=== PATIENT | female | born 1935 | race Caucasian/White ===

== ENCOUNTER → 2016-11-20 | Outpatient (CLI) | payer MEDICARE, BC ==
[2016-11-20 08:52] LABS: CHCM 34.3; HCT 41.6 % (34.0-46.0); HDW 3.56; HGB 13.6 gm/dL (11.4-16.0); MCH 28.9 pg (25.0-35.0); MCHC 32.7 g/dL (31.0-37.0); MCV 88.3 fL (80.0-100.0); Mean Platelet Volume 7.4; Poikilocytosis Slight; RBC 4.72 m/uL (3.80-5.40)
[2016-11-20 09:16] LABS: ALT 32 U/L (9-52); AST 22 U/L (14-36); Alkaline Phosphatase 94 U/L (38-126); Anion Gap 17 mmol/L; Blood Urea Nitrogen 18 mg/dL (7-17); Calcium 9.7 mg/dL (8.4-10.2); Carbon Dioxide 27 mmol/L (22-30); Chloride 105 mmol/L (98-107); Cholesterol 170 mg/dL (<200); Glucose 126 mg/dL (74-99); HDL Cholesterol 31 mg/dL (40-60); Non-African American GFR(MDRD) >60 (>60 ml/min/1.73 sqM); Potassium 4.1 mmol/L (3.5-5.1); Sodium 149 mmol/L (137-145); Total Bilirubin 0.9 mg/dL (0.2-1.3); Triglycerides 215 mg/dL (<150)
== END | disposition home or self-care (01) ==
LOC: LABWHC1 07:43
PROVIDERS: ATTEND Internal Medicine
DX: E11.9 Type 2 diabetes mellitus without complications (principal); I10 Essential (primary) hypertension; E78.5 Hyperlipidemia, unspecified; E03.9 Hypothyroidism, unspecified
CPT/HCPCS: 36415; 80053; 80061; 83036; 84443; 85027

== ENCOUNTER → 2016-11-26 | Outpatient (CLI) | payer MEDICARE, BC ==
--- NOTE | 2016-11-26 13:08 | XR ---
EXAMINATION TYPE: Right rib series DATE OF EXAM: 11/26/2016 12:45 PM COMPARISON: 07/30/2011 HISTORY: 80 year-old female right chest pain after fall FINDINGS: There are several nondisplaced fractures of the right anterolateral ninth and 10th ribs. No pleural effusion or pneumothorax seen. IMPRESSION: Nondisplaced fractures of the right anterolateral ninth and 10th ribs.
== END | disposition home or self-care (01) ==
LOC: RADXRMAIN 12:27
PROVIDERS: ATTEND Internal Medicine
DX: S22.41XA Multiple fractures of ribs, right side, initial encounter for closed fracture (principal)

== ENCOUNTER 2018-04-22 09:47 | Inpatient (IN) | payer MEDICARE, BC ==
[2018-04-22] MEDS ORDERED: SODIUM CHLORIDE 0.9% 1,000 ML IV STA (10:17)
[2018-04-22 10:45] LABS: Basophils % (A) 0 %; Eosinophils # (A) 0.1 k/uL (0-0.7); Eosinophils % (A) 1 %; HCT 37.9 % (34.0-46.0); HGB 13.3 gm/dL (11.4-16.0); Lymphocytes # (A) 0.9 k/uL (1.0-4.8); Lymphocytes % (A) 17 %; MCH 31.1 pg (25.0-35.0); MCHC 35.2 g/dL (31.0-37.0); MCV 88.4 fL (80.0-100.0); Mean Platelet Volume 6.4; Monocytes # (A) 0.3 k/uL (0-1.0); Monocytes % (A) 6 %; Neutrophils % (A) 74 %; Platelet Count 252 k/uL (150-450); RBC 4.28 m/uL (3.80-5.40); RDW 13.7 % (11.5-15.5); WBC 5.3 k/uL (3.8-10.6)
--- NOTE | 2018-04-22 10:49 | XR ---
EXAMINATION TYPE: XR chest 2V DATE OF EXAM: 04/22/2018 COMPARISON: 07/30/2011 HISTORY: 82 year-old female altered mental status, confusion TECHNIQUE: AP and lateral views FINDINGS: Heart upper limits of normal in size. Diffuse interstitial prominence/crowded vascular markings likel y secondary to low lung volumes. Patchy left basilar opacity. No pleural effusion. IMPRESSION: 1. Borderline heart size. 2. Hypoventilatory changes with crowded vascular markings. 3. Patchy left basilar opacity could represent atelectasis or developing pneumonia. Correlate with pa aracelis's symptoms.
[2018-04-22 10:52] LABS: INR 1.4 (<1.2); Partial Thromboplastin Time 23.4 sec (22.0-30.0); Prothrombin Time 12.8 sec (9.0-12.0)
--- NOTE | 2018-04-22 10:53 | CT ---
EXAMINATION TYPE: CT brain wo con DATE OF EXAM: 04/22/2018 COMPARISON: None HISTORY: Patient poor historian. Neuro deficits. CT DLP: 829.3 mGycm Automated exposure control for dose reduction was used. TECHNIQUE: CT scan of the head is performed without contrast. FINDINGS: There is no acute intracranial hemorrhage or midline shift identified. There is diffuse v entricular and sulcal prominence consistent with diffuse age-related cerebral atrophy. There is low- attenuation in the periventricular white matter consistent with chronic small vessel ischemic change. Punctate calcifications are seen within the left basal ganglia. No suspicious extra-axial fluid domingo ection is seen. The globes are intact and the visualized sinuses are clear. Lacunar injuries are se en of the left external capsule and right inferior lentiform nucleus on series 6 image 14. These appe ar to be subacute to chronic. There are patchy foci of hyperostosis within the frontal calvarium with the largest focus on the right on series 5 image 12 measuring 5 mm. Incidental note of hyperostosis frontalis internus is also noted. Moderate atherosclerosis of the intracranial vasculature is present . IMPRESSION: 1. No acute intracranial hemorrhage or midline shift. 2. Subacute to chronic bilateral lacunar injuries. 3. Diffuse age-related cerebral atrophy and nonspecific white matter change, likely on the basis of c hronic microangiopathy. 4. Multifocal subcentimeter osteoblastic frontal lesions that could relate to benign osteoma or bone islands although osteoblastic metastasis is possible. Nuclear medicine bone scan could further evalua te abnormal areas of uptake.
[2018-04-22 10:57] LABS: Albumin 4.3 g/dL (3.5-5.0); Potassium 3.2 mmol/L (3.5-5.1); Total Bilirubin 0.9 mg/dL (0.2-1.3); Total Protein 7.1 g/dL (6.3-8.2)
[2018-04-22 11:03] LABS: Creatine Kinase 138 U/L (30-135)
[2018-04-22 11:05] LABS: Calcium 6.5 mg/dL (8.4-10.2)
[2018-04-22] MEDS ORDERED: CALCIUM CHLORIDE 100 MG/ML 10 ML SYRINGE IVP STA (11:16)
[2018-04-22 11:17] LABS: Creatine Kinase MB 1.1 ng/mL (0.0-2.4); Troponin I <0.012 ng/mL (0.000-0.034)
[2018-04-22] MEDS ORDERED: CALCIUM CHLORIDE 1,000 MG in SODIUM CHLORIDE 0.9% 100 ML IVPB STA (11:20)
[2018-04-22] MEDS ORDERED: MAGNESIUM OXIDE 400 MG TAB PO STA (11:56)
--- NOTE | 2018-04-22 12:12 | ED ---
Neuro HPI - General Chief Complaint: Neuro Symptoms/Deficit Stated Complaint: bilat hand numbness Time Seen by Provider: 04/22/18 09:52 Source: patient, family Mode of arrival: ambulatory Limitations: no limitations - History of Present Illness Is the patient presenting with stroke symptoms?: No Initial Comments: 82 years old female presents with the numbness of the both hands and feet since she said it been going on for about a week now she has a history of diabetes hypertension and thyroid disease she stated no headaches no chest pain no shortness of breath no weakness of upper or lower extremities she denies any history of TIA or CVAs in the past. - Related Data Home Medications: Home Medications Medication Instructions Recorded Confirmed Atenolol [Tenormin] 25 mg PO DAILY 04/22/18 04/22/18 Dicyclomine [Bentyl] 10 mg PO TID 04/22/18 04/22/18 Doxycycline Hyclate [Vibramycin] 100 mg PO DAILY 04/22/18 04/22/18 Ergocalciferol (Vitamin D2) 50,000 unit PO Q7D 04/22/18 04/22/18 [Vitamin D2] Ferrous Sulfate [Feosol] 325 mg PO DAILY 04/22/18 04/22/18 Furosemide [Lasix] 20 mg PO DAILY 04/22/18 04/22/18 Gemfibrozil [Lopid] 600 mg PO DAILY 04/22/18 04/22/18 Levothyroxine Sodium [Synthroid] 75 mcg PO DAILY 04/22/18 04/22/18 Pantoprazole Sodium [Protonix] 40 mg PO DAILY 04/22/18 04/22/18 Simethicone 80 mg PO DAILY 04/22/18 04/22/18 amLODIPine [Norvasc] 5 mg PO DAILY 04/22/18 04/22/18 Allergies/Adverse Reactions: Allergies Allergy/AdvReac Type Severity Reaction Status Date / Time No Known Allergies Allergy Verified 04/22/18 11:23 Review of Systems ROS Statement: Those systems with pertinent positive or pertinent negative responses have been documented in the HPI. ROS Other: All systems not noted in ROS Statement are negative. General Exam - General Exam Comments Initial Comments: General: The patient is awake and alert, in no distress, and does not appear acutely ill. Skin: Skin is warm and dry and no rashes or lesions are noted. Eye: Pupils are equal, round and reactive to light, extra-ocular movements are intact; there is normal conjunctiva bilaterally. Ears, nose, mouth and throat: There are moist mucous membranes and no oral lesions. Neck: The neck is supple, there is no tenderness or JVD. Cardiovascular: There is a regular rate and rhythm. No murmur, rub or gallop is appreciated. Respiratory: To auscultation bilateral, no wheezing no rhonchi no distress respiratory floyd noticed Gastrointestinal: Soft, non-distended, non-tender abdomen without masses or organomegaly noted. There is no rebound or guarding present. Bowel sounds are unremarkable. Back: There is no tenderness to palpation in the midline. There is no obvious deformity. Musculoskeletal: Normal ROM, no tenderness, There is no pedal edema. There is no calf tenderness or swelling. No cords were appreciated. Neurological: CN II-XII intact, Cranial nerves III through XII are intact. There are no obvious motor or sensory deficits. Coordination appears grossly intact. Speech is normal. Psychiatric: Cooperative, appropriate mood & affect, normal judgment. Limitations: no limitations Stroke MDM - Lab Data Result diagrams: 04/22/18 10:24 04/22/18 10:24 Lab Results 04/22/18 04/22/18 04/22/18 Range/Units 10:24 10:24 10:24 WBC 5.3 (3.8-10.6) k/uL RBC 4.28 (3.80-5.40) m/uL Hgb 13.3 (11.4-16.0) gm/dL Hct 37.9 (34.0-46.0) % MCV 88.4 (80.0-100.0) fL MCH 31.1 (25.0-35.0) pg MCHC 35.2 (31.0-37.0) g/dL RDW 13.7 (11.5-15.5) % Plt Count 252 (150-450) k/uL Neutrophils % 74 % Lymphocytes % 17 % Monocytes % 6 % Eosinophils % 1 % Basophils % 0 % Neutrophils # 4.0 (1.3-7.7) k/uL Lymphocytes # 0.9 L (1.0-4.8) k/uL Monocytes # 0.3 (0-1.0) k/uL Eosinophils # 0.1 (0-0.7) k/uL Basophils # 0.0 (0-0.2) k/uL PT (9.0-12.0) sec INR (<1.2) APTT (22.0-30.0) sec Sodium 145 (137-145) mmol/L Potassium 3.2 L (3.5-5.1) mmol/L Chloride 106 (98-107) mmol/L Carbon Dioxide 22 (22-30) mmol/L Anion Gap 17 mmol/L BUN 16 (7-17) mg/dL Creatinine 0.80 (0.52-1.04) mg/dL Est GFR (CKD-EPI)AfAm 79 (>60 ml/min/1.73 sqM) Est GFR (CKD-EPI)NonAf 68 (>60 ml/min/1.73 sqM) Glucose 120 H (74-99) mg/dL Calcium 6.5 L* (8.4-10.2) mg/dL Total Bilirubin 0.9 (0.2-1.3) mg/dL AST 23 (14-36) U/L ALT 24 (9-52) U/L Alkaline Phosphatase 59 (38-126) U/L Total Creatine Kinase 138 H (30-135) U/L CK-MB (CK-2) 1.1 (0.0-2.4) ng/mL CK-MB (CK-2) Rel Index 0.8 Troponin I <0.012 (0.000-0.034) ng/mL Total Protein 7.1 (6.3-8.2) g/dL Albumin 4.3 (3.5-5.0) g/dL Urine Color Urine Appearance (Clear) Urine pH (5.0-8.0) Ur Specific [place] (1.001-1.035) Urine Protein (Negative) Urine Glucose (UA) (Negative) Urine Ketones (Negative) Urine Blood (Negative) Urine Nitrite (Negative) Urine Bilirubin (Negative) Urine Urobilinogen (<2.0) mg/dL Ur Leukocyte Esterase (Negative) Urine RBC (0-5) /hpf Urine WBC (0-5) /hpf Ur Squamous Epith Cells (0-4) /hpf Urine Mucus (None) /hpf 04/22/18 04/22/18 Range/Units 10:24 11:47 WBC (3.8-10.6) k/uL RBC (3.80-5.40) m/uL Hgb (11.4-16.0) gm/dL Hct (34.0-46.0) % MCV (80.0-100.0) fL MCH (25.0-35.0) pg MCHC (31.0-37.0) g/dL RDW (11.5-15.5) % Plt Count (150-450) k/uL Neutrophils % % Lymphocytes % % Monocytes % % Eosinophils % % Basophils % % Neutrophils # (1.3-7.7) k/uL Lymphocytes # (1.0-4.8) k/uL Monocytes # (0-1.0) k/uL Eosinophils # (0-0.7) k/uL Basophils # (0-0.2) k/uL PT 12.8 H (9.0-12.0) sec INR 1.4 H (<1.2) APTT 23.4 (22.0-30.0) sec Sodium (137-145) mmol/L Potassium (3.5-5.1) mmol/L Chloride (98-107) mmol/L Carbon Dioxide (22-30) mmol/L Anion Gap mmol/L BUN (7-17) mg/dL Creatinine (0.52-1.04) mg/dL Est GFR (CKD-EPI)AfAm (>60 ml/min/1.73 sqM) Est GFR (CKD-EPI)NonAf (>60 ml/min/1.73 sqM) Glucose (74-99) mg/dL Calcium (8.4-10.2) mg/dL Total Bilirubin (0.2-1.3) mg/dL AST (14-36) U/L ALT (9-52) U/L Alkaline Phosphatase (38-126) U/L Total Creatine Kinase (30-135) U/L CK-MB (CK-2) (0.0-2.4) ng/mL CK-MB (CK-2) Rel Index Troponin I (0.000-0.034) ng/mL Total Protein (6.3-8.2) g/dL Albumin (3.5-5.0) g/dL Urine Color Yellow Urine Appearance Clear (Clear) Urine pH 6.0 (5.0-8.0) Ur Specific [place] 1.015 (1.001-1.035) Urine Protein Trace H (Negative) Urine Glucose (UA) Negative (Negative) Urine Ketones Negative (Negative) Urine Blood Negative (Negative) Urine Nitrite Negative (Negative) Urine Bilirubin Negative (Negative) Urine Urobilinogen <2.0 (<2.0) mg/dL Ur Leukocyte Esterase Moderate H (Negative) Urine RBC <1 (0-5) /hpf Urine WBC 6 H (0-5) /hpf Ur Squamous Epith Cells 1 (0-4) /hpf Urine Mucus Rare H (None) /hpf Past Medical History Past Medical History: Heart Failure, Diabetes Mellitus, GERD/Reflux, Hypertension, Thyroid Disorder History of Any Multi-Drug Resistant Organisms: None Reported Past Surgical History: Appendectomy, Cholecystectomy, Hysterectomy, Orthopedic Surgery, Tonsillectomy Additional Past Surgical History / Comment(s): double breast reduction, vericose vein sx, cataracts, bilat knee scope Past Anesthesia/Blood Transfusion Reactions: No Reported Reaction Past Psychological History: No Psychological Hx Reported Smoking Status: Never smoker Past Alcohol Use History: None Reported Past Drug Use History: None Reported - Past Family History Father Family Medical History: Coronary Artery Disease (CAD), Myocardial Infarction (NH ) Mother Family Medical History: Coronary Artery Disease (CAD), GERD/Reflux, Myocardial Infarction (NH) Course Vital Signs 04/22/18 09:58 Temperature 97.0 F L Pulse Rate 68 Respiratory 18 Rate Blood Pressure 179/86 O2 Sat by Pulse 98 Oximetry EKG is sinus bradycardia ventricular rate 67 IA interval is 152 QRS duration is 70 QT/QTc is 508/404 review of this EKG reveals no ST elevation or ST depression noticed some T-wave flattening in aVL and aVF Upon reassessment at term 12:15 notice some the nuclear infarcts on the head CT bilateral also there is a question of osteoblastic lesions in the pronated hand radiology recommended that we do a bone scan WAS quite low 6.5 troponin is normal EKG was unremarkable chest x-ray is unremarkable there is some cardiomegaly and reviewed her echo report as well was done and rate and cardiology test x-rays a question of firm early pneumonia she has been coughing does bring up a lot of phlegm him and admit her observation for basically seeing floyd she is hyperkalemic she did get some IV and IV calcium nothing by mouth magnesium be admitted to service Disposition Clinical Impression: Hypocalcemia, Pneumonia, Lacunar infarction Disposition: ADMITTED IP TO THIS HOSP Condition: Good Referrals: Isabel Souza MD [Primary Care Provider] - 1-2 days
[2018-04-22 12:13] LABS: Appearance,Urine Clear (Clear); Bilirubin,Urine Negative (Negative); Blood,Urine Negative (Negative); Color,Urine Yellow; Glucose,Urine (UA) Negative (Negative); Ketones,Urine Negative (Negative); Leukocyte Esterase,Urine Moderate (Negative); Mucus,Urine Rare /hpf; Nitrite,Urine Negative (Negative); Protein,Urine Trace (Negative); RBC,Urine <1 /hpf (0-5); Specific Gravity,Urine 1.015 (1.001-1.035); Squamous Epithelial Cell,Urine 1 /hpf (0-4); Urobilinogen,Urine <2.0 mg/dL (<2.0); WBC,Urine 6 /hpf (0-5)
[2018-04-22] MEDS ORDERED: NALOXONE 0.4 MG/ML 1 ML VIAL IV PRN (12:26)
[2018-04-22] MEDS ORDERED: ONDANSETRON 4 MG/2 ML VIAL IVP PRN (12:26)
[2018-04-22] MEDS ORDERED: LEVOFLOXACIN 500 MG TAB PO STA (12:35)
[2018-04-22] MEDS ORDERED: CALCIUM CHLORIDE 1,000 MG in SODIUM CHLORIDE 0.9% 100 ML IVPB ONE (13:00)
[2018-04-22] MEDS ORDERED: POTASSIUM CHLORIDE ER 20 MEQ TAB.ER PO STA (13:07)
[2018-04-22] MEDS: SODIUM CHLORIDE 0.9% 1,000 ML IV SCH (13:32)
--- NOTE | 2018-04-22 13:36 | P.HPIM ---
History of Present Illness H&P Date: 04/22/18 Chief Complaint: Bilateral hand and feet numbness This is a 82-year-old female with a known past medical history of hypertension and hypothyroidism. She presented to the emergency room with complaints of numbness in her hands and feet bilaterally for the past week. Patient reports that she's been feeling very weak and shaky. She has had a 30 pound weight loss unintentionally over the past year. She was found to have a low calcium level of 6.5 and potassium is low at 3.2. Patient receives's calcium chloride and K-Dur 10 in the emergency room. She had a computed tomography scan of the brain without contrast showing no acute intracranial hemorrhage or midline shift. Subacute to chronic bilateral lacunar injuries. Diffuse age-related cerebral atrophy and nonspecific white matter change. And multifocal subcentimeter osteoblastic frontal lesions that could relate to a benign osteoma or bone islands although osteoblastic metastasis is possible. Bone scan has been ordered and oncology has been consulted. Chest x-ray showing hypoventilatory changes with carotid vascular markings. And patchy left basilar opacity that could represent atelectasis or developing pneumonia. Patient denies any cough or fever or chills. Incentive spirometer as ordered out that this is pneumonia. Patient also had evidence of a urinary tract infection and was started on Levaquin in the ER. Patient denies any chest pain , cough, shortness of breath, bowel movement changes or urinary symptoms. She had a few episodes of vomiting last week 1 day and no further episodes of vomiting. She occasionally has headaches. She denies any visual changes. She denies any slurred speech or weakness on one side of the body. Denies night sweats. Denies any smoking history. She had a brother with lung cancer. EKG shows sinus bradycardia with a heart rate of 57. Patient did have elevated INR of 1.4 not on any anticoagulation at home. Review of Systems Please refer to HPI otherwise unremarkable Past Medical History Past Medical History: Heart Failure, Diabetes Mellitus, GERD/Reflux, Hypertension, Thyroid Disorder History of Any Multi-Drug Resistant Organisms: None Reported Past Surgical History: Appendectomy, Cholecystectomy, Hysterectomy, Orthopedic Surgery, Tonsillectomy Additional Past Surgical History / Comment(s): double breast reduction, vericose vein sx, cataracts, bilat knee scope Past Anesthesia/Blood Transfusion Reactions: No Reported Reaction Past Psychological History: No Psychological Hx Reported Smoking Status: Never smoker Past Alcohol Use History: None Reported Past Drug Use History: None Reported - Past Family History Father Family Medical History: Coronary Artery Disease (CAD), Myocardial Infarction (NH ) Mother Family Medical History: Coronary Artery Disease (CAD), GERD/Reflux, Myocardial Infarction (NH) Medications and Allergies Home Medications Medication Instructions Recorded Confirmed Type Atenolol [Tenormin] 25 mg PO DAILY 04/22/18 04/22/18 History Dicyclomine [Bentyl] 10 mg PO TID 04/22/18 04/22/18 History Doxycycline Hyclate [Vibramycin] 100 mg PO DAILY 04/22/18 04/22/18 History Ergocalciferol (Vitamin D2) 50,000 unit PO Q7D 04/22/18 04/22/18 History [Vitamin D2] Ferrous Sulfate [Feosol] 325 mg PO DAILY 04/22/18 04/22/18 History Furosemide [Lasix] 20 mg PO DAILY 04/22/18 04/22/18 History Gemfibrozil [Lopid] 600 mg PO DAILY 04/22/18 04/22/18 History Levothyroxine Sodium [Synthroid] 75 mcg PO DAILY 04/22/18 04/22/18 History Pantoprazole Sodium [Protonix] 40 mg PO DAILY 04/22/18 04/22/18 History Simethicone 80 mg PO DAILY 04/22/18 04/22/18 History amLODIPine [Norvasc] 5 mg PO DAILY 04/22/18 04/22/18 History Allergies Allergy/AdvReac Type Severity Reaction Status Date / Time No Known Allergies Allergy Verified 04/22/18 11:23 Physical Exam Vitals: Vital Signs Temp Pulse Resp BP Pulse Ox 04/22/18 09:58 97.0 F L 68 18 179/86 98 Intake and Output 04/21/18 04/22/18 04/22/18 22:59 06:59 14:59 Other: Weight 63.049 kg Head normocephalic Neck supple Lungs clear to auscultation bilaterally no wheezing or crackles Heart regular rate and rhythm S1-S2, no rub or gallop Abdomen is soft nontender nondistended positive bowel sounds no hepatosplenomegaly Extremities no edema Neuro alert and orientated to 3. No facial droop or slurred speech. Hand dry transfer worker equal bilaterally. Lower extremity strength equal bilaterally. Results CBC & Chem 7: 04/22/18 10:24 04/22/18 10:24 Labs: Abnormal Lab Results - Last 24 Hours (Table) 04/22/18 04/22/18 04/22/18 Range/Units 10:24 10:24 10:24 Lymphocytes # 0.9 L (1.0-4.8) k/uL PT (9.0-12.0) sec INR (<1.2) Potassium 3.2 L (3.5-5.1) mmol/L Glucose 120 H (74-99) mg/dL Calcium 6.5 L* (8.4-10.2) mg/dL Total Creatine Kinase 138 H (30-135) U/L Urine Protein (Negative) Ur Leukocyte Esterase (Negative) Urine WBC (0-5) /hpf Urine Mucus (None) /hpf 04/22/18 04/22/18 Range/Units 10:24 11:47 Lymphocytes # (1.0-4.8) k/uL PT 12.8 H (9.0-12.0) sec INR 1.4 H (<1.2) Potassium (3.5-5.1) mmol/L Glucose (74-99) mg/dL Calcium (8.4-10.2) mg/dL Total Creatine Kinase (30-135) U/L Urine Protein Trace H (Negative) Ur Leukocyte Esterase Moderate H (Negative) Urine WBC 6 H (0-5) /hpf Urine Mucus Rare H (None) /hpf Assessment and Plan Assessment: 1. Bilateral numbness of the hands and feet possibly related to low potassium and calcium 2. 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 Bone scan ordered in ER. Oncology will be consulted. 3. UTI: Continue Levaquin. Check urine culture. 4. Hypokalemia: Patient received potassium supplement. Repeat potassium level in a.m. 5. Hypocalcemia: Calcium level 6.5. Patient given calcium chloride in ER. Repeat calcium level in a.m. 6. Coagulopathy with an INR of 1.4. Patient not on anticoagulation at home. Recheck INR in a.m. Patient reports no signs or symptoms of bleeding 7. Abnormal chest x-ray likely represents atelectasis doubt pneumonia. Patient denies any cough or fever. Incentive spirometer ordered. We will monitor. 8. Hypothyroidism continue Synthroid 9. Essential hypertension: Continue Norvasc, atenolol and Lasix GI prophylaxis Protonix and DVT prophylaxis SCDs. We'll hold off on anticoagulation for DVT prophylaxis due to elevated INR of 1.4 Time with Patient: Greater than 30 (Greater than 60% of the total time spent in counseling and coordination of care.I performed an examination of the patient and discussed their management with the physician Human Resources Office Manager. I have reviewed the Physician Human Resources Office Manager's notes and agree with the documented findings and plan of care)
[2018-04-22] MEDS ORDERED: ENALAPRILAT 1.25 MG/ML 1 ML VIAL IVP STA ×2 (13:48→14:28)
[2018-04-22] MEDS ORDERED: FUROSEMIDE 20 MG TAB PO STA (16:12)
--- NOTE | 2018-04-22 17:50 | NM ---
EXAMINATION TYPE: NM bone scan whole body DATE OF EXAM: 04/22/2018 COMPARISON: NONE HISTORY: Delayed whole-body scanning was performed following the injection of 21.5 mCi Tc 99m MDP. Images acq uired 4 hours post injection. FINDINGS: There is focal increased uptake in the medial aspect right knee. Medial and lateral aspect left knee, both wrist joints. There is increased uptake in the right ankle joint. There is very slight focal in creased uptake in the posterior thoracic spine at T10 on the right side. I do not see any abnormal up take in the skull. IMPRESSION: Multiple areas of increased uptake are all consistent with arthritic disease. I do not suspect osseou s metastatic disease. Normal uptake in the skull. No evidence of a fracture.
[2018-04-22] MEDS: LISINOPRIL 10 MG TAB PO SCH (18:23)
[2018-04-22] MEDS: CALCIUM CARBONATE LIQUID 500 MG/5 ML CUP PO SCH (18:23)
[2018-04-22] MEDS: DICYCLOMINE 10 MG CAP PO SCH ×2 (18:23→22:37)
[2018-04-23] MEDS: SODIUM CHLORIDE 0.9% 1,000 ML IV SCH ×2 (04:00→16:12)
[2018-04-23] MEDS: LEVOTHYROXINE 75 MCG TAB PO SCH (05:30)
[2018-04-23 07:05] LABS: Basophils % (A) 0 %; Eosinophils # (A) 0.1 k/uL (0-0.7); Eosinophils % (A) 3 %; HGB 12.1 gm/dL (11.4-16.0); Ionized Calcium 3.9 mg/dL (4.5-5.3); Lymphocytes # (A) 0.9 k/uL (1.0-4.8); Lymphocytes % (A) 22 %; MCH 30.4 pg (25.0-35.0); MCHC 33.6 g/dL (31.0-37.0); MCV 90.6 fL (80.0-100.0); Monocytes # (A) 0.2 k/uL (0-1.0); Monocytes % (A) 5 %; Neutrophils # (A) 2.9 k/uL (1.3-7.7); Neutrophils % (A) 68 %; Platelet Count 206 k/uL (150-450); RBC 3.97 m/uL (3.80-5.40); RDW 13.9 % (11.5-15.5); WBC 4.2 k/uL (3.8-10.6)
[2018-04-23 07:16] LABS: INR 1.5 (<1.2); Prothrombin Time 13.6 sec (9.0-12.0)
[2018-04-23 07:19] LABS: ALT 26 U/L (9-52); AST 21 U/L (14-36); Albumin 3.7 g/dL (3.5-5.0); Alkaline Phosphatase 52 U/L (38-126); Anion Gap 14 mmol/L; Blood Urea Nitrogen 11 mg/dL (7-17); Calcium 7.4 mg/dL (8.4-10.2); Carbon Dioxide 22 mmol/L (22-30); Chloride 109 mmol/L (98-107); Glucose 96 mg/dL (74-99); Potassium 3.4 mmol/L (3.5-5.1); Sodium 145 mmol/L (137-145); Total Protein 6.2 g/dL (6.3-8.2)
--- NOTE | 2018-04-23 07:36 | XR ---
EXAMINATION TYPE: XR chest 2V DATE OF EXAM: 04/23/2018 COMPARISON: Prior chest 04/22/2018 HISTORY: Abnormal chest x-ray TECHNIQUE: Frontal and lateral views of the chest are obtained. FINDINGS: Increased AP diameter chest could be indicative of underlying COPD. Interstitium is increa sed. Heart is enlarged. Central vascularity appears prominently. No pneumothorax or pleural effusion. There are overlying cardiac leads. IMPRESSION: Suspect underlying interstitial lung disease, correlate to exclude pulmonary venous hype rtension and interstitial edema.
[2018-04-23] MEDS: CALCIUM CARBONATE LIQUID 500 MG/5 ML CUP PO SCH ×2 (07:50→18:05)
[2018-04-23] MEDS: SIMETHICONE 80 MG CHEWABLE PO SCH (07:50)
[2018-04-23] MEDS: FUROSEMIDE 20 MG TAB PO SCH (07:51)
[2018-04-23] MEDS: GEMFIBROZIL 600 MG TAB PO SCH (07:52)
[2018-04-23] MEDS: PANTOPRAZOLE 40 MG TABLET PO SCH (07:52)
[2018-04-23] MEDS: FERROUS SULFATE 325 MG TAB PO SCH (07:52)
[2018-04-23] MEDS: LISINOPRIL 10 MG TAB PO SCH (07:52)
[2018-04-23] MEDS: DICYCLOMINE 10 MG CAP PO SCH ×3 (07:53→21:32)
[2018-04-23] MEDS: amLODIPine 5 MG TAB PO SCH (07:53)
[2018-04-23] MEDS ORDERED: ERGOCALCIFEROL 50,000 UNIT CAP PO SCH (09:00)
[2018-04-23] MEDS ORDERED: LEVOFLOXACIN 500 MG TAB PO SCH (09:00)
[2018-04-23] MEDS ORDERED: DOXYCYCLINE 50 MG CAP PO SCH (09:00)
[2018-04-23] MEDS ORDERED: POTASSIUM CHLORIDE ER 20 MEQ TAB.ER PO STA (09:19)
--- NOTE | 2018-04-23 10:59 | P.PN ---
Subjective Progress Note Date: 04/23/18 This is a 82-year-old female with a known past medical history of hypertension and hypothyroidism. She presented to the emergency room with complaints of numbness in her hands and feet bilaterally for the past week. Patient reports that she's been feeling very weak and shaky. She has had a 30 pound weight loss unintentionally over the past year. She was found to have a low calcium level of 6.5 and potassium is low at 3.2. Patient receives's calcium chloride and K-Dur 10 in the emergency room. She had a computed tomography scan of the brain without contrast showing no acute intracranial hemorrhage or midline shift. Subacute to chronic bilateral lacunar injuries. Diffuse age-related cerebral atrophy and nonspecific white matter change. And multifocal subcentimeter osteoblastic frontal lesions that could relate to a benign osteoma or bone islands although osteoblastic metastasis is possible. Bone scan has been ordered and oncology has been consulted. Chest x-ray showing hypoventilatory changes with carotid vascular markings. And patchy left basilar opacity that could represent atelectasis or developing pneumonia. Patient denies any cough or fever or chills. Incentive spirometer as ordered out that this is pneumonia. Patient also had evidence of a urinary tract infection and was started on Levaquin in the ER. Patient denies any chest pain , cough, shortness of breath, bowel movement changes or urinary symptoms. She had a few episodes of vomiting last week 1 day and no further episodes of vomiting. She occasionally has headaches. She denies any visual changes. She denies any slurred speech or weakness on one side of the body. Denies night sweats. Denies any smoking history. She had a brother with lung cancer. EKG shows sinus bradycardia with a heart rate of 57. Patient did have elevated INR of 1.4 not on any anticoagulation at home. 04/23/2018 patient's numbness in her hands and feet have improved. Calcium has gone up from 6.5-7.4. Ionized calcium 3.9. Potassium has gone up from 3.2- 3.4. Patient had mild headache this morning. Patient complained of multiple episodes of diarrhea last night. Has had no further stools this morning. Bone scan completed showing multiple areas of increased uptake are all consistent with arthritic disease. I do not suspect osseous metastatic disease. Normal uptake in the skull. No evidence of fracture. Patient denies any signs of bleeding. Denies chest pain or shortness of breath. Denies any nausea or vomiting. Denies any burning with urination. She is reporting poor oral intake and decreased appetite. Ensure will be added. Chest x-ray showing suspected underlying interstitial disease correlate for pulmonary venous hypertension and interstitial edema. BNP 1000. IV fluids decreased to 50 mL an hour Objective - Vital Signs Vital signs: Vital Signs Temp 99 F 04/23/18 07:54 Pulse 56 L 04/23/18 07:54 Resp 16 04/23/18 07:54 BP 162/73 04/23/18 07:54 Pulse Ox 95 04/23/18 07:54 Intake & Output 04/22/18 04/23/18 04/23/18 18:59 06:59 18:59 Weight 63.049 kg Other: Voiding Method Toilet Toilet # Voids 1 2 # Bowel Movements 1 - Exam Head normocephalic Neck supple Lungs clear to auscultation bilaterally no wheezing or crackles Heart regular rate and rhythm S1-S2, no rub or gallop Abdomen is soft nontender nondistended positive bowel sounds no hepatosplenomegaly Extremities no edema Neuro alert and orientated to 3 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 Lower extremity strength equal - Labs CBC & Chem 7: 04/23/18 06:46 04/23/18 06:46 Labs: Abnormal Lab Results - Last 24 Hours (Table) 04/22/18 04/22/18 04/22/18 Range/Units 10:24 10:24 10:24 Lymphocytes # 0.9 L (1.0-4.8) k/uL PT (9.0-12.0) sec INR (<1.2) Potassium 3.2 L (3.5-5.1) mmol/L Chloride (98-107) mmol/L Glucose 120 H (74-99) mg/dL Calcium 6.5 L* (8.4-10.2) mg/dL Ionized Calcium Cosmo (4.5-5.3) mg/dL Total Creatine Kinase 138 H (30-135) U/L Total Protein (6.3-8.2) g/dL Urine Protein (Negative) Ur Leukocyte Esterase (Negative) Urine WBC (0-5) /hpf Urine Mucus (None) /hpf 04/22/18 04/22/18 04/23/18 Range/Units 10:24 11:47 06:46 Lymphocytes # 0.9 L (1.0-4.8) k/uL PT 12.8 H (9.0-12.0) sec INR 1.4 H (<1.2) Potassium (3.5-5.1) mmol/L Chloride (98-107) mmol/L Glucose (74-99) mg/dL Calcium (8.4-10.2) mg/dL Ionized Calcium Cosmo (4.5-5.3) mg/dL Total Creatine Kinase (30-135) U/L Total Protein (6.3-8.2) g/dL Urine Protein Trace H (Negative) Ur Leukocyte Esterase Moderate H (Negative) Urine WBC 6 H (0-5) /hpf Urine Mucus Rare H (None) /hpf 04/23/18 04/23/18 Range/Units 06:46 06:46 Lymphocytes # (1.0-4.8) k/uL PT 13.6 H (9.0-12.0) sec INR 1.5 H (<1.2) Potassium 3.4 L (3.5-5.1) mmol/L Chloride 109 H (98-107) mmol/L Glucose (74-99) mg/dL Calcium 7.4 L (8.4-10.2) mg/dL Ionized Calcium Cosmo 3.9 L (4.5-5.3) mg/dL Total Creatine Kinase (30-135) U/L Total Protein 6.2 L (6.3-8.2) g/dL Urine Protein (Negative) Ur Leukocyte Esterase (Negative) Urine WBC (0-5) /hpf Urine Mucus (None) /hpf Microbiology - Last 24 Hours (Table) 04/22/18 11:47 Urine Culture - Preliminary Urine,Voided Assessment and Plan Assessment: 1. Bilateral numbness of the hands and feet possibly related to low potassium and calcium. Numbness has resolved. 2. 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 Oncology will be consulted. Bone scan showing multiple areas of increased uptake CONSISTENT with arthritic disease and radiologist does not suspect osseous metastatic disease. 3. UTI: Continue Levaquin. Urine culture pending 4. Hypokalemia: Potassium 3.4. Will give K-Dur 20 milliequivalents today. Repeat potassium level in a.m. Check magnesium level 5. Hypocalcemia: Calcium level 6.5 up to 7.4. Ionized calcium 3.9. Patient given calcium chloride in ER. Patient receiving calcium carbonate 500 mg twice a day. 6. Coagulopathy with an INR of 1.4 up to 1.5. No evidence of bleeding. Patient not on anticoagulation at home. Continue to monitor 7. Abnormal chest x-ray likely represents atelectasis doubt pneumonia. Patient denies any cough or fever. Incentive spirometer ordered. We will monitor. 8. Hypothyroidism continue Synthroid 9. Essential hypertension: Continue Norvasc, atenolol and Lasix 10. Poor oral intake and decrease in appetite add ensure 1 can 2 times a day. Albumin 3.7 GI prophylaxis Protonix and DVT prophylaxis SCDs. We'll hold off on anticoagulation for DVT prophylaxis due to elevated INR of 1.4 I performed an examination of the patient and discussed their management with the physician Guest Room Attendant. I have reviewed the Physician Guest Room Attendant's notes and agree with the documented findings and plan of care
[2018-04-23] MEDS: ATENOLOL 25 MG TAB PO SCH (11:26)
[2018-04-23 11:53] VITALS: BMI 27.1
[2018-04-23] MEDS: MAGNESIUM SULFATE-D5W PMX 1 GM in DEXTROSE/WATER 1 100ML.BAG IVPB SCH ×2 (13:04→14:42)
--- NOTE | 2018-04-23 16:26 | US ---
EXAMINATION TYPE: US thyroid st tissue head/neck DATE OF EXAM: 04/23/2018 COMPARISON: NONE CLINICAL HISTORY: 82-year-old female hypocalcemia. TECHNIQUE: Multiple sonographic images of the thyroid gland are obtained. FINDINGS: GLAND SIZE: Right Lobe: 3.9 x 1.2 x 1.5 cm Overall Parenchyma: heterogenous Left Lobe: 3.4 x 0.9 x 1.1 cm Overall Parenchyma: heterogeneous Isthmus Thickness: 0.3 cm NODULES RIGHT: # of nodules measured on right: 1 1. 0.5 X 0.3 x 0.5 cm hypoechoic cystic nodule, probable tiny colloid cyst at the midpole. This nod ule is wider than tall and shows no intranodular vascularity. Prior size: No previous LEFT: # of nodules measured on left: 1 1. 0.4 X 0.2 x 0.3 cm tiny colloid cyst at the lower pole with well-defined margins; . This nodule is wider than tall and shows no intranodular vascularity. Prior size: No previous ISTHMUS: # of nodules measured in the isthmus: 0 Bilateral neck scanned, no evidence of lymphadenopathy. IMPRESSION: A tiny probable colloid cyst measuring up to 5 mm on either side.
--- NOTE | 2018-04-23 18:11 | P.CONS ---
History of Present Illness - Reason for Consult Consult date: 04/23/18 Bone lesions, weight loss - History of Present Illness The patient is an 82-year-old lady, with multiple medical issues. The patient had presented with increasing weakness, numbness in both hands and feet and feeling shaky over at least the last week. She was therefore brought into the hospital, where labs revealed and magnesium. She had a computed tomography scan of the brain done which revealed no evidence of any mass effect or acute stroke. The report, however mentioned possible subcentimeter lesions in the bony calvarium likely benign, with osteoblastic metastasis however not ruled out. The consult was initially placed for evaluation of the same. In addition the patient has reported about a 30 pound weight loss over the last 6- 8 months. She is also been complaining of upper abdominal discomfort, with nausea and intermittent vomiting , with no specific aggravating or relieving factors. the patient had presented with abdominal pain, nausea and occasional vomiting initially in 2014. She had had an EGD and colonoscopy in 12/04 which revealed a hiatal hernia and diverticulosis. The patient's symptoms improved significantly with Protonix on which she has continued since. However, her current GI symptoms started a few months ago, and have been increasingly prominent and progressive since 03/05. The patient denied any difficulty swallowing, vomiting up blood, or blood in the stool. She has had some intermittent diarrhea, since being on doxycycline for a skin condition. Review of Systems Constitutional: Reports fatigue, Reports poor appetite, Reports weight loss Eyes: denies blurred vision, denies pain Ears: deny: decreased hearing, ear discharge, earache, tinnitus Ears, nose, mouth and throat: Denies headache, Denies sore throat Cardiovascular: Reports decreased exercise tolerance Respiratory: Reports cough Gastrointestinal: Reports diarrhea, Reports heartburn, Reports indigestion, Reports nausea, Reports vomiting Genitourinary: Denies dysuria, Denies hematuria Musculoskeletal: Reports muscle weakness Integumentary: Denies pruritus, Denies rash Neurological: Reports numbness, Reports weakness Psychiatric: Denies anxiety, Denies depression Endocrine: Reports fatigue, Reports weight change Hematologic/Lymphatic: Reports as per HPI Past Medical History Past Medical History: Diabetes Mellitus, GERD/Reflux, Hyperlipidemia, Hypertension, Thyroid Disorder Additional Past Medical History / Comment(s): Pt states she lost weight and is no longer on diabetic medication, arthritis bilateral hands, varicose veins, diverticular disease, hypothyroid, past epistaxis. History of Any Multi-Drug Resistant Organisms: None Reported Past Surgical History: Appendectomy, Breast Surgery, Cholecystectomy, Hysterectomy, Orthopedic Surgery, Tonsillectomy Additional Past Surgical History / Comment(s): 2014 cardiac cath-clear, R nasalseptal hemangioma removed, bilateral leg varicose vein sx, bilateral knee arthroscopies, R hand/wrist surgery for arthritis, colonoscopy 2 yrs ago-normal , bilateral breast reductions. Past Anesthesia/Blood Transfusion Reactions: No Reported Reaction Smoking Status: Never smoker - Past Family History Father Family Medical History: Coronary Artery Disease (CAD), Myocardial Infarction ([place] ) Mother Family Medical History: Coronary Artery Disease (CAD), GERD/Reflux, Myocardial Infarction ([place]) Medications and Allergies Home Medications Medication Instructions Recorded Confirmed Type Atenolol [Tenormin] 25 mg PO DAILY 04/22/18 04/22/18 History Dicyclomine [Bentyl] 10 mg PO TID 04/22/18 04/22/18 History Doxycycline Hyclate [Vibramycin] 100 mg PO DAILY 04/22/18 04/22/18 History Ergocalciferol (Vitamin D2) 50,000 unit PO Q7D 04/22/18 04/22/18 History [Vitamin D2] Ferrous Sulfate [Feosol] 325 mg PO DAILY 04/22/18 04/22/18 History Furosemide [Lasix] 20 mg PO DAILY 04/22/18 04/22/18 History Gemfibrozil [Lopid] 600 mg PO DAILY 04/22/18 04/22/18 History Levothyroxine Sodium [Synthroid] 75 mcg PO DAILY 04/22/18 04/22/18 History Pantoprazole Sodium [Protonix] 40 mg PO DAILY 04/22/18 04/22/18 History Simethicone 80 mg PO DAILY 04/22/18 04/22/18 History amLODIPine [Norvasc] 5 mg PO DAILY 04/22/18 04/22/18 History Allergies Allergy/AdvReac Type Severity Reaction Status Date / Time No Known Allergies Allergy Verified 04/22/18 11:23 Physical Exam Vitals: Vital Signs Temp Pulse Pulse Resp BP Pulse Ox 04/23/18 16:00 55 L 16 04/23/18 14:34 98.9 F 59 L 16 116/55 95 04/23/18 08:00 55 L 16 04/23/18 07:54 99 F 56 L 16 162/73 95 04/22/18 21:25 98.1 F 51 L 20 124/66 94 L Intake and Output 04/23/18 04/23/18 04/23/18 06:59 14:59 22:59 Other: Voiding Method Toilet Toilet Toilet # Voids 2 3 2 Weight 63.049 kg - Constitutional General appearance: no acute distress - EENT Eyes: EOMI, PERRLA ENT: hearing grossly normal, normal oropharynx - Neck Neck: no lymphadenopathy Thyroid: bilateral: normal size - Respiratory Respiratory: bilateral: CTA - Cardiovascular Rhythm: regular Heart sounds: normal: S1, S2 - Gastrointestinal General gastrointestinal: normal bowel sounds, soft - Integumentary Integumentary: normal - Neurologic Neurologic: CNII-XII intact - Musculoskeletal Musculoskeletal: generalized weakness, strength equal bilaterally - Psychiatric Psychiatric: A&O x's 3, appropriate affect Results CBC & Chem 7: 04/23/18 06:46 04/23/18 06:46 Labs: Abnormal Lab Results - Last 24 Hours (Table) 04/23/18 04/23/18 04/23/18 Range/Units 06:46 06:46 06:46 Lymphocytes # 0.9 L (1.0-4.8) k/uL PT 13.6 H (9.0-12.0) sec INR 1.5 H (<1.2) Potassium 3.4 L (3.5-5.1) mmol/L Chloride 109 H (98-107) mmol/L Calcium 7.4 L (8.4-10.2) mg/dL Ionized Calcium Cosmo 3.9 L (4.5-5.3) mg/dL Magnesium (1.6-2.3) mg/dL Total Protein 6.2 L (6.3-8.2) g/dL 04/23/18 Range/Units 06:46 Lymphocytes # (1.0-4.8) k/uL PT (9.0-12.0) sec INR (<1.2) Potassium (3.5-5.1) mmol/L Chloride (98-107) mmol/L Calcium (8.4-10.2) mg/dL Ionized Calcium Cosmo (4.5-5.3) mg/dL Magnesium 0.5 L* (1.6-2.3) mg/dL Total Protein (6.3-8.2) g/dL Microbiology - Last 24 Hours (Table) 04/22/18 13:33 Blood Culture - Preliminary Blood No Growth after 24 hours 04/22/18 11:47 Urine Culture - Preliminary Urine,Voided Comments: Report of bone scan this admission reviewed. Operative reports and pathology reports from EGD and colonoscopy from 12/04 reviewed Chest x-ray: report reviewed CT Scan - head: report reviewed Assessment and Plan (1) Bone lesion Narrative/Plan: The patient's computed tomography scan of the head had incidentally noted subcentimeter bone lesions. The differential included benign bone island, versus osteoblastic subcentimeter metastasis. The patient had no symptoms related to the same. A bone scan was performed which was negative. Therefore metastatic disease in the bone can be ruled out at this time. No further workup is necessary. Current Visit: Yes Status: Acute Code(s): M89.9 - DISORDER OF BONE, UNSPECIFIED SNOMED Code(s): 91698963 (2) Weight loss Narrative/Plan: The patient has had abnormal weight loss as noted, associated with GI symptoms. The case was discussed with the admitting service. One of the concerns at this time with an underlying malignancy. Therefore computed tomography scan of the chest abdomen and pelvis will be ordered. Surgery will be consulted for repeat GI workup, especially upper endoscopy, given her symptoms. The above was discussed with the patient and her family and all her questions answered. 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 This could be related to combination of decreased oral intake, as well as intermittent diarrhea. The patient is being replaced at this time. Defer to the admitting service for continued management. GI workup will hopefully help rule out any absorption issues Defer to the admitting service for management of her other medical problems
[2018-04-23 18:30] LABS: Magnesium 1.3 mg/dL (1.6-2.3); Potassium 3.8 mmol/L (3.5-5.1)
[2018-04-23] MEDS: IOPAMIDOL-300 CONTRAST 30 ML VIAL (ORAL USE) PO PRN ×2 (19:57→20:36)
--- NOTE | 2018-04-23 22:00 | CT ---
EXAMINATION TYPE: CT ChestAbdPelvis w con DATE OF EXAM: 04/23/2018 COMPARISON: 10/08/2015 HISTORY: Abnormal weight loss, vomiting, and abdominal pain. CT DLP: 771.3 mGycm Automated exposure control for dose reduction was used. CONTRAST: CT scan of the chest, abdomen and pelvis is performed with Oral Contrast and with IV Contrast, patien t injected with 100ml mL of Isovue 300. FINDINGS: There is mild pulmonary emphysema. There is coarsening of interstitial pulmonary markings consistent with fibrosis. Heart is enlarged. There are a few paratracheal lymph nodes measure up to 1.5 cm. Ther e is no evidence of thoracic aortic aneurysm. There is no dissection. There are large pulmonary arter ies consistent with pulmonary hypertension. There is no pericardial effusion. There is no pleural effusion. Liver shows no focal defect. Bile ducts are not dilated. There is prominent common hepatic duct but n o dilation of the intrahepatic bile ducts. Spleen appears normal. There is no pancreatic mass. There is no adrenal mass. There is a 1 cm cortical cyst upper pole right kidney. There is mild right-sided hydronephrosis. Distal right ureter does not appear dilated. There is no retroperitoneal adenopathy. Abdominal aorta is atheromatous. I see no intestinal wall thi ckening. There are numerous diverticula in the sigmoid colon. There is no evidence of diverticulitis. There is no evidence of bowel obstruction. There is no free air. I see no bony destructive process. Bladder distends smoothly. There is no sign of a pelvic mass. IMPRESSION: Pulmonary fibrotic changes. Cardiomegaly. There is probably pulmonary hypertension. Chronically dilated common bile duct without change compared to old exam. There is also mild right si de hydronephrosis which appears stable. No renal atrophy. I do not suspect renal obstruction. Small r enal cortical cysts. Atherosclerotic vascular disease. Sigmoid mild diverticulosis. No sign of an acu te abdomen and pelvis.
[2018-04-24] MEDS: LEVOTHYROXINE 75 MCG TAB PO SCH (06:14)
[2018-04-24 06:57] LABS: Basophils % (A) 1 %; Eosinophils # (A) 0.2 k/uL (0-0.7); Eosinophils % (A) 4 %; HCT 34.1 % (34.0-46.0); HGB 11.4 gm/dL (11.4-16.0); Lymphocytes # (A) 0.9 k/uL (1.0-4.8); Lymphocytes % (A) 24 %; MCH 30.1 pg (25.0-35.0); MCHC 33.6 g/dL (31.0-37.0); MCV 89.5 fL (80.0-100.0); Mean Platelet Volume 6.8; Monocytes # (A) 0.2 k/uL (0-1.0); Monocytes % (A) 6 %; Neutrophils # (A) 2.5 k/uL (1.3-7.7); Neutrophils % (A) 63 %; Platelet Count 172 k/uL (150-450); RBC 3.81 m/uL (3.80-5.40); RDW 13.8 % (11.5-15.5); WBC 3.9 k/uL (3.8-10.6)
[2018-04-24 07:00] LABS: INR 1.3 (<1.2); Prothrombin Time 12.4 sec (9.0-12.0)
[2018-04-24 07:20] LABS: ALT 25 U/L (9-52); AST 21 U/L (14-36); Albumin 3.5 g/dL (3.5-5.0); Alkaline Phosphatase 52 U/L (38-126); Anion Gap 11 mmol/L; Blood Urea Nitrogen 12 mg/dL (7-17); Carbon Dioxide 26 mmol/L (22-30); Chloride 108 mmol/L (98-107); Glucose 106 mg/dL (74-99); Magnesium 1.2 mg/dL (1.6-2.3); Potassium 3.7 mmol/L (3.5-5.1); Sodium 145 mmol/L (137-145); Total Bilirubin 0.7 mg/dL (0.2-1.3); Total Protein 5.9 g/dL (6.3-8.2)
[2018-04-24] MEDS: CALCIUM CARBONATE LIQUID 500 MG/5 ML CUP PO SCH ×3 (08:14→17:39)
[2018-04-24] MEDS: ATENOLOL 25 MG TAB PO SCH (08:15)
[2018-04-24] MEDS: amLODIPine 5 MG TAB PO SCH (08:15)
[2018-04-24] MEDS: PANTOPRAZOLE 40 MG TABLET PO SCH (08:16)
[2018-04-24] MEDS: DICYCLOMINE 10 MG CAP PO SCH ×3 (08:17→21:26)
[2018-04-24] MEDS: LEVOFLOXACIN 250 MG TAB PO SCH (08:17)
[2018-04-24] MEDS: FUROSEMIDE 20 MG TAB PO SCH (08:17)
[2018-04-24] MEDS: FERROUS SULFATE 325 MG TAB PO SCH (08:17)
[2018-04-24] MEDS: GEMFIBROZIL 600 MG TAB PO SCH (08:17)
[2018-04-24] MEDS: SIMETHICONE 80 MG CHEWABLE PO SCH (08:18)
[2018-04-24] MEDS: LISINOPRIL 10 MG TAB PO SCH (08:18)
--- NOTE | 2018-04-24 09:59 | P.CNPUL ---
History of Present Illness Consult date: 04/24/18 Requesting physician: Isabel Souza Reason for consult: dyspnea Chief complaint: Tingling and numbness of the hands and feet History of present illness: This is a very pleasant 82-year-old female patient who follows with Dr. Souza as her primary care physician. She is a history of hypertension, hypothyroidism and gastroesophageal reflux disease, diabetes mellitus. She had been having issues of cough and congestion for approximately 1 week. She was treated with Vibramycin in the outpatient setting. She presented here on April 22 with complaints of tingling and numbness of her hands and feet. She was found to be hypocalcemic and hypokalemic and was admitted for the same. Computed tomography scan of the brain revealed no acute intracranial abnormalities. 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 A follow-up bone scan did not reveal any osseous lesions. We were consulted today with abnormal CAT scan findings showing fibrotic changes. Currently the patient has no pulmonary complaints. She is maintaining good O2 saturations in the upper 90s on room air. She's been afebrile. She continues with a loose nonproductive cough. No leukocytosis. She is currently on Levaquin. She is a lifelong nonsmoker. Review of Systems 14 point review of system was conducted. All negative other than as mentioned in the HPI. Past Medical History Past Medical History: Diabetes Mellitus, GERD/Reflux, Hyperlipidemia, Hypertension, Thyroid Disorder Additional Past Medical History / Comment(s): Pt states she lost weight and is no longer on diabetic medication, arthritis bilateral hands, varicose veins, diverticular disease, hypothyroid, past epistaxis. History of Any Multi-Drug Resistant Organisms: None Reported Past Surgical History: Appendectomy, Breast Surgery, Cholecystectomy, Hysterectomy, Orthopedic Surgery, Tonsillectomy Additional Past Surgical History / Comment(s): 2014 cardiac cath-clear, R nasalseptal hemangioma removed, bilateral leg varicose vein sx, bilateral knee arthroscopies, R hand/wrist surgery for arthritis, colonoscopy 2 yrs ago-normal , bilateral breast reductions. Past Anesthesia/Blood Transfusion Reactions: No Reported Reaction Smoking Status: Never smoker - Past Family History Father Family Medical History: Coronary Artery Disease (CAD), Myocardial Infarction (PR ) Mother Family Medical History: Coronary Artery Disease (CAD), GERD/Reflux, Myocardial Infarction (PR) Medications and Allergies Home Medications Medication Instructions Recorded Confirmed Type Atenolol [Tenormin] 25 mg PO DAILY 04/22/18 04/22/18 History Dicyclomine [Bentyl] 10 mg PO TID 04/22/18 04/22/18 History Doxycycline Hyclate [Vibramycin] 100 mg PO DAILY 04/22/18 04/22/18 History Ergocalciferol (Vitamin D2) 50,000 unit PO Q7D 04/22/18 04/22/18 History [Vitamin D2] Ferrous Sulfate [Feosol] 325 mg PO DAILY 04/22/18 04/22/18 History Furosemide [Lasix] 20 mg PO DAILY 04/22/18 04/22/18 History Gemfibrozil [Lopid] 600 mg PO DAILY 04/22/18 04/22/18 History Levothyroxine Sodium [Synthroid] 75 mcg PO DAILY 04/22/18 04/22/18 History Pantoprazole Sodium [Protonix] 40 mg PO DAILY 04/22/18 04/22/18 History Simethicone 80 mg PO DAILY 04/22/18 04/22/18 History amLODIPine [Norvasc] 5 mg PO DAILY 04/22/18 04/22/18 History Allergies Allergy/AdvReac Type Severity Reaction Status Date / Time No Known Allergies Allergy Verified 04/22/18 11:23 Physical Exam Vitals: Vital Signs Temp Pulse Pulse Resp BP Pulse Ox 04/24/18 05:38 98.2 F 62 18 144/73 96 04/23/18 23:00 96.1 F L 64 18 152/72 96 04/23/18 16:00 55 L 16 04/23/18 14:34 98.9 F 59 L 16 116/55 95 Intake and Output 04/23/18 04/24/18 04/24/18 22:59 06:59 14:59 Intake Total 920 400 Balance 920 400 Intake: IV 400 Sodium Chloride 0.9% 1, 400 000 ml @ 50 mls/hr IV . Q20H [facility] Rx#:[id number] Oral 920 Other: Voiding Method Toilet # Voids 1 1 GENERAL EXAM: Alert, active, comfortable in no apparent distress. HEAD: Normocephalic. EYES: Normal reaction of pupils, equal size. NOSE: Clear with pink turbinates. THROAT: No erythema or exudates. NECK: No masses, no JVD. CHEST: No chest wall deformity. LUNGS: Equal air entry with no wheeze, rhonchi or dullness. Coarse crackles in the bases CVS: S1 and S2 normal with no audible murmur, regular rhythm. ABDOMEN: No hepatosplenomegaly, normal bowel sounds, no guarding or rigidity. SPINE: No scoliosis or deformity SKIN: No rashes CENTRAL NERVOUS SYSTEM: No focal deficits, tone is normal in all 4 extremities. EXTREMITIES: There is no peripheral edema. No clubbing, no cyanosis. Peripheral pulses are intact. Results - Laboratory Findings CBC and BMP: 04/24/18 06:44 04/24/18 06:44 PT/INR, D-dimer PT 12.4 sec (9.0-12.0) H 04/24/18 06:44 INR 1.3 (<1.2) H 04/24/18 06:44 Abnormal lab findings: Abnormal Labs 04/22/18 04/22/18 04/22/18 10:24 10:24 10:24 Lymphocytes # 0.9 L PT INR Potassium 3.2 L Chloride Glucose 120 H Calcium 6.5 L* Ionized Calcium Cosmo Magnesium Total Creatine Kinase 138 H Total Protein Urine Protein Ur Leukocyte Esterase Urine WBC Urine Mucus 04/22/18 04/22/18 04/23/18 10:24 11:47 06:46 Lymphocytes # 0.9 L PT 12.8 H INR 1.4 H Potassium Chloride Glucose Calcium Ionized Calcium Cosmo Magnesium Total Creatine Kinase Total Protein Urine Protein Trace H Ur Leukocyte Esterase Moderate H Urine WBC 6 H Urine Mucus Rare H 04/23/18 04/23/18 04/23/18 06:46 06:46 06:46 Lymphocytes # PT 13.6 H INR 1.5 H Potassium 3.4 L Chloride 109 H Glucose Calcium 7.4 L Ionized Calcium Cosmo 3.9 L Magnesium 0.5 L* Total Creatine Kinase Total Protein 6.2 L Urine Protein Ur Leukocyte Esterase Urine WBC Urine Mucus 04/23/18 04/24/18 04/24/18 17:55 06:44 06:44 Lymphocytes # 0.9 L PT 12.4 H INR 1.3 H Potassium Chloride Glucose Calcium Ionized Calcium Cosmo Magnesium 1.3 L Total Creatine Kinase Total Protein Urine Protein Ur Leukocyte Esterase Urine WBC Urine Mucus 04/24/18 06:44 Lymphocytes # PT INR Potassium Chloride 108 H Glucose 106 H Calcium 8.0 L Ionized Calcium Cosmo Magnesium 1.2 L Total Creatine Kinase Total Protein 5.9 L Urine Protein Ur Leukocyte Esterase Urine WBC Urine Mucus - Diagnostic Findings Chest x-ray: image reviewed CT scan - chest: image reviewed Assessment and Plan Assessment: Impression: #1 Hypocalcemia of unclear etiology, possibly due to poor oral intake. Improved #2 Hypokalemia of unclear etiology again possibly related to poor oral intake and diarrhea. Improved #3 Dyspnea secondary to suspected pulmonary fibrosis. #4 Hyperlipidemia. #5 Hypertension. #6 Hypothyroidism. #7 Gastroesophageal reflux disease. Plan: The patient was seen and evaluated by Dr. Carvajal. Her labs, chest x-ray and computed tomography scan were all reviewed. She may have some underlying pulmonary fibrosis. We can work her up in the outpatient setting including full pulmonary function testing 6 minute walk test and high-resolution computed tomography scan of the chest. She is stable for discharge from the pulmonary standpoint. We could see her in the office in 1-2 weeks' time. She and her and daughter were encouraged to call sooner with any recurrence of symptoms or other questions or concerns. I, the cosigning physician, performed a history & physical examination of the patient. Lungs sounds with coarse crackles in the posterior bases. Maintaining good O2 saturations in the 90s on room air. I discussed the assessment and plan of care with my nurse practitioner, Jacqueline Greene. I attest to the above consult patient as dictated by her. Time with Patient: Greater than 30
--- NOTE | 2018-04-24 09:59 | P.PN ---
Progress Note - Text Progress Note Date: 04/24/18 The patient is up in the bathroom. The patient will be scheduled for upper and lower endoscopy on Thursday.
--- NOTE | 2018-04-24 15:43 | PN ---
PROGRESS NOTE DATE OF SERVICE: 04/24/2018 CHIEF COMPLAINT: Tired. Nancy seen today on followup. She feels tired. She still has issues of nausea and diarrhea. She underwent a CT scan of the chest, abdomen and pelvis and a bone scan without any suspicious finding. PHYSICAL EXAMINATION: She is alert, oriented x3. She is not in distress. Her vital signs, temperature 98.2 afebrile, pulse 62, respiration 18, blood pressure 144/73. HEENT: Normocephalic, atraumatic. Neck is supple. No palpable cervical, supraclavicular nodes. Chest equal expansion bilaterally. Lungs are clear to auscultation. Heart is regular rate and rhythm. Abdomen is soft, no tenderness. Extremities reveal no edema. LABORATORY DATA: WBC of 3.9, hemoglobin 11.4, hematocrit 34.1, hematocrit is 89.5, platelet 172. Sodium 145, potassium 3.7, chloride 108, CO2 is 26, BUN is 12, creatinine 0.69. Her calcium is 8. Her magnesium is 1.2. IMPRESSION: 1. Questionable lesion on her skull. However, this felt it may represent bony island. There is no suspicious finding on CT scan of the chest, abdomen and pelvis and on recent bone scan as well. 2. Ongoing vomiting and diarrhea for over a year. 3. Electrolyte imbalance and significant hypocalcemia. RECOMMENDATION: 1. I reviewed the recent CT scan and bone scan with the patient and family. 2. I agree with planned EGD and colonoscopy early next week. 3. Correct electrolyte and consider endocrinology evaluation in regard to her significant hypocalcemia. MMODL / IJN: [id number] /
--- NOTE | 2018-04-24 17:10 | P.PN ---
Subjective Progress Note Date: 04/24/18 This is a 82-year-old female with a known past medical history of hypertension and hypothyroidism. She presented to the emergency room with complaints of numbness in her hands and feet bilaterally for the past week. Patient reports that she's been feeling very weak and shaky. She has had a 30 pound weight loss unintentionally over the past year. She was found to have a low calcium level of 6.5 and potassium is low at 3.2. Patient receives's calcium chloride and K-Dur 10 in the emergency room. She had a computed tomography scan of the brain without contrast showing no acute intracranial hemorrhage or midline shift. Subacute to chronic bilateral lacunar injuries. Diffuse age-related cerebral atrophy and nonspecific white matter change. And multifocal subcentimeter osteoblastic frontal lesions that could relate to a benign osteoma or bone islands although osteoblastic metastasis is possible. Bone scan has been ordered and oncology has been consulted. Chest x-ray showing hypoventilatory changes with carotid vascular markings. And patchy left basilar opacity that could represent atelectasis or developing pneumonia. Patient denies any cough or fever or chills. Incentive spirometer as ordered out that this is pneumonia. Patient also had evidence of a urinary tract infection and was started on Levaquin in the ER. Patient denies any chest pain , cough, shortness of breath, bowel movement changes or urinary symptoms. She had a few episodes of vomiting last week 1 day and no further episodes of vomiting. She occasionally has headaches. She denies any visual changes. She denies any slurred speech or weakness on one side of the body. Denies night sweats. Denies any smoking history. She had a brother with lung cancer. EKG shows sinus bradycardia with a heart rate of 57. Patient did have elevated INR of 1.4 not on any anticoagulation at home. 04/23/2018 patient's numbness in her hands and feet have improved. Calcium has gone up from 6.5-7.4. Ionized calcium 3.9. Potassium has gone up from 3.2- 3.4. Patient had mild headache this morning. Patient complained of multiple episodes of diarrhea last night. Has had no further stools this morning. Bone scan completed showing multiple areas of increased uptake are all consistent with arthritic disease. I do not suspect osseous metastatic disease. Normal uptake in the skull. No evidence of fracture. Patient denies any signs of bleeding. Denies chest pain or shortness of breath. Denies any nausea or vomiting. Denies any burning with urination. She is reporting poor oral intake and decreased appetite. Ensure will be added. Chest x-ray showing suspected underlying interstitial disease correlate for pulmonary venous hypertension and interstitial edema. BNP 1000. IV fluids decreased to 50 mL an hour On 04/24/2018 patient is alert and oriented 3 in no apparent distress she is complaining of nausea otherwise she denies any complaints at this time there is no fever or chills no headache or dizziness no chest pain no shortness of breath no cough no vomiting no abdominal pain no diarrhea and no urinary symptoms Objective - Vital Signs Vital signs: Vital Signs Temp 98.2 F 04/24/18 15:00 Pulse 56 L 04/24/18 15:00 Resp 16 04/24/18 15:00 BP 135/71 04/24/18 15:00 Pulse Ox 95 04/24/18 15:00 Intake & Output 04/23/18 04/24/18 04/24/18 18:59 06:59 18:59 Intake Total 720 600 Balance 720 600 Weight 63.049 kg Intake: IV 400 Sodium Chloride 0.9% 1, 400 000 ml @ 50 mls/hr IV . 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 Lower extremity strength equal - Labs CBC & Chem 7: 04/24/18 06:44 04/24/18 06:44 Labs: Abnormal Lab Results - Last 24 Hours (Table) 04/23/18 04/24/18 04/24/18 Range/Units 17:55 06:44 06:44 Lymphocytes # 0.9 L (1.0-4.8) k/uL PT 12.4 H (9.0-12.0) sec INR 1.3 H (<1.2) Chloride (98-107) mmol/L Glucose (74-99) mg/dL Calcium (8.4-10.2) mg/dL Magnesium 1.3 L (1.6-2.3) mg/dL Total Protein (6.3-8.2) g/dL 04/24/18 Range/Units 06:44 Lymphocytes # (1.0-4.8) k/uL PT (9.0-12.0) sec INR (<1.2) Chloride 108 H (98-107) mmol/L Glucose 106 H (74-99) mg/dL Calcium 8.0 L (8.4-10.2) mg/dL Magnesium 1.2 L (1.6-2.3) mg/dL Total Protein 5.9 L (6.3-8.2) g/dL Microbiology - Last 24 Hours (Table) 04/22/18 13:33 Blood Culture - Preliminary Blood No Growth after 48 hours 04/22/18 11:47 Urine Culture - Preliminary Urine,Voided Group D Enterococcus Assessment and Plan Plan: 1. Bilateral numbness of the hands and feet possibly related to low potassium and calcium. Numbness has resolved. 2. 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 Oncology will be consulted. Bone scan showing multiple areas of increased uptake CONSISTENT with arthritic disease and radiologist does not suspect osseous metastatic disease. 3. UTI: Continue Levaquin. Urine culture pending 4. Hypokalemia: Potassium 3.4. Will give K-Dur 20 milliequivalents today. Repeat potassium level in a.m. Check magnesium level 5. Hypocalcemia: Calcium level 6.5 up to 7.4. Ionized calcium 3.9. Patient given calcium chloride in ER. Patient receiving calcium carbonate 500 mg twice a day. Cause is unclear at this time we are checking parathyroid hormone level, checking ultrasound of the thyroid in the parathyroid glands, checking level of vitamin D, also evaluation is ongoing to rule out any malignancy. 6. Coagulopathy with an INR of 1.4 up to 1.5. No evidence of bleeding. Patient not on anticoagulation at home. Continue to monitor 7. Abnormal chest x-ray likely represents atelectasis doubt pneumonia. Patient denies any cough or fever. Incentive spirometer ordered. We will monitor. 8. Hypothyroidism continue Synthroid 9. Essential hypertension: Continue Norvasc, atenolol and Lasix 10. Poor oral intake and decrease in appetite add ensure 1 can 2 times a day. Albumin 3.7
[2018-04-24] MEDS: SODIUM CHLORIDE 0.9% 1,000 ML IV SCH (17:39)
[2018-04-25] MEDS: LEVOTHYROXINE 75 MCG TAB PO SCH (06:13)
[2018-04-25] MEDS: GEMFIBROZIL 600 MG TAB PO SCH (07:21)
[2018-04-25] MEDS: FERROUS SULFATE 325 MG TAB PO SCH (07:21)
[2018-04-25] MEDS: LEVOFLOXACIN 250 MG TAB PO SCH (07:21)
[2018-04-25] MEDS: SIMETHICONE 80 MG CHEWABLE PO SCH (07:21)
[2018-04-25] MEDS: FUROSEMIDE 20 MG TAB PO SCH (07:21)
[2018-04-25] MEDS: amLODIPine 5 MG TAB PO SCH (07:22)
[2018-04-25] MEDS: PANTOPRAZOLE 40 MG TABLET PO SCH (07:22)
[2018-04-25] MEDS: ATENOLOL 25 MG TAB PO SCH (07:22)
[2018-04-25] MEDS: LISINOPRIL 10 MG TAB PO SCH (07:22)
[2018-04-25] MEDS: DICYCLOMINE 10 MG CAP PO SCH ×3 (07:22→21:26)
[2018-04-25] MEDS: CALCIUM CARBONATE LIQUID 500 MG/5 ML CUP PO SCH ×3 (07:22→17:08)
[2018-04-25] MEDS: SODIUM CHLORIDE 0.9% 1,000 ML IV SCH ×2 (07:22→17:58)
[2018-04-25 07:48] LABS: Basophils % (A) 1 %; Eosinophils # (A) 0.1 k/uL (0-0.7); Eosinophils % (A) 4 %; HCT 34.5 % (34.0-46.0); HGB 11.6 gm/dL (11.4-16.0); Lymphocytes # (A) 0.8 k/uL (1.0-4.8); Lymphocytes % (A) 24 %; MCH 30.2 pg (25.0-35.0); MCHC 33.7 g/dL (31.0-37.0); MCV 89.7 fL (80.0-100.0); Mean Platelet Volume 6.4; Monocytes # (A) 0.2 k/uL (0-1.0); Monocytes % (A) 7 %; Neutrophils # (A) 2.1 k/uL (1.3-7.7); Neutrophils % (A) 63 %; Platelet Count 180 k/uL (150-450); RBC 3.84 m/uL (3.80-5.40); RDW 13.9 % (11.5-15.5); WBC 3.3 k/uL (3.8-10.6)
[2018-04-25 07:50] LABS: INR 1.3 (<1.2); Prothrombin Time 12.1 sec (9.0-12.0)
[2018-04-25 08:05] LABS: ALT 26 U/L (9-52); AST 23 U/L (14-36); Albumin 3.4 g/dL (3.5-5.0); Alkaline Phosphatase 51 U/L (38-126); Anion Gap 8 mmol/L; Blood Urea Nitrogen 8 mg/dL (7-17); Calcium 8.4 mg/dL (8.4-10.2); Carbon Dioxide 26 mmol/L (22-30); Chloride 109 mmol/L (98-107); Glucose 97 mg/dL (74-99); Magnesium 1.3 mg/dL (1.6-2.3); Potassium 3.6 mmol/L (3.5-5.1); Sodium 143 mmol/L (137-145); Total Bilirubin 0.8 mg/dL (0.2-1.3)
[2018-04-25] MEDS ORDERED: PEG 3350-NA SULF,BICARB,CL/KCL 4,000 ML BOTTLE PO ONE (09:16)
--- NOTE | 2018-04-25 09:17 | P.PN ---
Progress Note - Text Progress Note Date: 04/25/18 The patient is resting comfortably in bed. She has no current pain. On exam her vital signs are stable. Her abdomen soft. Patient was scheduled for EGD and colonoscopy tomorrow.
--- NOTE | 2018-04-25 11:47 | P.PN ---
Subjective Progress Note Date: 04/25/18 Principal diagnosis: Shortness of breath Progress note dated 04/25/2018 82-year-old female with evidence of interstitial lung disease/pulmonary fibrosis on computed tomography scan. The patient denies any pulmonary complaints including shortness of breath or cough. Saturations are made on room air. She is a lifelong nonsmoker. Cough is mostly nonproductive. This is consistent with underlying interstitial lung disease. More recently, the patient has had issues with hypocalcemia as well as low potassium. In addition , the patient has a chronic history of hyperlipidemia hypertension GERD and hypothyroidism. We told the patient and the primary care physician that the patient could be worked up as an outpatient for interstitial lung disease. She will need a 6 minute walk distance and a high resolution computed tomography scan. Again this can be done as an outpatient. From the pulmonary standpoint, she is very stable. Saturations are excellent. Objective - Vital Signs Vital signs: Vital Signs Temp 98.0 F 04/25/18 06:23 Pulse 64 04/25/18 07:26 Resp 16 04/25/18 07:26 BP 172/79 04/25/18 06:23 Pulse Ox 96 04/25/18 06:23 Intake & Output 04/24/18 04/25/18 04/25/18 18:59 06:59 18:59 Intake Total 240 590 Balance 240 590 Intake: Oral 240 590 Other: Voiding Method Toilet Toilet Toilet # Voids 2 2 # Bowel Movements 1 - Exam No acute distress, oriented 3. No requirement for supplemental oxygen. HEENT examination is grossly unremarkable. Mucous membranes are moist. No oral lesions. Neck supple. Full range of motion. No adenopathy thyromegaly or neck vein distention. Cardiovascular examination reveals regular rhythm rate. S1-S2 normal. No S3 or S4. No discernible murmur noted. Lungs reveal mild bibasilar crackles. She is not particularly restricted in her breathing. No rhonchi or wheezes. Breath sounds are equal bilaterally. Abdomen soft bowel sounds are heard. No masses or tenderness. Extremities are intact. No cyanosis clubbing or edema. Skin is without rash or lesion. Neurologic examination is brief but nonfocal. - Labs CBC & Chem 7: 04/25/18 07:06 04/25/18 07:06 Labs: Abnormal Lab Results - Last 24 Hours (Table) 04/25/18 04/25/18 04/25/18 Range/Units 07:06 07:06 07:06 WBC 3.3 L (3.8-10.6) k/uL Lymphocytes # 0.8 L (1.0-4.8) k/uL PT 12.1 H (9.0-12.0) sec INR 1.3 H (<1.2) Chloride 109 H (98-107) mmol/L Magnesium 1.3 L (1.6-2.3) mg/dL Total Protein 6.0 L (6.3-8.2) g/dL Albumin 3.4 L (3.5-5.0) g/dL Microbiology - Last 24 Hours (Table) 04/22/18 11:47 Urine Culture - Final Urine,Voided Enterococcus faecalis 04/22/18 13:33 Blood Culture - Preliminary Blood No Growth after 48 hours Assessment and Plan Assessment: Assessment Possible interstitial lung disease based on CAT scan results. Electrolyte disturbance including hypocalcemia and hypokalemia. History of hyperlipidemia History of hypertension History of hypothyroidism Gastroesophageal reflux disease Plan: Plan dated 04/25/2018 Labs x-rays a medications are all reviewed yesterday. The patient may have some underlying interstitial lung disease/pulmonary fibrosis." Up in the outpatient setting. In the office she will need pulmonary function tests and a 6 minute walk distance. She'll also need a high-resolution computed tomography scan. From the pulmonary standpoint, she could be discharged home. We will continue her in the office in next 1-2 weeks. No additional recommendations are made. Prognosis is guarded. Time with Patient: Less than 30
--- NOTE | 2018-04-25 16:07 | P.PN ---
Subjective Progress Note Date: 04/25/18 This is a 82-year-old female with a known past medical history of hypertension and hypothyroidism. She presented to the emergency room with complaints of numbness in her hands and feet bilaterally for the past week. Patient reports that she's been feeling very weak and shaky. She has had a 30 pound weight loss unintentionally over the past year. She was found to have a low calcium level of 6.5 and potassium is low at 3.2. Patient receives's calcium chloride and K-Dur 10 in the emergency room. She had a computed tomography scan of the brain without contrast showing no acute intracranial hemorrhage or midline shift. Subacute to chronic bilateral lacunar injuries. Diffuse age-related cerebral atrophy and nonspecific white matter change. And multifocal subcentimeter osteoblastic frontal lesions that could relate to a benign osteoma or bone islands although osteoblastic metastasis is possible. Bone scan has been ordered and oncology has been consulted. Chest x-ray showing hypoventilatory changes with carotid vascular markings. And patchy left basilar opacity that could represent atelectasis or developing pneumonia. Patient denies any cough or fever or chills. Incentive spirometer as ordered out that this is pneumonia. Patient also had evidence of a urinary tract infection and was started on Levaquin in the ER. Patient denies any chest pain , cough, shortness of breath, bowel movement changes or urinary symptoms. She had a few episodes of vomiting last week 1 day and no further episodes of vomiting. She occasionally has headaches. She denies any visual changes. She denies any slurred speech or weakness on one side of the body. Denies night sweats. Denies any smoking history. She had a brother with lung cancer. EKG shows sinus bradycardia with a heart rate of 57. Patient did have elevated INR of 1.4 not on any anticoagulation at home. 04/23/2018 patient's numbness in her hands and feet have improved. Calcium has gone up from 6.5-7.4. Ionized calcium 3.9. Potassium has gone up from 3.2- 3.4. Patient had mild headache this morning. Patient complained of multiple episodes of diarrhea last night. Has had no further stools this morning. Bone scan completed showing multiple areas of increased uptake are all consistent with arthritic disease. I do not suspect osseous metastatic disease. Normal uptake in the skull. No evidence of fracture. Patient denies any signs of bleeding. Denies chest pain or shortness of breath. Denies any nausea or vomiting. Denies any burning with urination. She is reporting poor oral intake and decreased appetite. Ensure will be added. Chest x-ray showing suspected underlying interstitial disease correlate for pulmonary venous hypertension and interstitial edema. BNP 1000. IV fluids decreased to 50 mL an hour On 04/24/2018 patient is alert and oriented 3 in no apparent distress she is complaining of nausea otherwise she denies any complaints at this time there is no fever or chills no headache or dizziness no chest pain no shortness of breath no cough no vomiting no abdominal pain no diarrhea and no urinary symptoms On 04/25/2018 patient stable alert and oriented in no distress, she is currently receiving GoLYTELY in preparation for colonoscopy tomorrow otherwise she denies any complaints Objective - Vital Signs Vital signs: Vital Signs Temp 98.0 F 04/25/18 06:23 Pulse 59 L 04/25/18 10:00 Resp 18 04/25/18 10:00 BP 121/72 04/25/18 10:00 Pulse Ox 96 04/25/18 06:23 Intake & Output 04/24/18 04/25/18 04/25/18 18:59 06:59 18:59 Intake Total 240 590 Balance 240 590 Intake: Oral 240 590 Other: Voiding Method Toilet Toilet Toilet # Voids 2 2 # Bowel Movements 1 - Exam Head normocephalic and atraumatic Neck supple no JVD no goiter Lungs clear to auscultation bilaterally no wheezing or crackles Heart regular rate and rhythm S1-S2, no rub or gallop Abdomen is soft nontender nondistended positive bowel sounds no hepatosplenomegaly Extremities no edema no cyanosis or clubbing Neuro alert and orientated to 3 hand medical genetics director equal bilaterally. Lower extremity strength equal - Labs CBC & Chem 7: 04/25/18 07:06 04/25/18 07:06 Labs: Abnormal Lab Results - Last 24 Hours (Table) 04/25/18 04/25/18 04/25/18 Range/Units 07:06 07:06 07:06 WBC 3.3 L (3.8-10.6) k/uL Lymphocytes # 0.8 L (1.0-4.8) k/uL PT 12.1 H (9.0-12.0) sec INR 1.3 H (<1.2) Chloride 109 H (98-107) mmol/L Magnesium 1.3 L (1.6-2.3) mg/dL Total Protein 6.0 L (6.3-8.2) g/dL Albumin 3.4 L (3.5-5.0) g/dL Microbiology - Last 24 Hours (Table) 04/22/18 11:47 Urine Culture - Final Urine,Voided Enterococcus faecalis 04/22/18 13:33 Blood Culture - Preliminary Blood No Growth after 48 hours Assessment and Plan Plan: 1. Bilateral numbness of the hands and feet possibly related to low potassium and calcium. Numbness has resolved. 2. 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 Oncology will be consulted. Bone scan showing multiple areas of increased uptake CONSISTENT with arthritic disease and radiologist does not suspect osseous metastatic disease. 3. UTI: Continue Levaquin. Urine culture pending 4. Hypokalemia: Potassium 3.4. Will give K-Dur 20 milliequivalents today. Repeat potassium level in a.m. Check magnesium level 5. Hypocalcemia: Calcium level 6.5 up to 7.4. Ionized calcium 3.9. Patient given calcium chloride in ER. Patient receiving calcium carbonate 500 mg twice a day. Cause is unclear at this time we are checking parathyroid hormone level, checking ultrasound of the thyroid in the parathyroid glands, checking level of vitamin D, also evaluation is ongoing to rule out any malignancy. 6. Coagulopathy with an INR of 1.4 up to 1.5. No evidence of bleeding. Patient not on anticoagulation at home. Continue to monitor 7. Abnormal chest x-ray likely represents atelectasis doubt pneumonia. Patient denies any cough or fever. Incentive spirometer ordered. We will monitor. 8. Hypothyroidism continue Synthroid 9. Essential hypertension: Continue Norvasc, atenolol and Lasix 10. Poor oral intake and decrease in appetite add ensure 1 can 2 times a day. Albumin 3.7
[2018-04-25] MEDS ORDERED: Magnesium Replacement Protocol 1 EACH MISC MISCELLANE PRN (16:25)
[2018-04-25] MEDS: MAGNESIUM SULFATE-D5W PMX 1 GM in DEXTROSE/WATER 1 100ML.BAG IVPB SCH ×3 (17:59→21:26)
[2018-04-26] MEDS: LEVOTHYROXINE 75 MCG TAB PO SCH (04:54)
[2018-04-26 08:08] LABS: Basophils % (A) 1 %; Eosinophils # (A) 0.2 k/uL (0-0.7); Eosinophils % (A) 4 %; HCT 39.6 % (34.0-46.0); HGB 13.3 gm/dL (11.4-16.0); Lymphocytes % (A) 22 %; MCH 30.4 pg (25.0-35.0); MCHC 33.7 g/dL (31.0-37.0); MCV 90.3 fL (80.0-100.0); Mean Platelet Volume 6.1; Monocytes # (A) 0.2 k/uL (0-1.0); Monocytes % (A) 5 %; Neutrophils # (A) 2.8 k/uL (1.3-7.7); Neutrophils % (A) 65 %; Platelet Count 264 k/uL (150-450); Poikilocytosis Slight; RBC 4.38 m/uL (3.80-5.40); RDW 13.9 % (11.5-15.5); WBC 4.3 k/uL (3.8-10.6)
[2018-04-26 08:13] LABS: INR 1.2 (<1.2); Prothrombin Time 11.6 sec (9.0-12.0)
[2018-04-26 08:24] LABS: ALT 24 U/L (9-52); AST 26 U/L (14-36); Albumin 4.1 g/dL (3.5-5.0); Alkaline Phosphatase 74 U/L (38-126); Anion Gap 12 mmol/L; Blood Urea Nitrogen 5 mg/dL (7-17); Calcium 8.5 mg/dL (8.4-10.2); Carbon Dioxide 24 mmol/L (22-30); Chloride 108 mmol/L (98-107); Glucose 102 mg/dL (74-99); Magnesium 2.2 mg/dL (1.6-2.3); Potassium 3.8 mmol/L (3.5-5.1); Sodium 144 mmol/L (137-145); Total Protein 6.8 g/dL (6.3-8.2)
[2018-04-26] MEDS ORDERED: ENALAPRILAT 1.25 MG/ML 1 ML VIAL IVP PRN (10:13)
--- NOTE | 2018-04-26 10:26 | P.PN ---
Subjective Progress Note Date: 04/26/18 This is a 82-year-old female with a known past medical history of hypertension and hypothyroidism. She presented to the emergency room with complaints of numbness in her hands and feet bilaterally for the past week. Patient reports that she's been feeling very weak and shaky. She has had a 30 pound weight loss unintentionally over the past year. She was found to have a low calcium level of 6.5 and potassium is low at 3.2. Patient receives's calcium chloride and K-Dur 10 in the emergency room. She had a computed tomography scan of the brain without contrast showing no acute intracranial hemorrhage or midline shift. Subacute to chronic bilateral lacunar injuries. Diffuse age-related cerebral atrophy and nonspecific white matter change. And multifocal subcentimeter osteoblastic frontal lesions that could relate to a benign osteoma or bone islands although osteoblastic metastasis is possible. Bone scan has been ordered and oncology has been consulted. Chest x-ray showing hypoventilatory changes with carotid vascular markings. And patchy left basilar opacity that could represent atelectasis or developing pneumonia. Patient denies any cough or fever or chills. Incentive spirometer as ordered out that this is pneumonia. Patient also had evidence of a urinary tract infection and was started on Levaquin in the ER. Patient denies any chest pain , cough, shortness of breath, bowel movement changes or urinary symptoms. She had a few episodes of vomiting last week 1 day and no further episodes of vomiting. She occasionally has headaches. She denies any visual changes. She denies any slurred speech or weakness on one side of the body. Denies night sweats. Denies any smoking history. She had a brother with lung cancer. EKG shows sinus bradycardia with a heart rate of 57. Patient did have elevated INR of 1.4 not on any anticoagulation at home. 04/23/2018 patient's numbness in her hands and feet have improved. Calcium has gone up from 6.5-7.4. Ionized calcium 3.9. Potassium has gone up from 3.2- 3.4. Patient had mild headache this morning. Patient complained of multiple episodes of diarrhea last night. Has had no further stools this morning. Bone scan completed showing multiple areas of increased uptake are all consistent with arthritic disease. I do not suspect osseous metastatic disease. Normal uptake in the skull. No evidence of fracture. Patient denies any signs of bleeding. Denies chest pain or shortness of breath. Denies any nausea or vomiting. Denies any burning with urination. She is reporting poor oral intake and decreased appetite. Ensure will be added. Chest x-ray showing suspected underlying interstitial disease correlate for pulmonary venous hypertension and interstitial edema. BNP 1000. IV fluids decreased to 50 mL an hour On 04/24/2018 patient is alert and oriented 3 in no apparent distress she is complaining of nausea otherwise she denies any complaints at this time there is no fever or chills no headache or dizziness no chest pain no shortness of breath no cough no vomiting no abdominal pain no diarrhea and no urinary symptoms On 04/25/2018 patient stable alert and oriented in no distress, she is currently receiving GoLYTELY in preparation for colonoscopy tomorrow otherwise she denies any complaints 04/26/2018 patient is scheduled for EGD and colonoscopy today. Electrolytes have normalized. Elevated blood pressure of 173/83 this morning. She is nothing by mouth for procedures. IV Vasotec ordered. She's had no further numbness in her hands or feet. Stools are clear. Denies any chest pain or shortness of breath. Denies any vomiting Objective - Vital Signs Vital signs: Vital Signs Temp 98.0 F 04/26/18 06:00 Pulse 57 L 04/26/18 09:19 Resp 16 04/26/18 06:00 BP 179/78 04/26/18 09:19 Pulse Ox 96 04/26/18 06:00 Intake & Output 04/25/18 04/26/18 04/26/18 18:59 06:59 18:59 Intake Total 590 Balance 590 Intake: Oral 590 Other: Voiding Method Toilet Toilet # Voids 5 2 # Bowel Movements 5 - Exam Head normocephalic Neck supple Lungs clear to auscultation bilaterally no wheezing or crackles Heart regular rate and rhythm S1-S2, no rub or gallop Abdomen is soft nontender nondistended positive bowel sounds no hepatosplenomegaly Extremities no edema Neuro alert and orientated to 3 - Labs CBC & Chem 7: 04/26/18 07:22 04/26/18 07:22 Labs: Abnormal Lab Results - Last 24 Hours (Table) 04/26/18 04/26/18 Range/Units 07:22 07:22 INR 1.2 H (<1.2) Chloride 108 H (98-107) mmol/L BUN 5 L (7-17) mg/dL Glucose 102 H (74-99) mg/dL Microbiology - Last 24 Hours (Table) 04/22/18 13:33 Blood Culture - Preliminary Blood No Growth after 72 hours Assessment and Plan Assessment: 1. Bilateral numbness of the hands and feet possibly related to low potassium and calcium. Numbness has resolved. 2. 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 Oncology will be consulted. Bone scan showing multiple areas of increased uptake CONSISTENT with arthritic disease and radiologist does not suspect osseous metastatic disease. Patient is scheduled for EGD and colonoscopy for further evaluation of any malignancy. She had been having changes in bowel movements and intermittent vomiting prior to admission 3. UTI: Continue Levaquin. Urine culture growing enterococcus faecalis 4. Hypokalemia: Resolved 5. Hypocalcemia: Calcium level 6.5 up to 7.4. Ionized calcium 3.9. Patient given calcium chloride in ER. Patient receiving calcium carbonate 500 mg 3 times a day. Calcium level normalized at 8.5. Parathyroid hormone normal vitamin D 25-hydroxy normal at 54.2 6. Coagulopathy with an INR of 1.4 up to 1.5. No evidence of bleeding. Patient not on anticoagulation at home. Continue to monitor. INR trending down 7. Abnormal chest x-ray likely represents atelectasis doubt pneumonia. Patient denies any cough or fever. Incentive spirometer ordered. We will monitor. 8. Hypothyroidism continue Synthroid 9. Essential hypertension: Continue Norvasc, atenolol and Lasix. IV Vasotec added since patient is nothing by mouth and cannot take meds. 10. Poor oral intake and decrease in appetite add ensure 1 can 2 times a day. Albumin 3.7 11. Hypomagnesemia resolved 12. Possible interstitial lung disease based on CAT scan results. Followed by pulmonary service. Further workup to be completed in pulmonary office in one to 2 weeks GI prophylaxis Protonix and DVT prophylaxis SCDs. We'll hold off on anticoagulation for DVT prophylaxis due to elevated INR of 1.4 I performed an examination of the patient and discussed their management with the physician Cut Out Marker. I have reviewed the Physician Cut Out Marker's notes and agree with the documented findings and plan of care
[2018-04-26] MEDS: DICYCLOMINE 10 MG CAP PO SCH ×3 (10:43→21:12)
[2018-04-26] MEDS: CALCIUM CARBONATE LIQUID 500 MG/5 ML CUP PO SCH ×3 (10:43→18:31)
[2018-04-26] MEDS ORDERED: LABETALOL 5 MG/ML VIAL MDV ONE (12:59)
[2018-04-26] MEDS ORDERED: LIDOCAINE 1% INJ 10MG/ML (20 ML MDV) ONE (12:59)
[2018-04-26] MEDS ORDERED: PROPOFOL 10 MG/ML 20 ML VIAL IV ONE (12:59)
[2018-04-26] MEDS ORDERED: IV FLUID CONTINUATION 1,000 ML IV ONE (13:00)
--- NOTE | 2018-04-26 13:20 | P.OP ---
Date of Procedure: 04/26/18 Preoperative Diagnosis: weight loss GERD Postoperative Diagnosis: antral gastritis Hiatal hernia Esophagitis Procedure(s) Performed: EGD Anesthesia: MAC Surgeon: Efrain Buckley Pathology: other (antral, esophagus) Condition: stable Description of Procedure: patient's placed on the endoscopy table in the lateral position. She received IV sedation. The gastroscope placed oropharynx passed in the esophagus into the stomach. Scope was placed through the pylorus. The first and second portion of duodenum appeared normal. Scope summer back the antrum and this was mildly inflamed. A biopsies performed. The scope was then retroflexed and the remainder of the stomach appeared normal. There was a sliding hiatal hernia. The GE junction was at 38 cm. The distal esophagus was mildly inflamed a biopsies performed. The proximal esophagus appeared normal. Scope was withdrawn for patient. Next digital rectal exam was performedwhich revealed external hemorrhoids. The flexible colonoscope was then placed patient anus passed rotator entire colon. The ileocecal valve sutures. The cecum, ascending and transverse colon appeared normal. In the descending; was mild diverticular changes. Scope was then brought back the rectum and this appeared normal. Scope was withdrawn for patient.
--- NOTE | 2018-04-26 14:44 | P.PN ---
Subjective Progress Note Date: 04/26/18 Principal diagnosis: Hypocalcemia, hypomagnesemia, hypokalemia, numbness and weakness. Questionable interstitial lung disease, ruled out Progress note dated 04/25/2018 82-year-old female with evidence of interstitial lung disease/pulmonary fibrosis on computed tomography scan. The patient denies any pulmonary complaints including shortness of breath or cough. Saturations are made on room air. She is a lifelong nonsmoker. Cough is mostly nonproductive. This is consistent with underlying interstitial lung disease. More recently, the patient has had issues with hypocalcemia as well as low potassium. In addition , the patient has a chronic history of hyperlipidemia hypertension GERD and hypothyroidism. We told the patient and the primary care physician that the patient could be worked up as an outpatient for interstitial lung disease. She will need a 6 minute walk distance and a high resolution computed tomography scan. Again this can be done as an outpatient. From the pulmonary standpoint, she is very stable. Saturations are excellent. On 04/26/2018 patient seen again on oncology floor. She is awake alert, oriented 3, in no acute distress, no shortness of breath, no chest pain. Her weakness in her extremities has improved. Today's lab work has been reviewed, white count is within normal limits, BUN is 5, creatinine 0.61, magnesium is 2.2 , potassium 3.8, serum calcium is 8.5. Patient denies EtOH use, he is on oral Lasix at home 20 mg once daily, denies excessive use of diuretics. She did have epigastric discomfort and nausea with vomiting on presentation, which has resolved, we will check serum lipase to rule out pancreatitis, which came back at 45 within normal limits. vitamin D and PTH were within normal limits, ruling out hypocalcemia related to vitamin D deficiency or parathyroid hormone deficiency. Vital signs are stable, no further vomiting, patient is gradual to EGD today by Dr. Buckley in regards to weight loss. the EGD showed antral gastritis, hiatal hernia, and esophagitis. CT chest/abdomen/pelvis were reviewed by Dr. Kee and the possibility of interstitial lung disease is highly unlikely, and the abnormalities in the form of coarsening of the pulmonary markings are thought to be related to motion artifact, and poor CT quality. The patient was reassured, and again outpatient workup was offered to her if she chooses to proceed. Objective - Vital Signs Vital signs: Vital Signs Temp 98.0 F 04/26/18 06:00 Pulse 57 L 04/26/18 09:19 Resp 16 04/26/18 08:00 BP 179/78 04/26/18 09:19 Pulse Ox 96 04/26/18 06:00 Intake & Output 04/25/18 04/26/18 04/26/18 18:59 06:59 18:59 Intake Total 590 100 Balance 590 100 Intake: IV 100 Oral 590 Other: Voiding Method Toilet Toilet Toilet # Voids 5 2 # Bowel Movements 5 - Exam No acute distress, oriented 3. No requirement for supplemental oxygen. HEENT examination is grossly unremarkable. Mucous membranes are moist. No oral lesions. Neck supple. Full range of motion. No adenopathy thyromegaly or neck vein distention. Cardiovascular examination reveals regular rhythm rate. S1-S2 normal. No S3 or S4. No discernible murmur noted. Lungs reveal mild bibasilar crackles. She is not particularly restricted in her breathing. No rhonchi or wheezes. Breath sounds are equal bilaterally. Abdomen soft bowel sounds are heard. No masses or tenderness. Extremities are intact. No cyanosis clubbing or edema. Skin is without rash or lesion. Neurologic examination is brief but nonfocal. - Labs CBC & Chem 7: 04/26/18 07:22 04/26/18 07:22 Labs: Abnormal Lab Results - Last 24 Hours (Table) 04/26/18 04/26/18 Range/Units 07:22 07:22 INR 1.2 H (<1.2) Chloride 108 H (98-107) mmol/L BUN 5 L (7-17) mg/dL Glucose 102 H (74-99) mg/dL Microbiology - Last 24 Hours (Table) 04/22/18 13:33 Blood Culture - Preliminary Blood No Growth after 72 hours Assessment and Plan Plan: Assessment: Possible interstitial lung disease based on CAT scan results, however after reviewing the films, the coarsening of the interstitial markings are thought to be to motion artifact Electrolyte disturbance including hypocalcemia and hypokalemia. History of hyperlipidemia History of hypertension History of hypothyroidism Gastroesophageal reflux disease Plan: Serum lipase was added to this morning's labs, to rule out acute pancreatitis, and it was negative. This CT chest films have been reviewed, and it is unlikely patient has interstitial lung disease, however outpatient workup was still offered to the patient she chooses to proceed, patient has no dyspnea, no pulmonary complaints. Her electrolytes have improved. EGD results have been noted I performed a history & physical examination of the patient and discussed their management with my nurse practitioner, Christie Cullen. I reviewed the nurse practitioner's note and agree with the documented findings and plan of care. Lung sounds are positive for a few mild bibasilar crackles. The findings and the impression was discussed with the patient. I attest to the documentation by the nurse practitioner. Time with Patient: Less than 30
[2018-04-26] MEDS: ATENOLOL 25 MG TAB PO SCH (16:43)
[2018-04-26] MEDS: PANTOPRAZOLE 40 MG TABLET PO SCH (16:44)
[2018-04-26] MEDS: FERROUS SULFATE 325 MG TAB PO SCH (16:44)
[2018-04-26] MEDS: LISINOPRIL 10 MG TAB PO SCH (16:44)
[2018-04-26] MEDS: SIMETHICONE 80 MG CHEWABLE PO SCH (16:44)
[2018-04-26] MEDS: amLODIPine 5 MG TAB PO SCH (16:44)
[2018-04-26] MEDS: LEVOFLOXACIN 250 MG TAB PO SCH (16:44)
[2018-04-26] MEDS: FUROSEMIDE 20 MG TAB PO SCH (16:45)
[2018-04-26] MEDS: GEMFIBROZIL 600 MG TAB PO SCH (18:47)
--- NOTE | 2018-04-26 21:33 | P.PN ---
Subjective Progress Note Date: 04/26/18 Principal diagnosis: Weight Loss, Nausea The patient is an 82-year-old lady, with multiple medical issues. The patient had presented with increasing weakness, numbness in both hands and feet and feeling shaky over at least the last week. She was therefore brought into the hospital, where labs revealed and magnesium. She had a computed tomography scan of the brain done which revealed no evidence of any mass effect or acute stroke. The report, however mentioned possible subcentimeter lesions in the bony calvarium likely benign, with osteoblastic metastasis however not ruled out. The consult was initially placed for evaluation of the same. In addition the patient has reported about a 30 pound weight loss over the last 6- 8 months. She is also been complaining of upper abdominal discomfort, with nausea and intermittent vomiting , with no specific aggravating or relieving factors. the patient had presented with abdominal pain, nausea and occasional vomiting initially in 2014. She had had an EGD and colonoscopy in 12/04 which revealed a hiatal hernia and diverticulosis. The patient's symptoms improved significantly with Protonix on which she has continued since. However, her current GI symptoms started a few months ago, and have been increasingly prominent and progressive since 03/05. On first day of assessment he patient denied any difficulty swallowing, vomiting up blood, or blood in the stool. She has had some intermittent diarrhea, since being on doxycycline for a skin condition. 04/26/18 - Patient seen in follow-up today, resting after endoscopic EGD. She tolerated well. She denied SOB, Chest pain, vomiting. She is still complaining of persistent weakness, although her weakness in her extremities appears improved. The epigastric discomfort she originally complained of is better. Her EGD showed antra gastritis, hiatel hernia, esophagitis. Overall, she is improving in symptoms. Family at bedside Objective - Vital Signs Vital signs: Vital Signs Temp 98 F 04/26/18 14:30 Pulse 71 04/26/18 16:00 Resp 18 04/26/18 16:00 BP 154/74 04/26/18 14:30 Pulse Ox 94 L 04/26/18 14:30 Intake & Output 04/26/18 04/26/18 04/27/18 06:59 18:59 06:59 Intake Total 590 100 Balance 590 100 Weight 63.049 kg Intake: IV 100 Oral 590 Other: Voiding Method Toilet Toilet # Voids 2 2 - Constitutional General appearance: Present: average body habitus, no acute distress - EENT Eyes: Present: EOMI, dentition normal, normal appearance ENT: Present: NA/AT, normal oropharynx - Neck Details: Supple, Trachea Midline - Respiratory Respiratory: bilateral: CTA (No increased Effort) - Cardiovascular Rhythm: regular Heart sounds: normal: S1, S2 - Gastrointestinal General gastrointestinal: Present: normal bowel sounds, soft - Integumentary Integumentary: Present: normal - Neurologic Neurologic Comment(s): No focal Defects Neurologic: Present: CNII-XII intact - Musculoskeletal Musculoskeletal: Present: gait normal, generalized weakness, strength equal bilaterally - Psychiatric Psychiatric: Present: A&O x's 3, appropriate affect, intact judgment & insight - Labs CBC & Chem 7: 04/26/18 07:22 04/26/18 07:22 Labs: Abnormal Lab Results - Last 24 Hours (Table) 04/26/18 04/26/18 Range/Units 07:22 07:22 INR 1.2 H (<1.2) Chloride 108 H (98-107) mmol/L BUN 5 L (7-17) mg/dL Glucose 102 H (74-99) mg/dL Microbiology - Last 24 Hours (Table) 04/22/18 13:33 Blood Culture - Preliminary Blood No Growth after 96 hours Assessment and Plan Plan: Assessment and Plan (1) Bone lesion Narrative/Plan: The patient's computed tomography scan of the head had incidentally noted subcentimeter bone lesions. The differential included benign bone island, versus osteoblastic subcentimeter metastasis. The patient had no symptoms related to the scans findings. A bone scan was performed which was negative. Therefore metastatic disease in the bone can be ruled out at this time. No further workup is necessary. Current Visit: Yes Status: Acute Code(s): M89.9 - DISORDER OF BONE, UNSPECIFIED SNOMED Code(s): 15905882 (2) Weight loss Narrative/Plan: The patient has had abnormal weight loss as noted, associated with GI symptoms. The case was discussed with the admitting service. One of the concerns at this time with an underlying malignancy. Therefore computed tomography scan of the chest abdomen and pelvis were completed and reviewed. Findings of the CT scan did not show any underlying mass's or suspicion of underlying malignancy - She is status Post EGD and we will await pathology. Current Visit: Yes Status: Acute Code(s): R63.4 - ABNORMAL WEIGHT LOSS SNOMED Code(s): 40226256 Plan: Electrolyte Deficiencies - the etiology at this time is not totally definite. This could be related to combination of decreased oral intake, as well as intermittent diarrhea. The patient is being replaced at this time. Defer to the admitting service for continued management. GI workup will hopefully help rule out any absorption issues. Mildly prolonged INR was likely related to a decreased vitamin K from either absorption versus decreased po intake during time of vomiting and discomfort. Symptoms and blood counts appear to be improving. We will follow for results of pathology, although at this time does not appear to be a need for oncology moving forward. Defer to the admitting service for management of her other medical problems
[2018-04-27] MEDS: SODIUM CHLORIDE 0.9% 1,000 ML IV SCH (02:04)
[2018-04-27] MEDS: LEVOTHYROXINE 75 MCG TAB PO SCH (06:19)
[2018-04-27 09:07] VITALS: BP 147/72; PULSE 58; RESP 16; TEMP 98
[2018-04-27] MEDS: GEMFIBROZIL 600 MG TAB PO SCH (09:11)
[2018-04-27] MEDS: amLODIPine 5 MG TAB PO SCH (09:11)
[2018-04-27] MEDS: FERROUS SULFATE 325 MG TAB PO SCH (09:11)
[2018-04-27] MEDS: CALCIUM CARBONATE LIQUID 500 MG/5 ML CUP PO SCH ×2 (09:11→12:44)
[2018-04-27] MEDS: LISINOPRIL 10 MG TAB PO SCH (09:12)
[2018-04-27] MEDS: SIMETHICONE 80 MG CHEWABLE PO SCH (09:12)
[2018-04-27] MEDS: FUROSEMIDE 20 MG TAB PO SCH (09:12)
[2018-04-27] MEDS: ATENOLOL 25 MG TAB PO SCH (09:12)
[2018-04-27] MEDS: DICYCLOMINE 10 MG CAP PO SCH (09:12)
[2018-04-27] MEDS: LEVOFLOXACIN 250 MG TAB PO SCH (09:12)
[2018-04-27] MEDS: PANTOPRAZOLE 40 MG TABLET PO SCH (09:13)
[2018-04-27 09:30] LABS: Basophils % (A) 1 %; Eosinophils # (A) 0.1 k/uL (0-0.7); Eosinophils % (A) 3 %; HCT 36.6 % (34.0-46.0); HGB 12.3 gm/dL (11.4-16.0); Lymphocytes # (A) 0.7 k/uL (1.0-4.8); Lymphocytes % (A) 18 %; MCH 30.6 pg (25.0-35.0); MCHC 33.7 g/dL (31.0-37.0); MCV 90.8 fL (80.0-100.0); Mean Platelet Volume 6.3; Monocytes # (A) 0.2 k/uL (0-1.0); Monocytes % (A) 5 %; Neutrophils # (A) 2.9 k/uL (1.3-7.7); Neutrophils % (A) 71 %; Platelet Count 230 k/uL (150-450); Poikilocytosis Slight; RBC 4.03 m/uL (3.80-5.40); RDW 13.9 % (11.5-15.5); WBC 4.1 k/uL (3.8-10.6)
[2018-04-27 09:56] LABS: ALT 25 U/L (9-52); AST 22 U/L (14-36); Albumin 3.7 g/dL (3.5-5.0); Alkaline Phosphatase 64 U/L (38-126); Anion Gap 14 mmol/L; Blood Urea Nitrogen 7 mg/dL (7-17); Calcium 8.8 mg/dL (8.4-10.2); Carbon Dioxide 22 mmol/L (22-30); Chloride 108 mmol/L (98-107); Glucose 139 mg/dL (74-99); Potassium 3.4 mmol/L (3.5-5.1); Sodium 144 mmol/L (137-145); Total Bilirubin 1.2 mg/dL (0.2-1.3); Total Protein 6.2 g/dL (6.3-8.2)
--- NOTE | 2018-04-27 11:53 | P.PN ---
Progress Note - Text Progress Note Date: 04/27/18 82-year-old female being seen on rounds this morning family at bedside. Patient states she hopes to be discharged today. Patient underwent an EGD and a colonoscopy as part of workup for weight loss on April 26 per findings showed esophagitis, hiatal hernia, antral gastritis colonoscopy appeared normal from a surgical perspective patient is felt to be appropriate to be discharged defer to the timing of the discharge to the attending will sign off and re-eval as needed. The above impression and plan of care have been discussed and directed by signing physician. Meron Santana nurse practitioner acting as scribe for signing physician.
[2018-04-27] MEDS ORDERED: POTASSIUM CHLORIDE ER 20 MEQ TAB.ER PO STA (13:31)
--- NOTE | 2018-04-27 14:03 | P.DS ---
Providers Date of admission: 04/22/18 12:26 Expected date of discharge: 04/27/18 Attending physician: Isabel Souza Consults: 04/22/18 12:49 Consult Physician Routine Consulting Provider: Edmundo Olivier Consult Reason/Comments: osteoblastic frontal lesions on Brain CT Do you want consulting provider notified?: Yes 04/23/18 14:00 Consult Physician Routine Consulting Provider: Mayur Carvajal Consult Reason/Comments: abnormal CXR, Hypocalcemia Do you want consulting provider notified?: Yes 04/23/18 18:12 Consult Physician Routine Consulting Provider: Mina Marquez Consult Reason/Comments: Need for GI workup. n/v/abdominal pain/wt loss. Pt known Do you want consulting provider notified?: Yes Primary care physician: Isabel Souza [facility] Course: Discharge diagnosis 1. Bilateral numbness of the hands and feet possibly related to low potassium and calcium. Numbness has resolved. 2. 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 Oncology will be consulted. Bone scan showing multiple areas of increased uptake CONSISTENT with arthritic disease and radiologist does not suspect osseous metastatic disease. Patient evaluated by oncology. Metastatic disease in the bone has been ruled out. 3. UTI: Continue Levaquin for 2 more days. Urine culture growing enterococcus faecalis 4. Hypokalemia: Resolved 5. Hypocalcemia: Calcium level 6.5 up to 7.4. Ionized calcium 3.9. Patient given calcium chloride in ER. Patient receiving calcium carbonate 500 mg 3 times a day. Calcium level normalized at 8.5. Parathyroid hormone normal vitamin D 25-hydroxy normal at 54.2 vitamin D 125 normal ultrasound of the thyroid and neck showed a tiny probable colloid cyst measuring up to 5 mm on either side. Patient will follow-up with endocrinology outpatient 6. Coagulopathy with an INR of 1.4 up to 1.5. No evidence of bleeding. Patient not on anticoagulation at home. Continue to monitor. INR trending down. Likely secondary to low vitamin K due to either lack of absorption or poor oral intake 7. Abnormal chest x-ray likely represents atelectasis doubt pneumonia. Patient denies any cough or fever. Incentive spirometer ordered. We will monitor. 8. Hypothyroidism continue Synthroid 9. Essential hypertension: Continue Norvasc, atenolol and Lasix. Lasix 10 mg added during this admission 10. Poor oral intake and decrease in appetite add ensure 1 can 2 times a day. Albumin 3.7 11. Hypomagnesemia resolved 12. Possible interstitial lung disease based on CAT scan results. Followed by pulmonary service. Further workup to be completed in pulmonary office in one to 2 weeks Hospital course This is a 82-year-old female with a known past medical history of hypertension and hypothyroidism. She presented to the emergency room with complaints of numbness in her hands and feet bilaterally for the past week. Patient reports that she's been feeling very weak and shaky. She has had a 30 pound weight loss unintentionally over the past year. She was found to have a low calcium level of 6.5 and potassium is low at 3.2. Patient receives's calcium chloride and K-Dur 10 in the emergency room. She had a computed tomography scan of the brain without contrast showing no acute intracranial hemorrhage or midline shift. Subacute to chronic bilateral lacunar injuries. Diffuse age-related cerebral atrophy and nonspecific white matter change. And multifocal subcentimeter osteoblastic frontal lesions that could relate to a benign osteoma or bone islands although osteoblastic metastasis is possible. Bone scan has been ordered and oncology has been consulted. Chest x-ray showing hypoventilatory changes with carotid vascular markings. And patchy left basilar opacity that could represent atelectasis or developing pneumonia. Patient denies any cough or fever or chills. Incentive spirometer as ordered out that this is pneumonia. Patient also had evidence of a urinary tract infection and was started on Levaquin in the ER. Patient denies any chest pain , cough, shortness of breath, bowel movement changes or urinary symptoms. She had a few episodes of vomiting last week 1 day and no further episodes of vomiting. She occasionally has headaches. She denies any visual changes. She denies any slurred speech or weakness on one side of the body. Denies night sweats. Denies any smoking history. She had a brother with lung cancer. EKG shows sinus bradycardia with a heart rate of 57. Patient did have elevated INR of 1.4 not on any anticoagulation at home. 04/23/2018 patient's numbness in her hands and feet have improved. Calcium has gone up from 6.5-7.4. Ionized calcium 3.9. Potassium has gone up from 3.2- 3.4. Patient had mild headache this morning. Patient complained of multiple episodes of diarrhea last night. Has had no further stools this morning. Bone scan completed showing multiple areas of increased uptake are all consistent with arthritic disease. I do not suspect osseous metastatic disease. Normal uptake in the skull. No evidence of fracture. Patient denies any signs of bleeding. Denies chest pain or shortness of breath. Denies any nausea or vomiting. Denies any burning with urination. She is reporting poor oral intake and decreased appetite. Ensure will be added. Chest x-ray showing suspected underlying interstitial disease correlate for pulmonary venous hypertension and interstitial edema. BNP 1000. IV fluids decreased to 50 mL an hour On 04/24/2018 patient is alert and oriented 3 in no apparent distress she is complaining of nausea otherwise she denies any complaints at this time there is no fever or chills no headache or dizziness no chest pain no shortness of breath no cough no vomiting no abdominal pain no diarrhea and no urinary symptoms On 04/25/2018 patient stable alert and oriented in no distress, she is currently receiving GoLYTELY in preparation for colonoscopy tomorrow otherwise she denies any complaints 04/26/2018 patient is scheduled for EGD and colonoscopy today. Electrolytes have normalized. Elevated blood pressure of 173/83 this morning. She is nothing by mouth for procedures. IV Vasotec ordered. She's had no further numbness in her hands or feet. Stools are clear. Denies any chest pain or shortness of breath. Denies any vomiting 04/27/2018 patient will be discharged home today. She underwent an EGD and colonoscopy yesterday which revealed antral gastritis, hiatal hernia and esophagitis. There is no evidence of mass or malignancy. Protonix will be increased to 40 mg twice a day. She is currently tolerating diet. Reports still a decrease in appetite. However, patient feels that she will eat better at home. Potassium 3.4 at discharge. She'll receive K-Dur 20 milliequivalents prior to discharge. She'll be discharged home with a calcium magnesium and potassium supplement. Her potassium and directed with the Bentyl. Bentyl will be discontinued at this time. Also calcium had interacted with the Vibramycin. Vibramycin has been discontinued. She was taking that for the rosacea. Patient is feeling better. She is up and ambulating. We'll have her follow-up with endocrinology in 1 week. There is no frame carver spindle available during her hospitalization here in the hospital. Patient's numbness and tingling in both her hands and feet have resolved. This is likely related to her electrolyte imbalance with her hypocalcemia and hypo- potassium. The electrolyte imbalance could be related to her poor oral oral intake as well as having episodes intermittent episodes of vomiting and diarrhea. Contributing to an absorption problem for the patient. Patient is also on Lasix 20 mg daily. Patient's we'll continue with supplements of potassium, magnesium and calcium. Patient's symptoms and labs have improved. She is medically stable for discharge. Please refer to chart for any further details. I performed an examination of the patient and discussed their management with the physician Edi Architect. I have reviewed the Physician Edi Architect's notes and agree with the documented findings and plan of care Patient Condition at Discharge: Stable Plan - Discharge Summary Discharge Rx Participant: No New Discharge Prescriptions: New Calcium Carbonate 500 mg PO TID #90 tablet Levofloxacin [Levaquin] 250 mg PO Q24H #2 tab Magnesium Oxide [Mag-Ox] 400 mg PO DAILY #30 tablet Potassium Chloride ER [K-Dur 10] 10 meq PO DAILY #30 tab Lisinopril [Prinivil] 10 mg PO DAILY #30 tab Continue Levothyroxine Sodium [Synthroid] 75 mcg PO DAILY Gemfibrozil [Lopid] 600 mg PO DAILY Ferrous Sulfate [Iron (65 MG Elemental)] 325 mg PO DAILY Ergocalciferol (Vitamin D2) [Vitamin D2] 50,000 unit PO Q7D amLODIPine [Norvasc] 5 mg PO DAILY Furosemide [Lasix] 20 mg PO DAILY Atenolol [Tenormin] 25 mg PO DAILY Simethicone 80 mg PO DAILY Changed Pantoprazole Sodium [Protonix] 40 mg PO BID #60 tablet.dr Discontinued Dicyclomine [Bentyl] 10 mg PO TID Doxycycline Hyclate [Vibramycin] 100 mg PO DAILY Discharge Medication List Atenolol [Tenormin] 25 mg PO DAILY 04/22/18 [History] Ergocalciferol (Vitamin D2) [Vitamin D2] 50,000 unit PO Q7D 04/22/18 [History] Ferrous Sulfate [Iron (65 MG Elemental)] 325 mg PO DAILY 04/22/18 [History] Furosemide [Lasix] 20 mg PO DAILY 04/22/18 [History] Gemfibrozil [Lopid] 600 mg PO DAILY 04/22/18 [History] Levothyroxine Sodium [Synthroid] 75 mcg PO DAILY 04/22/18 [History] Simethicone 80 mg PO DAILY 04/22/18 [History] amLODIPine [Norvasc] 5 mg PO DAILY 04/22/18 [History] Calcium Carbonate 500 mg PO TID #90 tablet 04/27/18 [Rx] Levofloxacin [Levaquin] 250 mg PO Q24H #2 tab 04/27/18 [Rx] Lisinopril [Prinivil] 10 mg PO DAILY #30 tab 04/27/18 [Rx] Magnesium Oxide [Mag-Ox] 400 mg PO DAILY #30 tablet 04/27/18 [Rx] Pantoprazole Sodium [Protonix] 40 mg PO BID #60 tablet.dr 04/27/18 [Rx] Potassium Chloride ER [K-Dur 10] 10 meq PO DAILY #30 tab 04/27/18 [Rx] Follow up Appointment(s)/Referral(s): Wander Glass MD [REFERRING] - 1 Week Isabel Souza MD [Primary Care Provider] - 1 Week Mayur Carvajal DO [Doctor of Osteopathic Medicine] - 1 Week Activity/Diet/Wound Care/Special Instructions: Diet: cardiac Activity: as tolerated Discharge Disposition: HOME SELF-CARE
--- NOTE | 2018-04-27 14:18 | P.PN ---
Subjective Progress Note Date: 04/27/18 Principal diagnosis: Hypocalcemia, hypomagnesemia, hypokalemia, numbness and weakness. Questionable interstitial lung disease, ruled out Progress note dated 04/25/2018 82-year-old female with evidence of interstitial lung disease/pulmonary fibrosis on computed tomography scan. The patient denies any pulmonary complaints including shortness of breath or cough. Saturations are made on room air. She is a lifelong nonsmoker. Cough is mostly nonproductive. This is consistent with underlying interstitial lung disease. More recently, the patient has had issues with hypocalcemia as well as low potassium. In addition , the patient has a chronic history of hyperlipidemia hypertension GERD and hypothyroidism. We told the patient and the primary care physician that the patient could be worked up as an outpatient for interstitial lung disease. She will need a 6 minute walk distance and a high resolution computed tomography scan. Again this can be done as an outpatient. From the pulmonary standpoint, she is very stable. Saturations are excellent. On 04/26/2018 patient seen again on oncology floor. She is awake alert, oriented 3, in no acute distress, no shortness of breath, no chest pain. Her weakness in her extremities has improved. Today's lab work has been reviewed, white count is within normal limits, BUN is 5, creatinine 0.61, magnesium is 2.2 , potassium 3.8, serum calcium is 8.5. Patient denies EtOH use, he is on oral Lasix at home 20 mg once daily, denies excessive use of diuretics. She did have epigastric discomfort and nausea with vomiting on presentation, which has resolved, we will check serum lipase to rule out pancreatitis, which came back at 45 within normal limits. vitamin D and PTH were within normal limits, ruling out hypocalcemia related to vitamin D deficiency or parathyroid hormone deficiency. Vital signs are stable, no further vomiting, patient is gradual to EGD today by Dr. Buckley in regards to weight loss. the EGD showed antral gastritis, hiatal hernia, and esophagitis. CT chest/abdomen/pelvis were reviewed by Dr. Kee and the possibility of interstitial lung disease is highly unlikely, and the abnormalities in the form of coarsening of the pulmonary markings are thought to be related to motion artifact, and poor CT quality. The patient was reassured, and again outpatient workup was offered to her if she chooses to proceed. 04/27/2018 patient seen again in follow-up on oncology floor. She is awake, alert, denies any acute distress, room air pulse ox is 95%, she denies any dyspnea, denies any pulmonary complaints, she is afebrile, vital signs are stable. Days lab work has been reviewed, WBC is 4.1, hemoglobin is 12.3, potassium is 3.4, sodium is 144, chloride is 108, BUN is 7, creatinine is 0.70, serum is 8.8. Patient was started on calcium supplementation with meals. Afebrile. No abdominal pain, no vomiting, no diarrhea. Patient was given the option of following up with Dr. Torres in the outpatient setting for further workup, although after reviewing the CT chest it is doubtful that patient has interstitial lung disease. Patient would like to follow-up on the as-needed basis. And this is reasonable. From pulmonary standpoint patient is stable, and could be considered for discharge today. Objective - Vital Signs Vital signs: Vital Signs Temp 98.0 F 04/27/18 07:37 Pulse 58 L 04/27/18 07:37 Resp 16 04/27/18 07:37 BP 147/72 04/27/18 07:37 Pulse Ox 95 04/27/18 07:37 Intake & Output 04/26/18 04/27/18 04/27/18 18:59 06:59 18:59 Intake Total 100 600 Balance 100 600 Weight 63.049 kg Intake: IV 100 600 Sodium Chloride 0.9% 1, 600 000 ml @ 50 mls/hr IV . Q20H [facility] Rx#:[id number] Other: Voiding Method Toilet Toilet Toilet # Voids 2 2 - Exam No acute distress, oriented 3. No requirement for supplemental oxygen. HEENT examination is grossly unremarkable. Mucous membranes are moist. No oral lesions. Neck supple. Full range of motion. No adenopathy thyromegaly or neck vein distention. Cardiovascular examination reveals regular rhythm rate. S1-S2 normal. No S3 or S4. No discernible murmur noted. Lungs reveal equal lung sounds bilaterally, breath sounds are equal, no rhonchi , no rales or wheezes noted Abdomen soft bowel sounds are heard. No masses or tenderness. Extremities are intact. No cyanosis clubbing or edema. Skin is without rash or lesion. Neurologic examination is brief but nonfocal. - Labs CBC & Chem 7: 04/27/18 09:08 04/27/18 09:08 Labs: Abnormal Lab Results - Last 24 Hours (Table) 04/27/18 04/27/18 Range/Units 09:08 09:08 Lymphocytes # 0.7 L (1.0-4.8) k/uL Potassium 3.4 L (3.5-5.1) mmol/L Chloride 108 H (98-107) mmol/L Glucose 139 H (74-99) mg/dL Total Protein 6.2 L (6.3-8.2) g/dL Microbiology - Last 24 Hours (Table) 04/22/18 13:33 Blood Culture - Preliminary Blood No Growth after 96 hours Assessment and Plan Plan: Assessment: Possible interstitial lung disease based on CAT scan results, however after reviewing the films, the coarsening of the interstitial markings are thought to be to motion artifact Electrolyte disturbance including hypocalcemia and hypokalemia. History of hyperlipidemia History of hypertension History of hypothyroidism Gastroesophageal reflux disease Plan: She remains stable from pulmonary standpoint, she was given the option of following up with Dr. Carvajal in the outpatient setting for further workup, although the possibility of patient having interstitial lung disease is not likely, patient stated she would like to follow up on as-needed basis. Thank you for this consultation. I performed a history & physical examination of the patient and discussed their management with my nurse practitioner, Christie Cullen. I reviewed the nurse practitioner's note and agree with the documented findings and plan of care. Lung sounds are positive for clear lung sounds. The findings and the impression was discussed with the patient. I attest to the documentation by the nurse practitioner. Time with Patient: Less than 30
== END 2018-04-27 15:50 | disposition home or self-care (01) | DRG 641 ==
LOC: EC 09:47 → 5MS5E 12:26 → 5ONC 14:12
PROVIDERS: ADMIT Internal Medicine; ATTEND Internal Medicine
PROC: 0DJD8ZZ Inspection of Lower Intestinal Tract, Via Natural or Artificial Opening Endoscopic (ICD-10-PCS; 2018-04-26)
PROC: 0DB68ZX Excision of Stomach, Via Natural or Artificial Opening Endoscopic, Diagnostic (ICD-10-PCS; principal; 2018-04-26 08:05)
PROC: 0DB38ZX Excision of Lower Esophagus, Via Natural or Artificial Opening Endoscopic, Diagnostic (ICD-10-PCS; 2018-04-26 08:05)
DX: E83.51 Hypocalcemia (principal); N39.0 Urinary tract infection, site not specified; D68.9 Coagulation defect, unspecified; J98.11 Atelectasis; E87.6 Hypokalemia; E78.5 Hyperlipidemia, unspecified; I11.0 Hypertensive heart disease with heart failure; I50.9 Heart failure, unspecified; R20.0 Anesthesia of skin; B95.2 Enterococcus as the cause of diseases classified elsewhere; K21.0 Gastro-esophageal reflux disease with esophagitis; K29.70 Gastritis, unspecified, without bleeding; R63.4 Abnormal weight loss; E03.9 Hypothyroidism, unspecified; K64.4 Residual hemorrhoidal skin tags; K57.30 Diverticulosis of large intestine without perforation or abscess without bleeding; E11.9 Type 2 diabetes mellitus without complications; E83.42 Hypomagnesemia; D16.4 Benign neoplasm of bones of skull and face; J84.10 Pulmonary fibrosis, unspecified; K44.9 Diaphragmatic hernia without obstruction or gangrene; Z90.49 Acquired absence of other specified parts of digestive tract; Z90.710 Acquired absence of both cervix and uterus; Z80.1 Family history of malignant neoplasm of trachea, bronchus and lung; Z82.49 Family history of ischemic heart disease and other diseases of the circulatory system; Z79.899 Other long term (current) drug therapy; Z79.890 Hormone replacement therapy
CPT/HCPCS: 36415; 43239; 45378; 70450; 71046; 71260; 74177; 76536; 78306; 80053; 81001; 82306; 82330; 82550; 82553; 82652; 83690; 83735; 83880; 83970; 84100; 84132; 84484; 85025; 85610; 85730; 87040; 87077; 87086; 87186; 88305; 93005; 96361; 96365; 96375; 96376; 99285

== ENCOUNTER → 2019-02-11 | Outpatient (CLI) | payer MEDICARE, BC ==
[2019-02-11 10:03] LABS: HCT 40.7 % (34.0-46.0); HGB 13.7 gm/dL (11.4-16.0); MCH 30.4 pg (25.0-35.0); MCHC 33.8 g/dL (31.0-37.0); MCV 90.1 fL (80.0-100.0); Mean Platelet Volume 6.1; Platelet Count 165 k/uL (150-450); RBC 4.52 m/uL (3.80-5.40); RDW 14.8 % (11.5-15.5); WBC 4.2 k/uL (3.8-10.6)
[2019-02-11 16:51] LABS: Albumin 4.4 g/dL (3.80-4.90); Albumin/Globulin Ratio 2.1 (1.60-3.17); Calcium 9.1 mg/dL (8.7-10.3); Globulin 2.1 g/dL (1.6-3.3); LDL Cholesterol,Calculated 101.8 mg/dL (0.0-131.0); Potassium 3.9 mmol/L (3.5-5.5); Total Bilirubin 1.1 mg/dL (0.2-1.2); Total Protein 6.5 g/dL (6.2-8.2); VLDL Calculation 58.2 mg/dL (5.00-40.00)
[2019-02-11 18:21] LABS: Hemoglobin A1C 5.5 % (4.0-6.0)
== END | disposition home or self-care (01) ==
LOC: LABWHC1 09:11
PROVIDERS: ATTEND Internal Medicine
DX: E11.9 Type 2 diabetes mellitus without complications (principal); I10 Essential (primary) hypertension; E03.9 Hypothyroidism, unspecified; E78.5 Hyperlipidemia, unspecified
CPT/HCPCS: 36415; 80053; 80061; 83036; 84443; 85027

== ENCOUNTER → 2019-08-13 | Outpatient (CLI) | payer MEDICARE, BC ==
--- NOTE | 2019-08-13 15:18 | MR ---
EXAMINATION TYPE: MR brain and iac wo/w con DATE OF EXAM: 08/13/2019 COMPARISON: None HISTORY: Unspec disorder of the nerves TECHNIQUE: Multiplanar, multisequence images of the brain and brainstem is performed without and with IV contras t, utilizing 6.5 mL intravenous Gadavist . FINDINGS: There is diffuse cerebral cortical atrophy. There is no mass effect nor midline shift. Ther e is no sign of intracranial hemorrhage. There is no evidence of acute cortical infarct. There are a few scattered small areas of increased signal in the periventricular white matter on the T2 and FLAIR images. Total number is less than 10 and these measure up to 7 mm. Ventricles have fairly normal siz e. The brainstem is intact. There is mild thinning of the corpus callosum. Sella turcica appears normal. The internal auditory canals appear normal. There is no evidence of cerebellopontine angle mass. Acou stic and vestibular nerves appear intact. There is normal contrast opacification of the venous sinuse s. There is no pathologic enhancement. IMPRESSION: There is some cerebral atrophy appropriate for age. White matter signal changes probably related to s ome chronic small vessel ischemia. No acute intracranial abnormality. No posterior fossa abnormality.
== END | disposition home or self-care (01) ==
LOC: RADMRIMAIN 08:33
PROVIDERS: ATTEND Nurse Practitioner Family
DX: H92.01 Otalgia, right ear (principal); G31.1 Senile degeneration of brain, not elsewhere classified; H91.90 Unspecified hearing loss, unspecified ear; H93.19 Tinnitus, unspecified ear; G52.9 Cranial nerve disorder, unspecified
CPT/HCPCS: 70553; A9585

== ENCOUNTER 2021-04-27 11:17 | Emergency (ER) | payer MEDICARE, BC ==
[2021-04-27 11:24] VITALS: TEMP 97.9
[2021-04-27 12:31] LABS: Basophils % (A) 0 %; Eosinophils # (A) 0.1 k/uL (0-0.7); Eosinophils % (A) 1 %; HCT 40.6 % (34.0-46.0); HGB 13.4 gm/dL (11.4-16.0); Lymphocytes # (A) 1.1 k/uL (1.0-4.8); Lymphocytes % (A) 22 %; MCH 30.1 pg (25.0-35.0); MCHC 33.1 g/dL (31.0-37.0); MCV 90.9 fL (80.0-100.0); Monocytes # (A) 0.3 k/uL (0-1.0); Monocytes % (A) 6 %; Neutrophils # (A) 3.2 k/uL (1.3-7.7); Neutrophils % (A) 68 %; Platelet Count 221 k/uL (150-450); RBC 4.46 m/uL (3.80-5.40); RDW 14.4 % (11.5-15.5); WBC 4.8 k/uL (3.8-10.6)
[2021-04-27 12:46] LABS: Albumin 4.1 g/dL (3.5-5.0); Calcium 9.5 mg/dL (8.4-10.2); Potassium 4.2 mmol/L (3.5-5.1); Total Bilirubin 1.3 mg/dL (0.2-1.3); Total Protein 6.8 g/dL (6.3-8.2)
[2021-04-27 12:56] LABS: Partial Thromboplastin Time 23.5 sec (22.0-30.0); Prothrombin Time 10.9 sec (9.0-12.0)
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
[2021-04-27 13:24] VITALS: RESP 18
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
[2021-04-27] MEDS ORDERED: ACET/COD 300 MG/30 MG STARTER PACK 6 TAB BTL PO STA (15:28)
[2021-04-27 16:01] VITALS: BP 134/78; PULSE 77
== END 2021-04-27 15:59 | disposition home or self-care (01) ==
LOC: EC 11:17
DX: R07.2 Precordial pain (principal); R10.10 Upper abdominal pain, unspecified; R06.02 Shortness of breath; M25.512 Pain in left shoulder; M25.511 Pain in right shoulder; E11.9 Type 2 diabetes mellitus without complications; I10 Essential (primary) hypertension; E78.5 Hyperlipidemia, unspecified; K21.9 Gastro-esophageal reflux disease without esophagitis; Z79.899 Other long term (current) drug therapy; V89.2XXA Person injured in unspecified motor-vehicle accident, traffic, initial encounter; Y92.410 Unspecified street and highway as the place of occurrence of the external cause
CPT/HCPCS: 36415; 93005; 86900; 86901; 80053; 84484; 85025; 85610; 85730; 86850; 72125; 70450; 71260; 74177; 99285; Q9967

== ENCOUNTER → 2021-07-15 | Outpatient (CLI) | payer MEDICARE, BC ==
--- NOTE | 2021-07-15 08:25 | MR ---
EXAMINATION TYPE: MR MRCP DATE OF EXAM: 07/15/2021 COMPARISON: Most recent CT April 27, 2021 and older CTs 2017 and 2014 HISTORY: abnormal findings Standard multiplanar, multisequence MRI departmental protocol Multiplanar, multisequence images of the abdomen were acquired without contrast. Thin and thick slice MRCP imaging performed on a MRI scanner. FINDINGS: Liver/gallbladder/pancreas/biliary system: Gallbladder remains surgically absent. There is persistent moderate intrahepatic biliary dilatation up to 20 mm and has been present since 2015 with fairly mod erate central intrahepatic biliary dilatation. There is persistent nonvisualization of the distal com mon bile duct before the ampullary insertion as the adjacent pancreatic duct is seen just inferior to this causing the double duct sign but this was present in 2015. No concerning solid or cystic mass i n the liver pancreas. Pancreatic duct appears within normal limits. Other: Lung bases are grossly clear. Spleen and both adrenal glands are within normal limits. Occasio nal simple appearing thin-walled cysts scattered throughout both kidneys. No bowel dilatation. No int ra-abdominal ascites. No greater than 1 cm intra-abdominal adrenopathy. IMPRESSION: Moderate biliary dilatation is not significantly changed from 2015 CT. Cannot entirely ex clude distal mass just before the junction with the pancreatic duct but a lack of significant change from 2015 makes neoplasm at this level unlikely. Consider ERCP follow-up based on clinical correlatio n.
== END | disposition home or self-care (01) ==
LOC: RADMRIMAIN 06:57
PROVIDERS: ATTEND Internal Medicine
DX: K83.8 Other specified diseases of biliary tract (principal)
CPT/HCPCS: 74181

== ENCOUNTER 2021-10-27 17:48 | Observation (INO) | payer MEDICARE, BC ==
[2021-10-27] MEDS ORDERED: SODIUM CHLORIDE 0.9% 1,000 ML IV STA (18:20)
[2021-10-27] MEDS ORDERED: ASPIRIN 81 MG PO STA (18:20)
[2021-10-27] MEDS ORDERED: HEPARIN SODIUM 1,000 UN/ML (10ML VL) IV ONE (18:21)
[2021-10-27] MEDS ORDERED: HEPARIN SODIUM 1,000 UN/ML (10ML VL) IV PRN (18:21)
[2021-10-27] MEDS ORDERED: HEPARIN SOD,PORK IN 0.45% NACL 25,000 UNIT in 0.45% NACL 1 250ML.BAG IV SCH (18:30)
--- NOTE | 2021-10-27 18:38 | ED ---
General Adult HPI - General Chief complaint: Dizziness Stated complaint: AFIB per apple watch, lightheaded Time Seen by Provider: 10/27/21 18:04 Source: patient, RN notes reviewed, old records reviewed Mode of arrival: ambulatory Limitations: no limitations - History of Present Illness Initial comments: Patient is an 85-year-old female with past medical history remarkable for diabetes, hypertension, hyperlipidemia, thyroid disorder who presents emergency Department complaining of 5 day history of lightheadedness and weakness. She adamantly loss become short of breath. Denies any palpitations, chest pain, abdominal pain, nausea, vomiting. Patient's granddaughter is a nurse and brought her I watch over, and they found that it looked like she was in atrial fibrillation. She is no history of A. fib. She is not on blood thinners. The [place] emergency department for further evaluation. She does have a history of "leaky valves.". She had a cardiac cath back in 2014 which is clear. She denies any other acute point at this time. She was vaccinated for COVID-19 and received a booster. Presents over concern for possible atrial fibrillation. - Related Data Home Medications Medication Instructions Recorded Confirmed Ferrous Sulfate [Iron (65 MG 325 mg PO DAILY 04/22/18 10/27/21 Elemental)] Furosemide [Lasix] 20 mg PO DAILY 04/22/18 10/27/21 Levothyroxine Sodium [Synthroid] 75 mcg PO MOTUWETHFRSA 04/22/18 10/27/21 Simethicone [Simethicone Chew] 80 mg PO DAILY 04/22/18 10/27/21 amLODIPine [Norvasc] 5 mg PO DAILY 04/22/18 10/27/21 Cholecalciferol [Vitamin D3 (25 50 mcg PO DAILY 10/27/21 10/27/21 Mcg = 1000 Iu)] Fenofibrate Nanocrystallized 145 mg PO DAILY 10/27/21 10/27/21 [Fenofibrate] Levothyroxine Sodium [Synthroid] 37.5 mcg PO VELAZQUEZ 10/27/21 10/27/21 Multivit-Min/FA/Lycopen/Lutein 1 tab PO DAILY 10/27/21 10/27/21 [Centrum Silver Tablet] Pantoprazole Sodium [Protonix] 40 mg PO W/SUPPER 01/09/22 01/09/22 Pravastatin Sodium [Pravachol] 20 mg PO DAILY 10/27/21 10/27/21 Previous Rx's Medication Instructions Recorded Calcium Carbonate 500 mg PO TID #90 tablet 04/27/18 Magnesium Oxide [Mag-Ox] 400 mg PO DAILY #30 tablet 04/27/18 Potassium Chloride ER [K-Dur 10] 10 meq PO DAILY #30 tab 04/27/18 Allergies Allergy/AdvReac Type Severity Reaction Status Date / Time No Known Allergies Allergy Verified 10/27/21 19:14 Review of Systems ROS Statement: Those systems with pertinent positive or pertinent negative responses have been documented in the HPI. Review of Systems: CONST: Endorses fatigue EYES: Denies blurry vision ENT: Denies nasal congestion C/V: Denies Chest pain RESP: Denies shortness of breath currently GI: Denies abdominal pain : Denies dysuria SKIN: Denies rash. MSK: Denies joint pain. NEURO: Denies headache ROS Other: All systems not noted in ROS Statement are negative. Past Medical History Past Medical History: Diabetes Mellitus, GERD/Reflux, Hyperlipidemia, Hypertension, Thyroid Disorder Additional Past Medical History / Comment(s): Pt states she lost weight and is no longer on diabetic medication, arthritis bilateral hands, varicose veins, diverticular disease, hypothyroid, past epistaxis. History of Any Multi-Drug Resistant Organisms: None Reported Past Surgical History: Appendectomy, Breast Surgery, Cholecystectomy, Hysterectomy, Orthopedic Surgery, Tonsillectomy Additional Past Surgical History / Comment(s): 2014 cardiac cath-clear, R nasalseptal hemangioma removed, bilateral leg varicose vein sx, bilateral knee arthroscopies, R hand/wrist surgery for arthritis, colonoscopy 2 yrs ago-normal, bilateral breast reductions. Past Anesthesia/Blood Transfusion Reactions: No Reported Reaction Past Psychological History: No Psychological Hx Reported Smoking Status: Never smoker Past Alcohol Use History: None Reported Past Drug Use History: None Reported - Past Family History Father Family Medical History: Coronary Artery Disease (CAD), Myocardial Infarction ([place]) Mother Family Medical History: Coronary Artery Disease (CAD), GERD/Reflux, Myocardial Infarction ([place]) General Exam - General Exam Comments Initial Comments: General: Appears in no acute distress. HEAD: Normal with no signs of head trauma. EYES: PERRLA, EOMI, conjunctiva normal, no discharge. Pupils are 3 mm and equal bilaterally. ENT: Hearing grossly intact, normal oropharynx. RESPIRATORY: Clear breath sounds bilaterally. No wheezes, rales, or rhonchi. No increased work of breathing. No hypoxia. C/V: Irregularly irregular rhythm. S1 and S2 auscultated. Peripheral pulses 2+ intact throughout. No peripheral edema. ABD: Abd is soft, nontender, nondistended EXT: Normal range of motion, no obvious deformity SKIN: No rashes or lesions observed on exposed skin. NEURO: Alert and oriented 4. No focal deficits. Limitations: no limitations Course Vital Signs 10/27/21 10/27/21 10/27/21 17:51 18:45 19:41 Temperature 98.0 F Pulse Rate 111 H 101 H Pulse Rate [ 102 H Sitting Elderly Sitter] Respiratory 20 18 Rate Blood Pressure 136/85 114/78 O2 Sat by Pulse 99 98 Oximetry 10/27/21 21:44 Temperature Pulse Rate 88 Pulse Rate [ Sitting Elderly Sitter] Respiratory 18 Rate Blood Pressure 110/78 O2 Sat by Pulse 98 Oximetry Medical Decision Making - Medical Decision Making Based on the patient's presentation and physical exam, I'm concerned for new onset atrial flutter atrial fibrillation. EKG was obtained at bedside and showed rate controlled atrial flutter with a heart rate of 107. No signs of acute ischemia. We will obtain a cardiac workup as well as a d-dimer to evaluate for potential causes for this new-onset A. fib. We'll also obtain urinalysis, Covid swab. She'll be started on IV heparin and will be admitted to the hospital. Patient and family were in agreement this plan. Patient's EKG showed atrial flutter/atrial fibrillation that is rate controlled. Chest x-ray showed no acute cardiopulmonary process. Laboratory studies were remarkable for normal d-dimer, mildl MARIYA with creatinine 1.24, negative troponin, urinalysis as well as positive nitrites and will be administered Rocephin. Covid is negative. On reevaluation come patient remained stable. I discussed I would like to admit her to the hospital for further evaluation. She was in agreement this plan. I spoke with cardiology over the phone and Dr. Su requested we start the patient on metoprolol 25 mg twice a day in addition to heparin drip. They will evaluate the patient tomorrow. Echo was ordered.Inpatient team can determine if they want to continue antibiotics in the morning. I spoke with the admitting team under Dr. Souza who accepted the patient. She was therefore admitted and serous condition to telemetry bed. - Lab Data Result diagrams: 10/27/21 18:24 10/27/21 18:24 Lab Results 10/27/21 10/27/21 10/27/21 Range/Units 18:24 18:24 18:24 WBC 4.4 (3.8-10.6) k/uL RBC 4.21 (3.80-5.40) m/uL Hgb 13.0 (11.4-16.0) gm/dL Hct 39.2 (34.0-46.0) % MCV 93.3 (80.0-100.0) fL MCH 30.8 (25.0-35.0) pg MCHC 33.0 (31.0-37.0) g/dL RDW 13.6 (11.5-15.5) % Plt Count 268 (150-450) k/uL MPV 7.0 Neutrophils % 50 % Lymphocytes % 37 % Monocytes % 8 % Eosinophils % 2 % Basophils % 1 % Neutrophils # 2.2 (1.3-7.7) k/uL Lymphocytes # 1.6 (1.0-4.8) k/uL Monocytes # 0.3 (0-1.0) k/uL Eosinophils # 0.1 (0-0.7) k/uL Basophils # 0.0 (0-0.2) k/uL PT 11.8 (9.0-12.0) sec INR 1.1 (<1.2) APTT 22.5 (22.0-30.0) sec D-Dimer 0.27 (<0.60) mg/L FEU Sodium (137-145) mmol/L Potassium (3.5-5.1) mmol/L Chloride (98-107) mmol/L Carbon Dioxide (22-30) mmol/L Anion Gap mmol/L BUN (7-17) mg/dL Creatinine (0.52-1.04) mg/dL Est GFR (CKD-EPI)AfAm (>60 ml/min/1.73 sqM) Est GFR (CKD-EPI)NonAf (>60 ml/min/1.73 sqM) Glucose (74-99) mg/dL Calcium (8.4-10.2) mg/dL Magnesium (1.6-2.3) mg/dL Total Bilirubin (0.2-1.3) mg/dL AST (14-36) U/L ALT (4-34) U/L Alkaline Phosphatase (38-126) U/L Troponin I (0.000-0.034) ng/mL Total Protein (6.3-8.2) g/dL Albumin (3.5-5.0) g/dL Urine Color Yellow Urine Appearance Clear (Clear) Urine pH 6.0 (5.0-8.0) Ur Specific [place] 1.015 (1.001-1.035) Urine Protein Negative (Negative) Urine Glucose (UA) Negative (Negative) Urine Ketones Negative (Negative) Urine Blood Negative (Negative) Urine Nitrite Positive H (Negative) Urine Bilirubin Negative (Negative) Urine Urobilinogen <2.0 (<2.0) mg/dL Ur Leukocyte Esterase Moderate H (Negative) Urine RBC 1 (0-5) /hpf Urine WBC 9 H (0-5) /hpf Ur Squamous Epith Cells <1 (0-4) /hpf Urine Bacteria Rare H (None) /hpf Urine Mucus Occasional H (None) /hpf Coronavirus (PCR) (Not Detectd) 10/27/21 10/27/21 10/27/21 Range/Units 18:24 18:24 18:24 WBC (3.8-10.6) k/uL RBC (3.80-5.40) m/uL Hgb (11.4-16.0) gm/dL Hct (34.0-46.0) % MCV (80.0-100.0) fL MCH (25.0-35.0) pg MCHC (31.0-37.0) g/dL RDW (11.5-15.5) % Plt Count (150-450) k/uL MPV Neutrophils % % Lymphocytes % % Monocytes % % Eosinophils % % Basophils % % Neutrophils # (1.3-7.7) k/uL Lymphocytes # (1.0-4.8) k/uL Monocytes # (0-1.0) k/uL Eosinophils # (0-0.7) k/uL Basophils # (0-0.2) k/uL PT (9.0-12.0) sec INR (<1.2) APTT (22.0-30.0) sec D-Dimer (<0.60) mg/L FEU Sodium 140 (137-145) mmol/L Potassium 4.3 (3.5-5.1) mmol/L Chloride 106 (98-107) mmol/L Carbon Dioxide 24 (22-30) mmol/L Anion Gap 10 mmol/L BUN 28 H (7-17) mg/dL Creatinine 1.24 H (0.52-1.04) mg/dL Est GFR (CKD-EPI)AfAm 45 (>60 ml/min/1.73 sqM) Est GFR (CKD-EPI)NonAf 39 (>60 ml/min/1.73 sqM) Glucose 124 H (74-99) mg/dL Calcium 9.5 (8.4-10.2) mg/dL Magnesium 1.8 (1.6-2.3) mg/dL Total Bilirubin 0.5 (0.2-1.3) mg/dL AST 22 (14-36) U/L ALT 16 (4-34) U/L Alkaline Phosphatase 35 L (38-126) U/L Troponin I <0.012 (0.000-0.034) ng/mL Total Protein 6.9 (6.3-8.2) g/dL Albumin 4.1 (3.5-5.0) g/dL Urine Color Urine Appearance (Clear) Urine pH (5.0-8.0) Ur Specific [place] (1.001-1.035) Urine Protein (Negative) Urine Glucose (UA) (Negative) Urine Ketones (Negative) Urine Blood (Negative) Urine Nitrite (Negative) Urine Bilirubin (Negative) Urine Urobilinogen (<2.0) mg/dL Ur Leukocyte Esterase (Negative) Urine RBC (0-5) /hpf Urine WBC (0-5) /hpf Ur Squamous Epith Cells (0-4) /hpf Urine Bacteria (None) /hpf Urine Mucus (None) /hpf Coronavirus (PCR) Not Detected (Not Detectd) - EKG Data -: EKG Interpreted by Me EKG Comments: 12-lead Electrocardiogram Interpretation Note EKG was reviewed and interpreted by myself. 12-lead ECG performed at 1811 is interpreted by me as revealing atrial flutter, currently rate controlled at a rate of 107 beats per minute. [place] is normal. [place] interval is unobtainable, QRS duration 74 ms, QTc is 467 ms. There is an isolated T-wave inversion in lead III. This is seen on prior EKGs.. There were no ST or T wave abnormalities to suggest myocardial ischemia or injury. R wave progression across the precordium was satisfactory. By my interpretation this EKG is non-diagnostic for acute ischemia. It does show rate controlled atrial flutter, which is new in onset. Disposition Clinical Impression: Atrial flutter, Lightheaded, UTI (urinary tract infection) Disposition: ADMITTED IP TO THIS HOSP Condition: Serious
[2021-10-27 18:45] LABS: Basophils % (A) 1 %; Eosinophils # (A) 0.1 k/uL (0-0.7); Eosinophils % (A) 2 %; HCT 39.2 % (34.0-46.0); Lymphocytes # (A) 1.6 k/uL (1.0-4.8); Lymphocytes % (A) 37 %; MCH 30.8 pg (25.0-35.0); MCV 93.3 fL (80.0-100.0); Monocytes # (A) 0.3 k/uL (0-1.0); Monocytes % (A) 8 %; Neutrophils # (A) 2.2 k/uL (1.3-7.7); Neutrophils % (A) 50 %; Platelet Count 268 k/uL (150-450); RBC 4.21 m/uL (3.80-5.40); RDW 13.6 % (11.5-15.5); WBC 4.4 k/uL (3.8-10.6)
[2021-10-27 18:55] LABS: Albumin 4.1 g/dL (3.5-5.0); Calcium 9.5 mg/dL (8.4-10.2); Magnesium 1.8 mg/dL (1.6-2.3); Potassium 4.3 mmol/L (3.5-5.1); Total Bilirubin 0.5 mg/dL (0.2-1.3); Total Protein 6.9 g/dL (6.3-8.2)
[2021-10-27 19:01] LABS: INR 1.1 (<1.2); Partial Thromboplastin Time 22.5 sec (22.0-30.0); Prothrombin Time 11.8 sec (9.0-12.0)
[2021-10-27 19:07] LABS: Appearance,Urine Clear (Clear); Bacteria,Urine Rare /hpf; Bilirubin,Urine Negative (Negative); Blood,Urine Negative (Negative); Color,Urine Yellow; Glucose,Urine (UA) Negative (Negative); Ketones,Urine Negative (Negative); Leukocyte Esterase,Urine Moderate (Negative); Mucus,Urine Occasional /hpf; Nitrite,Urine Positive (Negative); Protein,Urine Negative (Negative); RBC,Urine 1 /hpf (0-5); Specific Gravity,Urine 1.015 (1.001-1.035); Squamous Epithelial Cell,Urine <1 /hpf (0-4); Urobilinogen,Urine <2.0 mg/dL (<2.0); WBC,Urine 9 /hpf (0-5)
[2021-10-27] MEDS ORDERED: cefTRIAXone IN SWFI 1,000 MG/10 ML SYRINGE IVP STA (19:37)
--- NOTE | 2021-10-27 19:44 | XR ---
EXAMINATION TYPE: XR chest 2V DATE OF EXAM: 10/27/2021 COMPARISON: 04/23/2018 HISTORY: Chest pain TECHNIQUE: FINDINGS: There is some increased pulmonary interstitial density. Heart size is fairly normal. There are chest leads. Costophrenic angles are clear. IMPRESSION: Increased interstitial density probably related to pulmonary fibrosis. No pleural fluid o r cardiomegaly. No evidence for heart failure. No significant change compared to old exam.
[2021-10-27] MEDS ORDERED: NALOXONE 0.4 MG/ML 1 ML VIAL IV PRN (19:57)
[2021-10-28] MEDS: METOPROLOL TARTRATE 25 MG TAB PO SCH ×4 (01:54→20:51)
[2021-10-28] MEDS: LEVOTHYROXINE 75 MCG TAB PO SCH (07:07)
[2021-10-28 08:50] LABS: Basophils % (A) 1 %; Eosinophils # (A) 0.1 k/uL (0-0.7); Eosinophils % (A) 3 %; HCT 38.3 % (34.0-46.0); HGB 12.4 gm/dL (11.4-16.0); Lymphocytes % (A) 32 %; MCH 31.3 pg (25.0-35.0); MCHC 32.5 g/dL (31.0-37.0); MCV 96.1 fL (80.0-100.0); Mean Platelet Volume 7.2; Monocytes # (A) 0.2 k/uL (0-1.0); Monocytes % (A) 7 %; Neutrophils # (A) 1.8 k/uL (1.3-7.7); Neutrophils % (A) 56 %; Platelet Count 239 k/uL (150-450); RBC 3.98 m/uL (3.80-5.40); RDW 13.8 % (11.5-15.5); WBC 3.2 k/uL (3.8-10.6)
[2021-10-28] MEDS ORDERED: amLODIPine 5 MG TAB PO SCH (09:00)
[2021-10-28 09:23] LABS: INR 1.2 (<1.2); Prothrombin Time 12.7 sec (9.0-12.0)
[2021-10-28] MEDS: FUROSEMIDE 20 MG TAB PO SCH (09:24)
[2021-10-28] MEDS: PRAVASTATIN SODIUM 20 MG TAB PO SCH (09:24)
[2021-10-28] MEDS: APIXABAN 2.5 MG TABLET PO SCH ×2 (11:02→20:51)
--- NOTE | 2021-10-28 11:03 | ECHOF ---
Referral Reason:new onset aflutter MEASUREMENTS -------- HEIGHT: 152.4 cm WEIGHT: 58.5 kg BP: 117/79 RVIDd: 3.1 cm (< 3.3) IVSd: 1.4 cm (0.6 - 1.1) LVIDd: 3.7 cm (3.9 - 5.3) LVPWd: 1.4 cm (0.6 - 1.1) IVSs: 1.7 cm LVIDs: 2.3 cm LVPWs: 1.3 cm LAESV Index (A-L): 70.06 ml/m Ao Diam: 3.0 cm (2.0 - 3.7) AV Cusp: 1.8 cm (1.5 - 2.6) LA Diam: 5.4 cm (2.7 - 3.8) MV EXCURSION: 14.991 mm (> 18.000) MV EF SLOPE: 102 mm/s (70 - 150) EPSS: 0.6 cm RAP: 5.00 mmHg RVSP: 42.73 mmHg FINDINGS -------- Atrial fibrillation. This was a technically adequate study. The left ventricular size is normal. There is moderate concentric left ventricular hypertrophy. O verall left ventricular systolic function is low-normal with, an EF between 50 - 55 %. The right ventricle is normal in size. LA is severely dilated >40 ml/m2 The right atrium is mildly enlarged. Interatrial and interventricular septum intact. The aortic valve is trileaflet and appears structurally normal. There is mild aortic valve sclerosi s. There is no evidence of aortic regurgitation. There is no evidence of aortic stenosis. Moderate mitral regurgitation is present. Moderate tricuspid regurgitation present. There is moderate pulmonary hypertension. The right damian tricular systolic pressure, as measured by Doppler, is 42.73mmHg. Trace/mild (physiologic) pulmonic regurgitation. The aortic root size is normal. Normal inferior vena cava with normal inspiratory collapse consistent with estimated right atrial pre ssure of 5 mmHg. There is no pericardial effusion. CONCLUSIONS -------- 1. The left ventricular size is normal. 2. There is moderate concentric left ventricular hypertrophy. 3. Overall left ventricular systolic function is low-normal with, an EF between 50 - 55 %. 4. LA is severely dilated >40 ml/m2 5. The right atrium is mildly enlarged. 6. There is mild aortic valve sclerosis. 7. Moderate mitral regurgitation is present. 8. Moderate tricuspid regurgitation present. 9. There is moderate pulmonary hypertension. 10. The right ventricular systolic pressure, as measured by Doppler, is 42.73mmHg. 11. Trace/mild (physiologic) pulmonic regurgitation. CREDIT COMPLIANCE OFFICER: Priti Frank RDCS
[2021-10-28 11:04] VITALS: RESP 16
--- NOTE | 2021-10-28 11:20 | P.CRDCN ---
History of Present Illness Consult date: 10/28/21 History of present illness: HISTORY OF PRESENT ILLNESS: This is a 85-year-old female with a past medical history significant for hypertension, GERD, hyperlipidemia, and hypothyroidism. Patient follows in the office with Dr. Cruz. We have been asked to see the patient in consultation for new onset A. fib flutter. Patient examined at the bedside in the emergency room. Patient presented to the hospital with a chief complaint of dizziness and lightheadedness since Thursday. She denies any syncopal episodes. She denied any chest pain or pressure. Denies any shortness of breath. Denied any palpitations. The patient was found to be in a flutter with RVR. She was started on IV heparin and oral metoprolol. This morning the patient remains in atrial flutter with a heart rate around 103. EKG reveals a flutter with RVR Chest xray increased interstitial density probably related to pulmonary fibrosis. No pleural fluid or card and mentally. No evidence for heart failure. No significant change compared to old exam. Laboratory data: WBC 3.2. Hemoglobin 12.4. Platelet count 239. INR 1.2. D- dimer 0.27. Sodium 140. Potassium 4.3. BUN 28. Creatinine 1.24. Magnesium 1.8. Troponin negative 3. Current home cardiac medications include amlodipine 5 mg daily, Pravachol 20 mg daily and Lasix 20 mg daily Echocardiogram completed revealing ejection fraction 50-55%, moderate mitral regurgitation, moderate tricuspid regurgitation, and moderate pulmonary hypertension REVIEW OF SYSTEMS: At the time of my exam: CONSTITUTIONAL: Denies fever or chills. HEENT: Denies blurred vision, vision changes, or eye pain. Denies hemoptysis CARDIOVASCULAR: Denies chest pain. Denies orthopnea. Denies PND. Denies palpitations RESPIRATORY: Denies shortness of breath. GASTROINTESTINAL: Denies abdominal pain. Denies nausea or vomiting. HEMATOLOGIC: Denies bleeding disorders. GENITOURINARY: Denies any blood in urine. SKIN: Denies pruitis. Denies rash. PHYSICAL EXAM: VITAL SIGNS: Reviewed. GENERAL: Well-developed in no acute distress. HEENT: Head is normocephalic. Pupils are equal, round. Sclerae anicteric. Mucous membranes of the mouth are moist. Neck supple. No JVD or thyromegaly LUNGS: Respirations even and unlabored. Lungs essentially clear to auscultation bilaterally. HEART: Tachycardic. Regular rate and rhythm. S1 and S2 heard. Systolic murmur noted. ABDOMEN: Soft. Nondistended. Nontender. EXTREMITIES: Normal range of motion. No clubbing or cyanosis. Peripheral pulses intact. No lower extremity edema NEUROLOGIC: Awake and alert. Oriented x 3. ASSESSMENT: New-onset typical atrial flutter with RVR Hypertension Hyperlipidemia Hypothyroidism GERD Valvular heart disease PLAN: 2-D echo obtained and reviewed Check TSH Discontinue IV heparin. Begin Eliquis 2.5 mg twice a day Case management consulted for insurance coverage Discontinue amlodipine Increase metoprolol to 25 mg 3 times a day Continue telemetry monitoring Further recommendations pending patient's course Nurse practitioner note has been reviewed by physician. Signing provider agrees with the documented findings, assessment, and plan of care. Past Medical History Past Medical History: Diabetes Mellitus, GERD/Reflux, Hyperlipidemia, Hypertension, Thyroid Disorder Additional Past Medical History / Comment(s): Pt states she lost weight and is no longer on diabetic medication, arthritis bilateral hands, varicose veins, diverticular disease, hypothyroid, past epistaxis. History of Any Multi-Drug Resistant Organisms: None Reported Past Surgical History: Appendectomy, Breast Surgery, Cholecystectomy, H ysterectomy, Orthopedic Surgery, Tonsillectomy Additional Past Surgical History / Comment(s): 2014 cardiac cath-clear, R nasalseptal hemangioma removed, bilateral leg varicose vein sx, bilateral knee arthroscopies, R hand/wrist surgery for arthritis, colonoscopy 2 yrs ago-normal, bilateral breast reductions. Past Anesthesia/Blood Transfusion Reactions: No Reported Reaction Past Psychological History: No Psychological Hx Reported Smoking Status: Never smoker Past Alcohol Use History: None Reported Past Drug Use History: None Reported - Past Family History Father Family Medical History: Coronary Artery Disease (CAD), Myocardial Infarction ([place]) Mother Family Medical History: Coronary Artery Disease (CAD), GERD/Reflux, Myocardial Infarction ([place]) Medications and Allergies Home Medications Medication Instructions Recorded Confirmed Type Ferrous Sulfate [Iron (65 MG 325 mg PO DAILY 04/22/18 10/27/21 History Elemental)] Furosemide [Lasix] 20 mg PO DAILY 04/22/18 10/27/21 History Levothyroxine Sodium [Synthroid] 75 mcg PO MOTUWETHFRSA 04/22/18 10/27/21 History Simethicone [Simethicone Chew] 80 mg PO DAILY 04/22/18 10/27/21 History amLODIPine [Norvasc] 5 mg PO DAILY 04/22/18 10/27/21 History Calcium Carbonate 500 mg PO TID #90 tablet 04/27/18 10/27/21 Rx Magnesium Oxide [Mag-Ox] 400 mg PO DAILY #30 tablet 04/27/18 10/27/21 Rx Potassium Chloride ER [K-Dur 10] 10 meq PO DAILY #30 tab 04/27/18 10/27/21 Rx Cholecalciferol [Vitamin D3 (25 50 mcg PO DAILY 10/27/21 10/27/21 History Mcg = 1000 Iu)] Fenofibrate Nanocrystallized 145 mg PO DAILY 10/27/21 10/27/21 History [Fenofibrate] Levothyroxine Sodium [Synthroid] 37.5 mcg PO VELAZQUEZ 10/27/21 10/27/21 History Multivit-Min/FA/Lycopen/Lutein 1 tab PO DAILY 10/27/21 10/27/21 History [Centrum Silver Tablet] Pantoprazole Sodium [Protonix] 40 mg PO W/SUPPER 10/27/21 10/27/21 History Pravastatin Sodium [Pravachol] 20 mg PO DAILY 10/27/21 10/27/21 History Apixaban [Eliquis] 2.5 mg PO BID #60 tab 10/28/21 Rx Allergies Allergy/AdvReac Type Severity Reaction Status Date / Time No Known Allergies Allergy Verified 10/27/21 19:14 Physical Exam Vitals: Vital Signs Temp Pulse Pulse Resp BP Pulse Ox 10/28/21 11:02 86 16 116/67 99 10/28/21 07:00 96 19 119/75 97 10/28/21 02:00 99 18 117/79 95 10/27/21 21:44 88 18 110/78 98 10/27/21 19:41 101 H 18 114/78 98 10/27/21 18:45 102 H 10/27/21 17:51 98.0 F 111 H 20 136/85 99 Intake and Output 10/27/21 10/28/21 10/28/21 22:59 06:59 14:59 Intake Total 51.378 51.473 Balance 51.378 51.473 Intake: Intake, IV Titration 51.378 51.473 Amount Heparin Sod,Pork in 0.45% 51.378 51.473 NaCl 25,000 unit In 0.45 % NaCl 1 250ml.bag @ 12 UNITS/KG/HR 7.022 mls/hr IV .Q24H [facility] Rx#: [id number] Other: Weight 58.513 kg Results 10/28/21 08:17 10/27/21 18:24 Cardiac Enzymes 10/27/21 10/27/21 10/27/21 Range/Units 18:24 18:24 20:36 AST 22 (14-36) U/L Troponin I <0.012 <0.012 (0.000-0.034) ng/mL 10/28/21 Range/Units 00:03 AST (14-36) U/L Troponin I <0.012 (0.000-0.034) ng/mL Coagulation 10/27/21 10/28/21 10/28/21 Range/Units 18:24 00:03 02:01 PT 11.8 (9.0-12.0) sec APTT 22.5 42.5 H 37.0 H (22.0-30.0) sec 10/28/21 10/28/21 Range/Units 08:17 08:17 PT 12.7 H (9.0-12.0) sec APTT 37.3 H (22.0-30.0) sec CBC 10/27/21 10/28/21 Range/Units 18:24 08:17 WBC 4.4 3.2 L (3.8-10.6) k/uL RBC 4.21 3.98 (3.80-5.40) m/uL Hgb 13.0 12.4 (11.4-16.0) gm/dL Hct 39.2 38.3 (34.0-46.0) % Plt Count 268 239 (150-450) k/uL Comprehensive Metabolic Panel 10/27/21 Range/Units 18:24 Sodium 140 (137-145) mmol/L Potassium 4.3 (3.5-5.1) mmol/L Chloride 106 (98-107) mmol/L Carbon Dioxide 24 (22-30) mmol/L BUN 28 H (7-17) mg/dL Creatinine 1.24 H (0.52-1.04) mg/dL Glucose 124 H (74-99) mg/dL Calcium 9.5 (8.4-10.2) mg/dL AST 22 (14-36) U/L ALT 16 (4-34) U/L Alkaline Phosphatase 35 L (38-126) U/L Total Protein 6.9 (6.3-8.2) g/dL Albumin 4.1 (3.5-5.0) g/dL Current Medications Generic Name Dose Route Start Last Admin Trade Name Freq PRN Reason Stop Dose Admin Apixaban 2.5 mg 10/28/21 09:45 10/28/21 11:02 Apixaban 2.5 Mg Tablet PO 2.5 mg BID [facility] Administration Protocol Furosemide 20 mg 10/28/21 09:00 10/28/21 09:24 Furosemide 20 Mg Tab PO 20 mg DAILY [facility] Administration Levothyroxine Sodium 37.5 mcg 11/03/21 06:30 Levothyroxine 75 Mcg Tab PO [email or web address] [facility] Levothyroxine Sodium 75 mcg 10/28/21 06:30 10/28/21 07:07 Levothyroxine 75 Mcg Tab PO 75 mcg [id number]@0630 [facility] Administration Metoprolol Tartrate 25 mg 10/28/21 16:00 10/28/21 09:24 Metoprolol Tartrate 25 Mg Tab PO 25 mg TID [facility] Administration Naloxone HCl 0.2 mg 10/27/21 19:57 Naloxone 0.4 Mg/Ml 1 Ml Vial IV Q2M PRN Opioid Reversal Pantoprazole Sodium 40 mg 10/28/21 17:30 Pantoprazole 40 Mg Tablet PO W/SUPPER [facility] Pravastatin Sodium 20 mg 10/28/21 09:00 10/28/21 09:24 Pravastatin Sodium 20 Mg Tab PO 20 mg DAILY [facility] Administration Intake and Output 10/27/21 10/28/21 10/28/21 22:59 06:59 14:59 Intake Total 51.378 51.473 Balance 51.378 51.473 Intake: Intake, IV Titration 51.378 51.473 Amount Heparin Sod,Pork in 0.45% 51.378 51.473 NaCl 25,000 unit In 0.45 % NaCl 1 250ml.bag @ 12 UNITS/KG/HR 7.022 mls/hr IV .Q24H [facility] Rx#: [id number] Other: Weight 58.513 kg 10/28/21 08:17 10/27/21 18:24
--- NOTE | 2021-10-28 13:48 | P.HPIM ---
History of Present Illness H&P Date: 10/28/21 Nancy Grady, is an 85 year old male who presented to [facility] emergency room with a chief complaint of dizziness and weakness She was evaluated in the emergency room vital examination on presentation revealed a temperature of 98 heart rate 111 respiration 20 blood pressure 136/85 and pulse ox is 99% on room air Laboratory data revealed a white blood count of 4.4 hemoglobin 13.4 platelet count 268 BUN 28 creatinine 1.4 glucose level 124 troponin less than 0.012 urine analysis revealed evidence of urinary tract infection COVID-19 PCR was negative Testing in the emergency room revealed EKG done in the emergency room revealed evidence of atrial flutter with variable AV block chest x-ray revealed evidence of increased interstitial density probably related to pulmonary fibrosis otherwise no significant abnormality. Patient was admitted to medical floor for further evaluation and treatment Past medical history is significant for history of hypertension, history of hype rlipidemia, history of hypothyroidism, and history of gastroesophageal reflux disease Past Medical History Past Medical History: Diabetes Mellitus, GERD/Reflux, Hyperlipidemia, Hypertension, Thyroid Disorder Additional Past Medical History / Comment(s): Pt states she lost weight and is no longer on diabetic medication, arthritis bilateral hands, varicose veins, diverticular disease, hypothyroid, past epistaxis. History of Any Multi-Drug Resistant Organisms: None Reported Past Surgical History: Appendectomy, Breast Surgery, Cholecystectomy, Hysterectomy, Orthopedic Surgery, Tonsillectomy Additional Past Surgical History / Comment(s): 2014 cardiac cath-clear, R nasalseptal hemangioma removed, bilateral leg varicose vein sx, bilateral knee arthroscopies, R hand/wrist surgery for arthritis, colonoscopy 2 yrs ago-normal, bilateral breast reductions. Past Anesthesia/Blood Transfusion Reactions: No Reported Reaction Past Psychological History: No Psychological Hx Reported Smoking Status: Never smoker Past Alcohol Use History: None Reported Past Drug Use History: None Reported - Past Family History Father Family Medical History: Coronary Artery Disease (CAD), Myocardial Infarction ([place]) Mother Family Medical History: Coronary Artery Disease (CAD), GERD/Reflux, Myocardial Infarction ([place]) Medications and Allergies Home Medications Medication Instructions Recorded Confirmed Type Ferrous Sulfate [Iron (65 MG 325 mg PO DAILY 04/22/18 10/27/21 History Elemental)] Furosemide [Lasix] 20 mg PO DAILY 04/22/18 10/27/21 History Levothyroxine Sodium [Synthroid] 75 mcg PO MOTUWETHFRSA 04/22/18 10/27/21 History Simethicone [Simethicone Chew] 80 mg PO DAILY 04/22/18 10/27/21 History amLODIPine [Norvasc] 5 mg PO DAILY 04/22/18 10/27/21 History Calcium Carbonate 500 mg PO TID #90 tablet 04/27/18 10/27/21 Rx Magnesium Oxide [Mag-Ox] 400 mg PO DAILY #30 tablet 04/27/18 10/27/21 Rx Potassium Chloride ER [K-Dur 10] 10 meq PO DAILY #30 tab 04/27/18 10/27/21 Rx Cholecalciferol [Vitamin D3 (25 50 mcg PO DAILY 10/27/21 10/27/21 History Mcg = 1000 Iu)] Fenofibrate Nanocrystallized 145 mg PO DAILY 10/27/21 10/27/21 History [Fenofibrate] Levothyroxine Sodium [Synthroid] 37.5 mcg PO VELAZQUEZ 10/27/21 10/27/21 History Multivit-Min/FA/Lycopen/Lutein 1 tab PO DAILY 10/27/21 10/27/21 History [Centrum Silver Tablet] Pantoprazole Sodium [Protonix] 40 mg PO W/SUPPER 10/27/21 10/27/21 History Pravastatin Sodium [Pravachol] 20 mg PO DAILY 10/27/21 10/27/21 History Apixaban [Eliquis] 2.5 mg PO BID #60 tab 10/28/21 Rx Allergies Allergy/AdvReac Type Severity Reaction Status Date / Time No Known Allergies Allergy Verified 10/27/21 19:14 Physical Exam Vitals: Vital Signs Temp Pulse Pulse Resp BP Pulse Ox 10/28/21 07:00 96 19 119/75 97 10/28/21 02:00 99 18 117/79 95 10/27/21 21:44 88 18 110/78 98 10/27/21 19:41 101 H 18 114/78 98 10/27/21 18:45 102 H 10/27/21 17:51 98.0 F 111 H 20 136/85 99 Intake and Output 10/27/21 10/28/21 10/28/21 22:59 06:59 14:59 Intake Total 51.378 51.473 Balance 51.378 51.473 Intake: Intake, IV Titration 51.378 51.473 Amount Heparin Sod,Pork in 0.45% 51.378 51.473 NaCl 25,000 unit In 0.45 % NaCl 1 250ml.bag @ 12 UNITS/KG/HR 7.022 mls/hr IV .Q24H [facility] Rx#: [id number] Other: Weight 58.513 kg In general patient is alert and oriented x 3 in no distress HEENT head normocephalic and atraumatic Neck is supple no JVD no goiter no lymphadenopathy no carotid bruit Chest examination is clear to auscultation no crackles no wheezing Cardiac exam reveals irregular heart sounds S1 and S2 no gallops no murmurs Abdomen is soft nontender no organomegaly with normal bowel sounds Extremity exam reveals no edema no cyanosis or clubbing Neurological examination reveals no gross focal deficits Results CBC & Chem 7: 10/28/21 08:17 10/27/21 18:24 Labs: Abnormal Lab Results - Last 24 Hours (Table) 10/27/21 10/27/21 10/28/21 Range/Units 18:24 18:24 00:03 WBC (3.8-10.6) k/uL PT (9.0-12.0) sec INR (<1.2) APTT 42.5 H (22.0-30.0) sec BUN 28 H (7-17) mg/dL Creatinine 1.24 H (0.52-1.04) mg/dL Glucose 124 H (74-99) mg/dL Alkaline Phosphatase 35 L (38-126) U/L Urine Nitrite Positive H (Negative) Ur Leukocyte Esterase Moderate H (Negative) Urine WBC 9 H (0-5) /hpf Urine Bacteria Rare H (None) /hpf Urine Mucus Occasional H (None) /hpf 10/28/21 10/28/21 10/28/21 Range/Units 02:01 08:17 08:17 WBC 3.2 L (3.8-10.6) k/uL PT 12.7 H (9.0-12.0) sec INR 1.2 H (<1.2) APTT 37.0 H (22.0-30.0) sec BUN (7-17) mg/dL Creatinine (0.52-1.04) mg/dL Glucose (74-99) mg/dL Alkaline Phosphatase (38-126) U/L Urine Nitrite (Negative) Ur Leukocyte Esterase (Negative) Urine WBC (0-5) /hpf Urine Bacteria (None) /hpf Urine Mucus (None) /hpf 10/28/21 Range/Units 08:17 WBC (3.8-10.6) k/uL PT (9.0-12.0) sec INR (<1.2) APTT 37.3 H (22.0-30.0) sec BUN (7-17) mg/dL Creatinine (0.52-1.04) mg/dL Glucose (74-99) mg/dL Alkaline Phosphatase (38-126) U/L Urine Nitrite (Negative) Ur Leukocyte Esterase (Negative) Urine WBC (0-5) /hpf Urine Bacteria (None) /hpf Urine Mucus (None) /hpf Assessment and Plan Plan: New onset atrial fibrillation with rapid ventricular response on presentation. Dizziness and weakness on presentation likely related to atrial fibrillation Underlying history of hypertension Underlying history of hyperlipidemia Underlying history of hypothyroidism Underlying history of iron deficiency anemia Underlying history of gastroesophageal reflux disease maintained on pantoprazole At this time patient is admitted to telemetry floor, IV heparin was started in the emergency room Cardiology consultation requested echocardiogram requested Check thyroid studies Will follow during this admission
[2021-10-28] MEDS ORDERED: METOPROLOL TARTRATE 25 MG TAB PO STA (17:00)
[2021-10-28] MEDS ORDERED: PANTOPRAZOLE 40 MG TABLET PO SCH (17:30)
[2021-10-29] MEDS: LEVOTHYROXINE 75 MCG TAB PO SCH (05:37)
[2021-10-29] MEDS: APIXABAN 2.5 MG TABLET PO SCH (07:42)
[2021-10-29] MEDS: METOPROLOL TARTRATE 25 MG TAB PO SCH ×2 (07:42→15:18)
[2021-10-29] MEDS: FUROSEMIDE 20 MG TAB PO SCH (07:42)
[2021-10-29] MEDS: PRAVASTATIN SODIUM 20 MG TAB PO SCH (07:43)
[2021-10-29 08:09] VITALS: BP 122/79; PULSE 61; TEMP 98.2
[2021-10-29] MEDS ORDERED: FERROUS SULFATE 325 MG TAB PO SCH (09:00)
[2021-10-29] MEDS ORDERED: CHOLECALCIFEROL 25 MCG (1000 IU) TABLET PO SCH (09:00)
[2021-10-29] MEDS ORDERED: FENOFIBRATE 160 MG TAB PO SCH (09:00)
[2021-10-29] MEDS ORDERED: MAGNESIUM OXIDE 400 MG TAB PO SCH (09:00)
[2021-10-29 11:05] LABS: Basophils # (A) 0.04 X 10*3/uL (0.00-0.10); Basophils % (A) 1.2 %; Eosinophils # (A) 0.13 X 10*3/uL (0.04-0.35); HCT 40.6 % (37.2-46.3); HGB 12.7 g/dL (12.0-15.0); Lymphocytes # (A) 1.13 X 10*3/uL (0.90-5.00); Lymphocytes % (A) 34.3 %; MCH 30.2 pg (27.0-32.0); MCHC 31.3 g/dL (32.0-37.0); MCV 96.4 fL (80.0-97.0); Mean Platelet Volume 8.4 fL (9.5-12.2); Monocytes # (A) 0.36 X 10*3/uL (0.20-1.00); Monocytes % (A) 10.9 %; Neutrophils # (A) 1.62 X 10*3/uL (1.80-7.70); Neutrophils % (A) 49.3 %; Platelet Count 208 X 10*3/uL (140-440); RBC 4.21 X 10*6/uL (4.10-5.20); RDW 13.8 % (11.5-14.5); WBC 3.29 X 10*3/uL (4.50-10.00)
[2021-10-29 12:23] LABS: African American GFR (CKD) 52.3 (60.0-200.0); Albumin 4.1 g/dL (3.8-4.9); Albumin/Globulin Ratio 1.86 (1.60-3.17); Anion Gap 10.6 mmol/L (10.00-18.00); BUN/Creat Ratio 18.45 Ratio (12.00-20.00); Blood Urea Nitrogen 20.3 mg/dL (9.0-27.0); Calcium 9.1 mg/dL (8.7-10.3); Carbon Dioxide 25.4 mmol/L (20.0-27.5); Globulin 2.2 g/dL (1.6-3.3); Non-African American GFR(CKD) 45.1 (60.0-200.0); Potassium 4.3 mmol/L (3.5-5.5); Total Bilirubin 0.3 mg/dL (0.30-1.20); Total Protein 6.3 g/dL (6.2-8.2)
--- NOTE | 2021-10-29 13:33 | P.PN ---
Subjective Progress Note Date: 10/29/21 HISTORY OF PRESENT ILLNESS: This is a 85-year-old female with a past medical history significant for hypertension, GERD, hyperlipidemia, and hypothyroidism. Patient follows in the office with Dr. Cruz. We have been asked to see the patient in consultation for new onset A. fib flutter. Patient examined at the bedside in the emergency room. Patient presented to the hospital with a chief complaint of dizziness and lightheadedness since Thursday. She denies any syncopal episodes. She denied any chest pain or pressure. Denies any shortness of breath. Denied any palpitations. The patient was found to be in a flutter with RVR. She was started on IV heparin and oral metoprolol. This morning the patient remains in atrial flutter with a heart rate around 103. EKG reveals a flutter with RVR Chest xray increased interstitial density probably related to pulmonary fibrosis . No pleural fluid or card and mentally. No evidence for heart failure. No significant change compared to old exam. Laboratory data: WBC 3.2. Hemoglobin 12.4. Platelet count 239. INR 1.2. D-dimer 0.27. Sodium 140. Potassium 4.3. BUN 28. Creatinine 1.24. Magnesium 1.8. Troponin negative 3. Current home cardiac medications include amlodipine 5 mg daily, Pravachol 20 mg daily and Lasix 20 mg daily Echocardiogram completed revealing ejection fraction 50-55%, moderate mitral regurgitation, moderate tricuspid regurgitation, and moderate pulmonary hypertension 10/29/2021 Patient examined this morning at the bedside. She denies chest pain or pressure. She denies shortness of breath. Telemetry reveals atrial flutter with controlled ventricular rate. Vital signs are stable. Echocardiogram completed revealing ejection fraction 50-55%, moderate mitral regurgitation, moderate tricuspid regurgitation, and moderate pulmonary hypertension PHYSICAL EXAM: VITAL SIGNS: Reviewed. GENERAL: Well-developed in no acute distress. HEENT: Head is normocephalic. Pupils are equal, round. Sclerae anicteric. Mucous membranes of the mouth are moist. Neck supple. No JVD or thyromegaly LUNGS: Respirations even and unlabored. Lungs essentially clear to auscultation bilaterally. HEART: Regular rate and rhythm. S1 and S2 heard. Systolic murmur noted. ABDOMEN: Soft. Nondistended. Nontender. EXTREMITIES: Normal range of motion. No clubbing or cyanosis. Peripheral pulses intact. No lower extremity edema NEUROLOGIC: Awake and alert. Oriented x 3. ASSESSMENT: New-onset typical persistent atrial flutter with RVR Hypertension Hyperlipidemia Hypothyroidism GERD Valvular heart disease PLAN: Continue current cardiac medications Patient is stable for discharge home today from a cardiac standpoint We will sign off. Please reconsult if needed. Nurse practitioner note has been reviewed by physician. Signing provider agrees with the documented findings, assessment, and plan of care. Objective - Vital Signs Vital signs: Vital Signs Temp 98.2 F 10/29/21 07:00 Pulse 61 10/29/21 07:00 Resp 16 10/29/21 07:00 BP 122/79 10/29/21 07:00 Pulse Ox 98 10/29/21 07:00 Intake & Output 10/28/21 10/29/21 10/29/21 18:59 06:59 18:59 Intake Total 51.473 300 300 Balance 51.473 300 300 Weight 58.513 kg Intake: Intake, IV Titration 51.473 Amount Heparin Sod,Pork in 0.45% 51.473 NaCl 25,000 unit In 0.45 % NaCl 1 250ml.bag @ 12 UNITS/KG/HR 7.022 mls/hr IV .Q24H [facility] Rx#: [id number] Oral 300 300 Other: Voiding Method Toilet Toilet # Voids 1 - Labs CBC & Chem 7: 10/29/21 07:07 10/29/21 07:07 Labs: Abnormal Lab Results - Last 24 Hours (Table) 10/29/21 10/29/21 Range/Units 07:07 07:07 WBC 3.29 L (4.50-10.00) X 10*3/uL MCHC 31.3 L (32.0-37.0) g/dL MPV 8.4 L (9.5-12.2) fL Neutrophils # 1.62 L (1.80-7.70) X 10*3/uL Est GFR (CKD-EPI)AfAm 52.3 L (60.0-200.0) Est GFR (CKD-EPI)NonAf 45.1 L (60.0-200.0) Alkaline Phosphatase 30 L (41-126) U/L
--- NOTE | 2021-10-29 14:25 | P.DS ---
Providers Date of admission: 10/27/21 19:57 Expected date of discharge: 10/29/21 Attending physician: Isabel Souza Primary care physician: Isabel Souza [facility] Course: Diagnoses on discharge: New onset atrial fibrillation with rapid ventricular response on presentation. Dizziness and weakness on presentation likely related to atrial fibrillation Underlying history of hypertension Underlying history of hyperlipidemia Underlying history of hypothyroidism Underlying history of iron deficiency anemia Underlying history of gastroesophageal reflux disease maintained on pantoprazole Evidence of urinary tract infection treated with IV Ceftriaxone during this hospital stay, given a course of Ceftin at the time of discharge. Hospital course: Nancy Grady, is an 85 year old male who presented to [facility] emergency room with a chief complaint of dizziness and weakness She was evaluated in the emergency room vital examination on presentation rev ealed a temperature of 98 heart rate 111 respiration 20 blood pressure 136/85 and pulse ox is 99% on room air Laboratory data revealed a white blood count of 4.4 hemoglobin 13.4 platelet count 268 BUN 28 creatinine 1.4 glucose level 124 troponin less than 0.012 urine analysis revealed evidence of urinary tract infection COVID-19 PCR was negative Testing in the emergency room revealed EKG done in the emergency room revealed evidence of atrial flutter with variable AV block chest x-ray revealed evidence of increased interstitial density probably related to pulmonary fibrosis otherwise no significant abnormality. Patient was admitted to medical floor for further evaluation and treatment Past medical history is significant for history of hypertension, history of hyperlipidemia, history of hypothyroidism, and history of gastroesophageal reflux disease On 10/29/2020 patient was seen and examined on the telemetry floor she is alert and oriented 3 in no apparent distress she denies any chest pain shortness of breath dizziness or palpitation she was evaluated by cardiology and cleared for discharge. During this admission Norvasc was discontinued patient was started on Lopressor 25 mg 3 times daily and Eliquis 2.5 mg twice daily was. During this admission patient had evidence of urinary tract infection, she received IV Rocephin, and was given a five-day course of Ceftin at the time of discharge. She will be followed in our office on Thursday for further evaluation and treatment. She will also follow-up with her brownell operator as scheduled. Patient Condition at Discharge: Serious Plan - Discharge Summary New Discharge Prescriptions: New Apixaban [Eliquis] 2.5 mg PO BID #60 tab Cefuroxime Axetil [Ceftin] 500 mg PO BID 5 Days #10 tab Metoprolol Tartrate [Lopressor] 25 mg PO TID tab Continue Levothyroxine Sodium [Synthroid] 75 mcg PO MOTUWETHFRSA Ferrous Sulfate [Iron (65 MG Elemental)] 325 mg PO DAILY Furosemide [Lasix] 20 mg PO DAILY Simethicone [Simethicone Chew] 80 mg PO DAILY Calcium Carbonate 500 mg PO TID #90 tablet Magnesium Oxide [Mag-Ox] 400 mg PO DAILY #30 tablet Potassium Chloride ER [K-Dur 10] 10 meq PO DAILY #30 tab Pravastatin Sodium [Pravachol] 20 mg PO DAILY Pantoprazole Sodium [Protonix] 40 mg PO W/SUPPER Multivit-Min/FA/Lycopen/Lutein [Centrum Silver Tablet] 1 tab PO DAILY Cholecalciferol [Vitamin D3 (25 Mcg = 1000 Iu)] 50 mcg PO DAILY Levothyroxine Sodium [Synthroid] 37.5 mcg PO VELAZQUEZ Fenofibrate Nanocrystallized [Fenofibrate] 145 mg PO DAILY Discontinued amLODIPine [Norvasc] 5 mg PO DAILY Discharge Medication List Ferrous Sulfate [Iron (65 MG Elemental)] 325 mg PO DAILY 04/22/18 [History] Furosemide [Lasix] 20 mg PO DAILY 04/22/18 [History] Levothyroxine Sodium [Synthroid] 75 mcg PO MOTUWETHFRSA 04/22/18 [History] Simethicone [Simethicone Chew] 80 mg PO DAILY 04/22/18 [History] Calcium Carbonate 500 mg PO TID #90 tablet 04/27/18 [Rx] Magnesium Oxide [Mag-Ox] 400 mg PO DAILY #30 tablet 04/27/18 [Rx] Potassium Chloride ER [K-Dur 10] 10 meq PO DAILY #30 tab 04/27/18 [Rx] Cholecalciferol [Vitamin D3 (25 Mcg = 1000 Iu)] 50 mcg PO DAILY 10/27/21 [History] Fenofibrate Nanocrystallized [Fenofibrate] 145 mg PO DAILY 10/27/21 [History] Levothyroxine Sodium [Synthroid] 37.5 mcg PO VELAZQUEZ 10/27/21 [History] Multivit-Min/FA/Lycopen/Lutein [Centrum Silver Tablet] 1 tab PO DAILY 10/27/21 [History] Pantoprazole Sodium [Protonix] 40 mg PO W/SUPPER 10/27/21 [History] Pravastatin Sodium [Pravachol] 20 mg PO DAILY 10/27/21 [History] Apixaban [Eliquis] 2.5 mg PO BID #60 tab 10/28/21 [Rx] Cefuroxime Axetil [Ceftin] 500 mg PO BID 5 Days #10 tab 10/29/21 [Rx] Metoprolol Tartrate [Lopressor] 25 mg PO TID tab 10/29/21 [Rx] Follow up Appointment(s)/Referral(s): Alex Cruz MD [STAFF PHYSICIAN] - 1 Week [facility], [NON-STAFF] - 11/01/21 (Staff will contact you regarding time for first visit. ) Isabel Souza MD [Primary Care Provider] - 1-2 days
[2021-11-03] MEDS ORDERED: LEVOTHYROXINE 75 MCG TAB PO SCH (06:30)
== END 2021-10-29 15:55 ==
LOC: EC 17:48 → 3SCARD 19:57 → 6NMEDSUR 20:37
PROVIDERS: ADMIT Internal Medicine; ATTEND Internal Medicine
DX: I48.91 Unspecified atrial fibrillation (principal); I48.3 Typical atrial flutter; R42 Dizziness and giddiness; R53.1 Weakness; I10 Essential (primary) hypertension; E78.5 Hyperlipidemia, unspecified; E03.9 Hypothyroidism, unspecified; D50.9 Iron deficiency anemia, unspecified; K21.9 Gastro-esophageal reflux disease without esophagitis; N39.0 Urinary tract infection, site not specified; E11.9 Type 2 diabetes mellitus without complications; J98.4 Other disorders of lung; I27.20 Pulmonary hypertension, unspecified; I08.3 Combined rheumatic disorders of mitral, aortic and tricuspid valves; M19.042 Primary osteoarthritis, left hand; M19.041 Primary osteoarthritis, right hand; K57.90 Diverticulosis of intestine, part unspecified, without perforation or abscess without bleeding; N17.9 Acute kidney failure, unspecified; I44.30 Unspecified atrioventricular block; I83.93 Asymptomatic varicose veins of bilateral lower extremities; Z20.822 Contact with and (suspected) exposure to COVID-19; Z79.899 Other long term (current) drug therapy; Z79.890 Hormone replacement therapy; Z90.49 Acquired absence of other specified parts of digestive tract; Z90.710 Acquired absence of both cervix and uterus; Z82.49 Family history of ischemic heart disease and other diseases of the circulatory system; Z83.79 Family history of other diseases of the digestive system
CPT/HCPCS: 96367; 96376 ×2; 96365; 96366 ×2; 99285; 36415; 93005; 93306; 85379; 80053 ×2; 84443 ×2; 83735; 84484 ×2; 85025 ×3; 85610 ×2; 85730 ×2; 81001; 87635; 71046; G0378 ×3; J0696 ×3; J1644 ×3

== ENCOUNTER 2021-12-23 18:45 | Inpatient (IN) | payer MEDICARE, BC ==
--- NOTE | 2021-12-23 22:12 | XR ---
EXAMINATION TYPE: XR chest 2V DATE OF EXAM: 12/23/2021 COMPARISON: 10/27/2021 HISTORY: Weakness TECHNIQUE: 2 views FINDINGS: Heart is enlarged. There is some blunting of the costophrenic angles. There is mild pulmona ry vascular congestion. Thoracic aorta is atheromatous. IMPRESSION: Mild congestive heart failure. Small pleural effusions. Heart failure and pleural fluid i ncreased compared to old exam.
[2021-12-23 22:16] LABS: Basophils % (A) 1 %; Eosinophils # (A) 0.1 k/uL (0-0.7); Eosinophils % (A) 2 %; HCT 41.5 % (34.0-46.0); Hypochromasia Slight; Lymphocytes # (A) 1.6 k/uL (1.0-4.8); Lymphocytes % (A) 33 %; MCH 31.3 pg (25.0-35.0); MCHC 31.2 g/dL (31.0-37.0); MCV 100.3 fL (80.0-100.0); Macrocytosis Slight; Monocytes # (A) 0.4 k/uL (0-1.0); Monocytes % (A) 7 %; Neutrophils # (A) 2.7 k/uL (1.3-7.7); Neutrophils % (A) 55 %; Platelet Count 311 k/uL (150-450); RBC 4.14 m/uL (3.80-5.40); RDW 14.8 % (11.5-15.5); WBC 4.8 k/uL (3.8-10.6)
[2021-12-23 22:25] LABS: Albumin 3.9 g/dL (3.5-5.0); Calcium 7.7 mg/dL (8.4-10.2); Total Bilirubin 0.9 mg/dL (0.2-1.3); Total Protein 6.7 g/dL (6.3-8.2)
[2021-12-23 22:31] LABS: INR 1.5 (<1.2); Partial Thromboplastin Time 24.7 sec (22.0-30.0); Prothrombin Time 15.5 sec (9.0-12.0)
--- NOTE | 2021-12-23 23:07 | ED ---
Weakness HPI - General Chief complaint: Weakness Stated complaint: Weak/nausea/sob/feet swellling Time Seen by Provider: 12/23/21 22:39 Source: patient, RN notes reviewed Mode of arrival: ambulatory Limitations: no limitations - History of Present Illness Initial comments: This is a pleasant 85-year-old female presents back complaining of generalized weakness, shortness of breath, increased peripheral edema. This was going on for the last week and a half. Patient was admitted in October for atrial fibrillation. Apparently the patient did have an echocardiogram at that time. Patient denying any chest pain. Denies any fever. No headache, no fever or chills, no changes in vision or hearing, no sore throat or difficulty with speech, no neck pain, no chest pain no abdominal pain, no nausea or vomiting, no changes in urination or bowel movements, no numbness or tingling, no extremity pain, no skin rashes or lesions. - Related Data Home Medications Medication Instructions Recorded Confirmed Ferrous Sulfate [Iron (65 MG 325 mg PO DAILY 04/22/18 10/27/21 Elemental)] Furosemide [Lasix] 20 mg PO DAILY 04/22/18 10/27/21 Levothyroxine Sodium [Synthroid] 75 mcg PO MOTUWETHFRSA 04/22/18 10/27/21 Simethicone [Simethicone Chew] 80 mg PO DAILY 04/22/18 10/27/21 Cholecalciferol [Vitamin D3 (25 50 mcg PO DAILY 10/27/21 10/27/21 Mcg = 1000 Iu)] Fenofibrate Nanocrystallized 145 mg PO DAILY 10/27/21 10/27/21 [Fenofibrate] Levothyroxine Sodium [Synthroid] 37.5 mcg PO VELAZQUEZ 10/27/21 10/27/21 Multivit-Min/FA/Lycopen/Lutein 1 tab PO DAILY 10/27/21 10/27/21 [Centrum Silver Tablet] Pantoprazole Sodium [Protonix] 40 mg PO W/SUPPER 10/27/21 10/27/21 Pravastatin Sodium [Pravachol] 20 mg PO DAILY 10/27/21 10/27/21 Previous Rx's Medication Instructions Recorded Calcium Carbonate 500 mg PO TID #90 tablet 04/27/18 Magnesium Oxide [Mag-Ox] 400 mg PO DAILY #30 tablet 07/10/18 Potassium Chloride ER [K-Dur 10] 10 meq PO DAILY #30 tab 04/27/18 Apixaban [Eliquis] 2.5 mg PO BID #60 tab 10/28/21 Cefuroxime Axetil [Ceftin] 500 mg PO BID 5 Days #10 tab 10/29/21 Metoprolol Tartrate [Lopressor] 25 mg PO TID tab 10/29/21 Allergies Allergy/AdvReac Type Severity Reaction Status Date / Time No Known Allergies Allergy Verified 12/23/21 21:36 Review of Systems ROS Statement: Those systems with pertinent positive or pertinent negative responses have been documented in the HPI. ROS Other: All systems not noted in ROS Statement are negative. Past Medical History Past Medical History: Diabetes Mellitus, GERD/Reflux, Hyperlipidemia, Hypertension, Thyroid Disorder Additional Past Medical History / Comment(s): Pt states she lost weight and is no longer on diabetic medication, arthritis bilateral hands, varicose veins, diverticular disease, hypothyroid, past epistaxis. History of Any Multi-Drug Resistant Organisms: None Reported Past Surgical History: Appendectomy, Breast Surgery, Cholecystectomy, Heart Catheterization, Hysterectomy, Orthopedic Surgery, Tonsillectomy Additional Past Surgical History / Comment(s): 2014 cardiac cath-clear, R nasalseptal hemangioma removed, bilateral leg varicose vein sx, bilateral knee arthroscopies, R hand/wrist surgery for arthritis, colonoscopy 2 yrs ago-normal, bilateral breast mastectomy. Past Anesthesia/Blood Transfusion Reactions: No Reported Reaction Past Psychological History: No Psychological Hx Reported Smoking Status: Never smoker Past Alcohol Use History: None Reported Past Drug Use History: None Reported - Past Family History Father Family Medical History: Coronary Artery Disease (CAD), Myocardial Infarction ([place]) Mother Family Medical History: Coronary Artery Disease (CAD), GERD/Reflux, Myocardial Infarction ([place]) General Exam - General Exam Comments Initial Comments: Elderly female who does not appear to be ill or toxic. Vital signs reviewed Limitations: no limitations General appearance: alert, in no apparent distress Head exam: Present: atraumatic, normocephalic, normal inspection Eye exam: Present: normal appearance, PERRL, EOMI. Absent: scleral icterus, conjunctival injection, periorbital swelling ENT exam: Present: normal exam, normal oropharynx, mucous membranes moist Neck exam: Present: normal inspection. Absent: tenderness, meningismus, lymphadenopathy Respiratory exam: Present: rales. Absent: respiratory distress, wheezes, rh onchi, stridor Cardiovascular Exam: Present: regular rate, irregular rhythm, normal heart sounds, systolic murmur. Absent: diastolic murmur, rubs, gallop, clicks GI/Abdominal exam: Present: soft, normal bowel sounds. Absent: distended, tenderness, guarding, rebound, rigid Extremities exam: Present: normal inspection, full ROM, normal capillary refill, pedal edema. Absent: tenderness, joint swelling, calf tenderness Back exam: Present: normal inspection Neurological exam: Present: alert, oriented X3, CN II-XII intact Psychiatric exam: Present: normal affect, normal mood Skin exam: Present: warm, dry, intact, normal color. Absent: rash Course Vital Signs 12/23/21 12/24/21 21:29 00:00 Temperature 98.0 F Pulse Rate 95 98 Respiratory 20 16 Rate Blood Pressure 122/88 134/89 O2 Sat by Pulse 97 96 Oximetry - Reevaluation(s) Reevaluation #1: 12/24/21 00:19 Medical record is reviewed Symptoms are improved here in the emergency department--she admitted for CHF Patient is informed of results and questions answered Patient in no distress Reevaluation #2: 12/24/21 00:32 Medical record is reviewed Magnesium 0.8. Magnesium replacement initiated EKG Findings - EKG Comments: EKG Findings:: EKG shows atrial fibrillation with rapid ventricular response with a rate of 115. Normal axis. No ST or T-wave changes. Normal intervals otherwise. Medical Decision Making - Medical Decision Making Patient has elevated BNP and symptoms consistent with acute exacerbation of CHF. We'll touch base with the patient's primary care provider. The case was discussed in detail with ED attending physician. Presentation, findings, treatment plan discussed in detail. Case, plan, presentation, and disposition discussed with the admitting physician, Dr Souza. - Lab Data Result diagrams: 12/23/21 21:57 12/23/21 21:57 Lab Results 12/23/21 12/23/21 12/23/21 Range/Units 21:57 21:57 21:57 WBC 4.8 (3.8-10.6) k/uL RBC 4.14 (3.80-5.40) m/uL Hgb 13.0 (11.4-16.0) gm/dL Hct 41.5 (34.0-46.0) % MCV 100.3 H (80.0-100.0) fL MCH 31.3 (25.0-35.0) pg MCHC 31.2 (31.0-37.0) g/dL RDW 14.8 (11.5-15.5) % Plt Count 311 (150-450) k/uL MPV 7.0 Neutrophils % 55 % Lymphocytes % 33 % Monocytes % 7 % Eosinophils % 2 % Basophils % 1 % Neutrophils # 2.7 (1.3-7.7) k/uL Lymphocytes # 1.6 (1.0-4.8) k/uL Monocytes # 0.4 (0-1.0) k/uL Eosinophils # 0.1 (0-0.7) k/uL Basophils # 0.0 (0-0.2) k/uL Hypochromasia Slight Macrocytosis Slight PT 15.5 H (9.0-12.0) sec INR 1.5 H (<1.2) APTT 24.7 (22.0-30.0) sec Sodium 143 (137-145) mmol/L Potassium 4.0 (3.5-5.1) mmol/L Chloride 111 H (98-107) mmol/L Carbon Dioxide 20 L (22-30) mmol/L Anion Gap 12 mmol/L BUN 26 H (7-17) mg/dL Creatinine 1.29 H (0.52-1.04) mg/dL Est GFR (CKD-EPI)AfAm 43 (>60 ml/min/1.73 sqM) Est GFR (CKD-EPI)NonAf 37 (>60 ml/min/1.73 sqM) Glucose 119 H (74-99) mg/dL POC Glucose (mg/dL) (75-99) mg/dL POC Glu Admin Secretary ID Calcium 7.7 L (8.4-10.2) mg/dL Magnesium (1.6-2.3) mg/dL Total Bilirubin 0.9 (0.2-1.3) mg/dL AST 34 (14-36) U/L ALT 26 (4-34) U/L Alkaline Phosphatase 31 L (38-126) U/L Troponin I (0.000-0.034) ng/mL NT-Pro-B Natriuret Pep pg/mL Total Protein 6.7 (6.3-8.2) g/dL Albumin 3.9 (3.5-5.0) g/dL Coronavirus (PCR) (Not Detectd) 12/23/21 12/23/21 12/23/21 Range/Units 21:57 21:57 21:57 WBC (3.8-10.6) k/uL RBC (3.80-5.40) m/uL Hgb (11.4-16.0) gm/dL Hct (34.0-46.0) % MCV (80.0-100.0) fL MCH (25.0-35.0) pg MCHC (31.0-37.0) g/dL RDW (11.5-15.5) % Plt Count (150-450) k/uL MPV Neutrophils % % Lymphocytes % % Monocytes % % Eosinophils % % Basophils % % Neutrophils # (1.3-7.7) k/uL Lymphocytes # (1.0-4.8) k/uL Monocytes # (0-1.0) k/uL Eosinophils # (0-0.7) k/uL Basophils # (0-0.2) k/uL Hypochromasia Macrocytosis PT (9.0-12.0) sec INR (<1.2) APTT (22.0-30.0) sec Sodium (137-145) mmol/L Potassium (3.5-5.1) mmol/L Chloride (98-107) mmol/L Carbon Dioxide (22-30) mmol/L Anion Gap mmol/L BUN (7-17) mg/dL Creatinine (0.52-1.04) mg/dL Est GFR (CKD-EPI)AfAm (>60 ml/min/1.73 sqM) Est GFR (CKD-EPI)NonAf (>60 ml/min/1.73 sqM) Glucose (74-99) mg/dL POC Glucose (mg/dL) (75-99) mg/dL POC Glu Admin Secretary ID Calcium (8.4-10.2) mg/dL Magnesium 0.8 L* (1.6-2.3) mg/dL Total Bilirubin (0.2-1.3) mg/dL AST (14-36) U/L ALT (4-34) U/L Alkaline Phosphatase (38-126) U/L Troponin I <0.012 (0.000-0.034) ng/mL NT-Pro-B Natriuret Pep 9620 pg/mL Total Protein (6.3-8.2) g/dL Albumin (3.5-5.0) g/dL Coronavirus (PCR) (Not Detectd) 12/23/21 12/23/21 Range/Units 23:26 23:27 WBC (3.8-10.6) k/uL RBC (3.80-5.40) m/uL Hgb (11.4-16.0) gm/dL Hct (34.0-46.0) % MCV (80.0-100.0) fL MCH (25.0-35.0) pg MCHC (31.0-37.0) g/dL RDW (11.5-15.5) % Plt Count (150-450) k/uL MPV Neutrophils % % Lymphocytes % % Monocytes % % Eosinophils % % Basophils % % Neutrophils # (1.3-7.7) k/uL Lymphocytes # (1.0-4.8) k/uL Monocytes # (0-1.0) k/uL Eosinophils # (0-0.7) k/uL Basophils # (0-0.2) k/uL Hypochromasia Macrocytosis PT (9.0-12.0) sec INR (<1.2) APTT (22.0-30.0) sec Sodium (137-145) mmol/L Potassium (3.5-5.1) mmol/L Chloride (98-107) mmol/L Carbon Dioxide (22-30) mmol/L Anion Gap mmol/L BUN (7-17) mg/dL Creatinine (0.52-1.04) mg/dL Est GFR (CKD-EPI)AfAm (>60 ml/min/1.73 sqM) Est GFR (CKD-EPI)NonAf (>60 ml/min/1.73 sqM) Glucose (74-99) mg/dL POC Glucose (mg/dL) 113 H (75-99) mg/dL POC Glu Admin Secretary ID Porrett, Theo Calcium (8.4-10.2) mg/dL Magnesium (1.6-2.3) mg/dL Total Bilirubin (0.2-1.3) mg/dL AST (14-36) U/L ALT (4-34) U/L Alkaline Phosphatase (38-126) U/L Troponin I (0.000-0.034) ng/mL NT-Pro-B Natriuret Pep pg/mL Total Protein (6.3-8.2) g/dL Albumin (3.5-5.0) g/dL Coronavirus (PCR) Not Detected (Not Detectd) - Radiology Data Radiology results: report reviewed, image reviewed Disposition Clinical Impression: Acute exacerbation of CHF (congestive heart failure), Peripheral edema, General weakness, Bilateral pleural effusion, Hypomagnesemia Disposition: ADMITTED IP TO THIS [facility] Condition: Fair Is patient prescribed a controlled substance at d/c from ED?: No Referrals: Isabel Souza MD [Primary Care Provider] - 1-2 days Time of Disposition: 00:20
[2021-12-23] MEDS ORDERED: FUROSEMIDE 10 MG/ML 4 ML VIAL IV STA (23:08)
[2021-12-23 23:29] LABS: Glucose,Whole Blood 113 mg/dL (75-99)
[2021-12-24] MEDS ORDERED: Magnesium Replacement Protocol 1 EACH MISC MISCELLANE PRN (00:32)
[2021-12-24] MEDS: MAGNESIUM SULFATE-D5W PMX 1 GM in DEXTROSE/WATER 1 100ML.BAG IVPB SCH ×4 (00:57→05:20)
[2021-12-24] MEDS: FUROSEMIDE 10 MG/ML 4 ML VIAL IV SCH ×2 (01:00→11:15)
[2021-12-24] MEDS: APIXABAN 2.5 MG TABLET PO SCH ×3 (01:00→20:34)
[2021-12-24 01:38] LABS: Total Bilirubin 1.1 mg/dL (0.2-1.3)
[2021-12-24 05:15] LABS: Calcium 7.7 mg/dL (8.4-10.2); Magnesium 2.1 mg/dL (1.6-2.3); Potassium 3.6 mmol/L (3.5-5.1); Total Protein 6.8 g/dL (6.3-8.2)
[2021-12-24 05:24] LABS: Basophils % (A) 1 %; Eosinophils # (A) 0.1 k/uL (0-0.7); Eosinophils % (A) 2 %; HCT 40.4 % (34.0-46.0); HGB 12.4 gm/dL (11.4-16.0); Hypochromasia Moderate; Lymphocytes # (A) 1.2 k/uL (1.0-4.8); Lymphocytes % (A) 32 %; MCH 30.7 pg (25.0-35.0); MCHC 30.7 g/dL (31.0-37.0); MCV 99.9 fL (80.0-100.0); Macrocytosis Slight; Mean Platelet Volume 7.3; Monocytes # (A) 0.3 k/uL (0-1.0); Monocytes % (A) 8 %; Neutrophils # (A) 2.1 k/uL (1.3-7.7); Neutrophils % (A) 56 %; Platelet Count 264 k/uL (150-450); RBC 4.05 m/uL (3.80-5.40); RDW 14.3 % (11.5-15.5); WBC 3.6 k/uL (3.8-10.6)
[2021-12-24 06:12] LABS: Glucose,Whole Blood 135 mg/dL (75-99)
[2021-12-24] MEDS: PRAVASTATIN SODIUM 20 MG TAB PO SCH (08:26)
[2021-12-24] MEDS: METOPROLOL SUCCINATE (ER) 25 MG TAB.ER.24H PO SCH (08:26)
[2021-12-24] MEDS: POTASSIUM CHLORIDE ER 10 MEQ TAB.ER.PRT PO SCH (08:26)
[2021-12-24] MEDS ORDERED: APIXABAN 2.5 MG TABLET PO SCH (09:00)
[2021-12-24] MEDS ORDERED: METOPROLOL TARTRATE 25 MG TAB PO SCH (09:00)
[2021-12-24] MEDS ORDERED: lisinopriL 10 MG TAB PO SCH (09:00)
[2021-12-24] MEDS ORDERED: lisinopriL 5 MG TAB PO SCH (09:00)
[2021-12-24] MEDS: VIT A,C & E-LUTEIN-MINERALS 1 EACH TAB PO SCH (09:30)
[2021-12-24] MEDS: FENOFIBRATE 160 MG TAB PO SCH (09:30)
[2021-12-24] MEDS: CALCIUM CARBONATE 500 MG CHEWABLE PO SCH ×3 (09:30→20:34)
[2021-12-24] MEDS: MAGNESIUM OXIDE 400 MG TAB PO SCH (09:30)
[2021-12-24] MEDS: SIMETHICONE 80 MG CHEWABLE PO SCH (09:30)
[2021-12-24] MEDS: CHOLECALCIFEROL 25 MCG (1000 IU) TABLET PO SCH (09:30)
[2021-12-24] MEDS: FERROUS SULFATE 325 MG TAB PO SCH (09:30)
[2021-12-24] MEDS: LEVOTHYROXINE 75 MCG TAB PO SCH (09:31)
[2021-12-24 09:36] LABS: Chol/HDL Ratio 5.42 Ratio; LDL Cholesterol,Calculated 63.2 mg/dL (0.0-131.0)
--- NOTE | 2021-12-24 10:51 | P.CRDCN ---
History of Present Illness History of present illness: This is a 85-year-old female with a past medical history significant for persistent atrial fibrillation, typical atrial flutter, hypertension, GERD, hyperlipidemia, and hypothyroidism. Patient follows in the office with Dr. Cruz. We have been asked to see the patient in consultation for congestive heart failure. Patient presents to the emergency department with worsening dyspnea on exertion, shortness of breath, and bilateral lower extremity edema, and 10lb weight gain and dizziness. She presented to the emergency department for further evaluation. Patient does endorse increased canned soup intake over the past 2 weeks, eating about 1-2 canned soups per day. She states she was taking all her medications as prescribed. She denies any chest pain, palpitations, lightheadedness, syncope or near syncope. She denies any cough, fever, chills, symptoms of orthopnea or PND. On admission patient was started on IV Lasix 40 mg twice a day and states her breathing has improved. DIAGNOSTICS: EKG reveals atrial fibrillation with rapid ventricular response, heart rate 115. Chest xray mild congestive heart failure, small bilateral pleural effusions. Laboratory data: WBC 3.6, hemoglobin 12.4, platelets 264, sodium 142, potassium 3.6, BUN 24, serum creatinine 1.2, magnesium 2.1, troponin negative 3, proBNP 9620, triglycerides 161, cholesterol 117, LDL 62, HDL 21, Covid negative Current home cardiac medications include pravastatin 20mg daily, metoprolol tartarte 25mg TID, Lasix 20 mg daily, Eliquis 2.5 mg twice a day Echocardiogram 10/28/2021 completed revealing ejection fraction 50-55%, moderate mitral regurgitation, moderate tricuspid regurgitation, and moderate pulmonary hypertension Cardiac cath in 09/2015 with normal coronary arteries Lexiscan stress test in 2019 with negative for reversible ischemia REVIEW OF SYSTEMS: At the time of my exam: CONSTITUTIONAL: Denies fever or chills. HEENT: Denies blurred vision, vision changes, or eye pain. Denies hemoptysis CARDIOVASCULAR: Denies chest pain. Denies orthopnea. Denies PND. Denies palpitations RESPIRATORY: + shortness of breath. GASTROINTESTINAL: Denies abdominal pain. Denies nausea or vomiting. HEMATOLOGIC: Denies bleeding disorders. GENITOURINARY: Denies any blood in urine. SKIN: Denies pruitis. Denies rash. PHYSICAL EXAM: VITAL SIGNS: Reviewed. GENERAL: Well-developed in no acute distress. HEENT: Head is normocephalic. Pupils are equal, round. Sclerae anicteric. Mucous membranes of the mouth are moist. Neck supple. No JVD LUNGS: Respirations even and unlabored. Lungs with crackles in the bases to auscultation bilaterally. HEART: Irregular rate and rhythm. S1 and S2 heard. Systolic murmur noted. ABDOMEN: Soft. Nondistended. Nontender. EXTREMITIES: Normal range of motion. No clubbing or cyanosis. Peripheral pulses intact. No lower extremity edema NEUROLOGIC: Awake and alert. Oriented x 3. ASSESSMENT: Acute on chronic heart failure with preserved ejection fraction Acute Kidney Injury Persistent atrial fibrillation on Eliquis Typical atrial flutter Hypertension Hyperlipidemia Hypothyroidism GERD Valvular heart disease PLAN: Continue IV Lasix 40mg BID Monitor I/Os, daily weights, renal function and electrolytes ACEI/ARB on hold due to acute kidney injury, if kidney function improves, will start ACEI Continue Eliquis and metoprolol tartrate Monitor on cardiac telemetry Discussed heart healthy diet and low sodium diet with patient Further recommendations based on clinical course Past Medical History Past Medical History: Diabetes Mellitus, GERD/Reflux, Hyperlipidemia, Hypertension, Thyroid Disorder Additional Past Medical History / Comment(s): Pt states she is no longer on diabetic medication(metformin), arthritis bilateral hands, varicose veins, diverticular disease, hypothyroid, past epistaxis. History of Any Multi-Drug Resistant Organisms: None Reported Past Surgical History: Appendectomy, Breast Surgery, Cholecystectomy, Heart Catheterization, Hysterectomy, Orthopedic Surgery, Tonsillectomy Additional Past Surgical History / Comment(s): 2015 cardiac cath-clear, R nasalseptal hemangioma removed, bilateral leg varicose vein sx, bilateral knee arthroscopies, R hand/wrist surgery for arthritis, colonoscopy 2 yrs ago-normal, bilateral breast mastectomy. Past Anesthesia/Blood Transfusion Reactions: No Reported Reaction Past Psychological History: No Psychological Hx Reported Additional Psychological History / Comment(s): Pt resides with her spouse. She uses no assistive device. She no longer drives. Her spouse drives. Smoking Status: Never smoker Past Alcohol Use History: None Reported Past Drug Use History: None Reported - Past Family History Father Family Medical History: Coronary Artery Disease (CAD), Myocardial Infarction (ID) Mother Family Medical History: Coronary Artery Disease (CAD), GERD/Reflux, Myocardial Infarction (ID) Medications and Allergies Home Medications Medication Instructions Recorded Confirmed Type Ferrous Sulfate [Iron (65 MG 325 mg PO DAILY 04/22/18 12/24/21 History Elemental)] Furosemide [Lasix] 20 mg PO DAILY 04/22/18 12/24/21 History Levothyroxine Sodium [Synthroid] 75 mcg PO MOTUWETHFRSA 04/22/18 12/24/21 History Simethicone [Simethicone Chew] 80 mg PO DAILY 04/22/18 12/24/21 History Calcium Carbonate 500 mg PO TID #90 tablet 04/27/18 12/24/21 Rx Magnesium Oxide [Mag-Ox] 400 mg PO DAILY #30 tablet 04/27/18 12/24/21 Rx Potassium Chloride ER [K-Dur 10] 10 meq PO DAILY #30 tab 04/27/18 12/24/21 Rx Cholecalciferol [Vitamin D3 (25 50 mcg PO DAILY 10/27/21 12/24/21 History Mcg = 1000 Iu)] Fenofibrate Nanocrystallized 145 mg PO DAILY 10/27/21 12/24/21 History [Fenofibrate] Levothyroxine Sodium [Synthroid] 37.5 mcg PO VELAZQUEZ 10/27/21 12/24/21 History Multivit-Min/FA/Lycopen/Lutein 1 tab PO DAILY 10/27/21 12/24/21 History [Centrum Silver Tablet] Pantoprazole Sodium [Protonix] 40 mg PO W/SUPPER 10/27/21 12/24/21 History Pravastatin Sodium [Pravachol] 20 mg PO DAILY 10/27/21 12/24/21 History Apixaban [Eliquis] 2.5 mg PO BID #60 tab 10/28/21 12/24/21 Rx Metoprolol Tartrate [Lopressor] 25 mg PO TID tab 10/29/21 12/24/21 Rx Allergies Allergy/AdvReac Type Severity Reaction Status Date / Time No Known Allergies Allergy Verified 12/24/21 06:59 Physical Exam Vitals: Vital Signs Temp Pulse Pulse Resp BP BP Pulse Ox 12/24/21 04:00 97.8 F 91 16 124/81 97 12/24/21 03:46 87 18 119/78 94 L 12/24/21 02:00 90 18 128/81 94 L 12/24/21 00:00 98 16 134/89 96 12/23/21 21:29 98.0 F 95 20 122/88 97 Intake and Output 12/23/21 12/24/21 12/24/21 22:59 06:59 14:59 Output Total 400 Balance -400 Output: Urine 400 Other: Voiding Method Bedside Commode Weight 63.503 kg 63.9 kg Results 12/24/21 04:19 12/24/21 04:19 Cardiac Enzymes 12/23/21 12/23/21 12/24/21 Range/Units 21:57 21:57 00:50 AST 34 (14-36) U/L Troponin I <0.012 <0.012 (0.000-0.034) ng/mL 12/24/21 12/24/21 Range/Units 04:19 04:19 AST 35 (14-36) U/L Troponin I <0.012 (0.000-0.034) ng/mL Coagulation 12/23/21 Range/Units 21:57 PT 15.5 H (9.0-12.0) sec APTT 24.7 (22.0-30.0) sec CBC 12/23/21 12/24/21 Range/Units 21:57 04:19 WBC 4.8 3.6 L (3.8-10.6) k/uL RBC 4.14 4.05 (3.80-5.40) m/uL Hgb 13.0 12.4 (11.4-16.0) gm/dL Hct 41.5 40.4 (34.0-46.0) % Plt Count 311 264 (150-450) k/uL Comprehensive Metabolic Panel 12/23/21 12/24/21 Range/Units 21:57 04:19 Sodium 143 142 (137-145) mmol/L Potassium 4.0 3.6 (3.5-5.1) mmol/L Chloride 111 H 107 (98-107) mmol/L Carbon Dioxide 20 L 25 (22-30) mmol/L BUN 26 H 24 H (7-17) mg/dL Creatinine 1.29 H 1.22 H (0.52-1.04) mg/dL Glucose 119 H 133 H (74-99) mg/dL Calcium 7.7 L 7.7 L (8.4-10.2) mg/dL AST 34 35 (14-36) U/L ALT 26 25 (4-34) U/L Alkaline Phosphatase 31 L 27 L (38-126) U/L Total Protein 6.7 6.8 (6.3-8.2) g/dL Albumin 3.9 4.0 (3.5-5.0) g/dL Current Medications Generic Name Dose Route Start Last Admin Trade Name Freq PRN Reason Stop Dose Admin Apixaban 2.5 mg 12/24/21 00:15 12/24/21 01:00 Apixaban 2.5 Mg Tablet PO Not Given BID [facility] Protocol Aspirin 325 mg 12/25/21 09:00 Aspirin 325 Mg Tab PO DAILY [facility] Furosemide 40 mg 12/24/21 00:15 12/24/21 01:00 Furosemide 10 Mg/Ml 4 Ml Vial IV Not Given Q12H [facility] Lisinopril 10 mg 12/24/21 09:00 Lisinopril 10 Mg Tab PO DAILY [facility] Metoprolol Succinate 25 mg 12/24/21 09:00 Metoprolol Succinate (Er) 25 Mg Tab.Er.24h PO DAILY [facility] Miscellaneous Information 1 each 12/24/21 00:32 Magnesium Replacement Protocol 1 Each Misc MISCELLANE DAILY PRN Per Protocol Protocol Intake and Output 12/23/21 12/24/21 12/24/21 22:59 06:59 14:59 Output Total 400 Balance -400 Output: Urine 400 Other: Voiding Method Bedside Commode Weight 63.503 kg 63.9 kg 12/24/21 04:19 12/24/21 04:19
[2021-12-24 11:17] LABS: Glucose,Whole Blood 120 mg/dL (75-99)
--- NOTE | 2021-12-24 12:26 | ECHOF ---
Referral Reason:LV function MEASUREMENTS -------- HEIGHT: 162.6 cm WEIGHT: 63.5 kg BP: 124/81 RVIDd: 3.8 cm (< 3.3) IVSd: 1.1 cm (0.6 - 1.1) LVIDd: 4.3 cm (3.9 - 5.3) LVPWd: 1.3 cm (0.6 - 1.1) IVSs: 1.3 cm LVIDs: 3.0 cm LVPWs: 1.4 cm LAESV Index (A-L): 80.79 ml/m AR PHT: 363 ms RAP: 20.00 mmHg RVSP: 78.20 mmHg FINDINGS -------- Atrial fibrillation. This was a technically adequate study. The left ventricular size is normal. There is borderline concentric left ventricular hypertrophy. Overall left ventricular systolic function is low-normal with, an EF between 50 - 55 %. The right ventricle is mild to moderately enlarged. LA is severely dilated >40 ml/m2 The right atrium is mildly enlarged. Interatrial and interventricular septum intact. There is mild aortic regurgitation. There is no evidence of aortic stenosis. Fcawrfuk-zw-ewftvo mitral regurgitation is present. Severe tricuspid regurgitation present. There is severe pulmonary hypertension. The right ventric ular systolic pressure, as measured by Doppler, is 78.20mmHg. Moderate pulmonic regurgitation. The aortic root size is normal. The inferior vena cava is dilated with poor inspiratory collapse which is consistent with estimated r ight atrial pressure of 20 mmHg. Echo free space represents a pericardial fat pad. There is no pericardial effusion. CONCLUSIONS -------- 1. The left ventricular size is normal. 2. There is borderline concentric left ventricular hypertrophy. 3. Overall left ventricular systolic function is low-normal with, an EF between 50 - 55 %. 4. The right ventricle is mild to moderately enlarged. 5. LA is severely dilated >40 ml/m2 6. The right atrium is mildly enlarged. 7. There is mild aortic regurgitation. 8. Gynphyfo-ua-hnvuaf mitral regurgitation is present. 9. Severe tricuspid regurgitation present. 10. There is severe pulmonary hypertension. 11. The right ventricular systolic pressure, as measured by Doppler, is 78.20mmHg. 12. Moderate pulmonic regurgitation. 13. The inferior vena cava is dilated with poor inspiratory collapse which is consistent with estimat ed right atrial pressure of 20 mmHg. BASIN TENDER: Priti Frank RDCS
[2021-12-24 13:01] VITALS: BMI 24.1
--- NOTE | 2021-12-24 16:03 | P.HPIM ---
History of Present Illness H&P Date: 12/24/21 Nancy Grady, is an 85 year-old female, who presented to Hospital emergency room with a chief complaint of worsening shortness of breath, lower extremity swelling and generalized weakness She was evaluated in the emergency room vital examination on presentation revealed a temperature of 98.0 pulse 95 respiration 20 blood pressure 122/88 pulse ox 97% on room air Laboratory data revealed a white blood count of 4.8 hemoglobin 13.0 platelet count 311 sodium 143 potassium 4.0 chloride 111 CO2 20 BUN 26 creatinine 1.29 magnesium was 0.8 BNP 9620 and troponin level less than 0.012 COVID-19 PCR was negative Testing in the emergency room revealed EKG revealed atrial fibrillation with rapid ventricular response heart rate of 115 chest x-ray revealed evidence of mild congestive heart failure and bilateral small pleural effusions. Patient was admitted to medical floor for further evaluation and treatment. Past medical history is significant for history of hypertension, history of hyperlipidemia, history of hypothyroidism, history of atrial fibrillation with previous episodes of rapid ventricular response maintained on Eliquis, Past Medical History Past Medical History: Diabetes Mellitus, GERD/Reflux, Hyperlipidemia, Hypertension, Thyroid Disorder Additional Past Medical History / Comment(s): Pt states she is no longer on diabetic medication(metformin), arthritis bilateral hands, varicose veins, diverticular disease, hypothyroid, past epistaxis. History of Any Multi-Drug Resistant Organisms: None Reported Past Surgical History: Appendectomy, Breast Surgery, Cholecystectomy, Heart Catheterization, Hysterectomy, Orthopedic Surgery, Tonsillectomy Additional Past Surgical History / Comment(s): 2014 cardiac cath-clear, R nasalseptal hemangioma removed, bilateral leg varicose vein sx, bilateral knee arthroscopies, R hand/wrist surgery for arthritis, colonoscopy 2 yrs ago-normal, bilateral breast mastectomy. Past Anesthesia/Blood Transfusion Reactions: No Reported Reaction Past Psychological History: No Psychological Hx Reported Additional Psychological History / Comment(s): Pt resides with her spouse. She uses no assistive device. She no longer drives. Her spouse drives. Smoking Status: Never smoker Past Alcohol Use History: None Reported Past Drug Use History: None Reported - Past Family History Father Family Medical History: Coronary Artery Disease (CAD), Myocardial Infarction ([place]) Mother Family Medical History: Coronary Artery Disease (CAD), GERD/Reflux, Myocardial Infarction ([place]) Medications and Allergies Home Medications Medication Instructions Recorded Confirmed Type Ferrous Sulfate [Iron (65 MG 325 mg PO DAILY 04/22/18 12/24/21 History Elemental)] Furosemide [Lasix] 20 mg PO DAILY 04/22/18 12/24/21 History Levothyroxine Sodium [Synthroid] 75 mcg PO MOTUWETHFRSA 04/22/18 12/24/21 History Simethicone [Simethicone Chew] 80 mg PO DAILY 04/22/18 12/24/21 History Calcium Carbonate 500 mg PO TID #90 tablet 04/27/18 12/24/21 Rx Magnesium Oxide [Mag-Ox] 400 mg PO DAILY #30 tablet 04/27/18 12/24/21 Rx Potassium Chloride ER [K-Dur 10] 10 meq PO DAILY #30 tab 04/27/18 12/24/21 Rx Cholecalciferol [Vitamin D3 (25 50 mcg PO DAILY 10/27/21 12/24/21 History Mcg = 1000 Iu)] Fenofibrate Nanocrystallized 145 mg PO DAILY 10/27/21 12/24/21 History [Fenofibrate] Levothyroxine Sodium [Synthroid] 37.5 mcg PO VELAZQUEZ 10/27/21 12/24/21 History Multivit-Min/FA/Lycopen/Lutein 1 tab PO DAILY 10/27/21 12/24/21 History [Centrum Silver Tablet] Pantoprazole Sodium [Protonix] 40 mg PO W/SUPPER 10/27/21 12/24/21 History Pravastatin Sodium [Pravachol] 20 mg PO DAILY 10/27/21 12/24/21 History Apixaban [Eliquis] 2.5 mg PO BID #60 tab 10/28/21 12/24/21 Rx Metoprolol Tartrate [Lopressor] 25 mg PO TID tab 10/29/21 12/24/21 Rx Allergies Allergy/AdvReac Type Severity Reaction Status Date / Time No Known Allergies Allergy Verified 12/24/21 06:59 Physical Exam Vitals: Vital Signs Temp Pulse Pulse Resp BP BP Pulse Ox 12/24/21 04:00 97.8 F 91 16 124/81 97 12/24/21 03:46 87 18 119/78 94 L 12/24/21 02:00 90 18 128/81 94 L 12/24/21 00:00 98 16 134/89 96 03/07/22 21:29 98.0 F 95 20 122/88 97 Intake and Output 12/23/21 12/24/21 12/24/21 22:59 06:59 14:59 Output Total 400 200 Balance -400 -200 Output: Urine 400 200 Other: Voiding Method Bedside Commode # Voids 1 Weight 63.503 kg 63.9 kg In general patient is alert and oriented x 3 in no distress HEENT head normocephalic and atraumatic Neck is supple no JVD no goiter no lymphadenopathy no carotid bruit Chest examination is clear to auscultation no crackles no wheezing Cardiac exam reveals regular heart sounds S1 and S2 no gallops no murmurs Abdomen is soft nontender no organomegaly with normal bowel sounds Extremity exam reveals no edema no cyanosis or clubbing Neurological examination reveals no gross focal deficits Results CBC & Chem 7: 12/24/21 04:19 12/24/21 04:19 Labs: Abnormal Lab Results - Last 24 Hours (Table) 12/23/21 12/23/21 12/23/21 Range/Units 21:57 21:57 21:57 WBC (3.8-10.6) k/uL MCV 100.3 H (80.0-100.0) fL MCHC (31.0-37.0) g/dL PT 15.5 H (9.0-12.0) sec INR 1.5 H (<1.2) Chloride 111 H (98-107) mmol/L Carbon Dioxide 20 L (22-30) mmol/L BUN 26 H (7-17) mg/dL Creatinine 1.29 H (0.52-1.04) mg/dL Glucose 119 H (74-99) mg/dL POC Glucose (mg/dL) (75-99) mg/dL Calcium 7.7 L (8.4-10.2) mg/dL Magnesium (1.6-2.3) mg/dL Alkaline Phosphatase 31 L (38-126) U/L 12/23/21 12/23/21 12/24/21 Range/Units 21:57 23:27 04:19 WBC 3.6 L (3.8-10.6) k/uL MCV (80.0-100.0) fL MCHC 30.7 L (31.0-37.0) g/dL PT (9.0-12.0) sec INR (<1.2) Chloride (98-107) mmol/L Carbon Dioxide (22-30) mmol/L BUN (7-17) mg/dL Creatinine (0.52-1.04) mg/dL Glucose (74-99) mg/dL POC Glucose (mg/dL) 113 H (75-99) mg/dL Calcium (8.4-10.2) mg/dL Magnesium 0.8 L* (1.6-2.3) mg/dL Alkaline Phosphatase (38-126) U/L 12/24/21 12/24/21 Range/Units 04:19 06:11 WBC (3.8-10.6) k/uL MCV (80.0-100.0) fL MCHC (31.0-37.0) g/dL PT (9.0-12.0) sec INR (<1.2) Chloride (98-107) mmol/L Carbon Dioxide (22-30) mmol/L BUN 24 H (7-17) mg/dL Creatinine 1.22 H (0.52-1.04) mg/dL Glucose 133 H (74-99) mg/dL POC Glucose (mg/dL) 135 H (75-99) mg/dL Calcium 7.7 L (8.4-10.2) mg/dL Magnesium (1.6-2.3) mg/dL Alkaline Phosphatase 27 L (38-126) U/L Thrombosis Risk Factor Assmnt - Choose All That Apply Any of the Below Risk Factors Present?: Yes Each Factor Represents 1 point: Heart failure (<1month), Swollen legs (current), Varicose veins Other Risk Factors: Yes Each Risk Factor Represents 3 Points: Age 75 years or older Other congenital or acquired thrombophilia - If yes, enter type in comment: No Thrombosis Risk Factor Assessment Total Risk Factor Score: 6 Thrombosis Risk Factor Assessment Level: High Risk Assessment and Plan Plan: 1. Acute congestive heart failure exacerbation, echocardiogram done in October 2021 reveals left ventricular systolic function is low normal with ejection fraction between 50-55%, with left atrium severely dilated with moderate mitral regurgitation and moderate tricuspid regurgitation and moderate pulmonary hypertension. 2. Atrial fibrillation with rapid ventricular response on presentation 3. Underlying history of hypertension 4. Underlying history of hyperlipidemia 5. Underlying history of hypothyroidism At this time patient is admitted to the telemetry floor cardiology consultation requested she was started on IV Lasix Home medications reviewed and reordered
[2021-12-24] MEDS: PANTOPRAZOLE 40 MG TABLET PO SCH (16:16)
[2021-12-25] MEDS ORDERED: FUROSEMIDE 10 MG/ML 4 ML VIAL IV SCH (06:00)
[2021-12-25] MEDS: LEVOTHYROXINE 75 MCG TAB PO SCH (06:38)
[2021-12-25 06:58] LABS: Basophils % (A) 0 %; Eosinophils # (A) 0.1 k/uL (0-0.7); Eosinophils % (A) 1 %; HCT 40.5 % (34.0-46.0); HGB 12.7 gm/dL (11.4-16.0); Hypochromasia Slight; Lymphocytes # (A) 0.8 k/uL (1.0-4.8); Lymphocytes % (A) 22 %; MCH 31.1 pg (25.0-35.0); MCHC 31.3 g/dL (31.0-37.0); MCV 99.3 fL (80.0-100.0); Macrocytosis Slight; Mean Platelet Volume 7.1; Monocytes # (A) 0.2 k/uL (0-1.0); Monocytes % (A) 7 %; Neutrophils # (A) 2.3 k/uL (1.3-7.7); Neutrophils % (A) 67 %; Platelet Count 240 k/uL (150-450); RBC 4.08 m/uL (3.80-5.40); RDW 14.6 % (11.5-15.5); WBC 3.4 k/uL (3.8-10.6)
[2021-12-25 07:11] LABS: Albumin 3.6 g/dL (3.5-5.0); Calcium 7.6 mg/dL (8.4-10.2); Potassium 3.6 mmol/L (3.5-5.1); Total Bilirubin 1.3 mg/dL (0.2-1.3); Total Protein 6.5 g/dL (6.3-8.2)
[2021-12-25] MEDS: ACETAMINOPHEN TAB 325 MG TAB PO PRN ×2 (07:21→12:18)
[2021-12-25] MEDS: FERROUS SULFATE 325 MG TAB PO SCH (07:57)
[2021-12-25] MEDS: CALCIUM CARBONATE 500 MG CHEWABLE PO SCH ×3 (07:57→21:15)
[2021-12-25] MEDS: APIXABAN 2.5 MG TABLET PO SCH ×2 (07:57→21:15)
[2021-12-25] MEDS: PRAVASTATIN SODIUM 20 MG TAB PO SCH (07:57)
[2021-12-25] MEDS: FENOFIBRATE 160 MG TAB PO SCH (07:57)
[2021-12-25] MEDS: MAGNESIUM OXIDE 400 MG TAB PO SCH (07:57)
[2021-12-25] MEDS: CHOLECALCIFEROL 25 MCG (1000 IU) TABLET PO SCH (07:58)
[2021-12-25] MEDS: POTASSIUM CHLORIDE ER 10 MEQ TAB.ER.PRT PO SCH (07:58)
[2021-12-25] MEDS: METOPROLOL TARTRATE 25 MG TAB PO SCH ×3 (07:59→23:29)
[2021-12-25] MEDS: VIT A,C & E-LUTEIN-MINERALS 1 EACH TAB PO SCH (07:59)
[2021-12-25] MEDS: SIMETHICONE 80 MG CHEWABLE PO SCH (07:59)
[2021-12-25] MEDS ORDERED: POTASSIUM CHLORIDE ER 20 MEQ TAB.ER PO SCH (08:00)
[2021-12-25] MEDS ORDERED: ASPIRIN 325 MG TAB PO SCH (09:00)
--- NOTE | 2021-12-25 09:50 | P.PN ---
Subjective Progress Note Date: 12/25/21 Nanyc Grady, is an 85 year-old female, who presented to Hospital emergency room with a chief complaint of worsening shortness of breath, lower extremity swelling and generalized weakness She was evaluated in the emergency room vital examination on presentation revealed a temperature of 98.0 pulse 95 respiration 20 blood pressure 122/88 pulse ox 97% on room air Laboratory data revealed a white blood count of 4.8 hemoglobin 13.0 platelet count 311 sodium 143 potassium 4.0 chloride 111 CO2 20 BUN 26 creatinine 1.29 magnesium was 0.8 BNP 9620 and troponin level less than 0.012 COVID-19 PCR was negative Testing in the emergency room revealed EKG revealed atrial fibrillation with rapid ventricular response heart rate of 115 chest x-ray revealed evidence of mild congestive heart failure and bilateral small pleural effusions. Patient was admitted to medical floor for further evaluation and treatment. Past medical history is significant for history of hypertension, history of hyperlipidemia, history of hypothyroidism, history of atrial fibrillation with previous episodes of rapid ventricular response maintained on Eliquis, On 12/25/2021 2 patient's alert and oriented 3. Patient remains on IV Lasix 40 mg every 12. 2-D echo has been completed showing an EF of 50-55%. Creatinine 0.99 and bun 20. Heart rate 104, respiratory rate 17, blood pressure 121/88 and patient satting 96 on room air. Patient reports significant improvement with edema but is complaining of left sided knee pain denies any trauma. Patient also reports that she is still short of breath. Objective - Vital Signs Vital signs: Vital Signs Temp 98.1 F 12/25/21 08:00 Pulse 104 H 12/25/21 08:00 Resp 17 12/25/21 08:00 BP 121/88 12/25/21 08:00 Pulse Ox 96 12/25/21 08:00 Intake & Output 12/24/21 12/25/21 12/25/21 18:59 06:59 18:59 Output Total 1600 850 900 Balance -1600 850 -900 Weight 63.9 kg 61.1 kg Output: Urine 1600 850 900 Other: Voiding Method Bedside Commode Bedside Commode # Voids 1 - Exam In general patient is alert and oriented x 3 in no distress HEENT head normocephalic and atraumatic Neck is supple no JVD no goiter no lymphadenopathy no carotid bruit Chest examination is clear to auscultation no crackles no wheezing Cardiac exam reveals regular heart sounds S1 and S2 no gallops no murmurs Abdomen is soft nontender no organomegaly with normal bowel sounds Extremity exam reveals no edema no cyanosis or clubbing Neurological examination reveals no gross focal deficits - Labs CBC & Chem 7: 12/25/21 06:34 12/25/21 06:34 Labs: Abnormal Lab Results - Last 24 Hours (Table) 12/24/21 12/25/21 12/25/21 Range/Units 11:15 06:34 06:34 WBC 3.4 L (3.8-10.6) k/uL Lymphocytes # 0.8 L (1.0-4.8) k/uL Chloride 108 H (98-107) mmol/L BUN 20 H (7-17) mg/dL Glucose 129 H (74-99) mg/dL POC Glucose (mg/dL) 120 H (75-99) mg/dL Calcium 7.6 L (8.4-10.2) mg/dL Alkaline Phosphatase 29 L (38-126) U/L Assessment and Plan Plan: 1. Acute congestive heart failure exacerbation, echocardiogram done in October 2021 reveals left ventricular systolic function is low normal with ejection fraction between 50-55%, with left atrium severely dilated with moderate mitral regurgitation and moderate tricuspid regurgitation and moderate pulmonary hypertension. 2. Atrial fibrillation with rapid ventricular response on presentation 3. Underlying history of hypertension 4. Underlying history of hyperlipidemia 5. Underlying history of hypothyroidism 6. Pain to left knee. Will order x-ray DVT prophylaxis eliquis. GI prophylaxis Protonix 2-D echo completed showing EF 50-55% Patient remains on IV Lasix Cardiology services consulted X-ray of left knee ordered
--- NOTE | 2021-12-25 11:14 | XR ---
EXAMINATION TYPE: XR knee complete LT DATE OF EXAM: 12/25/2021 CLINICAL HISTORY: pain TECHNIQUE: Three views of the left knee are obtained. COMPARISON: None. FINDINGS: There is no acute fracture/dislocation. The tri-compartment joint spaces appear severely narrowed with greatest involvement of the lateral tibiofemoral joint space. Associated subchondral sc lerosis and spur formation. Small joint effusion noted. The overlying soft tissue appears unremarkabl e. IMPRESSION: There is no acute fracture or dislocation ICD 10 NO FRACTURE, INITIAL EVALUATION
[2021-12-25] MEDS ORDERED: IBUPROFEN 600 MG TAB PO STA (13:20)
--- NOTE | 2021-12-25 13:25 | P.PN ---
Subjective This is a 85-year-old female with a past medical history significant for persistent atrial fibrillation, typical atrial flutter, hypertension, GERD, hyperlipidemia, and hypothyroidism. Patient follows in the office with Dr. Cruz. We have been asked to see the patient in consultation for congestive heart failure. Patient presents to the emergency department with worsening dyspnea on exertion, shortness of breath, and bilateral lower extremity edema, and 10lb weight gain and dizziness. She presented to the emergency department for further evaluation. Patient does endorse increased canned soup intake over the past 2 weeks, eating about 1-2 canned soups per day. She states she was taking all her medications as prescribed. She denies any chest pain, palpitations, lightheadedness, syncope or near syncope. She denies any cough, fever, chills, symptoms of orthopnea or PND. On admission patient was started on IV Lasix 40 mg twice a day and states her breathing has improved. DIAGNOSTICS: EKG reveals atrial fibrillation with rapid ventricular response, heart rate 115. Chest xray mild congestive heart failure, small bilateral pleural effusions. Echocardiogram 10/28/2021 completed revealing ejection fraction 50-55%, moderate mitral regurgitation, moderate tricuspid regurgitation, and moderate pulmonary hypertension Cardiac cath in 09/2015 with normal coronary arteries Lexiscan stress test in 2019 with negative for reversible ischemia 12/25/2021 Patient seen at bedside, no acute distress. Her breathing has improved since admission. Patient with 2450, urine output over the past 24 hours. And decrease d weight since admission. Vitals are stable. echocardiogram revealed EF of 5055 percent, LA severely dilated, severe mitral regurgitation, severe tricuspid regurgitation, severe pulmonary hypertension with RVSP of 78 mmHg She's currently maintained on IV Lasix 40 mg twice a day,Eliquis 2.5 mg twice a day, metoprolol titrate 25 mg 3 times a day, pravastatin 20 mg daily PHYSICAL EXAM: VITAL SIGNS: Reviewed. GENERAL: Well-developed in no acute distress. HEENT: Neck supple. No JVD LUNGS: Respirations even and unlabored. Lungs clear to auscultation bilaterally. HEART: Irregular rate and rhythm. S1 and S2 heard. Systolic murmur noted. ABDOMEN: Soft. Nondistended. Nontender. EXTREMITIES: Normal range of motion. No clubbing or cyanosis. Peripheral pulses intact. No lower extremity edema NEUROLOGIC: Awake and alert. Oriented x 3. ASSESSMENT: Acute on chronic heart failure with preserved ejection fraction Acute Kidney Injury, improving Persistent atrial fibrillation on Eliquis Typical atrial flutter Hypertension Hyperlipidemia Hypothyroidism GERD Valvular heart disease PLAN: Transition to PO Lasix 20mg BID Monitor I/Os, daily weights, renal function and electrolytes ACEI/ARB on hold due to acute kidney injury, if kidney function improves, will start ACEI. Monitor labs tomorrow Continue Eliquis and metoprolol tartrate Discussed heart healthy diet and low sodium diet with patient Hopefully discharge in 24 hours Further recommendations based on clinical course Objective - Vital Signs Vital signs: Vital Signs Temp 98.1 F 12/25/21 08:00 Pulse 104 H 12/25/21 08:00 Resp 17 12/25/21 08:00 BP 121/88 12/25/21 08:00 Pulse Ox 96 12/25/21 08:00 Intake & Output 12/24/21 12/25/21 12/25/21 18:59 06:59 18:59 Output Total 1600 850 900 Balance -1600 -850 -900 Weight 63.9 kg 61.1 kg Output: Urine 1600 850 900 Other: Voiding Method Bedside Commode Bedside Commode Bedside Commode # Voids 1 - Labs CBC & Chem 7: 12/25/21 06:34 12/25/21 06:34 Labs: Abnormal Lab Results - Last 24 Hours (Table) 12/25/21 12/25/21 Range/Units 06:34 06:34 WBC 3.4 L (3.8-10.6) k/uL Lymphocytes # 0.8 L (1.0-4.8) k/uL Chloride 108 H (98-107) mmol/L BUN 20 H (7-17) mg/dL Glucose 129 H (74-99) mg/dL Calcium 7.6 L (8.4-10.2) mg/dL Alkaline Phosphatase 29 L (38-126) U/L
--- NOTE | 2021-12-25 15:28 | US ---
EXAMINATION TYPE: US venous doppler duplex LE LT DATE OF EXAM: 12/25/2021 3:22 PM COMPARISON: NONE CLINICAL HISTORY: increased pain in leg behind rojas hx afib. Pt states left knee pain SIDE PERFORMED: Left TECHNIQUE: The lower extremity deep venous system is examined utilizing real time linear array sonog carlie with graded compression, doppler sonography and color-flow sonography. VESSELS IMAGED: Common Femoral Vein Deep Femoral Vein Greater Saphenous Vein * Femoral Vein Popliteal Vein Small Saphenous Vein * Proximal Calf Veins (* superficial vessels) Left Leg: Negative for DVT IMPRESSION: No evidence for DVT at this time.
[2021-12-25] MEDS: FUROSEMIDE 20 MG TAB PO SCH (15:48)
[2021-12-25] MEDS: PANTOPRAZOLE 40 MG TABLET PO SCH (15:48)
[2021-12-25] MEDS: DICLOFENAC SODIUM GEL 100 GM TUBE TOPICAL SCH ×2 (17:11→21:15)
[2021-12-26] MEDS: LEVOTHYROXINE 75 MCG TAB PO SCH (06:38)
[2021-12-26] MEDS: FUROSEMIDE 20 MG TAB PO SCH (07:56)
[2021-12-26] MEDS: MAGNESIUM OXIDE 400 MG TAB PO SCH (07:57)
[2021-12-26] MEDS: PRAVASTATIN SODIUM 20 MG TAB PO SCH (07:57)
[2021-12-26] MEDS: FENOFIBRATE 160 MG TAB PO SCH (07:57)
[2021-12-26] MEDS: APIXABAN 2.5 MG TABLET PO SCH ×2 (07:57→21:06)
[2021-12-26] MEDS: POTASSIUM CHLORIDE ER 10 MEQ TAB.ER.PRT PO SCH (07:57)
[2021-12-26] MEDS: DICLOFENAC SODIUM GEL 100 GM TUBE TOPICAL SCH ×4 (07:58→21:07)
[2021-12-26] MEDS: FERROUS SULFATE 325 MG TAB PO SCH (07:58)
[2021-12-26] MEDS: SIMETHICONE 80 MG CHEWABLE PO SCH (07:58)
[2021-12-26] MEDS: CALCIUM CARBONATE 500 MG CHEWABLE PO SCH ×3 (07:58→21:06)
[2021-12-26] MEDS: VIT A,C & E-LUTEIN-MINERALS 1 EACH TAB PO SCH (07:58)
[2021-12-26] MEDS: CHOLECALCIFEROL 25 MCG (1000 IU) TABLET PO SCH (07:58)
[2021-12-26] MEDS ORDERED: METOPROLOL TARTRATE 25 MG TAB PO SCH (09:00)
[2021-12-26 09:02] LABS: HCT 40.5 % (34.0-46.0); HGB 12.5 gm/dL (11.4-16.0); Hypochromasia Moderate; MCH 30.9 pg (25.0-35.0); MCHC 30.9 g/dL (31.0-37.0); MCV 100.2 fL (80.0-100.0); Macrocytosis Slight; Mean Platelet Volume 7.3; Platelet Count 226 k/uL (150-450); RBC 4.04 m/uL (3.80-5.40); RDW 14.1 % (11.5-15.5); WBC 2.1 k/uL (3.8-10.6)
[2021-12-26 09:19] LABS: Albumin 3.3 g/dL (3.5-5.0); Calcium 8.1 mg/dL (8.4-10.2); Potassium 4.1 mmol/L (3.5-5.1); Total Bilirubin 1.2 mg/dL (0.2-1.3); Total Protein 6.2 g/dL (6.3-8.2)
[2021-12-26 12:07] LABS: Glucose,Whole Blood 120 mg/dL (75-99)
--- NOTE | 2021-12-26 12:17 | P.CNOR ---
History of Present Illness - [facility] Consult date: 12/26/21 Consult reason: joint pain (Left knee pain) History of present illness: Patient is an 85-year-old female who is admitted to [facility] with regards to exacerbation of her congestive heart failure. Her hospital stay she did mention some discomfort in the left knee. X-rays were done of the left knee along with a Doppler of the lower extremity. Images demonstrated no acute fractures or dislocations, Doppler was negative for any acute DVT. Patient was evaluated today at bedside, her granddaughter and were present in the room. She is resting comfortably. She states the pain has im proved significantly since yesterday. She denies any recent trauma, this including falls. She denies any recent changes in activity. Patient denies any previous surgery of the left knee, she has had vein stripping done on her left lower extremity. Patient has no other orthopedic complaints at this time. Review of Systems Constitutional: Reports as per [facility] Past Medical History Past Medical History: Diabetes Mellitus, GERD/Reflux, Hyperlipidemia, Hypertension, Thyroid Disorder Additional Past Medical History / Comment(s): Pt states she is no longer on diabetic medication(metformin), arthritis bilateral hands, varicose veins, diverticular disease, hypothyroid, past epistaxis. History of Any Multi-Drug Resistant Organisms: None Reported Past Surgical History: Appendectomy, Breast Surgery, Cholecystectomy, Heart Catheterization, Hysterectomy, Orthopedic Surgery, Tonsillectomy Additional Past Surgical History / Comment(s): 2014 cardiac cath-clear, R nasalseptal hemangioma removed, bilateral leg varicose vein sx, bilateral knee arthroscopies, R hand/wrist surgery for arthritis, colonoscopy 2 yrs ago-normal, bilateral breast mastectomy. Past Anesthesia/Blood Transfusion Reactions: No Reported Reaction Past Psychological History: No Psychological Hx Reported Additional Psychological History / Comment(s): Pt resides with her spouse. She uses no assistive device. She no longer drives. Her spouse drives. Smoking Status: Never smoker Past Alcohol Use History: None Reported Past Drug Use History: None Reported - Past Family History Father Family Medical History: Coronary Artery Disease (CAD), Myocardial Infarction (MD) Mother Family Medical History: Coronary Artery Disease (CAD), GERD/Reflux, Myocardial Infarction (MD) Medications and Allergies Home Medications Medication Instructions Recorded Confirmed Type Ferrous Sulfate [Iron (65 MG 325 mg PO DAILY 04/22/18 12/24/21 History Elemental)] Furosemide [Lasix] 20 mg PO DAILY 04/22/18 12/24/21 History Levothyroxine Sodium [Synthroid] 75 mcg PO [id number] 04/22/18 12/24/21 History Simethicone [Simethicone Chew] 80 mg PO DAILY 04/22/18 12/24/21 History Calcium Carbonate 500 mg PO TID #90 tablet 04/27/18 12/24/21 Rx Magnesium Oxide [Mag-Ox] 400 mg PO DAILY #30 tablet 04/27/18 12/24/21 Rx Potassium Chloride ER [K-Dur 10] 10 meq PO DAILY #30 tab 04/27/18 12/24/21 Rx Cholecalciferol [Vitamin D3 (25 50 mcg PO DAILY 10/27/21 12/24/21 History Mcg = 1000 Iu)] Fenofibrate Nanocrystallized 145 mg PO DAILY 10/27/21 12/24/21 History [Fenofibrate] Levothyroxine Sodium [Synthroid] 37.5 mcg PO VELAZQUEZ 10/27/21 12/24/21 History Multivit-Min/FA/Lycopen/Lutein 1 tab PO DAILY 10/27/21 12/24/21 History [Centrum Silver Tablet] Pantoprazole Sodium [Protonix] 40 mg PO W/SUPPER 10/27/21 12/24/21 History Pravastatin Sodium [Pravachol] 20 mg PO DAILY 10/27/21 12/24/21 History Apixaban [Eliquis] 2.5 mg PO BID #60 tab 10/28/21 12/24/21 Rx Metoprolol Tartrate [Lopressor] 25 mg PO TID tab 10/29/21 12/24/21 Rx Allergies Allergy/AdvReac Type Severity Reaction Status Date / Time No Known Allergies Allergy Verified 12/24/21 06:59 Physical Examination Left lower extremity: No obvious open lesions or sores visualized surrounding the knee, obvious varicose veins present throughout the left lower extremity, mainly distal to the knee. Obvious valgus deformity Obvious effusion present on the left knee Generalized tenderness with palpation of the medial and lateral joint line of the left knee. She is nontender to the lower extremity, this including foot or ankle Logroll maneuver reproduces no groin pain. Active and passive range of motion are intact with cystic extension flexion at the knee, this reproduces minimal discomfort Stable to both varus and valgus stress Calf is soft, no tenderness with palpation Plantar flexion, dorsiflexion, EHL, FHL are intact Sensory exam light touch is intact at the extremity, the entire extremity is warm to touch Results - Labs Labs: Abnormal Lab Results - Last 24 Hours (Table) 12/26/21 12/26/21 12/26/21 Range/Units 08:08 08:08 12:05 WBC 2.1 L (3.8-10.6) k/uL MCV 100.2 H (80.0-100.0) fL MCHC 30.9 L (31.0-37.0) g/dL BUN 26 H (7-17) mg/dL Creatinine 1.15 H (0.52-1.04) mg/dL Glucose 166 H (74-99) mg/dL POC Glucose (mg/dL) 120 H (75-99) mg/dL Calcium 8.1 L (8.4-10.2) mg/dL Alkaline Phosphatase 29 L (38-126) U/L Total Protein 6.2 L (6.3-8.2) g/dL Albumin 3.3 L (3.5-5.0) g/dL H & H 12/23/21 12/24/21 12/25/21 Range/Units 21:57 04:19 06:34 Hgb 13.0 12.4 12.7 (11.4-16.0) gm/dL Hct 41.5 40.4 40.5 (34.0-46.0) % 12/26/21 Range/Units 08:08 Hgb 12.5 (11.4-16.0) gm/dL Hct 40.5 (34.0-46.0) % Coagulation 12/23/21 Range/Units 21:57 INR 1.5 H (<1.2) Result Diagrams: 12/26/21 08:08 12/26/21 08:08 - Diagnostic results Knee x-ray: report reviewed (Severe lateral compartment osteoarthritis, also severe patellofemoral joint arthritis with joint space loss and osteophyte formation), image reviewed Assessment and Plan Assessment: Severe left knee osteoarthritis Left knee effusion Multiple medical comorbidities Plan: I was able to discuss the case, including with physical exam findings and imaging studies of my attending Dr. Arriaza. No orthopedic surgical intervention recommended at this time. We did discuss the left knee osteoarthritis along with the symptoms that the patient is dealing with. We discussed many options of treatment, this including icing and elevating, Tylenol, use of NSAIDs, use narcotics, possible injections versus total knee arthroplasty. At this time patient would like to utilize ice and elevating along with Tylenol. If she decides to use an NSAID, recommend discussion with her primary care and association executive. Our office information will be placed in chart if patient desires to follow-up to discuss further treatment options Weight-bear as tolerated Please contact our service with any further questions Time with Patient: Less than 30
--- NOTE | 2021-12-26 13:00 | P.PN ---
Subjective This is a 85-year-old female with a past medical history significant for persistent atrial fibrillation, typical atrial flutter, hypertension, GERD, hyperlipidemia, and hypothyroidism. Patient follows in the office with Dr. Cruz. We have been asked to see the patient in consultation for congestive heart failure. Patient presents to the emergency department with worsening dyspnea on exertion, shortness of breath, and bilateral lower extremity edema, and 10lb weight gain and dizziness. She presented to the emergency department for further evaluation. Patient does endorse increased canned soup intake over the past 2 weeks, eating about 1-2 canned soups per day. She states she was taking all her medications as prescribed. She denies any chest pain, palpitations, lightheadedness, syncope or near syncope. She denies any cough, fever, chills, symptoms of orthopnea or PND. On admission patient was started on IV Lasix 40 mg twice a day and states her breathing has improved. DIAGNOSTICS: EKG reveals atrial fibrillation with rapid ventricular response, heart rate 115. Chest xray mild congestive heart failure, small bilateral pleural effusions. Echocardiogram 10/28/2021 completed revealing ejection fraction 50-55%, moderate mitral regurgitation, moderate tricuspid regurgitation, and moderate pulmonary hypertension Cardiac cath in 09/2015 with normal coronary arteries Lexiscan stress test in 2019 with negative for reversible ischemia 12/26/2021 Patient seen at bedside, no acute distress. Her breathing has improved since admission. However, patient hypotensive overnight and this morning. OVernight BP 89/52, metoprolol held. Patient with 1920mL, urine output over the past 24 hours. And decreased weight since admission. Vitals are stable. Echocardiogram revealed EF of 5055 percent, LA severely dilated, severe mitral regurgitation, severe tricuspid regurgitation, severe pulmonary hypertension with RVSP of 78 mmHg She's currently maintained on PO Lasix 20 mg twice a day, Eliquis 2.5 mg twice a day, metoprolol tartrate 25 mg TID, pravastatin 20 mg daily PHYSICAL EXAM: VITAL SIGNS: 96/58, heart rate 117, afebrile, oxygen saturations 97% on room air GENERAL: Well-developed in no acute distress. HEENT: Neck supple. No JVD LUNGS: Respirations even and unlabored. Lungs clear to auscultation bilaterally. HEART: Irregular rate and rhythm. S1 and S2 heard. Systolic murmur noted. ABDOMEN: Soft. Nondistended. Nontender. EXTREMITIES: Normal range of motion. No clubbing or cyanosis. Peripheral pulses intact. No lower extremity edema NEUROLOGIC: Awake and alert. Oriented x 3. ASSESSMENT: Acute on chronic heart failure with preserved ejection fraction Acute Kidney Injury, improving Persistent atrial fibrillation on Eliquis Typical atrial flutter History of Hypertension, Hypotensive inpatient Hyperlipidemia Hypothyroidism GERD Valvular heart disease PLAN: Decrease PO Lasix 20mg daily Continue metoprolol tartrate 25mg TID Continue Eliquis Monitor I/Os, daily weights, renal function and electrolytes ACEI/ARB not able to start due to hypotension Discussed heart healthy diet and low sodium diet with patient Due to worsening hypotension, we will monitor patient for additional 24 hours Hopefully discharge in 24 hours Further recommendations based on clinical course Objective - Vital Signs Vital signs: Vital Signs Temp 97.8 F 12/26/21 07:47 Pulse 117 H 12/26/21 07:47 Resp 16 12/26/21 07:47 BP 96/58 12/26/21 07:47 Pulse Ox 97 12/26/21 07:47 Intake & Output 12/25/21 12/26/21 12/26/21 18:59 06:59 18:59 Intake Total 118 Output Total 1700 220 Balance -1582 -220 Weight 61.1 kg 61.1 kg Intake: Oral 118 Output: Urine 1700 220 Other: Voiding Method Bedside Commode Bedside Commode # Voids 2 1 - Labs CBC & Chem 7: 12/26/21 08:08 12/26/21 08:08
[2021-12-26 13:49] LABS: Eosinophils # (M) 0.04 k/uL (0-0.7); Lymphocytes # (M) 0.99 k/uL (1.0-4.8); Monocytes # (M) 0.38 k/uL (0-1.0); Neutrophils # (M) 0.69 k/uL (1.3-7.7); Neutrophils % (M) 33 %; Nucleated Red Blood Cells 0 /100 WBC (0-0); Total Cells Counted 100
[2021-12-26 16:36] LABS: Glucose,Whole Blood 158 mg/dL (75-99)
[2021-12-26] MEDS: PANTOPRAZOLE 40 MG TABLET PO SCH (16:44)
[2021-12-26] MEDS: METOPROLOL TARTRATE 25 MG TAB PO SCH ×2 (16:44→21:06)
[2021-12-26 20:35] LABS: Glucose,Whole Blood 149 mg/dL (75-99)
[2021-12-26 20:50] VITALS: RESP 18
[2021-12-27 05:49] LABS: Glucose,Whole Blood 119 mg/dL (75-99)
[2021-12-27] MEDS: LEVOTHYROXINE 75 MCG TAB PO SCH (06:21)
[2021-12-27 07:16] LABS: Basophils % (A) 1 %; Eosinophils # (A) 0.1 k/uL (0-0.7); Eosinophils % (A) 5 %; HCT 38.1 % (34.0-46.0); HGB 11.9 gm/dL (11.4-16.0); Hypochromasia Moderate; Lymphocytes # (A) 1.3 k/uL (1.0-4.8); Lymphocytes % (A) 51 %; MCH 31.1 pg (25.0-35.0); MCHC 31.1 g/dL (31.0-37.0); MCV 99.9 fL (80.0-100.0); Macrocytosis Slight; Mean Platelet Volume 7.4; Monocytes # (A) 0.3 k/uL (0-1.0); Monocytes % (A) 11 %; Neutrophils # (A) 0.8 k/uL (1.3-7.7); Neutrophils % (A) 30 %; Platelet Count 221 k/uL (150-450); RBC 3.81 m/uL (3.80-5.40); RDW 14.1 % (11.5-15.5); WBC 2.6 k/uL (3.8-10.6)
[2021-12-27 07:33] LABS: Albumin 3.2 g/dL (3.5-5.0); Calcium 9.1 mg/dL (8.4-10.2); Total Bilirubin 0.8 mg/dL (0.2-1.3)
[2021-12-27 07:34] LABS: Potassium 4.6 mmol/L (3.5-5.1)
[2021-12-27] MEDS ORDERED: FUROSEMIDE 20 MG TAB PO SCH (09:00)
[2021-12-27] MEDS: PRAVASTATIN SODIUM 20 MG TAB PO SCH (09:44)
[2021-12-27] MEDS: POTASSIUM CHLORIDE ER 10 MEQ TAB.ER.PRT PO SCH (09:44)
[2021-12-27] MEDS: FERROUS SULFATE 325 MG TAB PO SCH (09:44)
[2021-12-27] MEDS: MAGNESIUM OXIDE 400 MG TAB PO SCH (09:44)
[2021-12-27] MEDS: METOPROLOL TARTRATE 25 MG TAB PO SCH (09:45)
[2021-12-27] MEDS: FENOFIBRATE 160 MG TAB PO SCH (09:45)
[2021-12-27] MEDS: CHOLECALCIFEROL 25 MCG (1000 IU) TABLET PO SCH (09:45)
[2021-12-27] MEDS: APIXABAN 2.5 MG TABLET PO SCH (09:45)
[2021-12-27] MEDS: VIT A,C & E-LUTEIN-MINERALS 1 EACH TAB PO SCH (09:45)
[2021-12-27] MEDS: CALCIUM CARBONATE 500 MG CHEWABLE PO SCH (09:45)
[2021-12-27] MEDS: SIMETHICONE 80 MG CHEWABLE PO SCH (09:45)
[2021-12-27] MEDS: DICLOFENAC SODIUM GEL 100 GM TUBE TOPICAL SCH (09:46)
--- NOTE | 2021-12-27 10:53 | P.PN ---
Subjective Progress Note Date: 12/26/21 Nancy Grady, is an 85 year-old female, who presented to Hospital emergency room with a chief complaint of worsening shortness of breath, lower extremity swelling and generalized weakness She was evaluated in the emergency room vital examination on presentation revealed a temperature of 98.0 pulse 95 respiration 20 blood pressure 122/88 pulse ox 97% on room air Laboratory data revealed a white blood count of 4.8 hemoglobin 13.0 platelet count 311 sodium 143 potassium 4.0 chloride 111 CO2 20 BUN 26 creatinine 1.29 magnesium was 0.8 BNP 9620 and troponin level less than 0.012 COVID-19 PCR was negative Testing in the emergency room revealed EKG revealed atrial fibrillation with rapid ventricular response heart rate of 115 chest x-ray revealed evidence of mild congestive heart failure and bilateral small pleural effusions. Patient was admitted to medical floor for further evaluation and treatment. Past medical history is significant for history of hypertension, history of hyperlipidemia, history of hypothyroidism, history of atrial fibrillation with previous episodes of rapid ventricular response maintained on Eliquis, On 12/25/2021 2 patient's alert and oriented 3. Patient remains on IV Lasix 40 mg every 12. 2-D echo has been completed showing an EF of 50-55%. Creatinine 0.99 and bun 20. Heart rate 104, respiratory rate 17, blood pressure 121/88 and patient satting 96 on room air. Patient reports significant improvement with edema but is complaining of left sided knee pain denies any trauma. Patient also reports that she is still short of breath. On 12/26/2021 patient's alert and oriented 3. Patient has been adjusted to by mouth Lasix. We'll continue to monitor patient for additional 24 hours per cardiology services. At this time patient denies chest pain. Patient denies nausea vomiting or diarrhea. Patient denies any urinary burning or frequency Objective - Vital Signs Vital signs: Vital Signs Temp 98 F 12/26/21 11:34 Pulse 98 12/26/21 16:00 Resp 17 12/26/21 16:00 BP 111/60 12/26/21 16:00 Pulse Ox 97 12/26/21 16:00 Intake & Output 12/26/21 12/26/21 12/27/21 06:59 18:59 06:59 Intake Total 354 Output Total 220 Balance -220 354 Weight 61.1 kg Intake: Oral 354 Output: Urine 220 Other: Voiding Method Bedside Commode Bedside Commode # Voids 1 2 - Exam In general patient is alert and oriented x 3 in no distress HEENT head normocephalic and atraumatic Neck is supple no JVD no goiter no lymphadenopathy no carotid bruit Chest examination is clear to auscultation no crackles no wheezing Cardiac exam reveals regular heart sounds S1 and S2 no gallops no murmurs Abdomen is soft nontender no organomegaly with normal bowel sounds Extremity exam reveals no edema no cyanosis or clubbing Neurological examination reveals no gross focal deficits - Labs CBC & Chem 7: 12/27/21 06:48 12/27/21 06:48 Labs: Abnormal Lab Results - Last 24 Hours (Table) 12/26/21 12/26/21 12/26/21 Range/Units 08:08 08:08 12:05 WBC 2.1 L (3.8-10.6) k/uL MCV 100.2 H (80.0-100.0) fL MCHC 30.9 L (31.0-37.0) g/dL Neutrophils # (Manual) 0.69 L (1.3-7.7) k/uL Lymphocytes # (Manual) 0.99 L (1.0-4.8) k/uL BUN 26 H (7-17) mg/dL Creatinine 1.15 H (0.52-1.04) mg/dL Glucose 166 H (74-99) mg/dL POC Glucose (mg/dL) 120 H (75-99) mg/dL Calcium 8.1 L (8.4-10.2) mg/dL Alkaline Phosphatase 29 L (38-126) U/L Total Protein 6.2 L (6.3-8.2) g/dL Albumin 3.3 L (3.5-5.0) g/dL 12/26/21 Range/Units 16:34 WBC (3.8-10.6) k/uL MCV (80.0-100.0) fL MCHC (31.0-37.0) g/dL Neutrophils # (Manual) (1.3-7.7) k/uL Lymphocytes # (Manual) (1.0-4.8) k/uL BUN (7-17) mg/dL Creatinine (0.52-1.04) mg/dL Glucose (74-99) mg/dL POC Glucose (mg/dL) 158 H (75-99) mg/dL Calcium (8.4-10.2) mg/dL Alkaline Phosphatase (38-126) U/L Total Protein (6.3-8.2) g/dL Albumin (3.5-5.0) g/dL Assessment and Plan Plan: 1. Acute congestive heart failure exacerbation, echocardiogram done in October 2021 reveals left ventricular systolic function is low normal with ejection fraction between 50-55%, with left atrium severely dilated with moderate mitral regurgitation and moderate tricuspid regurgitation and moderate pulmonary hypertension. 2. Atrial fibrillation with rapid ventricular response on presentation 3. Underlying history of hypertension 4. Underlying history of hyperlipidemia 5. Underlying history of hypothyroidism 6. Pain to left knee. Will order x-ray DVT prophylaxis eliquis. GI prophylaxis Protonix 2-D echo completed showing EF 50-55% Patient remains on IV Lasix Cardiology services consulted X-ray of left knee ordered
--- NOTE | 2021-12-27 10:55 | P.DS ---
Providers Date of admission: 12/24/21 00:00 Expected date of discharge: 12/27/21 Attending physician: Isabel Souza Consults: 12/24/21 08:16 Consult Physician Routine Consulting Provider: Aly Crowder Consult Reason/Comments: chf Do you want consulting provider notified?: Already Contacted 12/25/21 13:12 Consult Physician Urgent Consulting Provider: Raghu Arriaza Consult Reason/Comments: knee pain, fluid around joint Do you want consulting provider notified?: Yes Primary care physician: Isabel Libby [facility] Course: Discharge diagnosis 1. Acute congestive heart failure exacerbation, echocardiogram done in October 2021 reveals left ventricular systolic function is low normal with ejection fraction between 50-55%, with left atrium severely dilated with moderate mitral regurgitation and moderate tricuspid regurgitation and moderate pulmonary hypertension. 2. Atrial fibrillation with rapid ventricular response on presentation 3. Underlying history of hypertension 4. Underlying history of hyperlipidemia 5. Underlying history of hypothyroidism 6. Pain to left knee. She was evaluated by orthopedic services x-ray of knee and Doppler completed negative for fracture and DVT. No surgical intervention recommended at this time continue [facility] tj Grady, is an 85 year-old female, who presented to Hospital emergency room with a chief complaint of worsening shortness of breath, lower extremity swelling and generalized weakness She was evaluated in the emergency room vital examination on presentation revealed a temperature of 98.0 pulse 95 respiration 20 blood pressure 122/88 pulse ox 97% on room air Laboratory data revealed a white blood count of 4.8 hemoglobin 13.0 platelet count 311 sodium 143 potassium 4.0 chloride 111 CO2 20 BUN 26 creatinine 1.29 magnesium was 0.8 BNP 9620 and troponin level less than 0.012 COVID-19 PCR was negative Testing in the emergency room revealed EKG revealed atrial fibrillation with rapid ventricular response heart rate of 115 chest x-ray revealed evidence of mild congestive heart failure and bilateral small pleural effusions. Patient was admitted to medical floor for further evaluation and treatment. Past medical history is significant for history of hypertension, history of hyperlipidemia, history of hypothyroidism, history of atrial fibrillation with previous episodes of rapid ventricular response maintained on Eliquis, On 12/25/2021 2 patient's alert and oriented 3. Patient remains on IV Lasix 40 mg every 12. 2-D echo has been completed showing an EF of 50-55%. Creatinine 0.99 and bun 20. Heart rate 104, respiratory rate 17, blood pressure 121/88 and patient satting 96 on room air. Patient reports significant improvement with edema but is complaining of left sided knee pain denies any trauma. Patient also reports that she is still short of breath. On 12/26/2021 patient's alert and oriented 3. Patient has been adjusted to by mouth Lasix. We'll continue to monitor patient for additional 24 hours per cardiology services. At this time patient denies chest pain. Patient denies nausea vomiting or diarrhea. Patient denies any urinary burning or frequency On 12/27/2021 patient's alert and oriented 3. Patient remains on room air currently up in bathroom. Discussed case with cardiology services patient will likely be cleared by cardiology services and be able to be discharged home today. Current blood pressure 136/68. Creatinine 1.14 and bun 30. Patient was also cleared by orthopedic services no surgical intervention recommended at this time. Patient will follow up with PCP and cardiology services upon discharge Patient Condition at Discharge: Stable Plan - Discharge Summary Discharge Rx Participant: Yes New Discharge Prescriptions: New Diclofenac Sodium Gel [Voltaren Gel] 4 gm TOPICAL QID #1 tub Continue Levothyroxine Sodium [Synthroid] 75 mcg PO MOTUWETHFRSA Ferrous Sulfate [Iron (65 MG Elemental)] 325 mg PO DAILY Furosemide [Lasix] 20 mg PO DAILY Simethicone [Simethicone Chew] 80 mg PO DAILY Calcium Carbonate 500 mg PO TID #90 tablet Magnesium Oxide [Mag-Ox] 400 mg PO DAILY #30 tablet Potassium Chloride ER [K-Dur 10] 10 meq PO DAILY #30 tab Pravastatin Sodium [Pravachol] 20 mg PO DAILY Pantoprazole Sodium [Protonix] 40 mg PO W/SUPPER Multivit-Min/FA/Lycopen/Lutein [Centrum Silver Tablet] 1 tab PO DAILY Cholecalciferol [Vitamin D3 (25 Mcg = 1000 Iu)] 50 mcg PO DAILY Levothyroxine Sodium [Synthroid] 37.5 mcg PO VELAZQUEZ Fenofibrate Nanocrystallized [Fenofibrate] 145 mg PO DAILY Apixaban [Eliquis] 2.5 mg PO BID #60 tab Metoprolol Tartrate [Lopressor] 25 mg PO TID tab Discharge Medication List Ferrous Sulfate [Iron (65 MG Elemental)] 325 mg PO DAILY 04/22/18 [History] Furosemide [Lasix] 20 mg PO DAILY 04/22/18 [History] Levothyroxine Sodium [Synthroid] 75 mcg PO MOTUWETHFRSA 04/22/18 [History] Simethicone [Simethicone Chew] 80 mg PO DAILY 04/22/18 [History] Calcium Carbonate 500 mg PO TID #90 tablet 04/27/18 [Rx] Magnesium Oxide [Mag-Ox] 400 mg PO DAILY #30 tablet 04/27/18 [Rx] Potassium Chloride ER [K-Dur 10] 10 meq PO DAILY #30 tab 04/27/18 [Rx] Cholecalciferol [Vitamin D3 (25 Mcg = 1000 Iu)] 50 mcg PO DAILY 10/27/21 [History] Fenofibrate Nanocrystallized [Fenofibrate] 145 mg PO DAILY 10/27/21 [History] Levothyroxine Sodium [Synthroid] 37.5 mcg PO VELAZQUEZ 10/27/21 [History] Multivit-Min/FA/Lycopen/Lutein [Centrum Silver Tablet] 1 tab PO DAILY 10/27/21 [History] Pantoprazole Sodium [Protonix] 40 mg PO W/SUPPER 10/27/21 [History] Pravastatin Sodium [Pravachol] 20 mg PO DAILY 10/27/21 [History] Apixaban [Eliquis] 2.5 mg PO BID #60 tab 10/28/21 [Rx] Metoprolol Tartrate [Lopressor] 25 mg PO TID tab 10/29/21 [Rx] Diclofenac Sodium Gel [Voltaren Gel] 4 gm TOPICAL QID #1 tub 12/27/21 [Rx] Follow up Appointment(s)/Referral(s): Alex Cruz MD [STAFF PHYSICIAN] - 2 Weeks (Will call Debbie with follow up appointment ) Isabel Souza MD [Primary Care Provider] - 12/31/21 11:00 am Patient Instructions/Handouts: Heart Healthy Diet (DC), Low-Sodium Diet (ED)
[2021-12-27 12:53] VITALS: BP 104/58; PULSE 102; TEMP 97.9
--- NOTE | 2021-12-27 13:12 | P.PN ---
Subjective This is a 85-year-old female with a past medical history significant for persistent atrial fibrillation, typical atrial flutter, hypertension, GERD, hyperlipidemia, and hypothyroidism. Patient follows in the office with Dr. Cruz. We have been asked to see the patient in consultation for congestive heart failure. Patient presents to the emergency department with worsening dyspnea on exertion, shortness of breath, and bilateral lower extremity edema, and 10lb weight gain and dizziness. She presented to the emergency department for further evaluation. Patient does endorse increased canned soup intake over the past 2 weeks, eating about 1-2 canned soups per day. She states she was taking all her medications as prescribed. She denies any chest pain, palpitations, lightheadedness, syncope or near syncope. She denies any cough, fever, chills, symptoms of orthopnea or PND. On admission patient was started on IV Lasix 40 mg twice a day and states her breathing has improved. DIAGNOSTICS: EKG reveals atrial fibrillation with rapid ventricular response, heart rate 115. Chest xray mild congestive heart failure, small bilateral pleural effusions. Echocardiogram 10/28/2021 completed revealing ejection fraction 50-55%, moderate mitral regurgitation, moderate tricuspid regurgitation, and moderate pulmonary hypertension Cardiac cath in 09/2015 with normal coronary arteries Lexiscan stress test in 2019 with negative for reversible ischemia 12/27/2021 Patient seen at bedside, no acute distress. Her breathing has improved since admission.Decrease in weight since admission, she has been transitioned to PO L asix. Her blood pressures have improved. Rates are controlled. Echocardiogram [place] EF [place] 5055% LA severely dilated, severe mitral regurgitation, severe tricuspid regurgitation, severe pulmonary hypertension with RVSP of 78 mmHg She's currently maintained on PO Lasix 20 mg daily, Eliquis 2.5 mg twice a day, metoprolol tartrate 25 mg TID, pravastatin 20 mg daily PHYSICAL EXAM: VITAL SIGNS: 96/58, heart rate 117, afebrile, oxygen saturations 97% on room air GENERAL: Well-developed in no acute distress. HEENT: Neck supple. No JVD LUNGS: Respirations even and unlabored. Lungs clear to auscultation bilaterally. HEART: Irregular rate and rhythm. S1 and S2 heard. Systolic murmur noted. ABDOMEN: Soft. Nondistended. Nontender. EXTREMITIES: Normal range of motion. No clubbing or cyanosis. Peripheral pulses intact. No lower extremity edema NEUROLOGIC: Awake and alert. Oriented x 3. ASSESSMENT: Acute on chronic heart failure with preserved ejection fraction Acute Kidney Injury, improving Persistent atrial fibrillation on Eliquis Typical atrial flutter History of Hypertension, Hypotensive inpatient Hyperlipidemia Hypothyroidism GERD Valvular heart disease PLAN: Continue PO Lasix 20mg daily, metoprolol tartrate 25mg TID Continue Eliquis ACEI/ARB not able to start due to hypotension Discussed heart healthy diet and low sodium diet with patient From cardiology perspective, patient stable for discharge home. Follow up outpatient with Dr. Cruz Nurse practitioner note has been reviewed by physician. Signing provider agrees with the documented findings, assessment, and plan of care. Objective - Vital Signs Vital signs: Vital Signs Temp 97.9 F 12/27/21 12:00 Pulse 102 H 12/27/21 12:00 Resp 18 12/27/21 12:00 BP 104/58 12/27/21 12:00 Pulse Ox 97 12/27/21 12:00 Intake & Output 12/26/21 12/27/21 12/27/21 18:59 06:59 18:59 Intake Total 354 Output Total 300 50 Balance 354 -300 -50 Weight 61.9 kg Intake: Oral 354 Output: Urine 300 50 Other: Voiding Method Bedside Commode Toilet Toilet # Voids 2 1 # Bowel Movements 1 - Labs CBC & Chem 7: 12/27/21 06:48 12/27/21 06:48 Labs: Abnormal Lab Results - Last 24 Hours (Table) 12/26/21 12/26/21 12/26/21 Range/Units 08:08 16:34 20:34 WBC (3.8-10.6) k/uL Neutrophils # (1.3-7.7) k/uL Neutrophils # (Manual) 0.69 L (1.3-7.7) k/uL Lymphocytes # (Manual) 0.99 L (1.0-4.8) k/uL Chloride (98-107) mmol/L BUN (7-17) mg/dL Creatinine (0.52-1.04) mg/dL Glucose (74-99) mg/dL POC Glucose (mg/dL) 158 H 149 H (75-99) mg/dL Alkaline Phosphatase (38-126) U/L Total Protein (6.3-8.2) g/dL Albumin (3.5-5.0) g/dL 12/27/21 12/27/21 12/27/21 Range/Units 05:48 06:48 06:48 WBC 2.6 L (3.8-10.6) k/uL Neutrophils # 0.8 L (1.3-7.7) k/uL Neutrophils # (Manual) (1.3-7.7) k/uL Lymphocytes # (Manual) (1.0-4.8) k/uL Chloride 110 H (98-107) mmol/L BUN 30 H (7-17) mg/dL Creatinine 1.14 H (0.52-1.04) mg/dL Glucose 121 H (74-99) mg/dL POC Glucose (mg/dL) 119 H (75-99) mg/dL Alkaline Phosphatase 33 L (38-126) U/L Total Protein 6.0 L (6.3-8.2) g/dL Albumin 3.2 L (3.5-5.0) g/dL
[2021-12-29] MEDS ORDERED: LEVOTHYROXINE 75 MCG TAB PO SCH (06:30)
== END 2021-12-27 13:41 | disposition home or self-care (01) | DRG 291 ==
LOC: EC 18:45 → 4SSUR 12-24 → 3SCARD 12-24 01:13
PROVIDERS: ADMIT Internal Medicine; ATTEND Internal Medicine
DX: I11.0 Hypertensive heart disease with heart failure (principal); I50.33 Acute on chronic diastolic (congestive) heart failure; I48.19 Other persistent atrial fibrillation; I48.3 Typical atrial flutter; N17.9 Acute kidney failure, unspecified; E03.9 Hypothyroidism, unspecified; E11.9 Type 2 diabetes mellitus without complications; Z20.822 Contact with and (suspected) exposure to COVID-19; E78.5 Hyperlipidemia, unspecified; E83.42 Hypomagnesemia; I08.1 Rheumatic disorders of both mitral and tricuspid valves; I27.20 Pulmonary hypertension, unspecified; K21.9 Gastro-esophageal reflux disease without esophagitis; M17.12 Unilateral primary osteoarthritis, left knee; Z79.01 Long term (current) use of anticoagulants; Z79.890 Hormone replacement therapy; Z79.899 Other long term (current) drug therapy; Z82.49 Family history of ischemic heart disease and other diseases of the circulatory system; Z90.710 Acquired absence of both cervix and uterus
CPT/HCPCS: 36415; 71046; 80053; 80061; 82247; 83735; 83880; 84443; 84484; 84550; 85025; 85610; 85730; 87635; 93005; 93306; 96374; 99285

== ENCOUNTER 2022-02-18 07:57 | Day surgery (SDC) | payer MEDICARE, BC ==
[~2022-02-18 07:57] MED LIST: SODIUM CHLORIDE 0.9% 1,000 ML IV SCH
[2022-02-18 08:27] VITALS: TEMP 97.4
[2022-02-18 08:41] LABS: Anisocytosis Slight; Basophils % (A) 1 %; Eosinophils # (A) 0.1 k/uL (0-0.7); Eosinophils % (A) 1 %; HGB 13.3 gm/dL (11.4-16.0); Hypochromasia Slight; Lymphocytes # (A) 0.7 k/uL (1.0-4.8); Lymphocytes % (A) 9 %; MCH 28.1 pg (25.0-35.0); MCHC 29.6 g/dL (31.0-37.0); Mean Platelet Volume 6.9; Monocytes # (A) 0.3 k/uL (0-1.0); Monocytes % (A) 4 %; Neutrophils # (A) 6.1 k/uL (1.3-7.7); Neutrophils % (A) 84 %; Platelet Count 339 k/uL (150-450); RBC 4.74 m/uL (3.80-5.40); RDW 16.2 % (11.5-15.5); WBC 7.3 k/uL (3.8-10.6)
[2022-02-18 08:52] LABS: MCV 94.9 fL (80.0-100.0)
[2022-02-18 08:55] LABS: Albumin 3.7 g/dL (3.5-5.0); Calcium 8.9 mg/dL (8.4-10.2); Total Bilirubin 1.7 mg/dL (0.2-1.3); Total Protein 6.8 g/dL (6.3-8.2)
[2022-02-18 09:01] LABS: Magnesium 0.9 mg/dL (1.6-2.3)
[2022-02-18] MEDS: MAGNESIUM SULFATE-D5W PMX 1 GM in DEXTROSE/WATER 1 100ML.BAG IVPB SCH ×2 (10:20→10:33)
[2022-02-18] MEDS ORDERED: IV FLUID CONTINUATION 350 ML IV ONE (10:35)
[2022-02-18] MEDS ORDERED: PROPOFOL 10 MG/ML 20 ML VIAL IV ONE (10:35)
--- NOTE | 2022-02-18 10:54 | P.EPPROC ---
- EP Procedure Note Electrophysiology Procedure Note: Diagnosis Persistent symptomatically atrial fibrillation Severe chronic hypomagnesemia, 0.8 last month, 0.9 this month Procedure Under conscious sedation, successful electrical cardioversion, AP configuration, biphasic 120 J biphasic Successful conversion to sinus rhythm Plan Switch to Slow-Mag, magnesium chloride Increase dietary intake of magnesium Increase spironolactone to 50 mrem by mouth daily Stop Lasix 20 mg daily Continue ELIQUIS 5 mg twice daily for one week and then switched down to 2.5 mg twice daily thereafter Reduce Lopressor to 25 g twice daily Reduce amiodarone to 200 mg once daily DC fenofibrate, LFTs are mildly abnormal Plan Outpatient follow-up next week with Johana Story Follow-up Holter monitor CMP and magnesium within one to 2 weeks
[2022-02-18 14:51] VITALS: RESP 16
[2022-02-18 15:00] VITALS: BP 102/63; PULSE 56
== END 2022-02-18 12:13 | disposition home or self-care (01) ==
LOC: CATHCVL 07:57
PROVIDERS: ATTEND Internal Medicine Clinical Cardiac Electrophysiology
DX: I48.19 Other persistent atrial fibrillation (principal); E83.42 Hypomagnesemia; Z20.822 Contact with and (suspected) exposure to COVID-19
CPT/HCPCS: 92960; 80053; 83735; 84443; 85025; 87635; J3475; J2704

== ENCOUNTER → 2022-02-25 | Outpatient (CLI) | payer MEDICARE, BC ==
[2022-02-25 10:12] LABS: ALT 31 U/L (4-34); AST 42 U/L (14-36); African American GFR (CKD) 67 (>60 ml/min/1.73 sqM); Albumin 3.5 g/dL (3.5-5.0); Albumin/Globulin Ratio 1.1; Alkaline Phosphatase 36 U/L (38-126); Anion Gap 9 mmol/L; Blood Urea Nitrogen 25 mg/dL (7-17); Calcium 9.7 mg/dL (8.4-10.2); Carbon Dioxide 23 mmol/L (22-30); Chloride 107 mmol/L (98-107); Globulin 3.2 g/dL; Glucose 97 mg/dL (74-99); Magnesium 1.5 mg/dL (1.6-2.3); Non-African American GFR(CKD) 58 (>60 ml/min/1.73 sqM); Potassium 4.9 mmol/L (3.5-5.1); Sodium 139 mmol/L (137-145); Total Bilirubin 1.5 mg/dL (0.2-1.3); Total Protein 6.7 g/dL (6.3-8.2)
== END | disposition home or self-care (01) ==
LOC: LABWHC1 09:01
PROVIDERS: ATTEND Nurse Practitioner Adult Health
DX: I10 Essential (primary) hypertension (principal)
CPT/HCPCS: 36415; 80053; 83735

== ENCOUNTER → 2022-04-08 | Outpatient (CLI) | payer MEDICARE, BC ==
--- NOTE | 2022-04-08 07:35 | US ---
EXAMINATION TYPE: US liver DATE OF EXAM: 04/08/2022 COMPARISON: NONE CLINICAL HISTORY: R74.01 ELEVATION OF LEVELS OF LIVER TRANSAMINASE LEVELS. elderly female with no sym ptoms, cholecystectomy, abn lft's EXAM MEASUREMENTS: Liver Length: 16.2 cm Gallbladder Wall: Surgically absent CBD: 2.1 cm Right Kidney: 10.6 x 4.5 x 3.9 cm Pancreas: limited views appear wnl Liver: wnl Gallbladder: Surgically absent Evidence for sonographic De La Fuente's sign: no CBD: dilated with no obvious obstruction seen Right Kidney: wnl IMPRESSION: 1. Liver measures 16.2 cm and appears homogeneous without evidence of discrete mass. Postcholecystect tena changes. However, the CBD is dilated 2.1 cm correlate clinically.
== END | disposition home or self-care (01) ==
LOC: RADUSWWP 06:54
PROVIDERS: ATTEND Internal Medicine
DX: K83.8 Other specified diseases of biliary tract (principal); R74.01 Elevation of levels of liver transaminase levels; Z90.49 Acquired absence of other specified parts of digestive tract
CPT/HCPCS: 76705

== ENCOUNTER 2022-09-24 11:32 | Emergency (ER) | payer MEDICARE, BC ==
[2022-09-24 11:43] VITALS: TEMP 97.6
[2022-09-24] MEDS ORDERED: SODIUM CHLORIDE 0.9% 500 ML 500 ML IV ONE (12:45)
[2022-09-24] MEDS ORDERED: MORPHINE SULFATE 4 MG/ML SYRINGE IV STA (12:45)
[2022-09-24] MEDS ORDERED: BACITRACIN OINT 1 EACH PACKET TOPICAL ONE (12:46)
[2022-09-24] MEDS ORDERED: DIPH,PERTUS(ACELL)TETVAC-LF 0.5 ML VIAL IM ONE (12:46)
--- NOTE | 2022-09-24 12:51 | ED ---
Fall HPI - General Chief Complaint: Fall Stated Complaint: Fall, Tailbone Pain Time Seen by Provider: 09/24/22 12:27 Source: patient, family, RN notes reviewed Mode of arrival: wheelchair Limitations: no limitations - History of Present Illness Initial Comments: Patient presents to the emergency room with 2 family members complaining of right hip and tailbone pain after sustaining a slip and fall down a flight of stairs at home last Thursday. Patient states she went down all the stairs on her tailbone. Has had increased pain since prompting family to bring her to the emergency room. Family member states she refused to come initially. She states that she did hit the back of her head on the stairs but did not lose consciousness. She does take Eliquis daily for atrial fibrillation. She denies any headaches. She also sustained skin tears to bilateral shins. Patient states that she has been able to ambulate since the fall. MD Complaint: fall -: days(s) (7) Fall From: down stairs (#) (12) When Fall Occurred: # days [employer] (7) Place Fall Occurred: home Loss of Consciousness: none Prolonged Down Time?: no Symptoms Prior to Fall: none Severity scale (1-10): 8 Quality: other (Unable to describe pain) Context: tripped/slipped Associated Symptoms: other (Abrasions, skin tears to bilateral lower extremities) - Related Data Home Medications Medication Instructions Recorded Confirmed Ferrous Sulfate [Iron (65 MG 325 mg PO DAILY 04/22/18 02/18/22 Elemental)] Levothyroxine Sodium [Synthroid] 75 mcg PO MOTUWETHFRSA 04/22/18 02/18/22 Simethicone [Simethicone Chew] 80 mg PO DAILY 04/22/18 02/18/22 Cholecalciferol [Vitamin D3 (25 50 mcg PO DAILY 10/27/21 02/18/22 Mcg = 1000 Iu)] Levothyroxine Sodium [Synthroid] 37.5 mcg PO VELAZQUEZ 10/27/21 02/18/22 Multivit-Min/FA/Lycopen/Lutein 1 tab PO DAILY 10/27/21 02/18/22 [Centrum Silver Tablet] Pantoprazole Sodium [Protonix] 40 mg PO W/SUPPER 10/27/21 02/18/22 Pravastatin Sodium [Pravachol] 20 mg PO DAILY 10/27/21 02/18/22 Previous Rx's Medication Instructions Recorded Calcium Carbonate 500 mg PO TID #90 tablet 04/27/18 Potassium Chloride ER [K-Dur 10] 10 meq PO DAILY #30 tab 04/27/18 Apixaban [Eliquis] 2.5 mg PO BID #60 tab 10/28/21 Diclofenac Sodium Gel [Voltaren 4 gm TOPICAL QID #1 tub 12/27/21 Gel] Amiodarone [Cordarone] 200 mg PO DAILY #90 tab 02/18/22 Magnesium Chloride [Mag Delay] 64 mg PO BID #180 tab 02/18/22 Metoprolol Tartrate 25 mg PO BID #180 tab 02/18/22 Spironolactone 50 mg PO DAILY #90 tablet 02/18/22 Cephalexin [Keflex] 500 mg PO Q6HR 7 Days #28 cap 09/24/22 Allergies Allergy/AdvReac Type Severity Reaction Status Date / Time No Known Allergies Allergy Verified 09/24/22 11:43 Review of Systems ROS Statement: Those systems with pertinent positive or pertinent negative responses have been documented in the HPI. ROS Other: All systems not noted in ROS Statement are negative. Past Medical History Past Medical History: Diabetes Mellitus, GERD/Reflux, Hyperlipidemia, Hypertension, Thyroid Disorder Additional Past Medical History / Comment(s): Pt states she is no longer on diabetic medication(metformin), arthritis bilateral hands, varicose veins, diverticular disease, hypothyroid, past epistaxis. History of Any Multi-Drug Resistant Organisms: None Reported Past Surgical History: Appendectomy, Breast Surgery, Cholecystectomy, Heart Catheterization, Hysterectomy, Orthopedic Surgery, Tonsillectomy Additional Past Surgical History / Comment(s): 2015 cardiac cath-clear, R nasalseptal hemangioma removed, bilateral leg varicose vein sx, bilateral knee arthroscopies, R hand/wrist surgery for arthritis, colonoscopy 2 yrs ago-normal, bilateral breast mastectomy. Past Anesthesia/Blood Transfusion Reactions: No Reported Reaction Past Psychological History: No Psychological Hx Reported Smoking Status: Never smoker Past Alcohol Use History: None Reported Past Drug Use History: None Reported - Past Family History Father Family Medical History: Coronary Artery Disease (CAD), Myocardial Infarction ([place]) Mother Family Medical History: Coronary Artery Disease (CAD), GERD/Reflux, Myocardial Infarction ([place]) General Exam Limitations: no limitations General appearance: alert, in no apparent distress Head exam: Present: atraumatic, normocephalic, normal inspection Eye exam: Present: EOMI. Absent: scleral icterus, conjunctival injection, periorbital swelling, periorbital tenderness Neck exam: Present: normal inspection, full ROM. Absent: tenderness, me ningismus, lymphadenopathy Respiratory exam: Absent: respiratory distress, accessory muscle use Cardiovascular Exam: Present: regular rate GI/Abdominal exam: Present: soft. Absent: distended, tenderness Extremities exam: Present: normal capillary refill. Absent: tenderness, pedal edema, calf tenderness Back exam: Present: normal inspection, vertebral tenderness (Sacrum). Absent: muscle spasm, paraspinal tenderness, rash noted Expanded Back exam: Present: other (Patient is able to flex and extend lower extremities.). Absent: saddle anesthesia Neurological exam: Present: alert, oriented X3, CN II-XII intact Expanded Patient oriented to: Present: person, place, time Speech: Present: fluid speech Cranial nerves: EOM's Intact: Normal, Nystagmus: Normal Motor strength exam: RUE: 5, LUE: 5, RLE: 3, LLE: 3 Eye Response: (4) open spontaneously Motor Response: (6) obeys commands Verbal Response: (5) oriented Summers Total: 15 Psychiatric exam: Present: normal affect, normal mood Skin exam: Present: warm, dry, abrasion (Abrasions and skin tears dried scale with surrounding erythema left lower extremity). Absent: rash Course Vital Signs 09/24/22 09/24/22 11:39 14:43 Temperature 97.6 F Pulse Rate 66 75 Respiratory 16 18 Rate Blood Pressure 99/58 100/60 O2 Sat by Pulse 98 96 Oximetry Medical Decision Making - Medical Decision Making Patient presents after slipping and falling down 12 stairs last Thursday on her tailbone. She states she is not sure but she thinks she may have missed a step. She denies any dizziness or chest pain. She denies loss of consciousness. She has had increased right hip and coccyx pain which is why family brought her to hospital. She has been able to ambulate at home and she did sustain multiple abrasions and skin tears to her lower legs. These wounds are covered in dried scale however this is a surrounding erythema, no drainage. Patient has history of atrial fib on Eliquis. She also has history of osteoarthritis, hypertension, and diabetes Bacitracin dressing was applied by the nursing staff to leg wounds. Patient will be placed on antibiotics for cellulitis. CT brain and C-spine interpreted by me shows no evidence of intracranial bleed or midline shift. No masses. C-spine negative for acute fracture. Radiologist interpretation no acute fracture or dislocation of the cervical s pine. No acute intracranial hemorrhage or midline shift seen. X-ray of the right hip and pelvis interpreted by me shows no acute fracture or dislocation. Radiologist impression no acute fracture or dislocation in the pelvis or right hip. Pubic symphysis intact. Patient's white blood cell count 2.3 which seems to be persistent, last white blood cell count on 07/16/2022 3.08. Family states that this has been chronic for the patient for several years with definitive diagnosis. Patient was able to get up and ambulate 3 steps to the door and 3 steps back to the bed. Family states that is her normal gait. No focal neurological deficits. They are agreeable to being discharged home. She was given antibiotics, given Tylenol 3 starter pack and directed to follow up with primary care doctor by Thursday. Return to the emergency room if any new or concerning symptoms Vital signs are stable. Case discussed with Dr. Pulliam - Lab Data Result diagrams: 09/24/22 13:17 09/24/22 13:17 Lab Results 09/24/22 09/24/22 09/24/22 Range/Units 13:17 13:17 13:17 WBC 2.3 L (3.8-10.6) k/uL RBC 3.70 L (3.80-5.40) m/uL Hgb 12.4 (11.4-16.0) gm/dL Hct 37.0 (34.0-46.0) % MCV 99.8 (80.0-100.0) fL MCH 33.4 (25.0-35.0) pg MCHC 33.5 (31.0-37.0) g/dL RDW 15.2 (11.5-15.5) % Plt Count 192 (150-450) k/uL MPV 8.9 Neutrophils % (Manual) 59 % Band Neuts % (Manual) 5 % Lymphocytes % (Manual) 19 % Monocytes % (Manual) 16 % Eosinophils % (Manual) 1 % Neutrophils # (Manual) 1.40 (1.3-7.7) k/uL Lymphocytes # (Manual) 0.44 L (1.0-4.8) k/uL Monocytes # (Manual) 0.37 (0-1.0) k/uL Eosinophils # (Manual) 0.02 (0-0.7) k/uL Nucleated RBCs 0 (0-0) /100 WBC Manual Slide Review Performed Hypochromasia Slight Poikilocytosis Slight Macrocytosis Slight PT 11.7 (9.0-12.0) sec INR 1.1 (<1.2) APTT 28.1 (22.0-30.0) sec Sodium 139 (137-145) mmol/L Potassium 4.8 (3.5-5.1) mmol/L Chloride 109 H (98-107) mmol/L Carbon Dioxide 22 (22-30) mmol/L Anion Gap 8 mmol/L BUN 39 H (7-17) mg/dL Creatinine 1.25 H (0.52-1.04) mg/dL Est GFR (CKD-EPI)AfAm 45 (>60 ml/min/1.73 sqM) Est GFR (CKD-EPI)NonAf 39 (>60 ml/min/1.73 sqM) Glucose 115 H (74-99) mg/dL Calcium 8.8 (8.4-10.2) mg/dL Total Bilirubin 0.6 (0.2-1.3) mg/dL AST 28 (14-36) U/L ALT 24 (4-34) U/L Alkaline Phosphatase 72 (38-126) U/L Total Protein 6.5 (6.3-8.2) g/dL Albumin 3.7 (3.5-5.0) g/dL Disposition Clinical Impression: Fall, Cellulitis, leg, Coccyx pain Disposition: HOME SELF-CARE Condition: Good Instructions (If sedation given, give patient instructions): Coccyx Injury (ED), Cellulitis (ED), Fall Prevention for Older Adults (ED) Additional Instructions: Obtain an inflatable doughnut to sit on to help with your pain. Take antibioti cs as prescribed for leg infection. Follow-up with the primary care doctor on Thursday. Return to the emergency room with any new or concerning symptoms. Prescriptions: Cephalexin [Keflex] 500 mg PO Q6HR 7 Days #28 cap Is patient prescribed a controlled substance at d/c from ED?: No Referrals: Isabel Souza MD [Primary Care Provider] - 1-2 days
--- NOTE | 2022-09-24 13:17 | CT ---
EXAMINATION TYPE: CT brain cspine wo con DATE OF EXAM: 09/24/2022 COMPARISON: Prior CT Trauma April 27, 2021 HISTORY: Headache and neck pain. Recent fall injury. CT DLP: 1372.7 mGycm. Automated Exposure Control for Dose Reduction was Utilized. TECHNIQUE: CT scan of the head and cervical spine are performed without contrast. FINDINGS: There is no acute intracranial hemorrhage or midline shift identified. Moderate ventricul ar and sulcal prominence redemonstrated. Kiran-white matter differentiation fairly well-maintained. T he calvarium is intact. Hyperostosis is redemonstrated. The globes are intact and the visualized sinu ses are clear. Osseous structures are demineralized. Cervical spine is visualized in its entirety from C1 through up per thoracic levels and demonstrates stable and satisfactory alignment without evidence of acute frac ture or dislocation. Prevertebral soft tissue remains within normal limits. The C1-C2 articulation remains within normal limits on coronal images. Vertebral body heights are maintained. [id number] ate multilevel disc space narrowing. Axial images show thyroid gland to appear within normal limits. Lung apices show no pneumothorax. Prominent pulmonary arteries suggests underlying pulmonary artery h ypertension. Correlate clinically. IMPRESSION: 1. There is no acute fracture or dislocation evident in the cervical spine. 2. No acute intracranial hemorrhage or midline shift is seen. No significant change from prior CT.
--- NOTE | 2022-09-24 13:35 | XR ---
EXAMINATION TYPE: XR Hip RT and AP Pelvis DATE OF EXAM: 09/24/2022 COMPARISON: Prior whole-body CT April 27, 2021 HISTORY: Fall injury with pelvic and right hip pain TECHNIQUE: A single AP view of the pelvis is obtained. Two views of the hip are obtained. FINDINGS: There is no acute displaced fracture evident in the pelvis. The hip and sacroiliac sacroi liac joints appear symmetric and within normal limits. Moderate to severe axial joint space loss in b oth hips. Pubic symphysis is intact. The overlying soft tissue appears unremarkable. Two views of right hip show no acute fracture or dislocation. No focal lytic or sclerotic lesion see n in the proximal right femur. The overlying soft tissue is unremarkable. IMPRESSION: There is no acute fracture or dislocation in the pelvis or right hip.
[2022-09-24 13:37] LABS: HGB 12.4 gm/dL (11.4-16.0); Hypochromasia Slight; MCH 33.4 pg (25.0-35.0); MCHC 33.5 g/dL (31.0-37.0); MCV 99.8 fL (80.0-100.0); Macrocytosis Slight; Mean Platelet Volume 8.9; Platelet Count 192 k/uL (150-450); Poikilocytosis Slight; RDW 15.2 % (11.5-15.5); WBC 2.3 k/uL (3.8-10.6)
[2022-09-24 13:47] LABS: INR 1.1 (<1.2); Partial Thromboplastin Time 28.1 sec (22.0-30.0); Prothrombin Time 11.7 sec (9.0-12.0)
[2022-09-24 14:14] LABS: Band Neutrophils % 5 %; Eosinophils # (M) 0.02 k/uL (0-0.7); Lymphocytes # (M) 0.44 k/uL (1.0-4.8); Monocytes # (M) 0.37 k/uL (0-1.0); Neutrophils % (M) 59 %; Nucleated Red Blood Cells 0 /100 WBC (0-0); Total Cells Counted 100
[2022-09-24 14:25] LABS: Albumin 3.7 g/dL (3.5-5.0); Calcium 8.8 mg/dL (8.4-10.2); Potassium 4.8 mmol/L (3.5-5.1); Total Bilirubin 0.6 mg/dL (0.2-1.3); Total Protein 6.5 g/dL (6.3-8.2)
[2022-09-24] MEDS ORDERED: ACET/COD 300 MG/30 MG STARTER PACK 6 TAB BTL PO STA (14:50)
[2022-09-24 15:39] VITALS: BP 100/60; PULSE 75; RESP 18
== END 2022-09-24 15:42 | disposition home or self-care (01) ==
LOC: EC 11:32
DX: L03.119 Cellulitis of unspecified part of limb (principal); M53.3 Sacrococcygeal disorders, not elsewhere classified; E11.9 Type 2 diabetes mellitus without complications; K21.9 Gastro-esophageal reflux disease without esophagitis; E78.5 Hyperlipidemia, unspecified; I10 Essential (primary) hypertension; E03.9 Hypothyroidism, unspecified; I48.91 Unspecified atrial fibrillation; Z79.890 Hormone replacement therapy; Z79.899 Other long term (current) drug therapy; Z23 Encounter for immunization; W01.0XXA Fall on same level from slipping, tripping and stumbling without subsequent striking against object, initial encounter; Y92.009 Unspecified place in unspecified non-institutional (private) residence as the place of occurrence of the external cause
CPT/HCPCS: 36415; 80053; 85025; 85610; 85730; 73502; 72125; 70450; 90715; 99284; 96374; 90471; J2270

== ENCOUNTER 2022-10-02 03:29 | Inpatient (IN) | payer MEDICARE, BC ==
--- NOTE | 2022-10-02 03:42 | ED ---
General Adult HPI - General Chief complaint: Fall Stated complaint: Fall Time Seen by Provider: 10/02/22 03:31 Source: family Mode of arrival: EMS Limitations: physical limitation - History of Present Illness Initial comments: Dictation was produced using [employer] dictation software. please excuse any grammatical, word or spelling errors. Chief Complaint: 86-year-old female presents emergency department after fall History of Present Illness: Patient is a 78-year-old female presents emergency department after fall. Patient takes anticoagulation medications. She walked around at night going to the bathroom when she fell. She does not really recall how she fell. She has chronic history of unsteady gait. Found him at the [facility] and helps provide history of present illness. Denies any head injury. She fell on her right side. She complains of pain all over but mostly in her right knee and right elbow. The ROS documented in this emergency department record has been reviewed and confirmed by me. Those systems with pertinent positive or negative responses have been documented in the HPI. All other systems are other negative and/or noncontributory. PHYSICAL EXAM: General Impression: Alert and oriented x3, not in acute distress HEENT: Normocephalic atraumatic, extra-ocular movements intact, pupils equal and reactive to light bilaterally, mucous membranes moist. Cardiovascular: Heart regular rate and rhythm Chest: Able to complete full sentences, no retractions, no tachypnea Abdomen: abdomen soft, non-tender, non-distended, no organomegaly Musculoskeletal: Pulses present and equal in all extremities, no peripheral edema, palpatory tenderness to the right elbow Motor: no focal deficits noted Neurological: CN II-XII grossly intact, no focal motor or sensory deficits noted Skin: Abrasion to the right elbow and right knee Psych: Normal affect and mood ED course: 78-year-old female presents to the emergency department after fall. She does take blood thinners. Vital signs upon arrival are within acceptable limits. Patient is no obvious traumatic injuries. Nursing notes and chart review was performed My EKG interpretation: Ventricular rate 69, sinus rhythm, MA interval 186, QRS 87, QTc 436. No MA prolongation, no QTC prolongation, no ST or T-wave changes noted. Overall, this EKG is unremarkable Computed tomography scan of the head and C-spine shows no acute processes. Chest x-ray unremarkable. There is an acute right-sided pubic symphysis fracture with no displacement. The x-ray and elbow x-ray is nonacute. Laboratory evaluation obtained found to be within acceptable limits. Disposition options were discussed with family. They did not feel patient was fit to go home safely. Patient admitted to orthopedic surgery after discussion with Dr. Ag. Medicine will be consulted for medical management. - Related Data Home Medications Medication Instructions Recorded Confirmed Ferrous Sulfate [Iron (65 MG 325 mg PO DAILY 04/22/18 02/18/22 Elemental)] Levothyroxine Sodium [Synthroid] 75 mcg PO MOTUWETHFRSA 04/22/18 02/18/22 Simethicone [Simethicone Chew] 80 mg PO DAILY 04/22/18 02/18/22 Cholecalciferol [Vitamin D3 (25 50 mcg PO DAILY 10/27/21 02/18/22 Mcg = 1000 Iu)] Levothyroxine Sodium [Synthroid] 37.5 mcg PO VELAZQUEZ 10/27/21 02/18/22 Multivit-Min/FA/Lycopen/Lutein 1 tab PO DAILY 10/27/21 02/18/22 [Centrum Silver Tablet] Pantoprazole Sodium [Protonix] 40 mg PO W/SUPPER 10/27/21 02/18/22 Pravastatin Sodium [Pravachol] 20 mg PO DAILY 10/27/21 02/18/22 Previous Rx's Medication Instructions Recorded Calcium Carbonate 500 mg PO TID #90 tablet 04/27/18 Potassium Chloride ER [K-Dur 10] 10 meq PO DAILY #30 tab 04/27/18 Apixaban [Eliquis] 2.5 mg PO BID #60 tab 10/28/21 Diclofenac Sodium Gel [Voltaren 4 gm TOPICAL QID #1 tub 12/27/21 Gel] Amiodarone [Cordarone] 200 mg PO DAILY #90 tab 02/18/22 Magnesium Chloride [Mag Delay] 64 mg PO BID #180 tab 02/18/22 Metoprolol Tartrate 25 mg PO BID #180 tab 02/18/22 Spironolactone 50 mg PO DAILY #90 tablet 02/18/22 Cephalexin [Keflex] 500 mg PO Q6HR 7 Days #28 cap 09/24/22 Allergies Allergy/AdvReac Type Severity Reaction Status Date / Time No Known Allergies Allergy Verified 10/02/22 03:34 Review of Systems ROS Statement: Those systems with pertinent positive or pertinent negative responses have been documented in the HPI. ROS Other: All systems not noted in ROS Statement are negative. Past Medical History Past Medical History: Diabetes Mellitus, GERD/Reflux, Hyperlipidemia, Hypertension, Thyroid Disorder Additional Past Medical History / Comment(s): Pt states she is no longer on diabetic medication(metformin), arthritis bilateral hands, varicose veins, diverticular disease, hypothyroid, past epistaxis. History of Any Multi-Drug Resistant Organisms: None Reported Past Surgical History: Appendectomy, Breast Surgery, Cholecystectomy, Heart Catheterization, Hysterectomy, Orthopedic Surgery, Tonsillectomy Additional Past Surgical History / Comment(s): 2014 cardiac cath-clear, R nasalseptal hemangioma removed, bilateral leg varicose vein sx, bilateral knee arthroscopies, R hand/wrist surgery for arthritis, colonoscopy 2 yrs ago-normal, bilateral breast mastectomy. Past Anesthesia/Blood Transfusion Reactions: No Reported Reaction Past Psychological History: No Psychological Hx Reported Smoking Status: Never smoker Past Alcohol Use History: None Reported Past Drug Use History: None Reported - Past Family History Father Family Medical History: Coronary Artery Disease (CAD), Myocardial Infarction ([place]) Mother Family Medical History: Coronary Artery Disease (CAD), GERD/Reflux, Myocardial Infarction ([place]) General Exam Limitations: physical limitation Course Vital Signs 10/02/22 03:30 Temperature 97.7 F Pulse Rate 77 Respiratory 16 Rate Blood Pressure 121/72 O2 Sat by Pulse 99 Oximetry Medical Decision Making - Lab Data Result diagrams: 10/02/22 04:16 10/02/22 04:16 Lab Results 10/02/22 10/02/22 10/02/22 Range/Units 04:16 04:16 04:16 WBC 8.6 (3.8-10.6) k/uL RBC 4.06 (3.80-5.40) m/uL Hgb 13.1 (11.4-16.0) gm/dL Hct 39.7 (34.0-46.0) % MCV 98.0 (80.0-100.0) fL MCH 32.2 (25.0-35.0) pg MCHC 32.9 (31.0-37.0) g/dL RDW 14.4 (11.5-15.5) % Plt Count 343 (150-450) k/uL MPV 7.5 PT 12.6 H (9.0-12.0) sec INR 1.2 H (<1.2) APTT 24.5 (22.0-30.0) sec Sodium 143 (137-145) mmol/L Potassium 5.3 H (3.5-5.1) mmol/L Chloride 111 H (98-107) mmol/L Carbon Dioxide 22 (22-30) mmol/L Anion Gap 10 mmol/L BUN 54 H (7-17) mg/dL Creatinine 1.29 H (0.52-1.04) mg/dL Est GFR (CKD-EPI)AfAm 43 (>60 ml/min/1.73 sqM) Est GFR (CKD-EPI)NonAf 37 (>60 ml/min/1.73 sqM) Glucose 122 H (74-99) mg/dL Calcium 9.5 (8.4-10.2) mg/dL Disposition Clinical Impression: Pubic bone fracture Disposition: ADMITTED IP TO THIS HOSP Condition: Fair Referrals: Isabel Souza MD [Primary Care Provider] - 1-2 days Decision Time: 05:23
--- NOTE | 2022-10-02 04:53 | XR ---
EXAMINATION TYPE: XR pelvis AP view DATE OF EXAM: 10/02/2022 COMPARISON: 09/24/2022 HISTORY: Fall. Pain TECHNIQUE: FINDINGS: The pelvic ring is intact. There is mild narrowing of hip joint spaces. Sacroiliac joints a re intact. No evidence of hip joint fracture. There is nondisplaced fracture of the right side pubic symphysis. IMPRESSION: Acute right side pubic symphysis fracture with no displacement.
--- NOTE | 2022-10-02 04:54 | XR ---
EXAMINATION TYPE: XR elbow complete RT DATE OF EXAM: 10/02/2022 COMPARISON: NONE HISTORY: Fall. Pain TECHNIQUE: 3 views FINDINGS: Elbow joint spaces are normal. I see no fracture nor dislocation. No sign of joint effusion . IMPRESSION: Negative right elbow exam. No fracture.
--- NOTE | 2022-10-02 04:55 | XR ---
EXAMINATION TYPE: XR knee limited RT DATE OF EXAM: 10/02/2022 COMPARISON: NONE HISTORY: Fall. Pain TECHNIQUE: 2 views FINDINGS: There is severe narrowing of the medial joint space. Spurring of the medial femoral and tib ial condyles. There is calcification in the lateral meniscus. No sign of joint effusion. 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 Chondrocalcinosis. No fractur e.
--- NOTE | 2022-10-02 04:56 | XR ---
EXAMINATION TYPE: XR chest 1V portable DATE OF EXAM: 10/02/2022 COMPARISON: 12/23/2021 HISTORY: Fall. Pain. TECHNIQUE: FINDINGS: There is no heart failure nor confluent pneumonic infiltrate. There is coarsening of the in terstitial markings. No pleural effusion. Thoracic aorta is atheromatous. IMPRESSION: Mild pulmonary fibrosis. Atheromatous aorta. There is clearing of the pulmonary congestio n and pleural fluid compared to old exam.
[2022-10-02 04:57] LABS: Calcium 9.5 mg/dL (8.4-10.2); Potassium 5.3 mmol/L (3.5-5.1)
[2022-10-02 05:02] LABS: Basophils % (A) 0 %; Eosinophils # (A) 0.1 k/uL (0-0.7); Eosinophils % (A) 1 %; HCT 39.7 % (34.0-46.0); HGB 13.1 gm/dL (11.4-16.0); Lymphocytes # (A) 0.7 k/uL (1.0-4.8); Lymphocytes % (A) 8 %; MCH 32.2 pg (25.0-35.0); MCHC 32.9 g/dL (31.0-37.0); Mean Platelet Volume 7.5; Monocytes # (A) 0.5 k/uL (0-1.0); Monocytes % (A) 6 %; Neutrophils # (A) 7.1 k/uL (1.3-7.7); Neutrophils % (A) 83 %; Platelet Count 343 k/uL (150-450); RBC 4.06 m/uL (3.80-5.40); RDW 14.4 % (11.5-15.5); WBC 8.6 k/uL (3.8-10.6)
--- NOTE | 2022-10-02 05:09 | CT ---
EXAMINATION TYPE: CT brain cspine wo con DATE OF EXAM: 10/02/2022 COMPARISON: 09/24/2022 HISTORY: FALL CT DLP: 1332.2 mGycm Automated exposure control for dose reduction was used. There is cerebral cortical atrophy. There is no mass effect or midline shift. No sign of intracranial hemorrhage. Calvarium is intact The cervical vertebra have normal alignment. Posterior element are intact. There is mild cervical fac et arthropathy. There is mild disc space narrowing from C3 to C7 with minimal spurring of the endplat es. IMPRESSION: Cerebral atrophy. No acute intracranial abnormality. Spondylotic changes in the mid and lower cervica l spine. No fracture. No significant change compared to recent exam.
[2022-10-02 05:17] LABS: INR 1.2 (<1.2); Partial Thromboplastin Time 24.5 sec (22.0-30.0); Prothrombin Time 12.6 sec (9.0-12.0)
[2022-10-02] MEDS ORDERED: HYDROcodone/APAP 5-325MG 1 EACH TAB PO PRN (05:21)
[2022-10-02] MEDS ORDERED: NALOXONE 0.4 MG/ML 1 ML VIAL IV PRN (05:21)
[2022-10-02] MEDS ORDERED: SODIUM CHLORIDE 0.9% 1,000 ML IV SCH (05:30)
[2022-10-02] MEDS ORDERED: HYDROcodone/APAP 7.5-325MG 1 EACH TAB PO PRN (09:29)
[2022-10-02] MEDS: LEVOTHYROXINE 75 MCG TAB PO SCH ×2 (10:12→10:13)
[2022-10-02] MEDS: CHOLECALCIFEROL 25 MCG (1000 IU) TABLET PO SCH (10:13)
[2022-10-02] MEDS: PRAVASTATIN SODIUM 20 MG TAB PO SCH (10:13)
[2022-10-02] MEDS: METOPROLOL TARTRATE 12.5 MG TAB PO SCH ×2 (10:13→20:32)
[2022-10-02] MEDS: MEGESTROL 400 MG/10 ML CUP PO SCH ×2 (10:14→20:32)
[2022-10-02] MEDS: PANTOPRAZOLE 40 MG TABLET PO SCH (10:14)
[2022-10-02] MEDS: AMIODARONE 200 MG TAB PO SCH (10:14)
[2022-10-02] MEDS: SPIRONOLACTONE 25 MG TAB PO SCH (10:14)
[2022-10-02] MEDS: CALCIUM CARBONATE 500 MG CHEWABLE PO SCH ×3 (10:14→20:34)
[2022-10-02] MEDS: MULTIVITAMINS, THERA 1 EACH TAB PO SCH (10:14)
[2022-10-02] MEDS: SIMETHICONE 80 MG CHEWABLE PO SCH (10:20)
--- NOTE | 2022-10-02 11:30 | XR ---
EXAMINATION TYPE: XR shoulder complete RT DATE OF EXAM: 10/02/2022 11:08 AM INDICATION: Patient age:Female; 86 years old; Reason for study: pain; COMPARISON: None TECHNIQUE: The left shoulder was examined in AP, internally rotated and scapular Y projections. . FINDINGS: No evidence of acute osseous pathology, joint dislocation, or soft tissue swelling. The remaining por tions of the visualized chest are unremarkable. Mild degeneration with minimal humeral head and AC edna int osteophytes. IMPRESSION: 1. No acute osseous pathology. 2. Mild right shoulder osteoarthrosis.
--- NOTE | 2022-10-02 11:43 | XR ---
EXAMINATION TYPE: XR humerus RT DATE OF EXAM: 10/02/2022 COMPARISON: None HISTORY: Pain TECHNIQUE: 2 view right humerus FINDINGS: No acute fractures are evident. Follow up exams can be performed 7-10 days from acute traum a for continued pain. There may be some elevation of the humeral head in relation to the glenoid. The superior portion of t he humerus is out of the field of view on these images. IMPRESSION: 1. No acute osseous abnormality right humerus. 2. Chronic rotator cuff tear is not excluded.
--- NOTE | 2022-10-02 12:18 | P.HPOR ---
History of Present Illness H&P Date: 10/02/22 Chief Complaint: Fall with right hip pain and right upper extremity pain Patient is a pleasant 86-year-old female who seen and examined today in the emergency room accompanied by her son and [id number]. The patient is a limited historian but she is aware of her person and place today. Her son is providing most of the history. The patient is not specifically localizing pain but seems to indicate that her hip and her shoulder or her most painful spots today. The patient apparently sustained a fall overnight where she was returning to bed after using the bathroom and fell. She was able to notify her son who found her on the ground and was able to help her return to bed with her walker. Apparently the patient was having complaints of pain at her hip and they decided to bring her into the hospital via ambulance. She denies loss of consciousness. She does not know why she fell. She denies any chest pain or shortness of breath. Apparently she had fallen about 2 weeks ago as well and had evaluation was found to have no evidence of any fractures and was able to be sent home from the emergency room. The patient normally lives at home with her who is 90 years old. Apparently she is a walker at home for ambulation. She was not using her walker last night. She is checked on regularly by her son. Review of Systems She denies chest pain or shortness of breath. Denies any fevers chills or night sweats. She does not specifically localized areas of pain but seems to indicate pain over her right shoulder and hip. Denies any nausea or vomiting. Denies any fevers or chills. Apparently she has been having increasing difficulty getting around and had a fall 2 weeks ago and then again last night. Past Medical History Past Medical History: Diabetes Mellitus, GERD/Reflux, Hyperlipidemia, Hypertension, Thyroid Disorder Additional Past Medical History / Comment(s): Pt states she is no longer on diabetic medication(metformin), arthritis bilateral hands, varicose veins, diverticular disease, hypothyroid, past epistaxis. History of Any Multi-Drug Resistant Organisms: None Reported Past Surgical History: Appendectomy, Breast Surgery, Cholecystectomy, Heart Catheterization, Hysterectomy, Orthopedic Surgery, Tonsillectomy Additional Past Surgical History / Comment(s): 2014 cardiac cath-clear, R nasalseptal hemangioma removed, bilateral leg varicose vein sx, bilateral knee arthroscopies, R hand/wrist surgery for arthritis, colonoscopy 2 yrs ago-normal, bilateral breast mastectomy. Past Anesthesia/Blood Transfusion Reactions: No Reported Reaction Past Psychological History: No Psychological Hx Reported Smoking Status: Never smoker Past Alcohol Use History: None Reported Past Drug Use History: None Reported - Past Family History Father Family Medical History: Coronary Artery Disease (CAD), Myocardial Infarction ([place]) Mother Family Medical History: Coronary Artery Disease (CAD), GERD/Reflux, Myocardial Infarction ([place]) Medications and Allergies Home Medications Medication Instructions Recorded Confirmed Type Levothyroxine Sodium [Synthroid] 75 mcg PO MOTUWETHFRSA 04/22/18 10/02/22 History Simethicone [Simethicone Chew] 80 mg PO DAILY 04/22/18 10/02/22 History Calcium Carbonate 500 mg PO TID #90 tablet 04/27/18 10/02/22 Rx Cholecalciferol [Vitamin D3 (25 50 mcg PO DAILY 10/27/21 10/02/22 History Mcg = 1000 Iu)] Multivit-Min/FA/Lycopen/Lutein 1 tab PO DAILY 10/27/21 10/02/22 History [Centrum Silver Tablet] Pantoprazole Sodium [Protonix] 40 mg PO DAILY 10/27/21 10/02/22 History Pravastatin Sodium [Pravachol] 20 mg PO DAILY 10/27/21 10/02/22 History Apixaban [Eliquis] 2.5 mg PO BID #60 tab 10/28/21 10/02/22 Rx Amiodarone [Cordarone] 200 mg PO DAILY #90 tab 02/18/22 10/02/22 Rx Spironolactone 50 mg PO DAILY #90 tablet 02/18/22 10/02/22 Rx Cephalexin [Keflex] 500 mg PO Q6HR 7 Days #28 cap 09/24/22 10/02/22 Rx HYDROcodone/APAP 7.5-325MG [[place] 1 tab PO TID PRN 10/02/22 10/02/22 History 7.5-325] Levothyroxine Sodium [Synthroid] 37.5 mg PO VELAZQUEZ 10/02/22 10/02/22 History Magnesium Gluconate [Magonate] 500 mg PO HS 10/02/22 10/02/22 History Megestrol Acetate 10 ml PO BID 10/02/22 10/02/22 History Metoprolol Tartrate 15 mg PO BID 10/02/22 10/02/22 History Allergies Allergy/AdvReac Type Severity Reaction Status Date / Time No Known Allergies Allergy Verified 10/02/22 08:24 Physical Examination Osteopathic Statement: *. No significant issues noted on an osteopathic structural exam other than those noted in the History and Physical/Consult. - Hip right Gait: other (The patient will follow commands and cooperative with exam. She is able to lift her leg up off the bed independently bilaterally but has some pain at her right hip with this. There is no CVA pain with internal rotation of her hips. She has some pain with flexion at her right leg around her hip. ) Tenderness with palpation: anterior (She is able to flex and extend her knees bilaterally. She has sustained dorsal flexion plantar flexion and EHL at her feet ankle and toes. There is some old ecchymosis around her left ankle from her fall 2 weeks ago. Her compartments are soft. Negative Randy's. Capill arianna refill less than 2 s) Pain with motion: other (Some pain with right hip flexion. No abdominal pain. Abdomen soft nontender. She has some motion in her right shoulder but soreness with motion at her right shoulder. Her neck is nontender back nontender. Her chest has good excursion with deep inspiration and expiration) Results - Labs Labs: Abnormal Lab Results - Last 24 Hours (Table) 10/02/22 10/02/22 10/02/22 Range/Units 04:16 04:16 04:16 Lymphocytes # 0.7 L (1.0-4.8) k/uL PT 12.6 H (9.0-12.0) sec INR 1.2 H (<1.2) Potassium 5.3 H (3.5-5.1) mmol/L Chloride 111 H (98-107) mmol/L BUN 54 H (7-17) mg/dL Creatinine 1.29 H (0.52-1.04) mg/dL Glucose 122 H (74-99) mg/dL H & H 10/02/22 Range/Units 04:16 Hgb 13.1 (11.4-16.0) gm/dL Hct 39.7 (34.0-46.0) % Coagulation 10/02/22 Range/Units 04:16 INR 1.2 H (<1.2) Result Diagrams: 10/02/22 04:16 10/02/22 04:16 - Diagnostic results Shoulder x-ray: report reviewed, image reviewed (Shoulder humerus and elbow x- rays are reviewed there is no acute fracture or dislocation. There are some arthritic changes of her right shoulder. There is some high riding of her humerus in her glenoid.) Hip x-ray: report reviewed, image reviewed (X-rays at her pelvis and hip are reviewed. They're compared with prior x-rays from 2 weeks ago. There is fracture at her superior pubic Rami with mild displacement on the right. This was not present on her x-rays from 2 weeks ago. There is no fracture at the femur) Assessment and Plan Assessment: Status post multiple falls with difficulty ambulating Acute right superior pubic rami fracture Strain at the right upper extremity due to fall Gait abnormality due to injury Plan: Status post multiple falls with difficulty ambulating Acute right superior pubic rami fracture Strain at the right upper extremity due to fall Gait abnormality due to injury The patient has a new pelvic fracture at her superior rami due to her fall. The fracture overall appears stable and will not require any surgical intervention. Her hip and femur. Be stable without evidence of fracture. Her shoulder and upper extremity does not have evidence of fracture but likely has some strain due to her fall and pre-existing arthritic conditions. The patient has been having recurrent falls over the past couple weeks and difficulty with her ambulation. The patient has a new injury at her pubic ramus. I do not plan any surgical intervention for this. I think it is stable for her to try to mobilize and ambulate and will need physical therapy to help her with this. I do not think it is safe for her to return home just yet as she'll. her to be there even with her. and they may need to evaluate for long-term care or placement. The patient will be admitted for pain control, mobilization and ambulation with physical therapy. She may weight-bear as tolerated on the right lower extremity. We will have physical therapy see her to start her mobilization. She may weight-bear as tolerated but will likely need assisted device and continued management with therapy to help with her mobilization balance and gait training. We will try to help control her pain. We do not have any plans for surgical intervention. Case management will see her we will start discharge planning. She has a number of medical issues and will be managed with medicine service as well.
[2022-10-02] MEDS ORDERED: SODIUM CHLORIDE 0.9% 1,000 ML IV STA (17:17)
--- NOTE | 2022-10-02 17:17 | P.CONS ---
History of Present Illness - Reason for Consult Consult date: 10/02/22 - History of Present Illness Nancy Grady, is an 86-year-old female who presented to [facility] emergency room after sustaining a fall at home, and was not able to stand or walk, she denies any head trauma. She was evaluated in the emergency room vital examination on presentation revealed a temperature of 97.7 pulse 77 respiration 16 blood pressure 121/72 pulse ox 99% on room air Laboratory data revealed a white blood count of 8.6 hemoglobin 13.1 platelet count 343 BUN 54 creatinine 1.29 potassium 5.3 Testing in the emergency room revealed pelvic x-ray revealed evidence of acute right sided pubic symphysis fracture with no displacement, x-ray of the right knee, revealed evidence of advanced arthritis without any evidence of fracture, x-ray of the right shoulder arm and elbow did not reveal any evidence of fracture. Computed tomography scan of the head and cervical spine did not reveal any evidence of intracranial bleeding or any evidence of vertebral fracture. Patient was admitted to medical floor for further evaluation and treatment Past Medical History Past Medical History: Diabetes Mellitus, GERD/Reflux, Hyperlipidemia, Hypertension, Thyroid Disorder Additional Past Medical History / Comment(s): Pt states she is no longer on diabetic medication(metformin), arthritis bilateral hands, varicose veins, diverticular disease, hypothyroid, past epistaxis. History of Any Multi-Drug Resistant Organisms: None Reported Past Surgical History: Appendectomy, Breast Surgery, Cholecystectomy, Heart Catheterization, Hysterectomy, Orthopedic Surgery, Tonsillectomy Additional Past Surgical History / Comment(s): 2014 cardiac cath-clear, R nasalseptal hemangioma removed, bilateral leg varicose vein sx, bilateral knee arthroscopies, R hand/wrist surgery for arthritis, colonoscopy 2 yrs ago-normal, bilateral breast mastectomy. Past Anesthesia/Blood Transfusion Reactions: No Reported Reaction Past Psychological History: No Psychological Hx Reported Smoking Status: Never smoker Past Alcohol Use History: None Reported Past Drug Use History: None Reported - Past Family History Father Family Medical History: Coronary Artery Disease (CAD), Myocardial Infarction ([place]) Mother Family Medical History: Coronary Artery Disease (CAD), GERD/Reflux, Myocardial Infarction ([place]) Medications and Allergies Home Medications Medication Instructions Recorded Confirmed Type Levothyroxine Sodium [Synthroid] 75 mcg PO MOTUWETHFRSA 04/22/18 10/02/22 History Simethicone [Simethicone Chew] 80 mg PO DAILY 04/22/18 10/02/22 History Calcium Carbonate 500 mg PO TID #90 tablet 04/27/18 10/02/22 Rx Cholecalciferol [Vitamin D3 (25 50 mcg PO DAILY 10/27/21 10/02/22 History Mcg = 1000 Iu)] Multivit-Min/FA/Lycopen/Lutein 1 tab PO DAILY 10/27/21 10/02/22 History [Centrum Silver Tablet] Pantoprazole Sodium [Protonix] 40 mg PO DAILY 10/27/21 10/02/22 History Pravastatin Sodium [Pravachol] 20 mg PO DAILY 10/27/21 10/02/22 History Apixaban [Eliquis] 2.5 mg PO BID #60 tab 10/28/21 10/02/22 Rx Amiodarone [Cordarone] 200 mg PO DAILY #90 tab 02/18/22 10/02/22 Rx Spironolactone 50 mg PO DAILY #90 tablet 02/18/22 10/02/22 Rx Cephalexin [Keflex] 500 mg PO Q6HR 7 Days #28 cap 09/24/22 10/02/22 Rx HYDROcodone/APAP 7.5-325MG [[place] 1 tab PO TID PRN 10/02/22 10/02/22 History 7.5-325] Levothyroxine Sodium [Synthroid] 37.5 mg PO VELAZQUEZ 10/02/22 10/02/22 History Magnesium Gluconate [Magonate] 500 mg PO HS 10/02/22 10/02/22 History Megestrol Acetate 10 ml PO BID 10/02/22 10/02/22 History Metoprolol Tartrate 15 mg PO BID 10/02/22 10/02/22 History Allergies Allergy/AdvReac Type Severity Reaction Status Date / Time magnesium oxide Allergy Rash/Hives Verified 10/02/22 16:27 Physical Exam Vitals: Vital Signs Temp Pulse Resp BP Pulse Ox 10/02/22 09:07 98.3 F 66 19 110/58 94 L 10/02/22 06:02 68 14 119/65 95 10/02/22 03:30 97.7 F 77 16 121/72 99 Intake and Output 10/01/22 10/02/22 10/02/22 22:59 06:59 14:59 Other: Weight 49.895 kg In general patient is alert and oriented x 3 in no distress HEENT head normocephalic and atraumatic Neck is supple no JVD no goiter no lymphadenopathy no carotid bruit Chest examination is clear to auscultation no crackles no wheezing Cardiac exam reveals regular heart sounds S1 and S2 no gallops no murmurs Abdomen is soft nontender no organomegaly with normal bowel sounds Extremity exam reveals no edema no cyanosis or clubbing Neurological examination reveals no gross focal deficits Results CBC & Chem 7: 10/02/22 04:16 10/02/22 04:16 Labs: Abnormal Lab Results - Last 24 Hours (Table) 10/02/22 10/02/22 10/02/22 Range/Units 04:16 04:16 04:16 Lymphocytes # 0.7 L (1.0-4.8) k/uL PT 12.6 H (9.0-12.0) sec INR 1.2 H (<1.2) Potassium 5.3 H (3.5-5.1) mmol/L Chloride 111 H (98-107) mmol/L BUN 54 H (7-17) mg/dL Creatinine 1.29 H (0.52-1.04) mg/dL Glucose 122 H (74-99) mg/dL Assessment and Plan Plan: Fall with acute right superior pubic rami fracture Gait disturbance Dehydration with acute kidney injury Underlying history of atrial fibrillation, heart rate is well-controlled Underlying history of chronic diastolic congestive heart failure Underlying history of hypertension Underlying history of hyperlipidemia Underlying history of hypothyroidism Underlying history of advanced osteoarthritis At this time patient was seen and examined Home medications reviewed and reordered. Will start IV hydration gently and monitor for any evidence of fluid overload Eliquis was held awaiting plans by orthopedic surgery, if there are no plans for any surgical intervention will resume Eliquis Pain management per orthopedic protocol Patient will need to go to rehab prior to returning home
[2022-10-02] MEDS: DOCUSATE 100 MG CAP PO SCH (20:32)
[2022-10-02] MEDS: APIXABAN 2.5 MG TABLET PO SCH (20:32)
[2022-10-02] MEDS: HYDROcodone/APAP 7.5-325MG 1 EACH TAB PO PRN (20:33)
[2022-10-02] MEDS ORDERED: MAGNESIUM OXIDE 400 MG TAB PO SCH (21:00)
[2022-10-03] MEDS: HYDROcodone/APAP 7.5-325MG 1 EACH TAB PO PRN ×3 (01:27→20:58)
[2022-10-03] MEDS: PANTOPRAZOLE 40 MG TABLET PO SCH (05:36)
[2022-10-03] MEDS: LEVOTHYROXINE 75 MCG TAB PO SCH (05:36)
--- NOTE | 2022-10-03 09:09 | P.PN ---
Progress Note - Text Progress Note Date: 10/03/22 Orthopedics: History of present illness: Patient is a very pleasant 86-year-old female who was seen examined at bedside for further evaluation of her right superior pubic rami fracture. She is confused this morning at the bedside. She is seen with her granddaughter present. The granddaughter states the patient initially sustained a fall approximately week ago. She then sustained another fall. Patient is having significant difficulty with mobilization. Today she states she has significant pain towards her right buttock. She is not complaining of any upper extremity pain. They do have a donut seat cushion which they have been using an ou tpatient setting. She does utilize a walker to aid in ambulation. Currently she has an external catheter intact. Granddaughter states patient is currently more confused than normal. There have been some discussion on discharge to a rehabilitation facility versus long-term care at the time of discharge. Patient does live at home with her 90-year-old . Patient's other medical diagnoses include diabetes mellitus, hyperlipidemia, and hypertension. She's been seen and examined by medicine. We have no plans for surgical intervention and patient may resume Eliquis per management by medicine. Physical exam: Patient is awake and alert but does have some confusion Vital signs stable Good chest excursion with deep inspiration and expiration Patient is significantly uncomfortable while lying in bed. She does have difficulty with turning and moving in bed due to her right pelvic/buttock pain Dorsiflexion and plantarflexion positive sustained bilateral lower extremities No signs or symptoms of DVT; no calf pain No pain with internal and external rotation of the hips bilaterally Neurovascularly intact External catheter intact Assessment: Acute medical right superior pubic rami fracture Right-sided pelvic pain and buttock pain Status post fall Confusion Diabetes mellitus Hyperlipidemia Hypertension Plan: 1. Patient has sustained 2 falls and has had some difficulty with mobilization following these falls over the past week. Her more recent fall has been more significant. She presented to the emergency department for further evaluation. Imaging compared to previous imaging showed evidence of acute right superior pubic rami fracture with mild displacement which was not present on previous imaging. Patient has been utilizing a donut seat cushion. She has had significant difficulty with mobilization. Her fracture appears fairly stable and we would not plan for any acute surgical intervention in regards to her right pubic rami fracture. We do think she should continue to try to work with physical therapy to increase her mobilization balance and gait training. She may weight-bear as tolerated on her right lower extremity. She is encouraged she lies a walker or other aids to ambulation as needed. We did discuss patient will need discharge planning most likely to a rehab facility prior to returning home or possibly a long-term care facility. We will plan for discharge once cleared by medicine and approved and set up through case management. 2. Patient will continue to be seen examined by medicine for other diagnoses including some confusion. We have no plans for surgical intervention and patient may resume Eliquis. This will be managed by medicine. Patient has been started on hydrocodone 7.5 mg/325 mg by medicine. Patient has described as needed for pain control.
[2022-10-03 09:19] LABS: ALT 29 U/L (4-34); AST 32 U/L (14-36); African American GFR (CKD) 54 (>60 ml/min/1.73 sqM); Albumin 3.7 g/dL (3.5-5.0); Albumin/Globulin Ratio 1.2; Alkaline Phosphatase 233 U/L (38-126); Anion Gap 11 mmol/L; Blood Urea Nitrogen 44 mg/dL (7-17); Calcium 8.9 mg/dL (8.4-10.2); Carbon Dioxide 21 mmol/L (22-30); Chloride 110 mmol/L (98-107); Glucose 100 mg/dL (74-99); Magnesium 2.1 mg/dL (1.6-2.3); Non-African American GFR(CKD) 47 (>60 ml/min/1.73 sqM); Sodium 142 mmol/L (137-145); Total Protein 6.7 g/dL (6.3-8.2)
[2022-10-03 09:52] LABS: HCT 40.3 % (37.2-46.3); MCH 31.9 pg (27.0-32.0); MCHC 29.8 g/dL (32.0-37.0); MCV 107.2 fL (80.0-97.0); Mean Platelet Volume 8.7 fL (9.5-12.2); NRBC Per 100 WBC 0 /100 WBCS (0.0-0.0); Platelet Count 214 X 10*3/uL (140-440); RBC 3.76 X 10*6/uL (4.10-5.20); RDW 14.8 % (11.5-14.5)
[2022-10-03] MEDS: MULTIVITAMINS, THERA 1 EACH TAB PO SCH (09:58)
[2022-10-03] MEDS: CALCIUM CARBONATE 500 MG CHEWABLE PO SCH ×3 (09:58→21:07)
[2022-10-03] MEDS: APIXABAN 2.5 MG TABLET PO SCH ×2 (09:58→20:58)
[2022-10-03] MEDS: SPIRONOLACTONE 25 MG TAB PO SCH (09:58)
[2022-10-03] MEDS: AMIODARONE 200 MG TAB PO SCH (09:58)
[2022-10-03] MEDS: PRAVASTATIN SODIUM 20 MG TAB PO SCH (09:58)
[2022-10-03] MEDS: DOCUSATE 100 MG CAP PO SCH ×2 (09:58→20:59)
[2022-10-03] MEDS: CHOLECALCIFEROL 25 MCG (1000 IU) TABLET PO SCH (09:58)
[2022-10-03] MEDS: MEGESTROL 400 MG/10 ML CUP PO SCH ×2 (09:59→20:59)
[2022-10-03] MEDS: METOPROLOL TARTRATE 12.5 MG TAB PO SCH ×2 (09:59→20:59)
[2022-10-03] MEDS: SIMETHICONE 80 MG CHEWABLE PO SCH (09:59)
[2022-10-03 10:33] LABS: Basophils # (A) 0.03 X 10*3/uL (0.00-0.10); Basophils % (A) 0.7 %; Eosinophils # (A) 0.12 X 10*3/uL (0.04-0.35); Eosinophils % (A) 2.7 %; Immature Grans, Automated 1.3 %; Lymphocytes # (A) 0.76 X 10*3/uL (0.90-5.00); Lymphocytes % (A) 16.9 %; Monocytes # (A) 0.71 X 10*3/uL (0.20-1.00); Monocytes % (A) 15.8 %; Neutrophils # (A) 2.82 X 10*3/uL (1.80-7.70); Neutrophils % (A) 62.6 %
[2022-10-03] MEDS ORDERED: traMADol 50 MG TAB PO PRN (11:04)
--- NOTE | 2022-10-03 11:07 | P.PN ---
Subjective Progress Note Date: 10/03/22 Nancy Grady, is an 86-year-old female who presented to [facility] emergency room after sustaining a fall at home, and was not able to stand or walk, she denies any head trauma. She was evaluated in the emergency room vital examination on presentation revealed a temperature of 97.7 pulse 77 respiration 16 blood pressure 121/72 pulse ox 99% on room air Laboratory data revealed a white blood count of 8.6 hemoglobin 13.1 platelet count 343 BUN 54 creatinine 1.29 potassium 5.3 Testing in the emergency room revealed pelvic x-ray revealed evidence of acute right sided pubic symphysis fracture with no displacement, x-ray of the right knee, revealed evidence of advanced arthritis without any evidence of fracture, x-ray of the right shoulder arm and elbow did not reveal any evidence of fracture. Computed tomography scan of the head and cervical spine did not reveal any evidence of intracranial bleeding or any evidence of vertebral fracture. Patient was admitted to medical floor for further evaluation and treatment On 10/03/2022 patient is alert and oriented 12. Family at bedside reporting more confusion likely secondary to pain medication. Patient has had multiple falls at home per family no surgical intervention planned at this time per orthopedic services. Will add other options for pain control including Tylenol and tramadol. Also will rule out any kind of infection. We'll also order CK due to reporting a patient that was laying for quite some time. We'll place cardiology consult to assess risk first benefit in regards to eliquis and falls. Objective - Vital Signs Vital signs: Vital Signs Temp 98 F 10/03/22 08:00 Pulse 74 10/03/22 08:00 Resp 16 10/03/22 08:00 BP 111/61 10/03/22 08:00 Pulse Ox 97 10/03/22 08:00 FiO2 Intake & Output 10/02/22 10/03/22 10/03/22 18:59 06:59 18:59 Weight 49.895 kg Other: Voiding Method External Catheter Bedpan External Catheter # Voids 1 - Exam In general patient is alert and oriented x 3 in no distress HEENT head normocephalic and atraumatic Neck is supple no JVD no goiter no lymphadenopathy no carotid bruit Chest examination is clear to auscultation no crackles no wheezing Cardiac exam reveals regular heart sounds S1 and S2 no gallops no murmurs Abdomen is soft nontender no organomegaly with normal bowel sounds Extremity exam reveals no edema no cyanosis or clubbing Neurological examination reveals no gross focal deficits - Labs CBC & Chem 7: 10/03/22 06:04 10/03/22 08:29 Labs: Abnormal Lab Results - Last 24 Hours (Table) 10/03/22 10/03/22 Range/Units 06:04 08:29 RBC 3.76 L (4.10-5.20) X 10*6/uL MCV 107.2 H (80.0-97.0) fL MCHC 29.8 L (32.0-37.0) g/dL RDW 14.8 H (11.5-14.5) % MPV 8.7 L (9.5-12.2) fL Immature Gran # 0.06 H (0.00-0.04) X 10*3/uL Lymphocytes # 0.76 L (0.90-5.00) X 10*3/uL Chloride 110 H (98-107) mmol/L Carbon Dioxide 21 L (22-30) mmol/L BUN 44 H (7-17) mg/dL Creatinine 1.06 H (0.52-1.04) mg/dL Glucose 100 H (74-99) mg/dL Alkaline Phosphatase 233 H (38-126) U/L Assessment and Plan Plan: Fall with acute right superior pubic rami fracture Gait disturbance Dehydration with acute kidney injury Underlying history of atrial fibrillation, heart rate is well-controlled Underlying history of chronic diastolic congestive heart failure Underlying history of hypertension Underlying history of hyperlipidemia Underlying history of hypothyroidism Underlying history of advanced osteoarthritis At this time patient was seen and examined Home medications reviewed and reordered. Cardiology consulted to address risk versus benefit regards to eliquis with falls Urinary analysis ordered CK-MB ordered Pain management per orthopedic protocol Patient will need to go to rehab prior to returning home
--- NOTE | 2022-10-03 13:46 | P.CRDCN ---
History of Present Illness Consult date: 10/03/22 History of present illness: History of present illness: This is a 86-year-old female with a past medical history significant for persistent atrial fibrillation status post cardioversion February/2022, typical atrial flutter, chronic diastolic heart failure hypertension, GERD, hyperlipidemia, dementia, and hypothyroidism. Patient follows in the office with Dr. Cruz. We have been asked to see the patient in consultation f to evaluate risk versus benefit of eliquis due to patient's recent falls. Patient has had 2 falls in the past 1 week. The second fall caused. Fracture and patient has been hospitalized, orthopedics is planning conservative management and patient has been resumed on eliquis. DIAGNOSTICS: EKG reveals sinus rhythm, 69 bpm. 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 Clearing of pulmonary congestion and pleural fluid compared to old exam. Laboratory data: WBC 4.5, hemoglobin 12, platelet count 214. Sodium 142, potassium 5.0, CO2 21, BUN 44 and creatinine 1.06. Alkaline phosphatase 233. M agnesium 2.1. Current home cardiac medications include amiodarone 200 mg daily, eliquis 2.5 mg twice daily, Aldactone 50 mg daily, metoprolol tartrate 12.5 mg twice daily, pravastatin 20 mg daily Echocardiogram 12/2021 revealed EF of 50-55%, borderline concentric left ventricular hypertrophy, mild aortic regurgitation, moderate to severe mitral regurgitation, severe tricuspid regurgitation, severe pulmonary hypertension Cardiac cath in 09/2015 with normal coronary arteries Lexiscan stress test in 2019 with negative for reversible ischemia REVIEW OF SYSTEMS: At the time of my exam: CONSTITUTIONAL: Denies fever or chills. HEENT: Denies blurred vision, vision changes, or eye pain. Denies hemoptysis CARDIOVASCULAR: Denies chest pain. Denies orthopnea. Denies PND. Denies palpitations RESPIRATORY: + shortness of breath. GASTROINTESTINAL: Denies abdominal pain. Denies nausea or vomiting. Reports pelvic pain. HEMATOLOGIC: Denies bleeding disorders. GENITOURINARY: Denies any blood in urine. SKIN: Denies pruitis. Denies rash. PHYSICAL EXAM: VITAL SIGNS: Reviewed. Blood pressure 111/61, heart rate 74 GENERAL: Well-developed in no acute distress. HEENT: Head is normocephalic. Pupils are equal, round. Sclerae anicteric. Mucous membranes of the mouth are somewhat dry. Neck supple. No JVD LUNGS: Bilateral coarse crackles and expiratory wheeze. HEART: Regular rate and rhythm. S1 and S2 heard. Systolic murmur noted. ABDOMEN: Soft. Nondistended. Nontender. EXTREMITIES: Normal range of motion. No clubbing or cyanosis. Peripheral pulses intact. No lower extremity edema NEUROLOGIC: Awake and alert. Oriented x 3. ASSESSMENT: Fall x2 with pubic fracture Chronic diastolic heart failure Persistent atrial fibrillation status post cardioversion on Eliquis Typical atrial flutter Hypertension Hyperlipidemia Hypothyroidism GERD Valvular heart disease PLAN: Obtain 2-D echocardiogram Continue eliquis for now and will evaluate risk and benefits of continuing chang vikram Further recommendations based on clinical course Nurse practitioner note has been reviewed, I agree with the documented findings and plan of care. Patient was seen and examined. Past Medical History Past Medical History: Diabetes Mellitus, GERD/Reflux, Hyperlipidemia, Hypertension, Thyroid Disorder Additional Past Medical History / Comment(s): Pt states she is no longer on diabetic medication(metformin), arthritis bilateral hands, varicose veins, diverticular disease, hypothyroid, past epistaxis. History of Any Multi-Drug Resistant Organisms: None Reported Past Surgical History: Appendectomy, Breast Surgery, Cholecystectomy, Heart Catheterization, Hysterectomy, Orthopedic Surgery, Tonsillectomy Additional Past Surgical History / Comment(s): 2014 cardiac cath-clear, R nasalseptal hemangioma removed, bilateral leg varicose vein sx, bilateral knee arthroscopies, R hand/wrist surgery for arthritis, colonoscopy 2 yrs ago-normal, bilateral breast mastectomy. Past Anesthesia/Blood Transfusion Reactions: No Reported Reaction Past Psychological History: No Psychological Hx Reported Smoking Status: Never smoker Past Alcohol Use History: None Reported Past Drug Use History: None Reported - Past Family History Father Family Medical History: Coronary Artery Disease (CAD), Myocardial Infarction ([place]) Mother Family Medical History: Coronary Artery Disease (CAD), GERD/Reflux, Myocardial Infarction ([place]) Medications and Allergies Home Medications Medication Instructions Recorded Confirmed Type Levothyroxine Sodium [Synthroid] 75 mcg PO MOTUWETHFRSA 04/22/18 10/02/22 History Simethicone [Simethicone Chew] 80 mg PO DAILY 04/22/18 10/02/22 History Calcium Carbonate 500 mg PO TID #90 tablet 04/27/18 10/02/22 Rx Cholecalciferol [Vitamin D3 (25 50 mcg PO DAILY 10/27/21 10/02/22 History Mcg = 1000 Iu)] Multivit-Min/FA/Lycopen/Lutein 1 tab PO DAILY 10/27/21 10/02/22 History [Centrum Silver Tablet] Pantoprazole Sodium [Protonix] 40 mg PO DAILY 10/27/21 10/02/22 History Pravastatin Sodium [Pravachol] 20 mg PO DAILY 10/27/21 10/02/22 History Apixaban [Eliquis] 2.5 mg PO BID #60 tab 10/28/21 10/02/22 Rx Amiodarone [Cordarone] 200 mg PO DAILY #90 tab 02/18/22 10/02/22 Rx Spironolactone 50 mg PO DAILY #90 tablet 02/18/22 10/02/22 Rx Cephalexin [Keflex] 500 mg PO Q6HR 7 Days #28 cap 09/24/22 10/02/22 Rx HYDROcodone/APAP 7.5-325MG [[place] 1 tab PO TID PRN 10/02/22 10/02/22 History 7.5-325] Levothyroxine Sodium [Synthroid] 37.5 mg PO VELAZQUEZ 10/02/22 10/02/22 History Magnesium Gluconate [Magonate] 500 mg PO HS 10/02/22 10/02/22 History Megestrol Acetate 10 ml PO BID 10/02/22 10/02/22 History Metoprolol Tartrate 15 mg PO BID 10/02/22 10/02/22 History Allergies Allergy/AdvReac Type Severity Reaction Status Date / Time magnesium oxide Allergy Rash/Hives Verified 10/02/22 16:27 Physical Exam Vitals: Vital Signs Temp Pulse Pulse Resp BP BP Pulse Ox 10/03/22 08:00 98 F 74 16 111/61 97 10/03/22 02:09 98.0 F 62 17 102/56 95 10/02/22 18:19 98.6 F 65 16 116/69 96 10/02/22 15:38 98.4 F 68 17 122/72 96 10/02/22 14:32 64 18 113/68 94 L Intake and Output 10/02/22 10/03/22 10/03/22 22:59 06:59 14:59 Other: Voiding Method Bedpan External Catheter # Voids 1 Weight 49.895 kg Results 10/03/22 06:04 10/03/22 08:29 Cardiac Enzymes 10/03/22 10/03/22 Range/Units 08:27 08:29 AST 32 (14-36) U/L CK-MB (CK-2) 1.4 (0.0-2.4) ng/mL CBC 10/03/22 Range/Units 06:04 WBC 4.50 (4.50-10.00) X 10*3/uL RBC 3.76 L (4.10-5.20) X 10*6/uL Hgb 12.0 (12.0-15.0) g/dL Hct 40.3 (37.2-46.3) % Plt Count 214 (140-440) X 10*3/uL Comprehensive Metabolic Panel 10/03/22 Range/Units 08:29 Sodium 142 (137-145) mmol/L Potassium 5.0 (3.5-5.1) mmol/L Chloride 110 H (98-107) mmol/L Carbon Dioxide 21 L (22-30) mmol/L BUN 44 H (7-17) mg/dL Creatinine 1.06 H (0.52-1.04) mg/dL Glucose 100 H (74-99) mg/dL Calcium 8.9 (8.4-10.2) mg/dL AST 32 (14-36) U/L ALT 29 (4-34) U/L Alkaline Phosphatase 233 H (38-126) U/L Total Protein 6.7 (6.3-8.2) g/dL Albumin 3.7 (3.5-5.0) g/dL Current Medications Generic Name Dose Route Start Last Admin Trade Name Freq PRN Reason Stop Dose Admin Acetaminophen 650 mg 10/02/22 05:21 Acetaminophen Tab 325 Mg Tab PO Q6HR PRN Mild Pain or Fever > 100.5 Hydrocodone Bitart/Acetaminophen 1 each 10/02/22 17:13 10/03/22 05:36 Hydrocodone/Apap 7.5-325mg 1 Each Tab PO 1 each Q4H PRN Administration Pain Amiodarone HCl 200 mg 10/02/22 09:30 10/03/22 09:58 Amiodarone 200 Mg Tab PO 200 mg DAILY CHAZ Administration Apixaban 2.5 mg 10/02/22 21:00 10/03/22 09:58 Apixaban 2.5 Mg Tablet PO 2.5 mg BID CHAZ Administration Protocol Calcium Carbonate/Glycine 500 mg 10/02/22 09:30 10/03/22 09:58 Calcium Carbonate 500 Mg Chewable PO 500 mg TID CHAZ Administration Cholecalciferol 50 mcg 10/02/22 10:00 10/03/22 09:58 Cholecalciferol 25 Mcg (1000 Iu) Tablet PO 50 mcg DAILY CHAZ Administration Docusate Sodium 100 mg 10/02/22 21:00 10/03/22 09:58 Docusate 100 Mg Cap PO 100 mg BID CHAZ Administration Sodium Chloride 1,000 mls @ 50 mls/hr 10/02/22 17:17 10/02/22 17:26 Saline 0.9% IV 10/03/22 13:16 50 mls/hr .Q20H STA Administration Levothyroxine Sodium 37.5 mcg 10/05/22 06:30 10/02/22 10:12 Levothyroxine 75 Mcg Tab PO 37.5 mcg VELAZQUEZ CHAZ Administration Levothyroxine Sodium 75 mcg 10/02/22 10:00 10/03/22 05:36 Levothyroxine 75 Mcg Tab PO 75 mcg [id number] CHAZ Administration Megestrol Acetate 10 mg 10/02/22 10:00 10/03/22 09:59 Megestrol 400 Mg/10 Ml Cup PO 10 mg BID CHAZ Administration Metoprolol Tartrate 12.5 mg 10/02/22 10:00 10/03/22 09:59 Metoprolol Tartrate 12.5 Mg Tab PO 12.5 mg BID CHAZ Administration Multivitamins 1 each 10/02/22 10:00 10/03/22 09:58 Multivitamins, Thera 1 Each Tab PO 1 each DAILY CHAZ Administration Naloxone HCl 0.2 mg 10/02/22 05:21 Naloxone 0.4 Mg/Ml 1 Ml Vial IV Q2M PRN Opioid Reversal Pantoprazole Sodium 40 mg 10/02/22 10:00 10/03/22 05:36 Pantoprazole 40 Mg Tablet PO 40 mg [id number] CHAZ Administration Pravastatin Sodium 20 mg 10/02/22 10:00 10/03/22 09:58 Pravastatin Sodium 20 Mg Tab PO 20 mg DAILY CHAZ Administration Simethicone 80 mg 10/02/22 10:00 10/03/22 09:59 Simethicone 80 Mg Chewable PO 80 mg DAILY CHAZ Administration Spironolactone 50 mg 10/02/22 10:00 10/03/22 09:58 Spironolactone 25 Mg Tab PO 50 mg DAILY CHAZ Administration Tramadol HCl 50 mg 10/03/22 11:04 Tramadol 50 Mg Tab PO QID PRN Pain Intake and Output 10/02/22 10/03/22 10/03/22 22:59 06:59 14:59 Other: Voiding Method Bedpan External Catheter # Voids 1 Weight 49.895 kg 10/03/22 06:04 10/03/22 08:29
--- NOTE | 2022-10-03 17:08 | CA ---
Transthoracic Echo Report Name: Nancy Grady Age: 86 Gender: F : 1935 Exam Date: 10/03/2022 15:03 Exam Location: [facility] Ht (in): 60 Wt (lb): 110 Ordering Physician: Saskia James Attending/Referring Phys: [id number], Jacob [employer] Mechanic Priti Frank RDCS Procedure CPT: Indications: LVF Cardiac Hx: Technical Quality: Fair Contrast 1: Total Dose (mL): Contrast 2: Total Dose (mL): MEASUREMENTS (Male / Female) Normal Values 2D ECHO LV Diastolic Diameter PLAX 3.9 cm 4.2 - 5.9 / 3.9 - 5.3 cm LV Systolic Diameter PLAX 2.2 cm IVS Diastolic Thickness 1.7 cm 0.6 - 1.0 / 0.6 - 0.9 cm LVPW Diastolic Thickness 1.3 cm 0.6 - 1.0 / 0.6 - 0.9 cm LV Relative Wall Thickness 0.8 RV Internal Dim ED PLAX 2.8 cm LA Volume 83.0 cm??? 18 - 58 / 22 - 52 cm??? M-MODE Aortic Root Diameter MM 2.9 cm LA Systolic Diameter MM 5.3 cm LA Ao Ratio MM 1.8 AV Cusp Separation MM 1.8 cm DOPPLER AV Peak Velocity 133.4 cm/s AV Peak Gradient 7.1 mmHg AV Mean Velocity 102.3 cm/s AV Mean Gradient 4.5 mmHg AV Velocity Time Integral 30.0 cm AI Peak Velocity 428.1 cm/s AI Peak Gradient 73.3 mmHg AI Pressure Half Time 488.8 ms LVOT Peak Velocity 84.0 cm/s LVOT Peak Gradient 2.8 mmHg LVOT Velocity Time Integral 16.8 cm MV Area PHT 3.8 cm??? Mitral E Point Velocity 106.4 cm/s Mitral A Point Velocity 79.5 cm/s Mitral E to A Ratio 1.3 MV Deceleration Time 201.4 ms TR Peak Velocity 286.2 cm/s TR Peak Gradient 32.8 mmHg Right Ventricular Systolic Press 37.8 mmHg FINDINGS Left Ventricle Severely increased left ventricular wall thickness. Normal left ventricular systolic function with no obvious regional wall motion abnormalities. Left ventricular ejection fraction is estimated at 55 %. Right Ventricle Normal right ventricular size and function. Mild pulmonary hypertension. Right Atrium Normal right atrial size. Left Atrium Severely increased left atrial volume. Mildly increased left atrial area. Mitral Valve Structurally normal mitral valve. Mitral valve thickened. Moderate mitral annular calcification. Aortic Valve No aortic stenosis. Mild aortic regurgitation. Aortic valve sclerosis. Tricuspid Valve Structurally normal tricuspid valve. Mild tricuspid regurgitation. Pulmonic Valve Trace pulmonic regurgitation. Pericardium No pericardial effusion. Aorta Normal size aortic root and proximal ascending aorta. CONCLUSIONS Normal LV systolic function Mild aortic regurgitation Moderate mitral regurgitation Previewed by: Dr. Aly Crowder MD (Electronically Signed) Final Date: 03 October 2022 17:07
[2022-10-04] MEDS: HYDROcodone/APAP 7.5-325MG 1 EACH TAB PO PRN ×2 (02:05→13:08)
[2022-10-04] MEDS: LEVOTHYROXINE 75 MCG TAB PO SCH (06:07)
[2022-10-04] MEDS ORDERED: ONDANSETRON 4 MG/2 ML VIAL IVP PRN (06:30)
[2022-10-04 09:04] LABS: Appearance,Urine Clear (Clear); Bilirubin,Urine Negative (Negative); Blood,Urine Negative (Negative); Color,Urine Yellow; Glucose,Urine (UA) Negative (Negative); Ketones,Urine Negative (Negative); Leukocyte Esterase,Urine Negative (Negative); Nitrite,Urine Negative (Negative); PH, Urine 6.5 (5.0-8.0); Protein,Urine Negative (Negative); Specific Gravity,Urine 1.022 (1.001-1.035)
[2022-10-04] MEDS: MEGESTROL 400 MG/10 ML CUP PO SCH (10:57)
[2022-10-04] MEDS: CALCIUM CARBONATE 500 MG CHEWABLE PO SCH ×2 (10:57→17:14)
[2022-10-04] MEDS: AMIODARONE 200 MG TAB PO SCH (10:57)
[2022-10-04] MEDS: SIMETHICONE 80 MG CHEWABLE PO SCH (10:57)
[2022-10-04] MEDS: CHOLECALCIFEROL 25 MCG (1000 IU) TABLET PO SCH (10:57)
[2022-10-04] MEDS: SPIRONOLACTONE 25 MG TAB PO SCH (10:57)
[2022-10-04] MEDS: PRAVASTATIN SODIUM 20 MG TAB PO SCH (10:57)
[2022-10-04] MEDS: METOPROLOL TARTRATE 12.5 MG TAB PO SCH (10:57)
[2022-10-04] MEDS: PANTOPRAZOLE 40 MG TABLET PO SCH (10:57)
[2022-10-04] MEDS: APIXABAN 2.5 MG TABLET PO SCH (10:57)
[2022-10-04] MEDS: MULTIVITAMINS, THERA 1 EACH TAB PO SCH (10:57)
[2022-10-04] MEDS: DOCUSATE 100 MG CAP PO SCH (10:57)
[2022-10-04 11:52] LABS: Basophils # (A) 0.02 X 10*3/uL (0.00-0.10); Basophils % (A) 0.5 %; Eosinophils # (A) 0.13 X 10*3/uL (0.04-0.35); Eosinophils % (A) 2.9 %; HCT 37.9 % (37.2-46.3); Immature Grans, Automated 1.1 %; Lymphocytes # (A) 0.76 X 10*3/uL (0.90-5.00); Lymphocytes % (A) 17.2 %; MCH 32.5 pg (27.0-32.0); MCHC 31.7 g/dL (32.0-37.0); MCV 102.7 fL (80.0-97.0); Mean Platelet Volume 8.3 fL (9.5-12.2); Monocytes # (A) 0.79 X 10*3/uL (0.20-1.00); Monocytes % (A) 17.9 %; NRBC Per 100 WBC 0 /100 WBCS (0.0-0.0); Neutrophils # (A) 2.66 X 10*3/uL (1.80-7.70); Neutrophils % (A) 60.4 %; Platelet Count 243 X 10*3/uL (140-440); RBC 3.69 X 10*6/uL (4.10-5.20); RDW 14.6 % (11.5-14.5); WBC 4.41 X 10*3/uL (4.50-10.00)
[2022-10-04 12:10] LABS: African American GFR (CKD) 48.2 (60.0-200.0); Albumin 3.4 g/dL (3.8-4.9); Albumin/Globulin Ratio 1.33 (1.60-3.17); Anion Gap 12.3 mmol/L (10.00-18.00); BUN/Creat Ratio 29.83 Ratio (12.00-20.00); Blood Urea Nitrogen 34.9 mg/dL (9.0-27.0); Calcium 8.6 mg/dL (8.7-10.3); Carbon Dioxide 19.3 mmol/L (20.0-27.5); Globulin 2.6 g/dL (1.6-3.3); Non-African American GFR(CKD) 41.6 (60.0-200.0); Potassium 4.7 mmol/L (3.5-5.5)
--- NOTE | 2022-10-04 12:53 | P.PN ---
Subjective Progress Note Date: 10/04/22 Nancy Grady, is an 86-year-old female who presented to [facility] emergency room after sustaining a fall at home, and was not able to stand or walk, she denies any head trauma. She was evaluated in the emergency room vital examination on presentation revealed a temperature of 97.7 pulse 77 respiration 16 blood pressure 121/72 pulse ox 99% on room air Laboratory data revealed a white blood count of 8.6 hemoglobin 13.1 platelet count 343 BUN 54 creatinine 1.29 potassium 5.3 Testing in the emergency room revealed pelvic x-ray revealed evidence of acute right sided pubic symphysis fracture with no displacement, x-ray of the right knee, revealed evidence of advanced arthritis without any evidence of fracture, x-ray of the right shoulder arm and elbow did not reveal any evidence of fracture. Computed tomography scan of the head and cervical spine did not reveal any evidence of intracranial bleeding or any evidence of vertebral fracture. Patient was admitted to medical floor for further evaluation and treatment On 10/03/2022 patient is alert and oriented, Family at bedside reporting more confusion likely secondary to pain medication. Patient has had multiple falls at home per family no surgical intervention planned at this time per orthopedic services. Will add other options for pain control including Tylenol and tramadol. Also will rule out any kind of infection. We'll also order CK due to reporting a patient that was laying for quite some time. We'll place cardiology consult to assess risk first benefit in regards to eliquis and falls. On 10/04/2022 patient was seen and examined on the medical floor she is alert and oriented 3 in no apparent distress last night patient had episodes of confusion and hallucination likely related to tramadol which was discontinued patient is currently receiving [place] and is tolerating well her pain is not well controlled however family does not want her to get any further pain medication at this time due to potential side effects. Cardiology are following to help decide whether the risk outweigh the benefits in regard to anticoagulation, continue with current management otherwise possible transfer to rehab on Thursday if stable. Objective - Vital Signs Vital signs: Vital Signs Temp 98.1 F 10/04/22 08:00 Pulse 65 10/04/22 08:00 Resp 14 10/04/22 08:00 BP 96/56 10/04/22 08:00 Pulse Ox 91 L 10/04/22 08:00 FiO2 Intake & Output 10/03/22 10/04/22 10/04/22 18:59 06:59 18:59 Output Total 3182 400 Balance -3182 -400 Output: Urine 1700 400 Straight 850 Post Void Residual 1482 Other: Voiding Method Bedpan Bedpan External Catheter External Catheter # Voids 5 # Bowel Movements 2 - Exam In general patient is alert and oriented x 3 in no distress HEENT head normocephalic and atraumatic Neck is supple no JVD no goiter no lymphadenopathy no carotid bruit Chest examination is clear to auscultation no crackles no wheezing Cardiac exam reveals regular heart sounds S1 and S2 no gallops no murmurs Abdomen is soft nontender no organomegaly with normal bowel sounds Extremity exam reveals no edema no cyanosis or clubbing Neurological examination reveals no gross focal deficits - Labs CBC & Chem 7: 10/04/22 06:28 10/04/22 06:28 Assessment and Plan Plan: Fall with acute right superior pubic rami fracture Gait disturbance Dehydration with acute kidney injury Underlying history of atrial fibrillation, heart rate is well-controlled Underlying history of chronic diastolic congestive heart failure Underlying history of hypertension Underlying history of hyperlipidemia Underlying history of hypothyroidism Underlying history of advanced osteoarthritis At this time patient was seen and examined Home medications reviewed and reordered. Cardiology consulted to address risk versus benefit regards to eliquis with falls Urinary analysis ordered CK-MB ordered Pain management per orthopedic protocol Patient will need to go to rehab prior to returning home
--- NOTE | 2022-10-04 14:22 | P.PN ---
Subjective Progress Note Date: 10/04/22 This is a 86-year-old female with a past medical history significant for persistent atrial fibrillation status post cardioversion February/2022, typical atrial flutter, chronic diastolic heart failure hypertension, GERD, hyperlipidemia, dementia, and hypothyroidism. Patient follows in the office with Dr. Cruz. We have been asked to see the patient in consultation f to evaluate risk versus benefit of eliquis due to patient's recent falls. Patient has had 2 falls in the past 1 week. The second fall caused. Fracture and patient has been hospitalized, orthopedics is planning conservative management and patient has been resumed on eliquis. 10/04/2022 The patient was seen and examined resting in bed complaining of buttock pain. Family is at the bedside. She remains on Eliquis. It is anticipated the patient will be discharged tomorrow with for rehab. Up until last 2 weeks patient has no significant history of falling at home. Echocardiogram with Doppler study was done and showed a normal LV systolic function with mild aortic insufficiency and moderate regurgitation. She is maintaining sinus mechanism. Objective - Vital Signs Vital signs: Vital Signs Temp 98.1 F 10/04/22 08:00 Pulse 65 10/04/22 08:00 Resp 14 10/04/22 08:00 BP 96/56 10/04/22 08:00 Pulse Ox 91 L 10/04/22 08:00 FiO2 Intake & Output 10/03/22 10/04/22 10/04/22 18:59 06:59 18:59 Output Total 3182 400 Balance -3182 -400 Output: Urine 1700 400 Straight 850 Post Void Residual 1482 Other: Voiding Method Bedpan Bedpan External Catheter External Catheter # Voids 5 # Bowel Movements 2 - Exam HEENT: Head is normocephalic. Pupils are equal, round. Sclerae anicteric. Mucous membranes of the mouth are somewhat dry. Neck supple. No JVD LUNGS: Clear to auscultation anteriorly. HEART: Regular rate and rhythm. S1 and S2 heard. Systolic murmur noted. ABDOMEN: Soft. Nondistended. Nontender. EXTREMITIES: Normal range of motion. No clubbing or cyanosis. Peripheral pulses intact. No lower extremity edema NEUROLOGIC: Awake and alert. Oriented x 2. - Labs CBC & Chem 7: 10/04/22 06:28 10/04/22 06:28 Labs: Abnormal Lab Results - Last 24 Hours (Table) 10/04/22 10/04/22 Range/Units 06:28 06:28 WBC 4.41 L (4.50-10.00) X 10*3/uL RBC 3.69 L (4.10-5.20) X 10*6/uL MCV 102.7 H (80.0-97.0) fL MCH 32.5 H (27.0-32.0) pg MCHC 31.7 L (32.0-37.0) g/dL RDW 14.6 H (11.5-14.5) % MPV 8.3 L (9.5-12.2) fL Immature Gran # 0.05 H (0.00-0.04) X 10*3/uL Lymphocytes # 0.76 L (0.90-5.00) X 10*3/uL Carbon Dioxide 19.3 L (20.0-27.5) mmol/L BUN 34.9 H (9.0-27.0) mg/dL Est GFR (CKD-EPI)AfAm 48.2 L (60.0-200.0) Est GFR (CKD-EPI)NonAf 41.6 L (60.0-200.0) BUN/Creatinine Ratio 29.83 H (12.00-20.00) Ratio Calcium 8.6 L (8.7-10.3) mg/dL Alkaline Phosphatase 233 H (41-126) U/L Total Protein 6.0 L (6.2-8.2) g/dL Albumin 3.4 L (3.8-4.9) g/dL Albumin/Globulin Ratio 1.33 L (1.60-3.17) g/dL Assessment and Plan Assessment: Fall x2 with pubic fracture Chronic diastolic heart failure Persistent atrial fibrillation status post cardioversion on Eliquis Typical atrial flutter Hypertension Hyperlipidemia Hypothyroidism GERD Valvular heart disease Plan: From cardiology's perspective continue anticoagulation and monitor the patient closely for recurrent falls. At this time will follow the patient on an as- needed basis. Please do not hesitate to contact us with questions. 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 Patient was seen and examined.
--- NOTE | 2022-10-04 23:26 | P.PN ---
Subjective Progress Note Date: 10/04/22 Principal diagnosis: Pubic ramii fracture Patient is pleasant 86 yo female seen at bedside this am. We are following for right superior pubic ramii fracture. She has pain as expected with ambulating. She denies new complaints including numbness, calf pain or other. Objective - Vital Signs Vital signs: Vital Signs Temp 98.1 F 10/04/22 08:00 Pulse 65 10/04/22 08:00 Resp 14 10/04/22 08:00 BP 96/56 10/04/22 08:00 Pulse Ox 91 L 10/04/22 08:00 FiO2 Intake & Output 10/03/22 10/04/22 10/04/22 18:59 06:59 18:59 Output Total 3182 400 Balance -3182 -400 Output: Urine 1700 400 Straight 850 Post Void Residual 1482 Other: Voiding Method Bedpan Bedpan External Catheter External Catheter # Voids 5 # Bowel Movements 2 - Exam Inspection of the lower extremities show no deformity. There are no wounds, erythema or ecchymoses. She has painless range of motion of the knees, ankles, feetcand toes. Range of motion of the hips not tested due to fracture. Neurovascular status is intact throughout the lower extremity with motor and sensation fully intact. Calves are soft and nontender. 2+ dorsalis pedis pulse and less than 2 second cap refill is present. - Constitutional General appearance: Present: no acute distress - Labs CBC & Chem 7: 10/04/22 06:28 10/04/22 06:28 Assessment and Plan (1) Pubic bone fracture Narrative/Plan: She will continue with conservative management including pain management, PT, protected weightbearing with walker at all times, DVT prophylaxis, and medical management. She may transfer to [facility] when okay with IM Current Visit: Yes Status: Acute Priority: Medium Code(s): S32.509A - UNSP FRACTURE OF UNSP PUBIS, INIT ENCNTR FOR CLOSED FRACTURE SNOMED Code(s): 03417538 Time with Patient: Less than 30
[2022-10-04 23:55] LABS: Glucose,Whole Blood 99 mg/dL (70-110)
[2022-10-05] MEDS: DOCUSATE 100 MG CAP PO SCH ×3 (00:27→21:08)
[2022-10-05] MEDS: CALCIUM CARBONATE 500 MG CHEWABLE PO SCH ×4 (00:27→21:08)
[2022-10-05] MEDS: MEGESTROL 400 MG/10 ML CUP PO SCH ×3 (00:27→21:06)
[2022-10-05] MEDS: METOPROLOL TARTRATE 12.5 MG TAB PO SCH ×3 (00:27→21:08)
[2022-10-05] MEDS: APIXABAN 2.5 MG TABLET PO SCH ×3 (00:27→21:08)
[2022-10-05 03:54] LABS: Appearance,Urine Clear (Clear); Bacteria,Urine Rare /hpf; Bilirubin,Urine Negative (Negative); Blood,Urine Moderate (Negative); Color,Urine Yellow; Glucose,Urine (UA) Negative (Negative); Ketones,Urine Negative (Negative); Leukocyte Esterase,Urine Negative (Negative); Mucus,Urine Occasional /hpf; Nitrite,Urine Negative (Negative); PH, Urine 5.5 (5.0-8.0); Protein,Urine Trace (Negative); RBC,Urine 58 /hpf (0-5); Specific Gravity,Urine 1.025 (1.001-1.035); Squamous Epithelial Cell,Urine <1 /hpf (0-4); WBC,Urine 5 /hpf (0-5)
--- NOTE | 2022-10-05 07:20 | XR ---
EXAMINATION TYPE: XR chest 1V portable DATE OF EXAM: 10/05/2022 6:42 AM COMPARISON: Chest radiographs from 10/02/2022 TECHNIQUE: XR chest 1V portable Portable AP radiograph of the chest. CLINICAL INDICATION:Female, 86 years old with history of fall FINDINGS: Lungs/Pleura: There is no evidence of pleural effusion, focal consolidation, or pneumothorax. Pulmonary vascularity: Pulmonary vascular congestion. Heart/mediastinum: Cardiomediastinal silhouette is enlarged and stable. Atherosclerotic calcificatio ns are seen in the aorta. Musculoskeletal: No acute osseous pathology. IMPRESSION: Mild cardiomegaly and pulmonary vascular congestion.
[2022-10-05] MEDS: LEVOTHYROXINE 75 MCG TAB PO SCH (09:43)
[2022-10-05] MEDS: SPIRONOLACTONE 25 MG TAB PO SCH (09:45)
[2022-10-05] MEDS: PANTOPRAZOLE 40 MG TABLET PO SCH (09:45)
[2022-10-05] MEDS: CHOLECALCIFEROL 25 MCG (1000 IU) TABLET PO SCH (09:45)
[2022-10-05] MEDS: PRAVASTATIN SODIUM 20 MG TAB PO SCH (09:45)
[2022-10-05] MEDS: SIMETHICONE 80 MG CHEWABLE PO SCH (09:45)
[2022-10-05] MEDS: AMIODARONE 200 MG TAB PO SCH (09:45)
[2022-10-05] MEDS: MULTIVITAMINS, THERA 1 EACH TAB PO SCH (09:46)
--- NOTE | 2022-10-05 09:59 | P.PN ---
Subjective Progress Note Date: 10/05/22 Nancy Grady, is an 86-year-old female who presented to [facility] emergency room after sustaining a fall at home, and was not able to stand or walk, she denies any head trauma. She was evaluated in the emergency room vital examination on presentation revealed a temperature of 97.7 pulse 77 respiration 16 blood pressure 121/72 pulse ox 99% on room air Laboratory data revealed a white blood count of 8.6 hemoglobin 13.1 platelet count 343 BUN 54 creatinine 1.29 potassium 5.3 Testing in the emergency room revealed pelvic x-ray revealed evidence of acute right sided pubic symphysis fracture with no displacement, x-ray of the right knee, revealed evidence of advanced arthritis without any evidence of fracture, x-ray of the right shoulder arm and elbow did not reveal any evidence of fracture. Computed tomography scan of the head and cervical spine did not reveal any evidence of intracranial bleeding or any evidence of vertebral fracture. Patient was admitted to medical floor for further evaluation and treatment On 10/03/2022 patient is alert and oriented, Family at bedside reporting more confusion likely secondary to pain medication. Patient has had multiple falls at home per family no surgical intervention planned at this time per orthopedic services. Will add other options for pain control including Tylenol and tramadol. Also will rule out any kind of infection. We'll also order CK due to reporting a patient that was laying for quite some time. We'll place cardiology consult to assess risk first benefit in regards to eliquis and falls. On 10/04/2022 patient was seen and examined on the medical floor she is alert and oriented 3 in no apparent distress last night patient had episodes of confusion and hallucination likely related to tramadol which was discontinued patient is currently receiving [place] and is tolerating well her pain is not well controlled however family does not want her to get any further pain medication at this time due to potential side effects. Cardiology are following to help decide whether the risk outweigh the benefits in regard to anticoagulation, continue with current management otherwise possible transfer to rehab on Thursday if stable. On 10/05/2022 patient is more sleepy today. Per nursing staff patient has been sleepy since the medication administration yesterday. Vitals are stable at this time. Chest x-ray showing mild cardiomegaly and pulmonary vascular congestion will add Lasix 20 mg daily. Will continue to monitor patient closely at this time and make adjustments as needed. Discharge planning is in progress to rehab facility Objective - Vital Signs Vital signs: Vital Signs Temp 99.5 F 10/05/22 08:00 Pulse 72 10/05/22 08:00 Resp 17 10/05/22 08:00 BP 120/67 10/05/22 08:00 Pulse Ox 97 10/05/22 08:00 FiO2 Intake & Output 10/04/22 10/05/22 10/05/22 18:59 06:59 18:59 Intake Total 0 Output Total 875 Balance -875 0 Intake: Oral 0 Output: Urine 875 Other: Voiding Method Bedpan External Catheter - Exam In general patient is alert and oriented x 3 in no distress HEENT head normocephalic and atraumatic Neck is supple no JVD no goiter no lymphadenopathy no carotid bruit Chest examination is clear to auscultation no crackles no wheezing Cardiac exam reveals regular heart sounds S1 and S2 no gallops no murmurs Abdomen is soft nontender no organomegaly with normal bowel sounds Extremity exam reveals no edema no cyanosis or clubbing Neurological examination reveals no gross focal deficits - Labs CBC & Chem 7: 10/04/22 06:28 10/04/22 06:28 Labs: Abnormal Lab Results - Last 24 Hours (Table) 10/04/22 10/04/22 10/05/22 Range/Units 06:28 06:28 03:20 WBC 4.41 L (4.50-10.00) X 10*3/uL RBC 3.69 L (4.10-5.20) X 10*6/uL MCV 102.7 H (80.0-97.0) fL MCH 32.5 H (27.0-32.0) pg MCHC 31.7 L (32.0-37.0) g/dL RDW 14.6 H (11.5-14.5) % MPV 8.3 L (9.5-12.2) fL Immature Gran # 0.05 H (0.00-0.04) X 10*3/uL Lymphocytes # 0.76 L (0.90-5.00) X 10*3/uL Carbon Dioxide 19.3 L (20.0-27.5) mmol/L BUN 34.9 H (9.0-27.0) mg/dL Est GFR (CKD-EPI)AfAm 48.2 L (60.0-200.0) Est GFR (CKD-EPI)NonAf 41.6 L (60.0-200.0) BUN/Creatinine Ratio 29.83 H (12.00-20.00) Ratio Calcium 8.6 L (8.7-10.3) mg/dL Alkaline Phosphatase 233 H (41-126) U/L Total Protein 6.0 L (6.2-8.2) g/dL Albumin 3.4 L (3.8-4.9) g/dL Albumin/Globulin Ratio 1.33 L (1.60-3.17) g/dL Urine Protein Trace H (Negative) Urine Blood Moderate H (Negative) Urine RBC 58 H (0-5) /hpf Urine Bacteria Rare H (None) /hpf Urine Mucus Occasional H (None) /hpf Assessment and Plan Plan: Fall with acute right superior pubic rami fracture Gait disturbance Dehydration with acute kidney injury Underlying history of atrial fibrillation, heart rate is well-controlled Underlying history of chronic diastolic congestive heart failure Underlying history of hypertension Underlying history of hyperlipidemia Underlying history of hypothyroidism Underlying history of advanced osteoarthritis Pulmonary vascular congestion seen on chest x-ray will add Lasix 20 mg IV daily At this time patient was seen and examined Home medications reviewed and reordered. Cardiology consulted to address risk versus benefit regards to eliquis with falls-per cardiology recommendation continue eliquis at this time Pain management per orthopedic protocol Patient will need to go to rehab prior to returning home Social work services consulted for discharge planning
[2022-10-05] MEDS: FUROSEMIDE 10 MG/ML 2 ML VIAL IV SCH (10:29)
[2022-10-05] MEDS: ACETAMINOPHEN TAB 325 MG TAB PO PRN ×2 (14:20→21:09)
--- NOTE | 2022-10-05 21:16 | P.PN ---
Subjective Progress Note Date: 10/05/22 Principal diagnosis: Pubic ramii fracture Patient is pleasant 86 yo female seen at bedside this am. We are following for right superior pubic ramii fracture. She has pain as expected with ambulating. She denies new complaints including numbness, calf pain or other. Objective - Vital Signs Vital signs: Vital Signs Temp 98.5 F 10/05/22 20:00 Pulse 73 10/05/22 20:00 Resp 22 10/05/22 20:00 BP 107/68 10/05/22 20:00 Pulse Ox 96 10/05/22 20:00 FiO2 Intake & Output 10/05/22 10/05/22 10/06/22 06:59 18:59 06:59 Intake Total 0 Output Total 1100 Balance 0 -1100 Intake: Oral 0 Output: Urine 1100 Other: Voiding Method Bedpan External Catheter # Bowel Movements 1 - Exam Inspection of the lower extremities show no deformity. There are no wounds, erythema or ecchymoses. She has painless range of motion of the knees, ankles, feetcand toes. Range of motion of the hips not tested due to fracture. Neurovascular status is intact throughout the lower extremity with motor and sensation fully intact. Calves are soft and nontender. 2+ dorsalis pedis pulse and less than 2 second cap refill is present. - Labs CBC & Chem 7: 10/04/22 06:28 10/04/22 06:28 Labs: Abnormal Lab Results - Last 24 Hours (Table) 10/05/22 Range/Units 03:20 Urine Protein Trace H (Negative) Urine Blood Moderate H (Negative) Urine RBC 58 H (0-5) /hpf Urine Bacteria Rare H (None) /hpf Urine Mucus Occasional H (None) /hpf Assessment and Plan (1) Pubic bone fracture Narrative/Plan: She will continue with conservative management including pain management, PT, protected weightbearing with walker at all times, DVT prophylaxis, and medical management. She may transfer to [facility] when okay with IM Current Visit: Yes Status: Acute Priority: Medium Code(s): S32.509A - UNSP FRACTURE OF UNSP PUBIS, INIT ENCNTR FOR CLOSED FRACTURE SNOMED Code(s): 74437841 Time with Patient: Less than 30
[2022-10-06] MEDS: ACETAMINOPHEN TAB 325 MG TAB PO PRN ×3 (05:59→16:47)
[2022-10-06] MEDS: LEVOTHYROXINE 75 MCG TAB PO SCH (05:59)
[2022-10-06] MEDS: SODIUM CHLORIDE 0.9% 1,000 ML IV SCH ×2 (06:04→14:10)
[2022-10-06 08:57] LABS: Basophils # (A) 0.01 X 10*3/uL (0.00-0.10); Basophils % (A) 0.3 %; Eosinophils # (A) 0.07 X 10*3/uL (0.04-0.35); Eosinophils % (A) 2.1 %; HCT 32.2 % (37.2-46.3); HGB 10.6 g/dL (12.0-15.0); Immature Grans, Automated 0.9 %; Lymphocytes # (A) 0.57 X 10*3/uL (0.90-5.00); Lymphocytes % (A) 17.4 %; MCH 32.3 pg (27.0-32.0); MCHC 32.9 g/dL (32.0-37.0); MCV 98.2 fL (80.0-97.0); Mean Platelet Volume 8.3 fL (9.5-12.2); Monocytes # (A) 0.73 X 10*3/uL (0.20-1.00); Monocytes % (A) 22.3 %; NRBC Per 100 WBC 0 /100 WBCS (0.0-0.0); Neutrophils # (A) 1.86 X 10*3/uL (1.80-7.70); Platelet Count 228 X 10*3/uL (140-440); RBC 3.28 X 10*6/uL (4.10-5.20); RDW 14.8 % (11.5-14.5); WBC 3.27 X 10*3/uL (4.50-10.00)
[2022-10-06 09:09] LABS: African American GFR (CKD) 51.9 (60.0-200.0); Albumin/Globulin Ratio 1.2 (1.60-3.17); Anion Gap 9.6 mmol/L (10.00-18.00); BUN/Creat Ratio 30.27 Ratio (12.00-20.00); Blood Urea Nitrogen 33.3 mg/dL (9.0-27.0); Calcium 8.3 mg/dL (8.7-10.3); Carbon Dioxide 19.4 mmol/L (20.0-27.5); Globulin 2.5 g/dL (1.6-3.3); Non-African American GFR(CKD) 44.8 (60.0-200.0); Potassium 4.5 mmol/L (3.5-5.5); Total Bilirubin 0.8 mg/dL (0.30-1.20); Total Protein 5.5 g/dL (6.2-8.2)
[2022-10-06] MEDS: CHOLECALCIFEROL 25 MCG (1000 IU) TABLET PO SCH (09:15)
[2022-10-06] MEDS: METOPROLOL TARTRATE 12.5 MG TAB PO SCH ×2 (09:15→20:18)
[2022-10-06] MEDS: CALCIUM CARBONATE 500 MG CHEWABLE PO SCH ×3 (09:15→20:18)
[2022-10-06] MEDS: FUROSEMIDE 10 MG/ML 2 ML VIAL IV SCH (09:15)
[2022-10-06] MEDS: APIXABAN 2.5 MG TABLET PO SCH ×2 (09:15→20:18)
[2022-10-06] MEDS: MEGESTROL 400 MG/10 ML CUP PO SCH ×2 (09:15→20:18)
[2022-10-06] MEDS: AMIODARONE 200 MG TAB PO SCH (09:15)
[2022-10-06] MEDS: DOCUSATE 100 MG CAP PO SCH ×2 (09:15→20:18)
[2022-10-06] MEDS: SPIRONOLACTONE 25 MG TAB PO SCH (09:16)
[2022-10-06] MEDS: PANTOPRAZOLE 40 MG TABLET PO SCH (09:16)
[2022-10-06] MEDS: SIMETHICONE 80 MG CHEWABLE PO SCH (09:16)
[2022-10-06] MEDS: MULTIVITAMINS, THERA 1 EACH TAB PO SCH (09:16)
[2022-10-06] MEDS: PRAVASTATIN SODIUM 20 MG TAB PO SCH (09:16)
--- NOTE | 2022-10-06 12:57 | P.PN ---
Progress Note - Text Progress Note Date: 10/06/22 Orthopedics: History of present illness: Patient is a very pleasant 86-year-old female who was seen examined at bedside for further evaluation of her right superior pubic rami fracture. She is more awake today. She is currently sitting in a bedside chair. She continues to have significant pain and difficulty with any sort of mobilization. She is complaining of significant pain towards her right buttock. She required significant help to transfer to a bedside chair. Her pain is currently being controlled with Tylenol. They have tried to discontinue narcotic medications is a patient was having some confusion and significant drowsiness. Her family is currently with her at the bedside. She is not complaining of any upper extremity pain. They do have a donut seat cushion which they have been using an outpatient setting. She does utilize a walker to aid in ambulation. Currently she has an external catheter intact. Patient does have some skin tears that are healing on the lower extremities with some bruising over the anterior left ankle. No significant swelling at the left ankle. She had some pain with palpation over the left anterior ankle. She was not complaining of left ankle pain previously. There have been some discussion on discharge to a rehabilitation facility versus long-term care at the time of discharge. Patient does live at home with her 90-year-old . Patient's other medical diagnoses include diabetes mellitus, hyperlipidemia, and hypertension. She's been seen and examined by medicine. We have no plans for surgical intervention and patient may resume Eliquis per management by medicine. Physical exam: Patient is awake and alert and answering questions at the bedside Vital signs stable Good chest excursion with deep inspiration and expiration Patient is significantly uncomfortable while sitting in a bedside chair She does have difficulty with turning and moving in bed due to her right pelvic/buttock pain Dorsiflexion and plantarflexion positive sustained bilateral lower extremities Evidence of skin tears healing on the bilateral lower extremities Some bruising over the left anterior ankle without significant swelling No swelling over the left medial and lateral malleolus Some pain with palpation over the bruising at the left anterior ankle No signs or symptoms of DVT; no calf pain No pain with internal and external rotation of the hips bilaterally Neurovascularly intact External catheter intact Assessment: Acute medical right superior pubic rami fracture Right-sided pelvic pain and buttock pain Status post fall Confusion Diabetes mellitus Hyperlipidemia Hypertension Plan: 1. In regards to her pubic rami fracture, we will continue with our plan is previously set forth. Patient has sustained 2 falls and has had some difficulty with mobilization following these falls over the past week. Her more recent fall has been more significant. She presented to the emergency department for further evaluation. Imaging compared to previous imaging showed evidence of acute right superior pubic rami fracture with mild displacement which was not present on previous imaging. Patient has been utilizing a donut seat cushion. She has had significant difficulty with mobilization. Her fracture appears fairly stable and we would not plan for any acute surgical intervention in regards to her right pubic rami fracture. We do think she should continue to try to work with physical therapy to increase her mobilization balance and gait training. She may weight-bear as tolerated on her right lower extremity. She is encouraged she lies a walker or other aids to ambulation as needed. We did discuss patient will need discharge planning most likely to a rehab facility prior to returning home or possibly a long-term care facility. We will plan for discharge once cleared by medicine and approved and set up through case management. At the bedside today she does have some pain over the left anterior ankle with palpation and there is evidence of bruising there. There is no significant swelling. The patient has not reported pain in this area previously. She could've injured it during one of her falls but it is unknown. We will currently to obtain left ankle x-rays for further evaluation and to rule out fracture. 2. Patient will continue to be seen examined by medicine for other diagnoses including some confusion. We have no plans for surgical intervention and patient may resume Eliquis. This will be managed by medicine. Patient has been started on acetaminophen 650 mg as needed for pain control. 3. Patient is currently admitted to orthopedics. Patient was previous to clear for discharge to a rehabilitation facility by orthopedics. Patient has continued to remain in the hospital until receiving medical clearance and approval by insurance. We'll currently planned to see if we are able to transfer the patient's admit status to Dr. Souza in medicine.
--- NOTE | 2022-10-06 14:06 | XR ---
EXAMINATION TYPE: XR ankle complete LT DATE OF EXAM: 10/06/2022 CLINICAL HISTORY: Pain and bruising. TECHNIQUE: Frontal, lateral and oblique images of the left ankle are obtained. COMPARISON: None. FINDINGS: Osseous structures are demineralized. There is no acute fracture/dislocation evident in th e left ankle. The ankle mortise appears within normal limits. There is large size inferior calcanea l spur. Gauze or bandage material overlies the posterior calcaneus. No bony destruction at this level is seen. IMPRESSION: As above.
[2022-10-06] MEDS: HYDROcodone/APAP 5-325MG 1 EACH TAB PO PRN (16:46)
--- NOTE | 2022-10-06 18:08 | P.PN ---
Subjective Progress Note Date: 10/06/22 Nancy Grady, is an 86-year-old female who presented to [facility] emergency room after sustaining a fall at home, and was not able to stand or walk, she denies any head trauma. She was evaluated in the emergency room vital examination on presentation revealed a temperature of 97.7 pulse 77 respiration 16 blood pressure 121/72 pulse ox 99% on room air Laboratory data revealed a white blood count of 8.6 hemoglobin 13.1 platelet count 343 BUN 54 creatinine 1.29 potassium 5.3 Testing in the emergency room revealed pelvic x-ray revealed evidence of acute right sided pubic symphysis fracture with no displacement, x-ray of the right knee, revealed evidence of advanced arthritis without any evidence of fracture, x-ray of the right shoulder arm and elbow did not reveal any evidence of fracture. Computed tomography scan of the head and cervical spine did not reveal any evidence of intracranial bleeding or any evidence of vertebral fracture. Patient was admitted to medical floor for further evaluation and treatment On 10/03/2022 patient is alert and oriented, Family at bedside reporting more confusion likely secondary to pain medication. Patient has had multiple falls at home per family no surgical intervention planned at this time per orthopedic services. Will add other options for pain control including Tylenol and tramadol. Also will rule out any kind of infection. We'll also order CK due to reporting a patient that was laying for quite some time. We'll place cardiology consult to assess risk first benefit in regards to eliquis and falls. On 10/04/2022 patient was seen and examined on the medical floor she is alert and oriented 3 in no apparent distress last night patient had episodes of confusion and hallucination likely related to tramadol which was discontinued patient is currently receiving Vendor and is tolerating well her pain is not well controlled however family does not want her to get any further pain medication at this time due to potential side effects. Cardiology are following to help decide whether the risk outweigh the benefits in regard to anticoagulation, continue with current management otherwise possible transfer to rehab on Thursday if stable. On 10/05/2022 patient is more sleepy today. Per nursing staff patient has been sleepy since the medication administration yesterday. Vitals are stable at this time. Chest x-ray showing mild cardiomegaly and pulmonary vascular congestion will add Lasix 20 mg daily. Will continue to monitor patient closely at this time and make adjustments as needed. Discharge planning is in progress to rehab facility On 10/06/2022 patient is somnolant today. Vitals are stable at this time. she is still complaining of severe pain, Chest x-ray showing mild cardiomegaly and pulmonary vascular congestion will add Lasix 20 mg daily. Will continue to monitor patient closely at this time and make adjustments as needed. Discharge planning is in progress to rehab facility, consult for psychiatry initiated for possible depression. Objective - Vital Signs Vital signs: Vital Signs Temp 98.3 F 10/06/22 14:00 Pulse 65 10/06/22 14:00 Resp 16 10/06/22 14:00 BP 101/59 10/06/22 14:00 Pulse Ox 98 10/06/22 14:00 FiO2 Intake & Output 10/05/22 10/06/22 10/06/22 18:59 06:59 18:59 Intake Total 48 Output Total 1100 350 Balance -1100 -302 Intake: Oral 48 Output: Urine 1100 350 Other: Voiding Method Bedpan Bedpan External Catheter External Catheter # Bowel Movements 1 - Exam In general patient is alert and oriented x 3 in no distress HEENT head normocephalic and atraumatic Neck is supple no JVD no goiter no lymphadenopathy no carotid bruit Chest examination is clear to auscultation no crackles no wheezing Cardiac exam reveals regular heart sounds S1 and S2 no gallops no murmurs Abdomen is soft nontender no organomegaly with normal bowel sounds Extremity exam reveals no edema no cyanosis or clubbing Neurological examination reveals no gross focal deficits - Labs CBC & Chem 7: 10/06/22 03:53 10/06/22 03:53 Labs: Abnormal Lab Results - Last 24 Hours (Table) 10/06/22 10/06/22 Range/Units 03:53 03:53 WBC 3.27 L (4.50-10.00) X 10*3/uL RBC 3.28 L (4.10-5.20) X 10*6/uL Hgb 10.6 L (12.0-15.0) g/dL Hct 32.2 L (37.2-46.3) % MCV 98.2 H (80.0-97.0) fL MCH 32.3 H (27.0-32.0) pg RDW 14.8 H (11.5-14.5) % MPV 8.3 L (9.5-12.2) fL Lymphocytes # 0.57 L (0.90-5.00) X 10*3/uL Carbon Dioxide 19.4 L (20.0-27.5) mmol/L Anion Gap 9.60 L (10.00-18.00) mmol/L BUN 33.3 H (9.0-27.0) mg/dL Est GFR (CKD-EPI)AfAm 51.9 L (60.0-200.0) Est GFR (CKD-EPI)NonAf 44.8 L (60.0-200.0) BUN/Creatinine Ratio 30.27 H (12.00-20.00) Ratio Calcium 8.3 L (8.7-10.3) mg/dL Alkaline Phosphatase 221 H (41-126) U/L Total Protein 5.5 L (6.2-8.2) g/dL Albumin 3.0 L (3.8-4.9) g/dL Albumin/Globulin Ratio 1.20 L (1.60-3.17) g/dL Microbiology - Last 24 Hours (Table) 10/05/22 03:10 Blood Culture - Preliminary Blood No Growth after 24 hours 10/05/22 03:25 Blood Culture - Preliminary Blood No Growth after 24 hours Assessment and Plan Plan: Fall with acute right superior pubic rami fracture Gait disturbance Dehydration with acute kidney injury Underlying history of atrial fibrillation, heart rate is well-controlled Underlying history of chronic diastolic congestive heart failure Underlying history of hypertension Underlying history of hyperlipidemia Underlying history of hypothyroidism Underlying history of advanced osteoarthritis Pulmonary vascular congestion seen on chest x-ray will add Lasix 20 mg IV daily At this time patient was seen and examined Home medications reviewed and reordered. Cardiology consulted to address risk versus benefit regards to eliquis with falls-per cardiology recommendation continue eliquis at this time Pain management per orthopedic protocol Patient will need to go to rehab prior to returning home Social work services consulted for discharge planning
[2022-10-07] MEDS: HYDROcodone/APAP 5-325MG 1 EACH TAB PO PRN ×5 (01:13→22:04)
[2022-10-07] MEDS: PANTOPRAZOLE 40 MG TABLET PO SCH (06:10)
[2022-10-07] MEDS: LEVOTHYROXINE 75 MCG TAB PO SCH (06:11)
[2022-10-07] MEDS: SODIUM CHLORIDE 0.9% 1,000 ML IV SCH ×2 (06:13→11:12)
--- NOTE | 2022-10-07 07:06 | P.PN ---
Progress Note - Text Progress Note Date: 10/07/22 Orthopedics: History of present illness: Patient is a very pleasant 86-year-old female who was seen examined at bedside for further evaluation of her right superior pubic rami fracture. She is but is able to be awakened and answers questions appropriately. She is currently lying in bed. She continues to have significant pain and difficulty with any sort of mobilization. She is complaining of significant pain towards her right buttock. She required significant help to transfer to a bedside chair. Her pain is currently being controlled with Tylenol and hydrocodone. This is being managed by medicine. She is not complaining of any upper extremity pain. They do have a donut seat cushion which they have been using an outpatient setting. She does utilize a walker to aid in ambulation. She does admit to some continued soreness at her left ankle. Yesterday x-ray imaging of the left ankle was taken which did not show any evidence of fracture or dislocation. Patient does have some skin tears that are healing on the lower extremities with some bruising over the anterior left ankle. No significant swelling at the left ankle. She had some pain with palpation over the left anterior ankle. There have been some discussion on discharge to a rehabilitation facility versus long-term care at the time of discharge. Patient does live at home with her 90-year-old . Patient's other medical diagnoses include diabetes mellitus, hyperlipidemia, and hypertension. She's been seen and examined by medicine. We have no plans for surgical intervention and patient may resume Eliquis per management by medicine. Patient's admit status has been transferred to medicine. They have consulted for psychiatry for possible depression. Physical exam: Patient is awake and alert and answering questions at the bedside Vital signs stable Good chest excursion with deep inspiration and expiration Patient is significantly uncomfortable while sitting in a bedside chair She does have difficulty with turning and moving in bed due to her right pelvic/buttock pain Dorsiflexion and plantarflexion positive sustained bilateral lower extremities Evidence of skin tears healing on the bilateral lower extremities Some bruising over the left anterior ankle without significant swelling No swelling over the left medial and lateral malleolus Some pain with palpation over the bruising at the left anterior ankle No signs or symptoms of DVT; no calf pain No pain with internal and external rotation of the hips bilaterally Neurovascularly intact Pertinent studies: X-rays of the left ankle taken on 10/06/2022: No evidence of fracture dislocation at the left ankle Assessment: Acute right superior pubic rami fracture Right-sided pelvic pain and buttock pain Status post fall Left anterior ankle bruising without fracture or dislocation Confusion Diabetes mellitus Hyperlipidemia Hypertension Plan: 1. In regards to her pubic rami fracture, we will continue with our plan is previously set forth. Patient has sustained 2 falls and has had some difficulty with mobilization following these falls over the past week. Her more recent fall has been more significant. She presented to the emergency department for further evaluation. Imaging compared to previous imaging showed evidence of acute right superior pubic rami fracture with mild displacement which was not present on previous imaging. Patient has been utilizing a donut seat cushion. She has had significant difficulty with mobilization. Her fracture appears fairly stable and we would not plan for any acute surgical intervention in regards to her right pubic rami fracture. We do think she should continue to try to work with physical therapy to increase her mobilization balance and gait training. She may weight-bear as tolerated on her right lower extremity. She is encouraged she lies a walker or other aids to ambulation as needed. We did discuss patient will need discharge planning most likely to a rehab facility prior to returning home or possibly a long-term care facility. We will plan for discharge once cleared by medicine and approved and set up through case management. At the bedside today she does have some pain over the left anterior ankle with palpation and there is evidence of bruising there. There is no significant swelling. The patient has not reported pain in this area previously. She could've injured it during one of her falls but it is unknown. Lissy today we obtained left ankle x-rays for further evaluation. X-rays were negative for fracture dislocation. We discussed patient may weight-bear as tolerated on her left lower extremity. 2. Patient will continue to be seen examined by medicine for other diagnoses including some confusion. We have no plans for surgical intervention and patient may resume Eliquis. This will be managed by medicine. Patient is currently receiving acetaminophen 650 mg and hydrocodone as prescribed by medicine as needed for pain control. This will continue to be managed by medicine. Medicine was also initiated a consultation with psychiatry for possible depression. 3. Patient's admit status was transferred to medicine yesterday. From an orthopedic standpoint, patient is clear for discharge in regards to her right superior pubic rami fracture. Patient may follow-up with Kailash Mandujano PA-C or Dr. Gilbert Ag at [facility] in 2-3 weeks following discharge. Patient has continued to remain in the hospital until receiving medical clearance and approval by insurance.
[2022-10-07] MEDS: FUROSEMIDE 10 MG/ML 2 ML VIAL IV SCH (09:02)
[2022-10-07] MEDS: DOCUSATE 100 MG CAP PO SCH ×2 (09:40→22:03)
[2022-10-07] MEDS: APIXABAN 2.5 MG TABLET PO SCH ×2 (09:40→22:03)
[2022-10-07] MEDS: SIMETHICONE 80 MG CHEWABLE PO SCH (09:40)
[2022-10-07] MEDS: CHOLECALCIFEROL 25 MCG (1000 IU) TABLET PO SCH (09:40)
[2022-10-07] MEDS: METOPROLOL TARTRATE 12.5 MG TAB PO SCH ×2 (09:40→22:03)
[2022-10-07] MEDS: SPIRONOLACTONE 25 MG TAB PO SCH (09:40)
[2022-10-07] MEDS: AMIODARONE 200 MG TAB PO SCH (09:40)
[2022-10-07] MEDS: MEGESTROL 400 MG/10 ML CUP PO SCH ×2 (09:40→22:41)
[2022-10-07] MEDS: MULTIVITAMINS, THERA 1 EACH TAB PO SCH (09:41)
[2022-10-07] MEDS: PRAVASTATIN SODIUM 20 MG TAB PO SCH (09:41)
[2022-10-07] MEDS: CALCIUM CARBONATE 500 MG CHEWABLE PO SCH ×3 (09:41→22:03)
[2022-10-07 12:32] VITALS: BMI 21.4
--- NOTE | 2022-10-07 16:29 | P.CN ---
Psychiatric Consult - . Consult date: 10/07/22 Consult:: 10/07/22 16:11 psychiatric consultation pt was referrred to Psychiatric consultation for assessment of her Depression. I reviewed the medical notes and had the opportunity of [id number] interview with her son and her . Pt was alert and oreiented but was too tired and lethargic to go through the faull interview. Collaboral infromation was valid and consistent with the medical note inforrmation. CHief Complaint of Depression HPI: I inquired whether the patient experienced any cluster of depressivon prior to her pelvic fracture casuing [facility]. Pain control and immbolity were the major issue as welll as plan for the most appropriate rehabitation. 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 SHe did not have any previous history of depressive symptoms: No anhedonia, no hopelessness, no change of appetitive. Her cognitive impairment was age- adjusted including forgetting names . She did not display any risky behavior which would otherwise raise concern among her family members. During the brief encounter, she was reminded of her adjutsed postion and cushioning with pillow. She was aware of the purpose of my visit but chose not to further comment on her mood. Her son and commented that pain control was much improved after the tramadol was d/c due to hallucinations and conf usion. The patient was lucid and oriented with her pain control achieved with non-naroctic Tylendol. She was encouraged to participate more readily with physiotherapy In reviiewing her medication profile, she was not given any trial of low dosage of SRNI : mirtazepine or GABApentin to reduce the pain related functional and mood symptms. However, in veiw of her sensitivitgy towards medication < i would prefer to stay off from making further suggestions. Mental Status Exam: She was coperative limited by her marked fatigue due to her fragile medical condition Speech, low tone and coherent. She did not exhibit any hallucinations or delusions . No ideas of paranoid reference. No suicidal or homicidal ideation. Cog; oriented. 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 No MDD evident. She may not benefit from Inpatient psychaitricunit . No dementia evident Intervention Pain control and later on add low dosage of Remeral 7.5 mg poq hs or GABAPentin 100 mg po bid for augmentationi of pain control and to faciliate physiotherapy Management : [facility]
--- NOTE | 2022-10-07 17:16 | P.PN ---
Subjective Progress Note Date: 10/07/22 Nancy Grady, is an 86-year-old female who presented to [facility] emergency room after sustaining a fall at home, and was not able to stand or walk, she denies any head trauma. She was evaluated in the emergency room vital examination on presentation revealed a temperature of 97.7 pulse 77 respiration 16 blood pressure 121/72 pulse ox 99% on room air Laboratory data revealed a white blood count of 8.6 hemoglobin 13.1 platelet count 343 BUN 54 creatinine 1.29 potassium 5.3 Testing in the emergency room revealed pelvic x-ray revealed evidence of acute right sided pubic symphysis fracture with no displacement, x-ray of the right knee, revealed evidence of advanced arthritis without any evidence of fracture, x-ray of the right shoulder arm and elbow did not reveal any evidence of fracture. Computed tomography scan of the head and cervical spine did not reveal any evidence of intracranial bleeding or any evidence of vertebral fracture. Patient was admitted to medical floor for further evaluation and treatment On 10/03/2022 patient is alert and oriented, Family at bedside reporting more confusion likely secondary to pain medication. Patient has had multiple falls at home per family no surgical intervention planned at this time per orthopedic services. Will add other options for pain control including Tylenol and tramadol. Also will rule out any kind of infection. We'll also order CK due to reporting a patient that was laying for quite some time. We'll place cardiology consult to assess risk first benefit in regards to eliquis and falls. On 10/04/2022 patient was seen and examined on the medical floor she is alert and oriented 3 in no apparent distress last night patient had episodes of confusion and hallucination likely related to tramadol which was discontinued patient is currently receiving [place] and is tolerating well her pain is not well controlled however family does not want her to get any further pain medication at this time due to potential side effects. Cardiology are following to help decide whether the risk outweigh the benefits in regard to anticoagulation, continue with current management otherwise possible transfer to rehab on Thursday if stable. On 10/05/2022 patient is more sleepy today. Per nursing staff patient has been sleepy since the medication administration yesterday. Vitals are stable at this time. Chest x-ray showing mild cardiomegaly and pulmonary vascular congestion will add Lasix 20 mg daily. Will continue to monitor patient closely at this time and make adjustments as needed. Discharge planning is in progress to rehab facility On 10/06/2022 patient is somnolant today. Vitals are stable at this time. she is still complaining of severe pain, Chest x-ray showing mild cardiomegaly and pulmonary vascular congestion will add Lasix 20 mg daily. Will continue to monitor patient closely at this time and make adjustments as needed. Discharge planning is in progress to rehab facility, consult for psychiatry initiated for possible depression.. On 10/07/2022 patient was seen and examined on the medical floor she is somnolent responsive in no apparent distress she is laying in bed most of the day with her eyes closed she is still complaining of pain in her hip area otherwise she denies any complaints there is no fever or chills no headache or dizziness no chest pain no shortness of breath no cough no nausea or vomiting no abdominal pain no diarrhea and no urinary symptoms at this time Kan catheter is out. Consult from psychiatry was reviewed recommendation from psychiatrist was starting Remeron and gabapentin discussed with family, at this time will start Remeron 7.5 mg at bedtime tonight, we will check response in a.m., possible transfer to rehab in the next 1-2 days Objective - Vital Signs Vital signs: Vital Signs Temp 98.0 F 10/07/22 14:00 Pulse 65 10/07/22 14:00 Resp 16 10/07/22 14:00 BP 120/64 10/07/22 14:00 Pulse Ox 98 10/07/22 14:00 FiO2 Intake & Output 10/06/22 10/07/22 10/07/22 18:59 06:59 18:59 Intake Total 225 Output Total 360 Balance -360 225 Weight 49.895 kg Intake: Oral 225 Output: Urine 360 Other: Voiding Method Bedpan Indwelling Catheter Indwelling Catheter External Catheter # Voids 1,100 4 - Exam In general patient is alert and oriented x 3 in no distress HEENT head normocephalic and atraumatic Neck is supple no JVD no goiter no lymphadenopathy no carotid bruit Chest examination is clear to auscultation no crackles no wheezing Cardiac exam reveals regular heart sounds S1 and S2 no gallops no murmurs Abdomen is soft nontender no organomegaly with normal bowel sounds Extremity exam reveals no edema no cyanosis or clubbing Neurological examination reveals no gross focal deficits - Labs CBC & Chem 7: 10/06/22 03:53 10/06/22 03:53 Labs: Microbiology - Last 24 Hours (Table) 10/05/22 03:10 Blood Culture - Preliminary Blood No Growth after 48 hours 10/05/22 03:25 Blood Culture - Preliminary Blood No Growth after 48 hours Assessment and Plan Plan: Fall with acute right superior pubic rami fracture Gait disturbance Dehydration with acute kidney injury Underlying history of atrial fibrillation, heart rate is well-controlled Underlying history of chronic diastolic congestive heart failure Underlying history of hypertension Underlying history of hyperlipidemia Underlying history of hypothyroidism Underlying history of advanced osteoarthritis Pulmonary vascular congestion seen on chest x-ray will add Lasix 20 mg IV daily At this time patient was seen and examined Home medications reviewed and reordered. Cardiology consulted to address risk versus benefit regards to eliquis with falls-per cardiology recommendation continue eliquis at this time Pain management per orthopedic protocol Patient will need to go to rehab prior to returning home Social work services consulted for discharge planning
[2022-10-07] MEDS ORDERED: MIRTAZAPINE 15 MG TAB PO SCH (21:00)
[2022-10-08 03:34] VITALS: PULSE 64
[2022-10-08] MEDS: PANTOPRAZOLE 40 MG TABLET PO SCH (06:15)
[2022-10-08] MEDS: LEVOTHYROXINE 75 MCG TAB PO SCH (06:15)
[2022-10-08] MEDS: HYDROcodone/APAP 5-325MG 1 EACH TAB PO PRN (06:22)
[2022-10-08 07:36] VITALS: BP 108/65; RESP 18; TEMP 97.8
[2022-10-08] MEDS: MEGESTROL 400 MG/10 ML CUP PO SCH (08:46)
[2022-10-08] MEDS: SPIRONOLACTONE 25 MG TAB PO SCH (08:47)
[2022-10-08] MEDS: CALCIUM CARBONATE 500 MG CHEWABLE PO SCH (08:47)
[2022-10-08] MEDS: DOCUSATE 100 MG CAP PO SCH (08:47)
[2022-10-08] MEDS: CHOLECALCIFEROL 25 MCG (1000 IU) TABLET PO SCH (08:47)
[2022-10-08] MEDS: ACETAMINOPHEN TAB 325 MG TAB PO PRN (08:47)
[2022-10-08] MEDS: AMIODARONE 200 MG TAB PO SCH (08:47)
[2022-10-08] MEDS: METOPROLOL TARTRATE 12.5 MG TAB PO SCH (08:47)
[2022-10-08] MEDS: MULTIVITAMINS, THERA 1 EACH TAB PO SCH (08:47)
[2022-10-08] MEDS: PRAVASTATIN SODIUM 20 MG TAB PO SCH (08:48)
[2022-10-08] MEDS: FUROSEMIDE 10 MG/ML 2 ML VIAL IV SCH (08:48)
[2022-10-08] MEDS: APIXABAN 2.5 MG TABLET PO SCH (08:48)
[2022-10-08] MEDS: SIMETHICONE 80 MG CHEWABLE PO SCH (08:48)
[2022-10-08 09:09] LABS: Basophils # (A) 0.01 X 10*3/uL (0.00-0.10); Basophils % (A) 0.3 %; Eosinophils # (A) 0.11 X 10*3/uL (0.04-0.35); Eosinophils % (A) 3.3 %; HCT 33.5 % (37.2-46.3); HGB 10.7 g/dL (12.0-15.0); Immature Grans, Automated 1.2 %; Lymphocytes # (A) 0.69 X 10*3/uL (0.90-5.00); Lymphocytes % (A) 20.7 %; MCH 31.8 pg (27.0-32.0); MCHC 31.9 g/dL (32.0-37.0); MCV 99.4 fL (80.0-97.0); Mean Platelet Volume 8.1 fL (9.5-12.2); Monocytes # (A) 0.75 X 10*3/uL (0.20-1.00); Monocytes % (A) 22.5 %; NRBC Per 100 WBC 0 /100 WBCS (0.0-0.0); Neutrophils # (A) 1.74 X 10*3/uL (1.80-7.70); Platelet Count 259 X 10*3/uL (140-440); RBC 3.37 X 10*6/uL (4.10-5.20); RDW 14.9 % (11.5-14.5); WBC 3.34 X 10*3/uL (4.50-10.00)
[2022-10-08 09:19] LABS: African American GFR (CKD) 58.3 (60.0-200.0); Albumin 3.1 g/dL (3.8-4.9); Albumin/Globulin Ratio 1.19 (1.60-3.17); Anion Gap 9.8 mmol/L (10.00-18.00); BUN/Creat Ratio 25.9 Ratio (12.00-20.00); Blood Urea Nitrogen 25.9 mg/dL (9.0-27.0); Calcium 8.7 mg/dL (8.7-10.3); Carbon Dioxide 20.2 mmol/L (20.0-27.5); Globulin 2.6 g/dL (1.6-3.3); Non-African American GFR(CKD) 50.3 (60.0-200.0); Potassium 4.2 mmol/L (3.5-5.5); Total Bilirubin 0.5 mg/dL (0.30-1.20); Total Protein 5.7 g/dL (6.2-8.2)
--- NOTE | 2022-10-08 11:03 | P.DS ---
Providers Date of admission: 10/02/22 05:21 Expected date of discharge: 10/08/22 Attending physician: Isabel Souza Consults: 10/02/22 05:21 Consult Physician Routine Consulting Provider: Isabel Souza Consult Reason/Comments: medicine consult Do you want consulting provider notified?: Yes 10/03/22 11:03 Consult Physician Routine Consulting Provider: Alex Cruz Consult Reason/Comments: Risk first benefit for eliquis Do you want consulting provider notified?: Yes 10/06/22 14:43 Consult Physician Routine Consulting Provider: Psychiatry - [facility] Psychiatry Consult Reason/Comments: depression Do you want consulting provider notified?: Yes 10/06/22 15:22 Consult Physician Routine Consulting Provider: Eric Ag Consult Reason/Comments: pelvic fracture Do you want consulting provider notified?: Already Contacted Primary care physician: Isabel Souza [facility] Course: Discharge diagnosis Fall with acute right superior pubic rami fracture. No surgical intervention pain control Gait disturbance Dehydration with acute kidney injury Underlying history of atrial fibrillation, heart rate is well-controlled. Continue eliquis per cardiology services Underlying history of chronic diastolic congestive heart failure Underlying history of hypertension Underlying history of hyperlipidemia Underlying history of hypothyroidism Underlying history of advanced osteoarthritis Pulmonary vascular congestion seen on chest x-ray will add Lasix 20 mg IV daily Hospital course Nancy Grady, is an 86-year-old female who presented to [facility] emergency room after sustaining a fall at home, and was not able to stand or walk, she denies any head trauma. She was evaluated in the emergency room vital examination on presentation revealed a temperature of 97.7 pulse 77 respiration 16 blood pressure 121/72 pulse ox 99% on room air Laboratory data revealed a white blood count of 8.6 hemoglobin 13.1 platelet count 343 BUN 54 creatinine 1.29 potassium 5.3 Testing in the emergency room revealed pelvic x-ray revealed evidence of acute right sided pubic symphysis fracture with no displacement, x-ray of the right knee, revealed evidence of advanced arthritis without any evidence of fracture, x-ray of the right shoulder arm and elbow did not reveal any evidence of fracture. Computed tomography scan of the head and cervical spine did not reveal any evidence of intracranial bleeding or any evidence of vertebral fracture. Patient was admitted to medical floor for further evaluation and treatment On 10/03/2022 patient is alert and oriented, Family at bedside reporting more confusion likely secondary to pain medication. Patient has had multiple falls at home per family no surgical intervention planned at this time per orthopedic services. Will add other options for pain control including Tylenol and tramadol. Also will rule out any kind of infection. We'll also order CK due to reporting a patient that was laying for quite some time. We'll place cardiology consult to assess risk first benefit in regards to eliquis and falls. On 10/04/2022 patient was seen and examined on the medical floor she is alert and oriented 3 in no apparent distress last night patient had episodes of confusion and hallucination likely related to tramadol which was discontinued patient is currently receiving [place] and is tolerating well her pain is not well controlled however family does not want her to get any further pain medication at this time due to potential side effects. Cardiology are following to help decide whether the risk outweigh the benefits in regard to anticoagulation, continue with current management otherwise possible transfer to rehab on Thursday if stable. On 10/05/2022 patient is more sleepy today. Per nursing staff patient has been sleepy since the medication administration yesterday. Vitals are stable at this time. Chest x-ray showing mild cardiomegaly and pulmonary vascular congestion will add Lasix 20 mg daily. Will continue to monitor patient closely at this time and make adjustments as needed. Discharge planning is in progress to rehab facility On 10/06/2022 patient is somnolant today. Vitals are stable at this time. she is still complaining of severe pain, Chest x-ray showing mild cardiomegaly and pulmonary vascular congestion will add Lasix 20 mg daily. Will continue to monitor patient closely at this time and make adjustments as needed. Discharge planning is in progress to rehab facility, consult for psychiatry initiated for possible depression.. On 10/07/2022 patient was seen and examined on the medical floor she is somnolent responsive in no apparent distress she is laying in bed most of the day with her eyes closed she is still complaining of pain in her hip area otherwise she denies any complaints there is no fever or chills no headache or dizziness no chest pain no shortness of breath no cough no nausea or vomiting no abdominal pain no diarrhea and no urinary symptoms at this time Kan catheter is out. Consult from psychiatry was reviewed recommendation from psychiatrist was starting Remeron and gabapentin discussed with family, at this time will start Remeron 7.5 mg at bedtime tonight, we will check response in a.m., possible transfer to rehab in the next 1-2 days On 10/08/2023 2 patient is alert and oriented resting comfortably in bed. Per nursing staff patient had good night. Patient appears more alert and oriented. Patient still complaining of discomfort to hip. Patient did receive Remeron. P lans for discharge today to rehab facility [facility]. Patient denies chest pain or shortness breath. Patient denies nausea vomiting or diarrhea. Patient denies any urinary burning or frequency. Current vital signs temp 97.8, heart rate 64, respiratory rate 18, blood pressure 108/65 pulse ox 98% on room air Patient Condition at Discharge: Stable Plan - Discharge Summary Discharge Rx Participant: No New Discharge Prescriptions: No Action Levothyroxine Sodium [Synthroid] 75 mcg PO MOTUWETHFRSA Simethicone [Simethicone Chew] 80 mg PO DAILY Calcium Carbonate 500 mg PO TID #90 tablet Pravastatin Sodium [Pravachol] 20 mg PO DAILY Pantoprazole Sodium [Protonix] 40 mg PO DAILY Amiodarone [Cordarone] 200 mg PO DAILY #90 tab Spironolactone 50 mg PO DAILY #90 tablet HYDROcodone/APAP 7.5-325MG [[place] 7.5-325] 1 tab PO TID PRN PRN Reason: Pain Levothyroxine Sodium [Synthroid] 37.5 mg PO VELAZQUEZ Multivit-Min/FA/Lycopen/Lutein [Centrum Silver Tablet] 1 tab PO DAILY Cholecalciferol [Vitamin D3 (25 Mcg = 1000 Iu)] 50 mcg PO DAILY Apixaban [Eliquis] 2.5 mg PO BID #60 tab Cephalexin [Keflex] 500 mg PO Q6HR 7 Days #28 cap Magnesium Gluconate [Magonate] 500 mg PO HS Megestrol Acetate 10 ml PO BID Metoprolol Tartrate 15 mg PO BID Discharge Medication List Levothyroxine Sodium [Synthroid] 75 mcg PO MOTUWETHFRSA 04/22/18 [History] Simethicone [Simethicone Chew] 80 mg PO DAILY 04/22/18 [History] Calcium Carbonate 500 mg PO TID #90 tablet 04/27/18 [Rx] Cholecalciferol [Vitamin D3 (25 Mcg = 1000 Iu)] 50 mcg PO DAILY 10/27/21 [History] Multivit-Min/FA/Lycopen/Lutein [[place] Silver Tablet] 1 tab PO DAILY 10/27/21 [History] Pantoprazole Sodium [Protonix] 40 mg PO DAILY 10/27/21 [History] Pravastatin Sodium [Pravachol] 20 mg PO DAILY 10/27/21 [History] Apixaban [Eliquis] 2.5 mg PO BID #60 tab 10/28/21 [Rx] Amiodarone [Cordarone] 200 mg PO DAILY #90 tab 02/18/22 [Rx] Spironolactone 50 mg PO DAILY #90 tablet 02/18/22 [Rx] Cephalexin [Keflex] 500 mg PO Q6HR 7 Days #28 cap 09/24/22 [Rx] HYDROcodone/APAP 7.5-325MG [[place] 7.5-325] 1 tab PO TID PRN 10/02/22 [History] Levothyroxine Sodium [Synthroid] 37.5 mg PO VELAZQUEZ 10/02/22 [History] Magnesium Gluconate [Magonate] 500 mg PO HS 10/02/22 [History] Megestrol Acetate 10 ml PO BID 10/02/22 [History] Metoprolol Tartrate 15 mg PO BID 10/02/22 [History] Follow up Appointment(s)/Referral(s): Eric Ag DO [Doctor of Osteopathic Medicine] - 10/28/22 9:30 am (Patient may follow-up with Kailash Mandujano PA-C or Dr. Gilbert Ag at [facility] in 2-3 weeks following discharge. ) Isabel Souza MD [Primary Care Provider] - 1-2 days Activity/Diet/Wound Care/Special Instructions: 1. Patient may weight-bear as tolerated on the right lower extremity in regards to her right superior pubic rami fracture 2. Patient is encouraged to use a walker or other aid to aid in ambulation as needed 3. Weight-bear as tolerated on the left lower extremity in regards to left ankle pain 4. Patient may utilize a donut seat cushion for comfort support in the outpatient setting as needed Discharge Disposition: TRANSFER TO SNF/ECF
== END 2022-10-08 14:35 | DRG 536 ==
LOC: EC 03:29 → 4SSUR 05:21
PROVIDERS: ADMIT Internal Medicine; ATTEND Internal Medicine
DX: S32.591A Other specified fracture of right pubis, initial encounter for closed fracture (principal); N17.9 Acute kidney failure, unspecified; I48.19 Other persistent atrial fibrillation; I48.3 Typical atrial flutter; I50.32 Chronic diastolic (congestive) heart failure; F03.93 Unspecified dementia, unspecified severity, with mood disturbance; I11.0 Hypertensive heart disease with heart failure; E11.9 Type 2 diabetes mellitus without complications; E03.9 Hypothyroidism, unspecified; E86.0 Dehydration; I27.20 Pulmonary hypertension, unspecified; J84.10 Pulmonary fibrosis, unspecified; R26.81 Unsteadiness on feet; S50.311A Abrasion of right elbow, initial encounter; S80.211A Abrasion, right knee, initial encounter; E78.5 Hyperlipidemia, unspecified; M19.042 Primary osteoarthritis, left hand; M19.041 Primary osteoarthritis, right hand; I83.90 Asymptomatic varicose veins of unspecified lower extremity; R29.6 Repeated falls; S46.911A Strain of unspecified muscle, fascia and tendon at shoulder and upper arm level, right arm, initial encounter; K21.9 Gastro-esophageal reflux disease without esophagitis; R41.0 Disorientation, unspecified; S90.02XA Contusion of left ankle, initial encounter; I08.3 Combined rheumatic disorders of mitral, aortic and tricuspid valves; W18.30XA Fall on same level, unspecified, initial encounter; Y92.009 Unspecified place in unspecified non-institutional (private) residence as the place of occurrence of the external cause; Z90.13 Acquired absence of bilateral breasts and nipples; Z91.81 History of falling; Z88.8 Allergy status to other drugs, medicaments and biological substances; Z79.01 Long term (current) use of anticoagulants; Z79.890 Hormone replacement therapy; Z79.899 Other long term (current) drug therapy
CPT/HCPCS: 36415; 70450; 71045; 72125; 72170; 80048; 80053; 81001; 81003; 82553; 83735; 85025; 85610; 85730; 87040; 87635; 93005; 93306; 99285

== ENCOUNTER 2023-03-01 09:30 | Inpatient (IN) | payer MEDICARE, BC, OTHER ==
--- NOTE | 2023-03-01 09:37 | ED ---
General Adult HPI - General Stated complaint: BALWINDER Time Seen by Provider: 03/01/23 09:32 Source: patient, EMS, RN notes reviewed, old records reviewed Limitations: no limitations - History of Present Illness Initial comments: 87-year-old female presenting for evaluation of dyspnea and hypoxia. Patient, f rom a [facility] had oxygen saturation in the high 80s by EMS. Symptoms progressed fairly over the past 24 hours. No chest pain. Patient does have bilateral lower extremity edema and history of congestive heart failure. Family does report a 2 pound weight gain. There was also concern for aspiration with breakfast this morning. - Related Data Home Medications Medication Instructions Recorded Confirmed Levothyroxine Sodium [Synthroid] 75 mcg PO MOTUWETHFRSA 04/22/18 10/02/22 Simethicone [Simethicone Chew] 80 mg PO DAILY 04/22/18 10/02/22 Cholecalciferol [Vitamin D3 (25 50 mcg PO DAILY 10/27/21 10/02/22 Mcg = 1000 Iu)] Multivit-Min/FA/Lycopen/Lutein 1 tab PO DAILY 10/27/21 10/02/22 [Centrum Silver Tablet] Pantoprazole Sodium [Protonix] 40 mg PO DAILY 10/27/21 10/02/22 Pravastatin Sodium [Pravachol] 20 mg PO DAILY 10/27/21 10/02/22 Levothyroxine Sodium [Synthroid] 37.5 mg PO VELAZQUEZ 10/02/22 10/02/22 Magnesium Gluconate [Magonate] 500 mg PO HS 10/02/22 10/02/22 Megestrol Acetate 10 ml PO BID 10/02/22 10/02/22 Metoprolol Tartrate 15 mg PO BID 10/02/22 10/02/22 Previous Rx's Medication Instructions Recorded Calcium Carbonate 500 mg PO TID #90 tablet 04/27/18 Apixaban [Eliquis] 2.5 mg PO BID #60 tab 10/28/21 Amiodarone [Cordarone] 200 mg PO DAILY #90 tab 02/18/22 Spironolactone 50 mg PO DAILY #90 tablet 02/18/22 Docusate [Colace] 100 mg PO BID cap 10/08/22 HYDROcodone/APAP 5-325MG [[place] 0.5 each PO Q4HR PRN 3 Days #9 tab 10/08/22 5-325] Mirtazapine [Remeron] 7.5 mg PO HS 3 Days #3 tab 10/08/22 Allergies Allergy/AdvReac Type Severity Reaction Status Date / Time magnesium oxide Allergy Rash/Hives Verified 10/02/22 16:27 Review of Systems ROS Statement: Those systems with pertinent positive or pertinent negative responses have been documented in the HPI. ROS Other: All systems not noted in ROS Statement are negative. Past Medical History Past Medical History: Diabetes Mellitus, GERD/Reflux, Hyperlipidemia, Hyperten tomer, Thyroid Disorder Additional Past Medical History / Comment(s): Pt states she is no longer on diabetic medication(metformin), arthritis bilateral hands, varicose veins, d iverticular disease, hypothyroid, past epistaxis. History of Any Multi-Drug Resistant Organisms: None Reported Past Surgical History: Appendectomy, Breast Surgery, Cholecystectomy, Heart Catheterization, Hysterectomy, Orthopedic Surgery, Tonsillectomy Additional Past Surgical History / Comment(s): 2014 cardiac cath-clear, R nasalseptal hemangioma removed, bilateral leg varicose vein sx, bilateral knee arthroscopies, R hand/wrist surgery for arthritis, colonoscopy 2 yrs ago-normal, bilateral breast mastectomy. Past Anesthesia/Blood Transfusion Reactions: No Reported Reaction Past Psychological History: No Psychological Hx Reported Smoking Status: Never smoker Past Alcohol Use History: None Reported Past Drug Use History: None Reported - Past Family History Father Family Medical History: Coronary Artery Disease (CAD), Myocardial Infarction ([place]) Mother Family Medical History: Coronary Artery Disease (CAD), GERD/Reflux, Myocardial Infarction ([place]) General Exam General appearance: alert, in no apparent distress Head exam: Present: atraumatic, normocephalic Eye exam: Present: normal appearance, PERRL ENT exam: Present: normal exam Neck exam: Present: normal inspection. Absent: tenderness, meningismus Respiratory exam: Present: rales, decreased breath sounds. Absent: respiratory distress Cardiovascular Exam: Present: regular rate, normal rhythm GI/Abdominal exam: Present: soft. Absent: distended, tenderness, guarding Extremities exam: Present: pedal edema Neurological exam: Present: alert, oriented X3, CN II-XII intact. Absent: motor sensory deficit Psychiatric exam: Present: normal affect, normal mood Skin exam: Present: warm, dry, intact Course Vital Signs 03/01/23 09:41 Temperature 97.8 F Pulse Rate 93 Respiratory 20 Rate Blood Pressure 123/67 O2 Sat by Pulse 91 L Oximetry - Reevaluation(s) Reevaluation #1: 03/01/23 11:23 Chest x-ray showing pulmonary vascular congestion, no focal pneumonia. EKG Findings - EKG Comments: EKG Findings:: EKG: Sinus rhythm, LVH, rate of 94, OK interval 170, QRS duration 88, QTC 424 Medical Decision Making - Medical Decision Making Was pt. sent in by a medical professional or institution (, PA, PSYCHOSOCIAL REHABILITATION COUNSELOR, urgent care, hospital, or usp...) When possible be specific @ -Sent in from the [facility] Did you speak to anyone other than the patient for history (EMS, parent, family, police, friend...)? What history was obtained from this source @ Paramedics, and family members at bedside Did you review nursing and triage notes (agree or disagree)? Why? @ -I reviewed and agree with nursing and triage notes Were old charts reviewed (outside hosp., previous admission, EMS record, old EKG, old radiological studies, urgent care reports/EKG's, usp records)? Report findings @ -Previous admissions and previous lab tests Differential Diagnosis (chest pain, altered mental status, abdominal pain women, abdominal pain men, vaginal bleeding, weakness, fever, dyspnea, syncope, headache, dizziness, GI bleed, back pain, seizure, CVA, palpatations, mental health, musculoskeletal)? @ Differential Dyspnea: Coronary syndrome, arrhythmia, tamponade, asthma, COPD, pulmonary embolism, pneumonia, pneumothorax, pulmonary effusion, anaphylaxis, diabetic ketoacidosis, flailed chest, pulmonary contusion, diaphragmatic rupture, anemia, neuromuscular, this is not meant to be an all-inclusive list. EKG interpreted by me (3pts min.). @ -As above X-rays interpreted by me (1pt min.). @ Showing pulmonary edema, chf without pneumothorax, no focal pneumonia CT interpreted by me (1pt min.). @ -None done U/S interpreted by me (1pt. min.). @ -None done What testing was considered but not performed or refused? (CT, X-rays, U/S, labs)? Why? @ -None What meds were considered but not given or refused? Why? @ -None Did you discuss the management of the patient with other professionals (professionals i.e. , PA, PSYCHOSOCIAL REHABILITATION COUNSELOR, lab, RT, psych nurse, marriage and family social worker, flight director, teacher, chief quality officer, geriatric case manager)? Give summary @ -Dr. Donald Was smoking cessation discussed for >3mins.? @ -No Was critical care preformed (if so, how long)? @ -No Were there social determinants of health that impacted care today? How? (Homelessness, low income, unemployed, alcoholism, drug addiction, transportation, low edu. Level, literacy, decrease access to med. care, detention, rehab)? @ -No Was there de-escalation of care discussed even if they declined (Discuss DNR or withdrawal of care, Hospice)? DNR status @ -No What co-morbidities impacted this encounter? (DM, HTN, Smoking, COPD, CAD, Cancer, CVA, ARF, Chemo, Hep., AIDS, mental health diagnosis, sleep apnea, morbid obesity)? @ CHF Was patient admitted / discharged? Hospital course, mention meds given and rout e, prescriptions, significant lab abnormalities, going to OR and other pertinent info. @ 87-year-old female presenting with hypoxia, peripheral edema, history of congestive heart failure. Patient has bilateral Rales and is moderately dyspneic. Oxygen is around 90% on room air. Chest x-ray performed which is consistent with CHF and pulmonary edema. Patient given potassium replacement for potassium 3.2 and given dose of IV Lasix in the emergency department. She will be admitted for IV diuresis. Case discussed with Dr. Donald, covering for [facility], covering Dr. Ellis. Undiagnosed new problem with uncertain prognosis? @ -No Drug Therapy requiring intensive monitoring for toxicity (Heparin, Nitro, Insulin, Cardizem)? @ -No Were any procedures done? @ -No Diagnosis/symptom? @ CHF exacerbation Acute, or Chronic, or Acute on Chronic? @ -Acute on chronic Uncomplicated (without systemic symptoms) or Complicated (systemic symptoms)? @ -default Side effects of treatment? @ -No Exacerbation, Progression, or Severe Exacerbation? @ -No Poses a threat to life or bodily function? How? (Chest pain, [place], [place], pneumonia, PE, COPD, DKA, ARF, appy, cholecystitis, CVA, Diverticulitis, Homicidal, Suicidal, threat to staff... and all critical care pts) @ Yes, CHF, hypoxia - Lab Data Result diagrams: 03/01/23 09:49 03/01/23 09:49 Lab Results 03/01/23 03/01/23 03/01/23 Range/Units 09:49 09:49 09:49 WBC 4.7 (3.8-10.6) k/uL RBC 3.89 (3.80-5.40) m/uL Hgb 11.9 (11.4-16.0) gm/dL Hct 37.7 (34.0-46.0) % MCV 97.0 (80.0-100.0) fL MCH 30.5 (25.0-35.0) pg MCHC 31.4 (31.0-37.0) g/dL RDW 16.2 H (11.5-15.5) % Plt Count 238 (150-450) k/uL MPV 7.2 Neutrophils % 72 % Lymphocytes % 17 % Monocytes % 5 % Eosinophils % 2 % Basophils % 0 % Neutrophils # 3.4 (1.3-7.7) k/uL Lymphocytes # 0.8 L (1.0-4.8) k/uL Monocytes # 0.2 (0-1.0) k/uL Eosinophils # 0.1 (0-0.7) k/uL Basophils # 0.0 (0-0.2) k/uL Hypochromasia Slight Poikilocytosis Slight Anisocytosis Slight Macrocytosis Slight PT 13.4 H (9.0-12.0) sec INR 1.3 H (<1.2) APTT 25.0 (22.0-30.0) sec Sodium 141 (137-145) mmol/L Potassium 3.2 L (3.5-5.1) mmol/L Chloride 107 (98-107) mmol/L Carbon Dioxide 20 L (22-30) mmol/L Anion Gap 14 mmol/L BUN 25 H (7-17) mg/dL Creatinine 0.74 (0.52-1.04) mg/dL Est GFR (CKD-EPI)AfAm 84 (>60 ml/min/1.73 sqM) Est GFR (CKD-EPI)NonAf 73 (>60 ml/min/1.73 sqM) Glucose 196 H (74-99) mg/dL Calcium 8.7 (8.4-10.2) mg/dL Total Bilirubin 1.0 (0.2-1.3) mg/dL AST 24 (14-36) U/L ALT 24 (4-34) U/L Alkaline Phosphatase 71 (38-126) U/L Troponin I (0.000-0.034) ng/mL Total Protein 6.4 (6.3-8.2) g/dL Albumin 3.3 L (3.5-5.0) g/dL 03/01/23 Range/Units 09:49 WBC (3.8-10.6) k/uL RBC (3.80-5.40) m/uL Hgb (11.4-16.0) gm/dL Hct (34.0-46.0) % MCV (80.0-100.0) fL MCH (25.0-35.0) pg MCHC (31.0-37.0) g/dL RDW (11.5-15.5) % Plt Count (150-450) k/uL MPV Neutrophils % % Lymphocytes % % Monocytes % % Eosinophils % % Basophils % % Neutrophils # (1.3-7.7) k/uL Lymphocytes # (1.0-4.8) k/uL Monocytes # (0-1.0) k/uL Eosinophils # (0-0.7) k/uL Basophils # (0-0.2) k/uL Hypochromasia Poikilocytosis Anisocytosis Macrocytosis PT (9.0-12.0) sec INR (<1.2) APTT (22.0-30.0) sec Sodium (137-145) mmol/L Potassium (3.5-5.1) mmol/L Chloride (98-107) mmol/L Carbon Dioxide (22-30) mmol/L Anion Gap mmol/L BUN (7-17) mg/dL Creatinine (0.52-1.04) mg/dL Est GFR (CKD-EPI)AfAm (>60 ml/min/1.73 sqM) Est GFR (CKD-EPI)NonAf (>60 ml/min/1.73 sqM) Glucose (74-99) mg/dL Calcium (8.4-10.2) mg/dL Total Bilirubin (0.2-1.3) mg/dL AST (14-36) U/L ALT (4-34) U/L Alkaline Phosphatase (38-126) U/L Troponin I <0.012 (0.000-0.034) ng/mL Total Protein (6.3-8.2) g/dL Albumin (3.5-5.0) g/dL Disposition Clinical Impression: Acute exacerbation of CHF (congestive heart failure) Disposition: ADMITTED IP TO THIS HOSP Condition: Stable Is patient prescribed a controlled substance at d/c from ED?: No Referrals: Isabel Souza MD [Primary Care Provider] - 1-2 days Time of Disposition: 11:24
[2023-03-01 10:01] LABS: Anisocytosis Slight; Basophils % (A) 0 %; Eosinophils # (A) 0.1 k/uL (0-0.7); Eosinophils % (A) 2 %; HCT 37.7 % (34.0-46.0); HGB 11.9 gm/dL (11.4-16.0); Hypochromasia Slight; Lymphocytes # (A) 0.8 k/uL (1.0-4.8); Lymphocytes % (A) 17 %; MCH 30.5 pg (25.0-35.0); MCHC 31.4 g/dL (31.0-37.0); Macrocytosis Slight; Mean Platelet Volume 7.2; Monocytes # (A) 0.2 k/uL (0-1.0); Monocytes % (A) 5 %; Neutrophils # (A) 3.4 k/uL (1.3-7.7); Neutrophils % (A) 72 %; Platelet Count 238 k/uL (150-450); Poikilocytosis Slight; RBC 3.89 m/uL (3.80-5.40); RDW 16.2 % (11.5-15.5); WBC 4.7 k/uL (3.8-10.6)
[2023-03-01 10:12] LABS: Albumin 3.3 g/dL (3.5-5.0); Calcium 8.7 mg/dL (8.4-10.2); Potassium 3.2 mmol/L (3.5-5.1); Total Protein 6.4 g/dL (6.3-8.2)
--- NOTE | 2023-03-01 10:12 | XR ---
EXAMINATION TYPE: XR chest 2V DATE OF EXAM: 03/01/2023 COMPARISON: 10/05/2022 INDICATION: Difficulty breathing TECHNIQUE: Frontal and lateral views of the chest are obtained. FINDINGS: The heart size is normal. The pulmonary vasculature is somewhat prominent. Mild right basilar infiltrates are present. Correlate for atelectasis or pulmonary edema. Volume over load could be considered.. IMPRESSION: 1. Mild vascular prominence with bibasilar infiltrates. Correlate for volume overload and mild pulmon arianna edema. Atelectasis could be considered
[2023-03-01 10:17] LABS: INR 1.3 (<1.2); Prothrombin Time 13.4 sec (9.0-12.0)
[2023-03-01] MEDS ORDERED: POTASSIUM CHLORIDE ER 20 MEQ TAB.ER PO STA (10:57)
[2023-03-01] MEDS ORDERED: FUROSEMIDE 10 MG/ML 4 ML VIAL IV STA (10:57)
[2023-03-01] MEDS ORDERED: ACETAMINOPHEN TAB 325 MG TAB PO PRN (11:22)
[2023-03-01] MEDS ORDERED: NALOXONE 0.4 MG/ML 1 ML VIAL IV PRN (11:22)
[2023-03-01] MEDS ORDERED: MAGNESIUM HYDROXIDE 2,400 MG/10 ML CUP PO PRN (19:21)
[2023-03-01] MEDS ORDERED: IPRATROPIUM-ALBUTEROL 3 ML NEB INHALATION PRN (19:21)
--- NOTE | 2023-03-01 19:25 | P.HPIM ---
History of Present Illness H&P Date: 03/01/23 Chief Complaint: Shortness of breath 87-year-old female presenting for evaluation of dyspnea and hypoxia. Patient, from [facility] had oxygen saturation in the high 80s by EMS. Symptoms progressed fairly over the past 24 hours. No chest pain. Patient does have bilateral lower extremity edema and history of congestive heart failure. Family does report a 2 pound weight gain. There was also concern for aspiration with breakfast this morning. 87-year-old female presenting with hypoxia, peripheral edema, history of congestive heart failure. Patient has bilateral Rales and is moderately dyspneic. Oxygen is around 90% on room air. Chest x-ray performed which is consistent with CHF and pulmonary edema. Patient given potassium replacement for potassium 3.2 and given dose of IV Lasix in the emergency department. She will be admitted for IV diuresis. Blood work completed in ED reveals WBC 4.7, hemoglobin of 11.9, platelet of 238, sodium 141, potassium 3.2, BUN/creatinine of 25/0.7 and blood glucose of 196; BNP is elevated at 1010 Review of Systems REVIEW OF SYSTEMS: CONSTITUTIONAL: No fever, no malaise, no fatigue. HEENT: No recent visual problems or hearing problems. Denied any sore throat. CARDIOVASCULAR: No chest pain, orthopnea, PND, no palpitations, no syncope. PULMONARY: No shortness of breath, no cough, no hemoptysis. GASTROINTESTINAL: No diarrhea, no nausea, no vomiting, no abdominal pain. NEUROLOGICAL: No headaches, no weakness, no numbness. HEMATOLOGICAL: Denies any bleeding or petechiae. GENITOURINARY: Denies any burning micturition, frequency, or urgency. MUSCULOSKELETAL/RHEUMATOLOGICAL: Denies any joint pain, swelling, or any muscle pain. ENDOCRINE: Denies any polyuria or polydipsia. The rest of the 14-point review of systems is negative. Past Medical History Past Medical History: Diabetes Mellitus, GERD/Reflux, Hyperlipidemia, Hypertension, Thyroid Disorder Additional Past Medical History / Comment(s): Pt states she is no longer on diabetic medication(metformin), arthritis bilateral hands, varicose veins, diverticular disease, hypothyroid, past epistaxis. History of Any Multi-Drug Resistant Organisms: None Reported Past Surgical History: Appendectomy, Breast Surgery, Cholecystectomy, Heart Catheterization, Hysterectomy, Orthopedic Surgery, Tonsillectomy Additional Past Surgical History / Comment(s): 2014 cardiac cath-clear, R nasalseptal hemangioma removed, bilateral leg varicose vein sx, bilateral knee arthroscopies, R hand/wrist surgery for arthritis, colonoscopy 2 yrs ago-normal, bilateral breast mastectomy. Past Anesthesia/Blood Transfusion Reactions: No Reported Reaction Past Psychological History: No Psychological Hx Reported Smoking Status: Never smoker Past Alcohol Use History: None Reported Past Drug Use History: None Reported - Past Family History Father Family Medical History: Coronary Artery Disease (CAD), Myocardial Infarction ([place]) Mother Family Medical History: Coronary Artery Disease (CAD), GERD/Reflux, Myocardial Infarction ([place]) Medications and Allergies Home Medications Medication Instructions Recorded Confirmed Type Levothyroxine Sodium [Synthroid] 75 mcg PO MOTUWETHFRSA@0700 04/22/18 03/01/23 History Simethicone [Simethicone Chew] 80 mg PO DAILY@0800 04/22/18 03/01/23 History Cholecalciferol [Vitamin D3 (25 50 mcg PO DAILY@1200 10/27/21 03/01/23 History Mcg = 1000 Iu)] Pantoprazole Sodium [Protonix] 40 mg PO DAILY@0700 10/27/21 03/01/23 History Pravastatin Sodium [Pravachol] 20 mg PO DAILY@1700 10/27/21 03/01/23 History Levothyroxine Sodium [Synthroid] 37.5 mg PO VELAZQUEZ@0700 10/02/22 03/01/23 History Magnesium Gluconate [Magonate] 500 mg PO HS@2100 10/02/22 03/01/23 History Megestrol Acetate 400 mg PO BID@0800,1700 10/02/22 03/01/23 History Acetaminophen [Tylenol Arthritis] 650 mg PO Q4H PRN 03/01/23 03/01/23 History Amiodarone [Cordarone] 100 mg PO DAILY@0800 03/01/23 03/01/23 History Apixaban [Eliquis] 2.5 mg PO BID@0800,2100 03/01/23 03/01/23 History Calcium Carbonate 500 mg PO TID@0700,1100,1630 03/01/23 03/01/23 History Ensure Clear 120 ml PO BID@0800,1700 03/01/23 03/01/23 History Escitalopram [Lexapro] 10 mg PO HS@2100 03/01/23 03/01/23 History Furosemide [Lasix] 20 mg PO DAILY@1700 03/01/23 03/01/23 History Ipratropium-Albuterol Nebulize 3 ml INHALATION RT-Q6H PRN 03/01/23 03/01/23 History [Duoneb 0.5 mg-3 mg/3 ml Soln] Magic Cup 1 cap PO BID@1200,1700 03/01/23 03/01/23 History Magnesium Hydroxide [Milk of 7,200 mg PO DAILY PRN 03/01/23 03/01/23 History Magnesia Concentrate] Multivitamins, Thera [Multivitamin 1 tab PO DAILY@1200 03/01/23 03/01/23 History (formulary)] Na Phos,M-B/Na Phos,Di-Ba [Fleet 133 ml RECTAL DAILY PRN 03/01/23 03/01/23 History Adult] Phenyleph/Pramoxin/Glycr/W.pet 1 applic RECTAL BID PRN 03/01/23 03/01/23 History [Preparation H Cream] Psyllium Husk [Metamucil] 0.4 gm PO DAILY@0800 03/01/23 03/01/23 History Sennosides/Docusate Sodium [Senna 1 cap PO HS@2130 03/01/23 03/01/23 History Plus 8.6-50 mg Softgel] bisacodyL [Dulcolax] 10 mg RECTAL DAILY PRN 03/01/23 03/01/23 History Allergies Allergy/AdvReac Type Severity Reaction Status Date / Time magnesium oxide Allergy Rash/Hives Verified 03/01/23 14:30 Physical Exam Vitals: Vital Signs Temp Pulse Resp BP Pulse Ox 03/01/23 12:15 90 28 H 145/55 94 L 03/01/23 09:41 97.8 F 93 20 123/67 91 L Intake and Output 03/01/23 03/01/23 03/01/23 06:59 14:59 22:59 Other: Weight 60.781 kg PHYSICAL EXAMINATION: GENERAL: The patient is alert and oriented x3, not in any acute distress. Well developed, well nourished. HEENT: Pupils are round and equally reacting to light. EOMI. No scleral icterus. No conjunctival pallor. Normocephalic, atraumatic. No pharyngeal erythema. No thyromegaly. CARDIOVASCULAR: S1 and S2 present. No murmurs, rubs, or gallops. PULMONARY: Chest is clear to auscultation, no wheezing or crackles. ABDOMEN: Soft, nontender, nondistended, normoactive bowel sounds. No palpable organomegaly. MUSCULOSKELETAL: No joint swelling or deformity. EXTREMITIES: No cyanosis, clubbing, or pedal edema. NEUROLOGICAL: Gross neurological examination did not reveal any focal deficits. SKIN: No rashes. Results CBC & Chem 7: 03/01/23 09:49 03/01/23 09:49 Labs: Abnormal Lab Results - Last 24 Hours (Table) 03/01/23 03/01/23 03/01/23 Range/Units 09:49 09:49 09:49 RDW 16.2 H (11.5-15.5) % Lymphocytes # 0.8 L (1.0-4.8) k/uL PT 13.4 H (9.0-12.0) sec INR 1.3 H (<1.2) Potassium 3.2 L (3.5-5.1) mmol/L Carbon Dioxide 20 L (22-30) mmol/L BUN 25 H (7-17) mg/dL Glucose 196 H (74-99) mg/dL Albumin 3.3 L (3.5-5.0) g/dL Assessment and Plan Assessment: Acute exacerbation CHF Mild AK I Hyperglycemia without acidosis Electrolyte imbalance/hypokalemia History of hypothyroidism History of hyperlipidemia Hypertension Diabetes mellitus - Patient has been placed on IV Lasix 40 mg every 12 hours; we will monitor strict BERNA's, daily weights, renal function and electrolytes; Avoid nephrotoxins and hypotension - We will consult renal ultrasound failed function continues to worsen - Monitor and trend troponin, order 2-D echo; cardiology is consulted We'll monitor Accu-Cheks. CN VIII his insulin sliding scale Continue with home statin therapy and thyroid replacement therapy
[2023-03-01] MEDS: FUROSEMIDE 10 MG/ML 4 ML VIAL IV SCH (20:19)
[2023-03-01] MEDS: ESCITALOPRAM 10 MG TAB PO SCH (20:20)
[2023-03-01] MEDS: SENNOSIDES-DOCUSATE SODIUM 1 EACH TAB PO SCH (20:20)
[2023-03-02 06:25] LABS: Calcium 8.8 mg/dL (8.4-10.2)
[2023-03-02] MEDS ORDERED: APIXABAN 2.5 MG TABLET PO STA (09:53)
[2023-03-02] MEDS: MEGESTROL 400 MG/10 ML CUP PO SCH ×2 (10:05→15:49)
[2023-03-02] MEDS: FUROSEMIDE 10 MG/ML 4 ML VIAL IV SCH (10:05)
[2023-03-02] MEDS: AMIODARONE 100 MG TAB PO SCH (10:06)
[2023-03-02] MEDS: MULTIVITAMINS, THERA 1 EACH TAB PO SCH (10:06)
[2023-03-02] MEDS: SIMETHICONE 80 MG CHEWABLE PO SCH (10:06)
[2023-03-02] MEDS: LEVOTHYROXINE 75 MCG TAB PO SCH (10:06)
--- NOTE | 2023-03-02 10:09 | P.PN ---
Subjective Progress Note Date: 03/02/23 Nancy Grady is an 87-year-old female resident of [facility] who presented to [facility] emergency room with a chief complaint of worsening shortness of breath, she was evaluated in the emergency room and admitted to telemetry floor, preliminary diagnosis was acute congestive heart failure exacerbation. She was given IV Lasix, she improved since yesterday On 03/02/2023 patient was seen and examined on the telemetry floor she is alert and oriented 3 in no apparent distress she is resting in bed and does not have any significant shortness of breath at rest, she is maintained on room air and her O2 sat duration is 92%. Family at the bedside is concerned regarding possible aspiration pneumonia, and asking for antibiotic treatment. They stated that her symptoms started after breakfast when patient started having an episode of cough and shortness of breath and wheezing. At this time there is no fever white blood count is normal and chest x-ray does not reveal any clear evidence of pneumonia. Will recheck CBC, recheck chest x-ray PA and lateral, check pro-calcitonin, and monitor closely for any need for antibiotic. Also patient is complaining of bilateral lower extremity pain, will check d-dimer and bilateral lower extremity Doppler. Family at the bedside, case was discussed with them in detail. Objective - Vital Signs Vital signs: Vital Signs Temp 98.3 F 03/02/23 07:52 Pulse 73 03/02/23 07:52 Resp 18 03/02/23 07:52 BP 105/63 03/02/23 07:52 Pulse Ox 94 L 03/02/23 07:52 FiO2 Intake & Output 03/01/23 03/02/23 03/02/23 18:59 06:59 18:59 Intake Total 118 Balance 118 Weight 60.781 kg Intake: Oral 118 Other: # Bowel Movements 1 - Exam In general patient is alert and oriented x 3 in no distress HEENT head normocephalic and atraumatic Neck is supple no JVD no goiter no lymphadenopathy no carotid bruit Chest examination is clear to auscultation no crackles no wheezing Cardiac exam reveals regular heart sounds S1 and S2 no gallops no murmurs Abdomen is soft nontender no organomegaly with normal bowel sounds Extremity exam reveals no edema no cyanosis or clubbing Neurological examination reveals no gross focal deficits - Labs CBC & Chem 7: 03/01/23 09:49 05/15/23 05:46 Labs: Abnormal Lab Results - Last 24 Hours (Table) 03/01/23 03/01/23 03/01/23 Range/Units 09:49 09:49 09:49 RDW 16.2 H (11.5-15.5) % Lymphocytes # 0.8 L (1.0-4.8) k/uL PT 13.4 H (9.0-12.0) sec INR 1.3 H (<1.2) Potassium 3.2 L (3.5-5.1) mmol/L Carbon Dioxide 20 L (22-30) mmol/L BUN 25 H (7-17) mg/dL Glucose 196 H (74-99) mg/dL Albumin 3.3 L (3.5-5.0) g/dL 03/02/23 Range/Units 05:46 RDW (11.5-15.5) % Lymphocytes # (1.0-4.8) k/uL PT (9.0-12.0) sec INR (<1.2) Potassium (3.5-5.1) mmol/L Carbon Dioxide (22-30) mmol/L BUN 25 H (7-17) mg/dL Glucose 100 H (74-99) mg/dL Albumin (3.5-5.0) g/dL Assessment and Plan Plan: Acute exacerbation CHF Mild AK I Hyperglycemia without acidosis Electrolyte imbalance/hypokalemia History of hypothyroidism History of hyperlipidemia Hypertension Diabetes mellitus - Patient has been placed on IV Lasix 40 mg every 12 hours; we will monitor strict BERNA's, daily weights, renal function and electrolytes; Avoid nephrotoxins and hypotension - We will consult renal ultrasound failed function continues to worsen - Monitor and trend troponin, order 2-D echo; cardiology is consulted Check d-dimer and bilateral lower extremity Doppler to rule out DVT Repeat chest x-ray PA and lateral Start incentive spirometry Check swallow evaluation Will follow closely
--- NOTE | 2023-03-02 10:17 | P.CRDCN ---
History of Present Illness History of present illness: HISTORY OF PRESENT ILLNESS: This is a 87-year-old female with a past medical history significant for paroxysmal atrial fibrillation with previous cardioversion, congestive heart failure, typical atrial flutter, hypertension, hyperlipidemia, hypothyroidism, GERD, and valvular heart disease. Patient follows in the office with Dr. Cruz. We have been asked to see the patient in consultation for congestive heart failure. Patient examined at the bedside. Patient was brought to the hospital from [facility] secondary to hypoxia and increased lower extremity edema. The patient was found to be in acute CHF and was started on IV Lasix. This morning, the patient denies any chest pain or pressure. She denies any shortness of breath. She remains on IV Lasix. Vital signs are stable. Her lower extremity edema has improved. * EKG reveals sinus mechanism with no signs of acute ischemia * Chest xray mild vascular prominence with bibasilar infiltrates. Correlate for volume overload and mild pulmonary edema. Atelectasis could be considered. * Laboratory data: WBC 4.7. Hemoglobin 11.9. Platelet count 238. Sodium 139. Potassium 4.0. B UN 25. Creatinine 0.69. Troponin negative 1. ProBNP 1010. * Current home cardiac medications include Eliquis 2.5 mg twice a day, amiodarone 100 mg daily, Lasix 20 mg daily, pravastatin 20 mg daily * Most recent echocardiogram obtained in September 2022 revealed ejection fraction 55% with moderate mitral regurgitation * Cardiac catheterization history: September 2015 revealing normal coronary arteries * Patient underwent Lexiscan stress test in 2018 which was negative for ischemia REVIEW OF SYSTEMS: At the time of my exam: CONSTITUTIONAL: Denies fever or chills. HEENT: Denies blurred vision, vision changes, or eye pain. Denies hemoptysis CARDIOVASCULAR: Denies chest pain. Denies orthopnea. Denies PND. Denies palpitations RESPIRATORY: Denies shortness of breath. GASTROINTESTINAL: Denies abdominal pain. Denies nausea or vomiting. HEMATOLOGIC: Denies bleeding disorders. GENITOURINARY: Denies any blood in urine. SKIN: Denies pruitis. Denies rash. PHYSICAL EXAM: VITAL SIGNS: Reviewed. GENERAL: Well-developed in no acute distress. HEENT: Head is normocephalic. Pupils are equal, round. Sclerae anicteric. Mucous membranes of the mouth are moist. Neck supple. No JVD or thyromegaly LUNGS: Respirations even and unlabored. Lungs essentially clear to auscultation bilaterally. HEART: Regular rate and rhythm. S1 and S2 heard. Systolic murmur noted ABDOMEN: Soft. Nondistended. Nontender. EXTREMITIES: Normal range of motion. No clubbing or cyanosis. Peripheral pulses intact. Trace bilateral lower extremity edema NEUROLOGIC: Awake and alert. Oriented x 3. ASSESSMENT: Shortness of breath Acute hypoxic respiratory failure Acute on chronic heart failure with preserved ejection fraction, 55% Valvular heart disease including moderate mitral regurgitation Normal coronary arteries, per cardiac catheterization in 2014 Paroxysmal atrial fibrillation with previous cardioversion History of typical atrial flutter Hypertension Hyperlipidemia Hypothyroidism GERD PLAN: Obtain 2D echo to assess cardiac structure and function Discontinue IV lasix. Begin oral lasix 20mg BID. Accurate I&O, daily weights, and monitoring of kidney function Continue additional cardiac medications Stable from a cardiac standpoint Further recommendations pending patient course Nurse practitioner note has been reviewed by physician. Signing provider agrees with the documented findings, assessment, and plan of care. Past Medical History Past Medical History: Diabetes Mellitus, GERD/Reflux, Hyperlipidemia, Hypertension, Thyroid Disorder Additional Past Medical History / Comment(s): Pt states she is no longer on diabetic medication(metformin), arthritis bilateral hands, varicose veins, diverticular disease, hypothyroid, past epistaxis. History of Any Multi-Drug Resistant Organisms: None Reported Past Surgical History: Appendectomy, Breast Surgery, Cholecystectomy, Heart Catheterization, Hysterectomy, Orthopedic Surgery, Tonsillectomy Additional Past Surgical History / Comment(s): 2014 cardiac cath-clear, R nasalseptal hemangioma removed, bilateral leg varicose vein sx, bilateral knee arthroscopies, R hand/wrist surgery for arthritis, colonoscopy 2 yrs ago-normal, bilateral breast mastectomy. Past Anesthesia/Blood Transfusion Reactions: No Reported Reaction Past Psychological History: No Psychological Hx Reported Smoking Status: Never smoker Past Alcohol Use History: None Reported Past Drug Use History: None Reported - Past Family History Father Family Medical History: Coronary Artery Disease (CAD), Myocardial Infarction ([place]) Mother Family Medical History: Coronary Artery Disease (CAD), GERD/Reflux, Myocardial Infarction ([place]) Medications and Allergies Home Medications Medication Instructions Recorded Confirmed Type Levothyroxine Sodium [Synthroid] 75 mcg PO MOTUWETHFRSA@0700 04/22/18 03/01/23 History Simethicone [Simethicone Chew] 80 mg PO DAILY@0800 04/22/18 03/01/23 History Cholecalciferol [Vitamin D3 (25 50 mcg PO DAILY@1200 10/27/21 03/01/23 History Mcg = 1000 Iu)] Pantoprazole Sodium [Protonix] 40 mg PO DAILY@0700 10/27/21 03/01/23 History Pravastatin Sodium [Pravachol] 20 mg PO DAILY@1700 10/27/21 03/01/23 History Levothyroxine Sodium [Synthroid] 37.5 mg PO VELAZQUEZ@0700 10/02/22 03/01/23 History Magnesium Gluconate [Magonate] 500 mg PO HS@2100 10/02/22 03/01/23 History Megestrol Acetate 400 mg PO BID@0800,1700 10/02/22 03/01/23 History Acetaminophen [Tylenol Arthritis] 650 mg PO Q4H PRN 03/01/23 03/01/23 History Amiodarone [Cordarone] 100 mg PO DAILY@0800 03/01/23 03/01/23 History Apixaban [Eliquis] 2.5 mg PO BID@0800,209903/01/23 03/01/23 History Calcium Carbonate 500 mg PO TID@0700,1100,1630 03/01/23 03/01/23 History Ensure Clear 120 ml PO BID@0800,1700 03/01/23 03/01/23 History Escitalopram [Lexapro] 10 mg PO HS@209903/01/23 03/01/23 History Furosemide [Lasix] 20 mg PO DAILY@17003/01/23 03/01/23 History Ipratropium-Albuterol Nebulize 3 ml INHALATION RT-Q6H PRN 03/01/23 03/01/23 History [Duoneb 0.5 mg-3 mg/3 ml Soln] Magic Cup 1 cap PO BID@1200,1700 03/01/23 03/01/23 History Magnesium Hydroxide [Milk of 7,200 mg PO DAILY PRN 03/01/23 03/01/23 History Magnesia Concentrate] Multivitamins, Thera [Multivitamin 1 tab PO DAILY@1200 03/01/23 03/01/23 History (formulary)] Na Phos,M-B/Na Phos,Di-Ba [Fleet 133 ml RECTAL DAILY PRN 03/01/23 03/01/23 History Adult] Phenyleph/Pramoxin/Glycr/W.pet 1 applic RECTAL BID PRN 03/01/23 03/01/23 History [Preparation H Cream] Psyllium Husk [Metamucil] 0.4 gm PO DAILY@0800 03/01/23 03/01/23 History Sennosides/Docusate Sodium [Senna 1 cap PO HS@2130 03/01/23 03/01/23 History Plus 8.6-50 mg Softgel] bisacodyL [Dulcolax] 10 mg RECTAL DAILY PRN 03/01/23 03/01/23 History Allergies Allergy/AdvReac Type Severity Reaction Status Date / Time magnesium oxide Allergy Rash/Hives Verified 03/01/23 14:30 Physical Exam Vitals: Vital Signs Temp Pulse Pulse Resp BP BP Pulse Ox 03/02/23 07:52 98.3 F 73 18 105/63 94 L 03/02/23 06:00 74 16 122/61 95 03/02/23 03:00 76 15 117/63 96 03/02/23 02:00 79 18 107/66 95 03/02/23 01:00 84 16 121/64 95 03/01/23 23:00 77 21 119/64 95 03/01/23 19:19 98.6 F 84 20 126/71 94 L 03/01/23 12:15 90 28 H 145/55 94 L 03/01/23 09:41 97.8 F 93 20 123/67 91 L Results 03/01/23 09:49 03/02/23 05:46 Cardiac Enzymes 03/01/23 03/01/23 Range/Units 09:49 09:49 AST 24 (14-36) U/L Troponin I <0.012 (0.000-0.034) ng/mL Coagulation 03/01/23 Range/Units 09:49 PT 13.4 H (9.0-12.0) sec APTT 25.0 (22.0-30.0) sec CBC 03/01/23 Range/Units 09:49 WBC 4.7 (3.8-10.6) k/uL RBC 3.89 (3.80-5.40) m/uL Hgb 11.9 (11.4-16.0) gm/dL Hct 37.7 (34.0-46.0) % Plt Count 238 (150-450) k/uL Comprehensive Metabolic Panel 03/01/23 03/02/23 Range/Units 09:49 05:46 Sodium 141 139 (137-145) mmol/L Potassium 3.2 L 4.0 (3.5-5.1) mmol/L Chloride 107 107 (98-107) mmol/L Carbon Dioxide 20 L 23 (22-30) mmol/L BUN 25 H 25 H (7-17) mg/dL Creatinine 0.74 0.69 (0.52-1.04) mg/dL Glucose 196 H 100 H (74-99) mg/dL Calcium 8.7 8.8 (8.4-10.2) mg/dL AST 24 (14-36) U/L ALT 24 (4-34) U/L Alkaline Phosphatase 71 (38-126) U/L Total Protein 6.4 (6.3-8.2) g/dL Albumin 3.3 L (3.5-5.0) g/dL Current Medications Generic Name Dose Route Start Last Admin Trade Name Freq PRN Reason Stop Dose Admin Acetaminophen 650 mg 03/01/23 11:22 Acetaminophen Tab 325 Mg Tab PO Q6HR PRN Mild Pain or Fever > 100.5 Albuterol/Ipratropium 3 ml 03/01/23 19:21 Ipratropium-Albuterol 3 Ml Neb INHALATION RT-Q6H PRN Shortness Of Breath Amiodarone HCl 100 mg 03/02/23 08:00 Amiodarone 100 Mg Tab PO DAILY@0800 [facility] Escitalopram Oxalate 10 mg 03/01/23 21:00 03/01/23 20:20 Escitalopram 10 Mg Tab PO 10 mg HS@2100 [facility] Administration Furosemide 40 mg 03/01/23 21:00 03/01/23 20:19 Furosemide 10 Mg/Ml 4 Ml Vial IV 40 mg Q12HR [facility] Administration Levothyroxine Sodium 37.5 mcg 03/08/23 07:00 Levothyroxine 75 Mcg Tab PO VELAZQUEZ@0700 [facility] Levothyroxine Sodium 75 mcg 03/02/23 07:00 Levothyroxine 75 Mcg Tab PO MOTUWETHFRSA@0700 [facility] Magnesium Hydroxide 2,400 mg 03/01/23 19:21 Magnesium Hydroxide 2,400 Mg/10 Ml Cup PO DAILY PRN Constipation Megestrol Acetate 400 mg 03/02/23 08:00 Megestrol 400 Mg/10 Ml Cup PO BID@0800,1700 [facility] Multivitamins 1 each 03/02/23 12:00 Multivitamins, Thera 1 Each Tab PO DAILY@1200 [facility] Naloxone HCl 0.2 mg 03/01/23 11:22 Naloxone 0.4 Mg/Ml 1 Ml Vial IV Q2M PRN Opioid Reversal Magnesium Gluconate 500 mg 03/01/23 21:00 03/01/23 20:23 500 Mg Tab PO Not Given HS@2100 [facility] Pravastatin Sodium 20 mg 03/02/23 17:00 Pravastatin Sodium 20 Mg Tab PO DAILY@1700 [facility] Senna/Docusate Sodium 1 each 03/01/23 21:30 03/01/23 20:20 Sennosides-Docusate Sodium 1 Each Tab PO 1 each HS@2130 [facility] Administration Simethicone 80 mg 03/02/23 08:00 Simethicone 80 Mg Chewable PO DAILY@0800 [facility] 03/01/23 09:49 03/02/23 05:46
--- NOTE | 2023-03-02 12:09 | XR ---
EXAMINATION TYPE: XR chest 2V DATE OF EXAM: 03/02/2023 COMPARISON: 03/01/2023 INDICATION: Short of breath TECHNIQUE: Frontal and lateral views of the chest are obtained. FINDINGS: The heart size is normal. The pulmonary vasculature is somewhat prominent. There is increased AP diameter compatible with COPD.. IMPRESSION: 1. Probably from mild volume overload. 2. Senile Emphysematous changes present.
--- NOTE | 2023-03-02 13:59 | US ---
EXAMINATION TYPE: US venous doppler duplex LE DATE OF EXAM: 03/02/2023 1:30 PM COMPARISON: [facility] 12/25/21 CLINICAL INDICATION: Female, 87 years old with history of bilateral leg pain, shortness of breath; Le g pain, shortness of breath. Patient has hx of vein stripping. SIDE PERFORMED: Bilateral TECHNIQUE: The lower extremity deep venous system is examined utilizing real time linear array sonog carlie with graded compression, doppler sonography and color-flow sonography. VESSELS IMAGED: Common Femoral Vein Deep Femoral Vein Greater Saphenous Vein * -only small segment of GSV was seen, hx of stripping Femoral Vein Popliteal Vein Small Saphenous Vein * Proximal Calf Veins (* superficial vessels) Right Leg: No evidence of DVT. Left Leg: No evidence of DVT. IMPRESSION: 1. Bilateral lower extremity ultrasound negative for deep venous thrombosis.
[2023-03-02] MEDS: PRAVASTATIN SODIUM 20 MG TAB PO SCH (15:49)
[2023-03-02] MEDS: FUROSEMIDE 20 MG TAB PO SCH (15:49)
[2023-03-02] MEDS: SENNOSIDES-DOCUSATE SODIUM 1 EACH TAB PO SCH (22:06)
[2023-03-02] MEDS: ESCITALOPRAM 10 MG TAB PO SCH (22:06)
[2023-03-02] MEDS: APIXABAN 2.5 MG TABLET PO SCH (22:06)
[2023-03-03] MEDS: LEVOTHYROXINE 75 MCG TAB PO SCH (06:46)
[2023-03-03] MEDS: APIXABAN 2.5 MG TABLET PO SCH ×2 (08:14→21:40)
[2023-03-03] MEDS: AMIODARONE 100 MG TAB PO SCH (08:14)
[2023-03-03] MEDS: SIMETHICONE 80 MG CHEWABLE PO SCH (08:14)
[2023-03-03] MEDS: FUROSEMIDE 20 MG TAB PO SCH ×2 (08:14→16:07)
[2023-03-03] MEDS: MEGESTROL 400 MG/10 ML CUP PO SCH ×2 (08:14→16:07)
--- NOTE | 2023-03-03 10:24 | P.PN ---
Subjective Progress Note Date: 03/03/23 HISTORY OF PRESENT ILLNESS: This is a 87-year-old female with a past medical history significant for paroxysmal atrial fibrillation with previous cardioversion, congestive heart failure, typical atrial flutter, hypertension, hyperlipidemia, hypothyroidism, GERD, and valvular heart disease. Patient follows in the office with Dr. Cruz. We have been asked to see the patient in consultation for congestive heart failure. Patient examined at the bedside. Patient was brought to the hospital from [facility] secondary to hypoxia and increased lower extremity edema. The patient was found to be in acute CHF and was started on IV Lasix. This morning, the patient denies any chest pain or pressure. She denies any shortness of breath. She remains on IV Lasix. Vital signs are stable. Her lower extremity edema has improved. * EKG reveals sinus mechanism with no signs of acute ischemia * Chest xray mild vascular prominence with bibasilar infiltrates. Correlate for volume overload and mild pulmonary edema. Atelectasis could be considered. * Laboratory data: WBC 4.7. Hemoglobin 11.9. Platelet count 238. Sodium 139. Potassium 4.0. B UN 25. Creatinine 0.69. Troponin negative 1. ProBNP 1010. * Current home cardiac medications include Eliquis 2.5 mg twice a day, amiodaro ne 100 mg daily, Lasix 20 mg daily, pravastatin 20 mg daily * Most recent echocardiogram obtained in September 2022 revealed ejection fraction 55% with moderate mitral regurgitation * Cardiac catheterization history: September 2015 revealing normal coronary arteries * Patient underwent Lexiscan stress test in 2018 which was negative for ischemia 03/03/2023 Patient examined this morning at the bedside. Patient denies chest pain or pressure. She denies shortness of breath. She is tolerating oral diet. She is to be reevaluated by speech therapy today. Vital signs are stable. Venous Doppler was completed which was negative for DVT. 2-D echo is currently pending. PHYSICAL EXAM: VITAL SIGNS: Reviewed. GENERAL: Well-developed in no acute distress. HEENT: Head is normocephalic. Pupils are equal, round. Sclerae anicteric. Mucous membranes of the mouth are moist. Neck supple. No JVD or thyromegaly LUNGS: Respirations even and unlabored. Lungs essentially clear to auscultation bilaterally. HEART: Regular rate and rhythm. S1 and S2 heard. Systolic murmur noted ABDOMEN: Soft. Nondistended. Nontender. EXTREMITIES: Normal range of motion. No clubbing or cyanosis. Peripheral pulses intact. Trace bilateral lower extremity edema NEUROLOGIC: Awake and alert. Oriented x 3. ASSESSMENT: Shortness of breath Acute hypoxic respiratory failure Acute on chronic heart failure with preserved ejection fraction, 55% Valvular heart disease including moderate mitral regurgitation Normal coronary arteries, per cardiac catheterization in 2014 Paroxysmal atrial fibrillation with previous cardioversion History of typical atrial flutter Hypertension Hyperlipidemia Hypothyroidism GERD PLAN: Continue oral Lasix Accurate I&O, daily weights, and monitoring of kidney function Continue additional cardiac medications Stable from a cardiac standpoint for discharge today We will sign off. Please reconsult if needed. Nurse practitioner note has been reviewed by physician. Signing provider agrees with the documented findings, assessment, and plan of care. Objective - Vital Signs Vital signs: Vital Signs Temp 97.4 F L 03/03/23 08:00 Pulse 74 03/03/23 08:00 Resp 16 03/03/23 08:00 BP 110/62 03/03/23 08:00 Pulse Ox 97 03/03/23 08:00 FiO2 Intake & Output 03/02/23 03/03/23 03/03/23 18:59 06:59 18:59 Intake Total 236 10 Output Total 450 Balance -214 10 Intake: IV 10 Invasive Line 1 10 Oral 236 Output: Urine 450 Other: Voiding Method External Catheter External Catheter # Bowel Movements 1 - Labs CBC & Chem 7: 03/03/23 10:08 03/03/23 10:08 Labs: Abnormal Lab Results - Last 24 Hours (Table) 03/02/23 Range/Units 18:58 Procalcitonin 0.19 H (0.02-0.09) ng/mL
[2023-03-03 10:35] LABS: Basophils % (A) 1 %; Eosinophils # (A) 0.2 k/uL (0-0.7); Eosinophils % (A) 3 %; HCT 35.7 % (34.0-46.0); HGB 11.4 gm/dL (11.4-16.0); Lymphocytes # (A) 0.6 k/uL (1.0-4.8); Lymphocytes % (A) 14 %; MCH 31.6 pg (25.0-35.0); MCV 98.8 fL (80.0-100.0); Macrocytosis Slight; Mean Platelet Volume 6.9; Monocytes # (A) 0.3 k/uL (0-1.0); Monocytes % (A) 8 %; Neutrophils # (A) 3.2 k/uL (1.3-7.7); Neutrophils % (A) 72 %; Platelet Count 255 k/uL (150-450); Poikilocytosis Slight; RBC 3.61 m/uL (3.80-5.40); RDW 15.8 % (11.5-15.5); WBC 4.4 k/uL (3.8-10.6)
[2023-03-03 10:45] LABS: Total Bilirubin 0.8 mg/dL (0.2-1.3)
[2023-03-03 10:46] LABS: Calcium 8.9 mg/dL (8.4-10.2); Potassium 3.7 mmol/L (3.5-5.1)
--- NOTE | 2023-03-03 11:54 | CA ---
Transthoracic Echo Report Name: Nancy Grady Age: 87 Gender: F : 1935 Exam Date: 03/03/2023 09:26 Exam Location: [facility] Ht (in): 62 Wt (lb): 134 Ordering Physician: Ivy Caruso Attending/Referring Phys: [id number], [employer] Richard Calderón Procedure CPT: Indications: LV function, CHF Cardiac Hx: Technical Quality: Fair Contrast 1: Total Dose (mL): Contrast 2: Total Dose (mL): MEASUREMENTS (Male / Female) Normal Values 2D ECHO LV Diastolic Diameter PLAX 3.7 cm 4.2 - 5.9 / 3.9 - 5.3 cm LV Systolic Diameter PLAX 2.3 cm IVS Diastolic Thickness 1.2 cm 0.6 - 1.0 / 0.6 - 0.9 cm LVPW Diastolic Thickness 1.0 cm 0.6 - 1.0 / 0.6 - 0.9 cm LV Relative Wall Thickness 0.6 RV Internal Dim ED PLAX 3.0 cm LVOT Diameter 1.8 cm Aortic Root Diameter 2.9 cm LA Systolic Diameter LX 3.6 cm 3.0 - 4.0 / 2.7 - 3.8 cm LV Diastolic Volume MOD BP 32.8 cm??? 67 - 155 / 56 - 104 cm??? LV Systolic Volume MOD BP 10.8 cm??? 22 - 58 / 19 - 49 cm??? LV Ejection Fraction MOD BP 67.2 % >= 55 % LV Stroke Volume MOD BP 22.1 cm??? LV Diastolic Volume MOD 4C 36.9 cm??? LV Systolic Volume MOD 4C 11.7 cm??? LV Ejection Fraction MOD 4C 68.4 % LV Diastolic Length 4C 6.5 cm LV Systolic Length 4C 5.0 cm LV Diastolic Volume MOD 2C 24.5 cm??? LV Systolic Volume MOD 2C 9.1 cm??? LV Ejection Fraction MOD 2C 62.6 % LV Diastolic Length 2C 5.4 cm LV Systolic Length 2C 4.6 cm DOPPLER AV Peak Velocity 133.1 cm/s AV Peak Gradient 7.1 mmHg AI Peak Velocity 367.0 cm/s AI Peak Gradient 53.9 mmHg AI Pressure Half Time 676.8 ms MR Peak Velocity 509.3 cm/s MR Peak Gradient 103.8 mmHg Mitral E Point Velocity 89.6 cm/s Mitral A Point Velocity 104.2 cm/s Mitral E to A Ratio 0.9 MV Deceleration Time 301.0 ms MV E' Velocity 4.2 cm/s Mitral E to MV E' Ratio 21.6 TR Peak Velocity 201.2 cm/s TR Peak Gradient 16.2 mmHg Right Ventricular Systolic Press 21.5 mmHg FINDINGS Left Ventricle Left ventricular ejection fraction is estimated at 55-60 %. Small left ventricular cavity. Mildly increased septal wall thickness. Mildly increased posterior wall thickness. Right Ventricle Normal right ventricular size and function. Right ventricular systolic pressure within normal limits. Right Atrium Normal right atrial size. Left Atrium Severe left atrial dilatation. Mitral Valve Mitral valve thickened. Moderate mitral annular calcification. Moderate mitral regurgitation. Aortic Valve Trileaflet aortic valve. Aortic valve sclerosis. Moderate aortic regurgitation. Tricuspid Valve Structurally normal tricuspid valve. Mild tricuspid regurgitation. Pulmonic Valve Pulmonic valve not well visualized. [id number] pulmonic regurgitation. Pericardium Normal pericardium. Aorta Normal size aortic root and proximal ascending aorta. CONCLUSIONS Normal left frontal size and systolic function with mild concentric LVH. Aortic valve sclerosis no significant restriction mild to moderate aortic regurgitation. Mitral annular calcification with moderate mitral regurgitation. Tricuspid regurgitation mild. No pericardial effusion. No significant pulmonary hypertension Previewed by: Dr. Torrie Salgado MD (Electronically Signed) Final Date: 03 Mar 2023 11:54
[2023-03-03] MEDS: MULTIVITAMINS, THERA 1 EACH TAB PO SCH (13:37)
[2023-03-03] MEDS: PRAVASTATIN SODIUM 20 MG TAB PO SCH (16:07)
--- NOTE | 2023-03-03 16:53 | P.PN ---
Subjective Progress Note Date: 03/03/23 Nancy Grady is an 87-year-old female resident of [facility] who presented to [facility] emergency room with a chief complaint of worsening shortness of breath, she was evaluated in the emergency room and admitted to telemetry floor, preliminary diagnosis was acute congestive heart failure exacerbation. She was given IV Lasix, she improved since yesterday On 03/02/2023 patient was seen and examined on the telemetry floor she is alert and oriented 3 in no apparent distress she is resting in bed and does not have any significant shortness of breath at rest, she is maintained on room air and her O2 sat duration is 92%. Family at the bedside is concerned regarding possible aspiration pneumonia, and asking for antibiotic treatment. They stated that her symptoms started after breakfast when patient started having an episode of cough and shortness of breath and wheezing. At this time there is no fever white blood count is normal and chest x-ray does not reveal any clear evidence of pneumonia. Will recheck CBC, recheck chest x-ray PA and lateral, check pro-calcitonin, and monitor closely for any need for antibiotic. Also patient is complaining of bilateral lower extremity pain, will check d-dimer and bilateral lower extremity Doppler. Family at the bedside, case was discussed with them in detail. On 04/03/2023 patient was seen and examined on the telemetry floor she is alert and oriented 3 in no apparent distress, there is no fever or chills no headache or dizziness no chest pain no shortness of breath no cough no nausea or vomiting no abdominal pain no diarrhea no blood in the stools, no burning with urination no frequency or urgency and no hematuria. Patient is stable, multiple testing results including lab tests, echocardiogram, bilateral lower extremity Doppler, were discussed with family in detail, patient will be switched to oral Lasix today, possible transfer to [facility] tomorrow if stable. Objective - Vital Signs Vital signs: Vital Signs Temp 98.5 F 03/03/23 16:00 Pulse 79 03/03/23 16:00 Resp 20 03/03/23 16:00 BP 112/67 03/03/23 16:00 Pulse Ox 95 03/03/23 16:00 FiO2 Intake & Output 03/02/23 03/03/23 03/03/23 18:59 06:59 18:59 Intake Total 236 10 3 Output Total 450 750 Balance -214 Intake: IV 10 3 Invasive Line 1 10 3 Oral 236 Output: Urine 450 750 Other: Voiding Method External Catheter External Catheter External Catheter # Bowel Movements 1 - Exam In general patient is alert and oriented x 3 in no distress HEENT head normocephalic and atraumatic Neck is supple no JVD no goiter no lymphadenopathy no carotid bruit Chest examination is clear to auscultation no crackles no wheezing Cardiac exam reveals regular heart sounds S1 and S2 no gallops no murmurs Abdomen is soft nontender no organomegaly with normal bowel sounds Extremity exam reveals no edema no cyanosis or clubbing Neurological examination reveals no gross focal deficits - Labs CBC & Chem 7: 03/03/23 10:08 03/03/23 10:08 Labs: Abnormal Lab Results - Last 24 Hours (Table) 03/02/23 03/03/23 03/03/23 Range/Units 18:58 10:08 10:08 RBC 3.61 L (3.80-5.40) m/uL RDW 15.8 H (11.5-15.5) % Lymphocytes # 0.6 L (1.0-4.8) k/uL BUN 30 H (7-17) mg/dL Glucose 129 H (74-99) mg/dL Total Protein 6.0 L (6.3-8.2) g/dL Albumin 3.0 L (3.5-5.0) g/dL Procalcitonin 0.19 H (0.02-0.09) ng/mL Assessment and Plan Plan: Acute exacerbation CHF Mild AK I Hyperglycemia without acidosis Electrolyte imbalance/hypokalemia History of hypothyroidism History of hyperlipidemia Hypertension Diabetes mellitus - Patient has been placed on IV Lasix 40 mg every 12 hours; we will monitor strict BERNA's, daily weights, renal function and electrolytes; Avoid nephrotoxins and hypotension - We will consult renal ultrasound failed function continues to worsen - Monitor and trend troponin, order 2-D echo; cardiology is consulted Check d-dimer and bilateral lower extremity Doppler to rule out DVT Repeat chest x-ray PA and lateral Start incentive spirometry Check swallow evaluation Will follow closely
[2023-03-03] MEDS: SENNOSIDES-DOCUSATE SODIUM 1 EACH TAB PO SCH (21:40)
[2023-03-03] MEDS: ESCITALOPRAM 10 MG TAB PO SCH (21:40)
[2023-03-04] MEDS: LEVOTHYROXINE 75 MCG TAB PO SCH (06:21)
[2023-03-04 07:44] LABS: Basophils % (A) 1 %; Eosinophils # (A) 0.1 k/uL (0-0.7); Eosinophils % (A) 3 %; HGB 11.2 gm/dL (11.4-16.0); Hypochromasia Slight; Lymphocytes # (A) 0.7 k/uL (1.0-4.8); Lymphocytes % (A) 17 %; MCH 31.7 pg (25.0-35.0); MCHC 32.1 g/dL (31.0-37.0); MCV 98.7 fL (80.0-100.0); Macrocytosis Slight; Mean Platelet Volume 6.9; Monocytes # (A) 0.3 k/uL (0-1.0); Monocytes % (A) 7 %; Neutrophils # (A) 2.7 k/uL (1.3-7.7); Neutrophils % (A) 68 %; Platelet Count 249 k/uL (150-450); Poikilocytosis Slight; RBC 3.54 m/uL (3.80-5.40); RDW 15.6 % (11.5-15.5); WBC 3.9 k/uL (3.8-10.6)
[2023-03-04 08:09] LABS: Calcium 8.9 mg/dL (8.4-10.2); Magnesium 1.8 mg/dL (1.6-2.3); Potassium 4.2 mmol/L (3.5-5.1)
[2023-03-04] MEDS: FUROSEMIDE 20 MG TAB PO SCH (08:22)
[2023-03-04] MEDS ORDERED: FUROSEMIDE 10 MG/ML 2 ML VIAL IV STA (08:27)
[2023-03-04] MEDS: SIMETHICONE 80 MG CHEWABLE PO SCH (09:18)
[2023-03-04] MEDS: MEGESTROL 400 MG/10 ML CUP PO SCH (09:18)
[2023-03-04] MEDS: APIXABAN 2.5 MG TABLET PO SCH (09:18)
[2023-03-04] MEDS: AMIODARONE 100 MG TAB PO SCH (09:18)
[2023-03-04 10:27] VITALS: TEMP 97.9
[2023-03-04] MEDS: MULTIVITAMINS, THERA 1 EACH TAB PO SCH (11:49)
--- NOTE | 2023-03-04 11:54 | P.DS ---
Providers Date of admission: 03/01/23 11:22 Expected date of discharge: 03/04/23 Attending physician: Isabel Souza Primary care physician: Isabel Souza [facility] Course: Discharge diagnosis Acute exacerbation CHF Mild AK I Hyperglycemia without acidosis Electrolyte imbalance/hypokalemia History of hypothyroidism History of hyperlipidemia Hypertension Diabetes mellitus D-dimer negative Venous Doppler negative Repeat chest x-ray showing probably from mild volume overload. Emphysematous changes present Hospital course Nancy Grady is an 87-year-old female resident of [facility] who presented to [facility] emergency room with a chief complaint of worsening shortness of breath, she was evaluated in the emergency room and admitted to telemetry floor, preliminary diagnosis was acute congestive heart failure exacerbation. She was given IV Lasix, she improved since yesterday On 03/02/2023 patient was seen and examined on the telemetry floor she is alert and oriented 3 in no apparent distress she is resting in bed and does not have any significant shortness of breath at rest, she is maintained on room air and her O2 sat duration is 92%. Family at the bedside is concerned regarding possible aspiration pneumonia, and asking for antibiotic treatment. They stated that her symptoms started after breakfast when patient started having an episode of cough and shortness of breath and wheezing. At this time there is no fever white blood count is normal and chest x-ray does not reveal any clear evidence of pneumonia. Will recheck CBC, recheck chest x-ray PA and lateral, check pro- calcitonin, and monitor closely for any need for antibiotic. Also patient is complaining of bilateral lower extremity pain, will check d-dimer and bilateral lower extremity Doppler. Family at the bedside, case was discussed with them in detail. On 04/03/2023 patient was seen and examined on the telemetry floor she is alert and oriented 3 in no apparent distress, there is no fever or chills no headache or dizziness no chest pain no shortness of breath no cough no nausea or vomiting no abdominal pain no diarrhea no blood in the stools, no burning with urination no frequency or urgency and no hematuria. Patient is stable, multiple testing results including lab tests, echocardiogram, bilateral lower extremity Doppler, were discussed with family in detail, patient will be switched to oral Lasix today, possible transfer to [facility] tomorrow if stable. On 03/04/2023 patient is alert and oriented 3. Family at bedside. Discussed case with cardiology nurse practitioner cleared for discharge from cardiology standpoint patient medical increased dose of 20 twice a day. We'll also send patient on potassium 10 mEq recheck labs in 2 days. all questions answered Patient Condition at Discharge: Stable Plan - Discharge Summary New Discharge Prescriptions: New Acetaminophen Tab [Tylenol] 650 mg PO Q6HR PRN tab PRN Reason: Mild Pain Or Fever > 100.5 Potassium Chloride ER [K-Dur 10] 10 meq PO DAILY tab Furosemide [Lasix] 20 mg PO BID@0900,1600 tab Continue Levothyroxine Sodium [Synthroid] 75 mcg PO MOTUWETHFRSA@0700 Simethicone [Simethicone Chew] 80 mg PO DAILY@0800 Pravastatin Sodium [Pravachol] 20 mg PO DAILY@1700 Pantoprazole Sodium [Protonix] 40 mg PO DAILY@0700 Levothyroxine Sodium [Synthroid] 37.5 mg PO VELAZQUEZ@0700 bisacodyL [Dulcolax] 10 mg RECTAL DAILY PRN PRN Reason: Constipation Na Phos,M-B/Na Phos,Di-Ba [Fleet Adult] 133 ml RECTAL DAILY PRN PRN Reason: Constipation Calcium Carbonate 500 mg PO TID@0700,1100,1630 Magic Cup 1 cap PO BID@1200,1700 Ensure Clear 120 ml PO BID@0800,1700 Sennosides/Docusate Sodium [Senna Plus 8.6-50 mg Softgel] 1 cap PO HS@2130 Psyllium Husk [Metamucil] 0.4 gm PO DAILY@0800 Escitalopram [Lexapro] 10 mg PO HS@2100 Amiodarone [Cordarone] 100 mg PO DAILY@0800 Phenyleph/Pramoxin/Glycr/W.pet [Preparation H Cream] 1 applic RECTAL BID PRN PRN Reason: Pain Cholecalciferol [Vitamin D3 (25 Mcg = 1000 Iu)] 50 mcg PO DAILY@1200 Magnesium Gluconate [Magonate] 500 mg PO HS@2100 Megestrol Acetate 400 mg PO BID@0800,1700 Magnesium Hydroxide [Milk of Magnesia Concentrate] 7,200 mg PO DAILY PRN PRN Reason: Constipation Ipratropium-Albuterol Nebulize [Duoneb 0.5 mg-3 mg/3 ml Soln] 3 ml INHALATION RT-Q6H PRN PRN Reason: Shortness Of Breath Acetaminophen [Tylenol Arthritis] 650 mg PO Q4H PRN PRN Reason: Pain Apixaban [Eliquis] 2.5 mg PO BID@0800,2100 Multivitamins, Thera [Multivitamin (formulary)] 1 tab PO DAILY@1200 Discontinued Furosemide [Lasix] 20 mg PO DAILY@1700 Discharge Medication List Levothyroxine Sodium [Synthroid] 75 mcg PO MOTUWETHFRSA@0704/22/18 [History] Simethicone [Simethicone Chew] 80 mg PO DAILY@0804/22/18 [History] Cholecalciferol [Vitamin D3 (25 Mcg = 1000 Iu)] 50 mcg PO DAILY@1200 10/27/21 [History] Pantoprazole Sodium [Protonix] 40 mg PO DAILY@0710/27/21 [History] Pravastatin Sodium [Pravachol] 20 mg PO DAILY@17010/27/21 [History] Levothyroxine Sodium [Synthroid] 37.5 mg PO VELAZQUEZ@0710/02/22 [History] Magnesium Gluconate [Magonate] 500 mg PO HS@209910/02/22 [History] Megestrol Acetate 400 mg PO BID@0800,17010/02/22 [History] Acetaminophen [Tylenol Arthritis] 650 mg PO Q4H PRN 03/01/23 [History] Amiodarone [Cordarone] 100 mg PO DAILY@0803/01/23 [History] Apixaban [Eliquis] 2.5 mg PO BID@0800,209903/01/23 [History] Calcium Carbonate 500 mg PO TID@0700,1100,1630 03/01/23 [History] Ensure Clear 120 ml PO BID@0800,1700 03/01/23 [History] Escitalopram [Lexapro] 10 mg PO HS@209903/01/23 [History] Ipratropium-Albuterol Nebulize [Duoneb 0.5 mg-3 mg/3 ml Soln] 3 ml INHALATION RT-Q6H PRN 03/01/23 [History] Magic Cup 1 cap PO BID@1200,1700 03/01/23 [History] Magnesium Hydroxide [Milk of Magnesia Concentrate] 7,200 mg PO DAILY PRN 03/01/23 [History] Multivitamins, Thera [Multivitamin (formulary)] 1 tab PO DAILY@1200 03/01/23 [History] Na Phos,M-B/Na Phos,Di-Ba [Fleet Adult] 133 ml RECTAL DAILY PRN 03/01/23 [History] Phenyleph/Pramoxin/Glycr/W.pet [Preparation H Cream] 1 applic RECTAL BID PRN 03/01/23 [History] Psyllium Husk [Metamucil] 0.4 gm PO DAILY@0800 03/01/23 [History] Sennosides/Docusate Sodium [Senna Plus 8.6-50 mg Softgel] 1 cap PO HS@2130 03/01/23 [History] bisacodyL [Dulcolax] 10 mg RECTAL DAILY PRN 03/01/23 [History] Acetaminophen Tab [Tylenol] 650 mg PO Q6HR PRN tab 03/04/23 [Rx] Furosemide [Lasix] 20 mg PO BID@0900,1600 tab 03/04/23 [Rx] Potassium Chloride ER [K-Dur 10] 10 meq PO DAILY tab 03/04/23 [Rx] Follow up Appointment(s)/Referral(s): Isabel Souza MD [Primary Care Provider] - 1-2 days Activity/Diet/Wound Care/Special Instructions: Activity as tolerated Diet heart healthy Please check CMP in 2 days Discharge Disposition: TRANSFER TO SNF/ECF
[2023-03-04 12:42] VITALS: BP 108/63; PULSE 78; RESP 18
[2023-03-05] MEDS ORDERED: POTASSIUM CHLORIDE ER 10 MEQ TAB.ER.PRT PO SCH (09:00)
[2023-03-08] MEDS ORDERED: LEVOTHYROXINE 75 MCG TAB PO SCH (07:00)
== END 2023-03-04 14:00 | DRG 291 ==
LOC: EC 09:30 → 3SCARD 11:22
PROVIDERS: ADMIT Internal Medicine; ATTEND Internal Medicine
DX: I11.0 Hypertensive heart disease with heart failure (principal); I50.33 Acute on chronic diastolic (congestive) heart failure; J96.01 Acute respiratory failure with hypoxia; E87.20 Acidosis, unspecified; I48.4 Atypical atrial flutter; N17.9 Acute kidney failure, unspecified; I48.0 Paroxysmal atrial fibrillation; E87.8 Other disorders of electrolyte and fluid balance, not elsewhere classified; I83.90 Asymptomatic varicose veins of unspecified lower extremity; I34.0 Nonrheumatic mitral (valve) insufficiency; E03.9 Hypothyroidism, unspecified; E87.6 Hypokalemia; M19.041 Primary osteoarthritis, right hand; M19.042 Primary osteoarthritis, left hand; E78.5 Hyperlipidemia, unspecified; K57.10 Diverticulosis of small intestine without perforation or abscess without bleeding; E11.65 Type 2 diabetes mellitus with hyperglycemia; K21.9 Gastro-esophageal reflux disease without esophagitis; Z79.01 Long term (current) use of anticoagulants; Z79.890 Hormone replacement therapy; Z79.899 Other long term (current) drug therapy; Z82.49 Family history of ischemic heart disease and other diseases of the circulatory system; Z90.13 Acquired absence of bilateral breasts and nipples
CPT/HCPCS: 36415; 71046; 80048; 80053; 83735; 83880; 84145; 84484; 85025; 85379; 85610; 85730; 87635; 93005; 93306; 93970; 94760; 96374; 96376; 99285